=== PATIENT | female | born 1985 | race Caucasian/White ===

== ENCOUNTER 2021-12-09 08:45 | Inpatient (IN) | payer OTHER, SELFPAY ==
[2021-12-09] VITALS (34 sets, daily range): BP systolic 99–129; BP diastolic 46–87; PULSE 80–102; RESP 13–29; TEMP 36.1–37.2; O2SAT 97–100; BMI 33.5
--- NOTE | ~2021-12-09 | US_ITS ---
US abdomen complete EXAMINATION: US Abdomen Complete INDICATION: Right upper quadrant pain. PROCEDURE: Realtime High Resolution abdomen ultrasound. COMPARISON: No prior studies for comparison FINDINGS: There are gallstones with contracted gallbladder. There is gallbladder wall thickening. Co mmon bile duct measures 3 mm. Liver echotexture is increased near the falciform ligament, consistent with focal fatty infiltration. No hepatic masses are seen.. Pancreas within normal limits. Pancreatic tail is obscured by bowel g as. Spleen is unremarkeable. Renal echotexture is within normal limits bilaterally without hydroneph rosis, contour deforming mass or renal stone. Right kidney measures 1.3 cm. Left kidney measures 1.2 cm. Visualized aspects of the aorta and IVC are within normal limits. Portal vein is patent. Positive son ographic Rendon's sign indicated by the technologist. IMPRESSION: 1: Cholelithiasis with mild gallbladder wall thickening and positive sonographic Rendon's sign. This constellation of findings is suspicious for cholecystitis. Reviewed, dictated and finalized at location B. IMPRESSION: 1: Cholelithiasis with mild gallbladder wall thickening and positive sonographi c Rendon's sign. This constellation of findings is suspicious for cholecystitis .
--- NOTE | ~2021-12-09 | XR_ITS ---
EXAMINATION: [id number] DATE: 12/11/2021 08:55 INDICATION: Right rib pain TECHNIQUE: A frontal inspiratory view of the chest and 3 views of the right ribs were obtained. COMPARISON: Chest radiograph dated 12/02/2017 FINDINGS: No rib fractures identified. Mild elevation the right hemidiaphragm. No focal airspace opacities, pul monary edema, pleural effusion or pneumothorax. Cardiomediastinal silhouette is normal. Slight S-shap ed curvature of the thoracolumbar spine. IMPRESSION: 1. No rib fracture or acute cardiopulmonary disease. Reviewed, dictated and finalized at location A.
--- NOTE | ~2021-12-09 | US_ITS ---
EXAMINATION: US pelvic complete DATE: 12/10/2021 16:43 INDICATION: Pelvic pain. TECHNIQUE: Multiple transabdominal sonographic images of the pelvis were obtained. COMPARISON: CT abdomen and pelvis 12/09/2021 FINDINGS: The uterus measures 9.8 x 4.8 x 5.8 cm. There is physiologic free fluid in the pelvis. The endometria l complex measures 3 mm in thickness. The right ovary measures 3.2 x 2.0 x 2.6 cm. The left ovary dre sures 2.7 x 1.5 x 1.9 cm. There is normal vascular flow in the ovaries. IMPRESSION: 1. Normal pelvis. Reviewed, dictated and finalized at location A. IMPRESSION: 1. Normal pelvis.
--- NOTE | ~2021-12-09 | CT_ITS ---
EXAMINATION: CT abdomen pelvis w con DATE: 12/09/2021 10:41 INDICATION: Right-sided abdominal pain TECHNIQUE: Computed tomography (CT) of the abdomen and pelvis was performed with 100 mL Omnipaque-350 intravenous contrast. Automated exposure control and iterative reconstruction technique were employe d. The dose-length product was 1130.66 mGy-cm. COMPARISON: None FINDINGS: Mild dependent atelectasis in the bilateral lower lobes. Heart size is normal. No pericardial or pleu ral effusion. Focal hepatic steatosis at the ligamentum teres. Gallbladder, spleen, pancreas, bilater al adrenal glands and kidneys are normal. There is some inflammatory stranding in the right lower xu drant which appears centered more within the small bowel mesentery band along the retrocecal appendix which measures up to 9 mm in diameter with a couple tiny foci of intraluminal gas and which extends more cephalad from the region of stranding. There is mild wall thickening involving a couple segments of distal ileum in the right lower quadrant consistent with an enteritis/ileitis which could be eith er primary or secondary reactive change. Colon is unremarkable. There appears to be thickening and in creased enhancement of the broad ligament and hyperemia associated collateral vessels on both the lef t and right which also raises the possibility of pelvic inflammatory disease. Small amount of nonlocu lated free fluid in the cul-de-sac as well as anteriorly between the fundus of the anteverted uterus and the more caudal partially decompressed bladder. No abscess or free intraperitoneal gas. No patho logically enlarged abdominal or pelvic lymphadenopathy. Mild lower lumbar levocurvature. IMPRESSION: 1. Inflammatory fat stranding in the right lower quadrant with differential in the subjective descend ing order of likelihood would include pelvic inflammatory disease, terminal ileitis and acute appendi citis. Reviewed, dictated and finalized at location A. IMPRESSION: 1. Inflammatory fat stranding in the right lower quadrant with differential in the subjective descending order of likelihood would include pelvic inflammatory disease, terminal ileitis and acute appendicitis.
--- NOTE | 2021-12-09 09:11 | ED.ABDPAIN ---
HPI - Abdominal Pain General Chief Complaint: Abdominal Pain Stated Complaint: Abd pain R side Time Seen by Provider: 12/09/21 09:10 Source: patient Mode of arrival: ambulatory Limitations: no limitations History of Present Illness HPI narrative: Right upper quadrant pain started 6 months ago, intermittent, steady over the last 4 days. She did the biopsy. She denies any fever, chills, vomiting radiation of pain. History of small bowel obstruction when she was a child, ADHD, PTSD, patient smokes, drinks and uses marijuana daily. Pain worse with movement, no relieving factors. Related Data Allergies Allergy/AdvReac Type Severity Reaction Status Date / Time No Known Allergies Allergy Unknown Verified 12/02/17 08:58 Review of Systems Review of Systems: All systems reviewed & are unremarkable except as noted in HPI and below Exam Narrative: General appearance: Well-developed, well-nourished Skin: Normal color Head: Normocephalic, nontraumatic Eyes: Clear conjunctiva ENT: Oropharynx normal, ears normal, nose normal Neck: Supple, nontender Chest and respiratory: Airway patent, no respiratory distress, no accessory muscle use Heart: Regular rate/rhythm Abdomen: Soft, diffuse generalized tenderness, no organomegaly, quiet bowel sounds Vascular: Normal peripheral pulses, normal capillary refill. Musculoskeletal: Normal range of motion, nontender back Neurologic: Alert and oriented ?3, RN INTERVENTIONAL is normal as tested, no gross motor deficit Course Consultations Consultation #1: DR GAMBOA Date: 12/09/21 Time: 14:30 Consultation #2: DR KELLOGG Date: 12/09/21 Time: 14:30 Vital Signs Vital signs: Vital Signs Temperature 36.4 C 12/09/21 08:50 Pulse Rate 102 H 12/09/21 08:50 Respiratory Rate 20 12/09/21 08:50 Blood Pressure 129/73 12/09/21 08:50 Pulse Oximetry 99 12/09/21 08:50 Oxygen Delivery Room Air 12/09/21 08:50 Temperature 37.2 C 12/09/21 09:13 Pulse Rate 81 12/09/21 13:45 Respiratory Rate 21 H 12/09/21 13:45 Blood Pressure 107/58 L 12/09/21 13:45 Pulse Oximetry 98 12/09/21 13:45 Oxygen Delivery Room Air 12/09/21 09:13 MDM - Abdominal Pain Differential Diagnosis Differential diagnosis: Likely abdominal pain, acute appendicitis, calculus of kidney, constipation, diverticulitis, pancreatitis and small bowel obstruction Lab Data Result diagrams: 12/09/21 09:27 12/09/21 09:27 Labs: Lab Results 12/09/21 12/09/21 12/09/21 Range/Units 09:27 09:27 09:43 WBC 13.1 H (4.5-10.0) K/mm3 RBC 4.76 (4.2-5.4) M/mm3 Hgb 12.7 (12.0-15.0) g/dL Hct 40.1 (37.0-47.0) % MCV 84.2 (80-100) fl MCH 26.7 (26-34) pg MCHC 31.7 L (32-36) g/dl RDW 13.7 (11.5-14.5) % Plt Count 302 (150-375) k/mm3 MPV 10.5 H (7.4-10.4) fl Immature Gran % (Auto) 0.4 (0-0.5) % Neut % (Auto) 79.3 H (45.5-73.1) % Lymph % (Auto) 8.0 L (18.3-44.2) % [place] % (Auto) 10.5 H (2.6-8.5) % Eos % (Auto) 1.5 (0-4.4) % Baso % (Auto) 0.3 (0.2-1.2) % Lymph # (Auto) 1.05 (0.9-3.2) K/mm3 [place] # (Auto) 1.4 H (0.1-0.6) K/mm3 Eos # (Auto) 0.2 (0-0.3) K/mm3 Baso # (Auto) 0.0 (0.0-0.1) K/mm3 Abs Immat Gran (auto) 0.05 H (0.00-0.031) K/mm3 Absolute Neuts (auto) 10.4 H (1.3-6.7) K/mm3 Absolute Nucleated RBC 0.0 (0.0-0.012) K/mm3 Nucleated RBC % 0.0 (0.0-0.2) % Sodium 138 (137-145) mmol/L Potassium 4.2 (3.4-5.0) mmol/L Chloride 98 (98-107) mmol/L Carbon Dioxide 27 (22-30) mmol/L Anion Gap 13 (8-16) mmol/L BUN 8 (7-17) mg/dL Creatinine 0.80 (0.7-1.0) mg/dL Estim Creat Clear Calc 99
[2021-12-09 09:35] LABS: Basophils Percent Auto 0.3 % (0.2-1.2); Eosinophils Absolute Auto 0.2 K/mm3 (0-0.3); Eosinophils Percent Auto 1.5 % (0-4.4); Hematocrit 40.1 % (37.0-47.0); Hemoglobin 12.7 g/dL (12.0-15.0); Immature Granulocyte Absolute 0.05 K/mm3 (0.00-0.031); Immature Granulocyte Percent A 0.4 % (0-0.5); Lymphocytes Absolute Auto 1.05 K/mm3 (0.9-3.2); Mean Corpuscular HGB Conc 31.7 g/dl (32-36); Mean Corpuscular Hemoglobin 26.7 pg (26-34); Mean Corpuscular Volume 84.2 fl (80-100); Mean Platelet Volume 10.5 fl (7.4-10.4); Monocytes Absolute Auto 1.4 K/mm3 (0.1-0.6); Monocytes Percent Auto 10.5 % (2.6-8.5); Neutrophils Absolute Auto 10.4 K/mm3 (1.3-6.7); Neutrophils Percent Auto 79.3 % (45.5-73.1); Platelet Count Result 302 k/mm3 (150-375); Red Blood Count 4.76 M/mm3 (4.2-5.4); Red Cell Distribution Width 13.7 % (11.5-14.5); White Blood Count 13.1 K/mm3 (4.5-10.0)
[2021-12-09 09:46] LABS: Alanine Aminotransferase 48 U/L (6-35); Alkaline Phosphatase 80 U/L (38-126); Anion Gap 13 mmol/L (8-16); Aspartate Amino Transferase 46 U/L (14-36); Bilirubin,Total 0.9 mg/dL (0.2-1.3); Blood Urea Nitrogen 8 mg/dL (7-17); Calcium 8.5 mg/dL (8.4-10.2); Carbon Dioxide 27 mmol/L (22-30); Chloride 98 mmol/L (98-107); Estimated CRCL calculation 99 ml/min; Estimated Glomerular Filt Rate > 60; Glucose 117 mg/dL (65-110); Lipase 20 U/L (23-300); Potassium 4.2 mmol/L (3.4-5.0); Sodium 138 mmol/L (137-145)
[2021-12-09] MEDS: ONDANSETRON INJ 4 MG/2 ML VIAL IV PUSH (09:52)
[2021-12-09] MEDS: SODIUM CHLORIDE 0.9% IV 1,000 ML 999 ML IV CONT (09:52)
[2021-12-09] MEDS: HYDROmorphone HCL INJ (*CRX) 1 MG/ML SYR 0.5 MG IV PUSH ×2 (09:52→18:18)
[2021-12-09 10:06] LABS: Pregnancy On Board Control Positive; Urine Pregnancy Test Negative
[2021-12-09 10:08] LABS: Add Urine Microscopic? YES; Appearance Urine Cloudy (Clear); Bilirubin Urine Negative (Negative); Blood Urine 1+ (Negative); Color Urine Amber (Yellow); Glucose Urine UA Negative (Negative); Ketones Urine Trace mg/dL (Negative); Leukocyte Esterase Ur 1+ LEU/UL (Negative); Mucus Urine Moderate /lpf; Nitrate Urine Negative (Negative); Protein Urine Negative (Negative); Specific Grav Ur 1.028 (1.001-1.035); Squamous Epithelial Cell Urine Moderate /hpf (Few); WBC Urine 16-20 /hpf
--- NOTE | 2021-12-09 13:42 | PM.CNGS ---
Assessment and Plan Assessment and plan (1) Right-sided abdominal pain of unknown cause: Code(s): R10.9 - Unspecified abdominal pain Status: Acute Assessment and Plan: the history, exam findings, in CT scan would be a very unusual presentation for acute appendicitis. I doubt that this represents appendicitis. With the patient's history of this recurring off and on for 6 months, it seems that inflammatory bowel disease such as Crohn's ileitis or possibly PID would be more likely. No plans for surgery at the present. I discussed my findings with the emergency room physician. I will follow along with you. I would treat the patient with Zosyn IV for now. I have no plans for surgery, she is quite hungry and is fine with me for her to go ahead in eat. 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 Repeat labs and exam again tomorrow. History of Present Illness Consult details Consult date: 12/09/21 Reason for consult: abdominal pain Requesting physician: Lesia Mendoza MD Narrative: Patient is a 35-year-old woman who reports she has had abdominal pain off and on for about 6 months. The pain moves around in her abdomen. Often it will start in the lower abdomen particularly the right lower quadrant to then move across to the left side. From here we will move up to the right upper quadrant. She refers to a triangle between the right upper quadrant the left lower quadrant and the right lower quadrant or the pain typically occurs. In general when she gets this pain, it will just go away and is not particularly severe. About 5 days ago, she again developed this pain but it has been more severe and has not resolved. She continues to have pain and it is very uncomfortable. She finished her last menstrual period about 2 or 3 days before the onset of the pain. This was a normal menses. She has not felt feverish or taken her temperature. She has not had any nausea or vomiting. She denies any history of previous pelvic infections. She was noted to have tenderness in the right upper quadrant, right lower quadrant and in general fairly diffuse tenderness to a lesser degree throughout the abdomen. Her white blood cell count was 00005. Urinalysis showed 16-20 white cells but did have a moderate amount of squamous cells as well. She had a CT scan of the abdomen and pelvis. This showed an inflamed area of the distal ileum. The appendix was seen and was retrocecal and had 2 small areas of air within the appendix. It was not enlarged at only 9 mm. There was also some evidence of inflammation in the pelvis particularly the broad ligament. Radiology per the CT scan felt this was most likely pelvic inflammatory disease or ileitis and still possibly appendicitis. Patient is seen in consultation regarding her abdominal pain. Review of Systems Review of Systems: All systems reviewed & are unremarkable except as noted in HPI and below ( HPI and those items noted below) Constitutional: Constitutional: Denies chills and Denies fever(s) Cardiovascular: Cardiovascular: Denies chest pain, Denies diaphoresis, Denies dyspnea and Denies paroxysmal nocturnal dyspnea Respiratory: Respiratory: Denies chest congestion, Denies cough and Denies dyspnea Gastrointestinal: Gastrointestinal: Reports as per HPI, Reports abdominal pain, Denies constipation, Denies dyspepsia, Denies nausea and Denies vomiting Genitourinary: Genitourinary: Reports as per HPI Integumentary/Breasts: Skin/Breast: Denies lesions and Denies rash Meds Home Medications and Allergies Allergies Allergy/AdvReac Type Severity Reaction Status Date / Time No Known Allergies Allergy Unknown Verified 12/02/17 08:58 Vital Signs Vital Signs - 24 hr 12/09/21 08:50 12/09/21 09:13 12/09/21 09:16 Temperature 36.4 C 37.2 C Pulse Rate 102 H 96 94 Respiratory Rate 20 15 15 Blood Pressure 129/73 117/81 121/82 Pulse Oximetry 99 100 100 Oxygen Delivery Room Air Room Air
[2021-12-09] MEDS: LORazepam INJ (*CRX) 2 MG/ML VIAL 1 MG IV PUSH (14:54)
--- NOTE | 2021-12-09 15:35 | PM.IMHP ---
H&P: HPI History of Present Illness Date/Time: 12/09/21 15:35 Chief Complaint: Abdominal pain. Narrative: This is a 35-year-old female with history of anxiety and PTSD who presented to the emergency department from home for evaluation of abdominal pain. She has had intermittent right upper quadrant abdominal pain for the past 6 months which she describes as sharp and shooting in nature. It does not radiate and she has not noticed any significant alleviating or aggravating factors. She has not noticed that is related to food either. Over the last 4 days her symptoms have been much worse and the pain is nearly constant. On exam today she reports that the pain is worse when lying supine and she also states that is worse when up walking. She has also had chills and sweats but no fever. Her appetite has not been terrible and she denies nausea, vomiting, and diarrhea. A CT of the abdomen and pelvis was ordered due to concerns for possible cholecystitis however imaging showed inflammatory fat stranding in the right lower quadrant with a differential diagnosis to include pelvic inflammatory disease, terminal ileitis, and acute appendicitis. She was seen by Dr. Alexandre in the ED who does not feel that her history and physical findings are suggestive of acute appendicitis. With further questioning the patient has noticed an increase in vaginal discharge for the past 4 days though she has not noticed any change in color or smell of the discharge. She has no known history of sexually transmitted infections however she lost a daughter at the age of 4 weeks to HSV infection and despite multiple workups she never tested positive for such. Review of Systems Review of Systems: Twelve systems were reviewed. No fever. No recent cold or flu symptoms. Weight has remained stable despite her trying to lose weight. She has noticed that her hair is thinning and not growing well and that she has developed increasing hair on her face. She is concerned that she may have some sort of hormonal imbalance. Her periods were heavy earlier this year but have since normalized. She believes that she has a history of fibroids but cannot say for certain. Except as documented, all other systems were reviewed and are negative. [facility] Past Medical History Medical History (Updated 12/09/21 @ 20:34 by Adele Mccoy PA-C) Anxiety Post traumatic stress disorder Surgical History Surgical History (Updated 12/09/21 @ 20:31 by Adele Mccoy PA-C) History of dilation and curettage Social History Social History (Updated 12/09/21 @ 20:32 by Adele Mccoy PA-C) Social History: Surrogate medical decision maker: Pippa Rachel, mother. Code status: Full code. 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 Spiritual care concerns: No Has the Lack of Transportation Kept You From Medical Appointments or From Getting Medications?: No Within the Past 12 Months, Were You Worried Whether Your Food Would Run Out Before You Got Money to Buy More?: Never True What is Your Housing Situation Today?: I Have Housing Are You Worried That in the Next 2 Months, You May Not Have Your Own Housing to Live In?: No Do You Have Trouble Paying Your Heating Or Electricity Bill?: No Do You Have Trouble Paying For Medicines?: No Are You Currently Unemployed and Looking for Work?: No Highest Level of Education Completed: High School Diploma/GED Do You Have Trouble With Childcare or the Care of a Family Member?: No Meds Home Medications and Allergies Home Medications Medication Instructions Recorded Confirmed Type alprazolam 0.5 mg tablet 0.5 mg PO PRN PRN Anxiety 12/09/21 12/09/21 History bupropion HCl 200 mg tablet,12 hr 200 mg PO CHINO
--- NOTE | 2021-12-09 17:57 | PC.NURSE ---
Pt is a vegetarian
--- NOTE | 2021-12-09 17:57 | PC.NURSE ---
Pt explained during the admission process that she has a history of severely painful menstruation including but not limited to the last 6 months which also includes passing of large clots the size of baseballs. What pt described sounds like uterine fibroids along with the accompanying pain associated with them.
[2021-12-09] MEDS: SODIUM CHLORIDE 0.9% IV 1,000 ML 150 ML IV CONT (18:13)
[2021-12-09] MEDS: ACETAMINOPHEN 325 MG TABLET 650 MG PO (18:18)
[2021-12-09] MEDS: DOXYCYCLINE HYCLATE 100 MG TABLET PO (18:18)
[2021-12-09] MEDS: metroNIDAZOLE 250 MG TABLET 500 MG PO (18:19)
[2021-12-10] VITALS (7 sets, daily range): BP systolic 108–128; BP diastolic 70–83; PULSE 80–93; RESP 16–24; TEMP 35.9–36.8; O2SAT 95–99
[2021-12-10] MEDS: DOXYCYCLINE HYCLATE 100 MG TABLET PO ×2 (05:33→17:31)
--- NOTE | 2021-12-10 06:49 | WPDGICN ---
Assessment and Plan Assessment and plan (1) Abdominal pain: Code(s): R10.9 - Unspecified abdominal pain Status: Acute Assessment and Plan: given the fact she is tender in 3 quadrants confuses the picture. She has insists that the most pain is in the upper abdomen. Because of her history of ulcer, will schedule her for EGD to be done today. (2) Abnormal CT scan, gastrointestinal tract: Code(s): R93.3 - Abnormal findings on diagnostic imaging of other parts of digestive tract Status: Acute Assessment and Plan: The findings are nonspecific, but suggest possible ileitis. This however would not explain other pain on the left lower quadrant right upper quadrant or right lower thorax. I will order serology for inflammatory bowel disease and fecal calprotectin. Elevated white blood count also suggests possible inflammatory or infectious process (3) Chest wall tenderness: Code(s): R07.89 - Other chest pain Status: Acute Assessment and Plan: Not sure why she would be tender in the lower ribs. She denies any recent trauma or injury. (4) Nausea: Code(s): R11.0 - Nausea Status: Acute Assessment and Plan: very nauseated with certain foods. Also history of ulcer with bleeding. I will schedule her for EGD to be done today (5) Post traumatic stress disorder: Code(s): F43.10 - Post-traumatic stress disorder, unspecified Status: Acute Assessment and Plan: considering this, and her history of anxiety, some pain may be due to visceral hypersensitivity, particularly given the fact that she is tender in all but the left upper quadrant even there I did release that a wince with palpation. GI Consult Note Consult date/time: 12/10/21 06:49 HPI: Sherie Rachel is a 35 year old female who was admitted over the weekend with abdominal pain. She states that although this has been present on and off for 6 months, it has been virtually continuous and severe for the past fiber 6 days. Moving around seems to intensify her pain. She has pain in the right upper quadrant and right lower chest which is very tender to touch, also pain in the right lower quadrant and at times in the left lower quadrant. She has not had a fever. She has had no vomiting. She does get frequently nauseated because she has many food sensitivities. She does not tolerate meat, spicy food, or red sauces which make her nauseated. despite that, she has not lost weight. Her weight has remained stable throughout the past few years. She does not use marijuana daily but use it periodically when she is nauseated and finds it helps. Does not take NSAIDs except occasionally for cramping. She states that she had a bleeding ulcer when she was a teenager but was not diagnosed endoscopically. It Was based on upper abdominal pain and the fact that she vomited some blood. She has not had any significant change in bowel habits. She believes her last bowel movement was yesterday but she did not get a look at it. She was seen by surgery because a CT scan showed some fat stranding in the right lower quadrant of a nonspecific nature. It was felt that she does not have a surgical abdomen or pants itis. Gynecology consult is pending. She apparently has had some vaginal discharge. Review of Systems Review of Systems: All systems reviewed & are unremarkable except as noted in HPI and below PMFSH Past Medical History Medical History Anxiety Post traumatic stress disorder Surgical History Surgical History History of dilation and curettage Social History Social History Social History: Surrogate medical decision maker: Pippa Rachel, mother. Code status: Full code. Years smoked: 10 Smoking status: Current every day smoker Tobacco t
[2021-12-10] MEDS: HYDROmorphone HCL INJ (*CRX) 1 MG/ML SYR 0.5 MG IV PUSH ×2 (08:52→19:29)
[2021-12-10] MEDS: ACETAMINOPHEN 325 MG TABLET 650 MG PO ×2 (08:53→19:29)
[2021-12-10] MEDS: PARoxetine 10 MG TABLET PO (08:53)
[2021-12-10] MEDS: metroNIDAZOLE 250 MG TABLET 500 MG PO ×2 (08:54→17:30)
[2021-12-10] MEDS: buPROPion HCL SR (12HR) 100 MG TABCR 200 MG PO (08:54)
[2021-12-10] MEDS: ALPRAZolam (*CRX) 0.5 MG TABLET PO ×2 (08:54→19:29)
[2021-12-10 09:31] LABS: Basophils Percent Auto 0.4 % (0.2-1.2); Eosinophils Absolute Auto 0.3 K/mm3 (0-0.3); Eosinophils Percent Auto 2.7 % (0-4.4); Hematocrit 36.1 % (37.0-47.0); Hemoglobin 11.5 g/dL (12.0-15.0); Immature Granulocyte Absolute 0.05 K/mm3 (0.00-0.031); Immature Granulocyte Percent A 0.5 % (0-0.5); Lymphocytes Absolute Auto 0.91 K/mm3 (0.9-3.2); Lymphocytes Percent Auto 9.4 % (18.3-44.2); Mean Corpuscular HGB Conc 31.9 g/dl (32-36); Mean Corpuscular Hemoglobin 27.1 pg (26-34); Mean Corpuscular Volume 84.9 fl (80-100); Mean Platelet Volume 10.4 fl (7.4-10.4); Monocytes Absolute Auto 0.8 K/mm3 (0.1-0.6); Monocytes Percent Auto 8.2 % (2.6-8.5); Neutrophils Absolute Auto 7.6 K/mm3 (1.3-6.7); Neutrophils Percent Auto 78.8 % (45.5-73.1); Platelet Count Result 291 k/mm3 (150-375); Red Blood Count 4.25 M/mm3 (4.2-5.4); Red Cell Distribution Width 13.9 % (11.5-14.5); White Blood Count 9.7 K/mm3 (4.5-10.0)
--- NOTE | 2021-12-10 09:40 | PHAR ---
HOME MED: VYVANSE 70 MG CAPSULE; TAKE 1 CAPSULE BY MOUTH EVERY MORNING. VERIFIED BY PHARMACY.
[2021-12-10 09:41] LABS: Alanine Aminotransferase 54 U/L (6-35); Albumin Level 3.6 g/dL (3.5-5.1); Alkaline Phosphatase 102 U/L (38-126); Anion Gap 8 mmol/L (8-16); Aspartate Amino Transferase 34 U/L (14-36); Bilirubin,Total 0.3 mg/dL (0.2-1.3); Blood Urea Nitrogen 6 mg/dL (7-17); Calcium 8.1 mg/dL (8.4-10.2); Carbon Dioxide 29 mmol/L (22-30); Chloride 103 mmol/L (98-107); Estimated CRCL calculation 117 ml/min; Estimated Glomerular Filt Rate > 60; Glucose 108 mg/dL (65-110); Potassium 4.1 mmol/L (3.4-5.0); Sodium 140 mmol/L (137-145)
[2021-12-10 10:04] LABS: CRP 16.3 mg/dL (<1.0)
--- NOTE | 2021-12-10 10:14 | PM.PNGS ---
Progress Note: A&P Assessment and Plan (1) Right-sided abdominal pain of unknown cause: Code(s): R10.9 - Unspecified abdominal pain Status: Acute Assessment and Plan: Still requiring Dilaudid for her abdominal pain today. WBC down to 9.7. Continue IV antibiotics. Her presentation does not correlate with acute appendicitis, and we feel this is not likely. GI recommendations noted, planned for EGD today. Agree with Gynecology consultation. No plans for surgery at this time. Continue to monitor. Plan I have discussed the patient's case and plan of care with Dr. Alexandre. Subjective Subjective Date/Time Seen: 12/10/21 10:14 Patient reports: still having pain, flatus and afebrile Interval history: Patient seen and examined. Chart reviewed. She feels about the same as yesterday. No nausea or vomiting. She is currently on clear liquids for breakfast and scheduled for the EGD this afternoon. She is still having the same abdominal pain and requiring IV Dilaudid. No acute changes overnight. Review of Systems Review of Systems: All systems reviewed & are unremarkable except as noted in HPI and below Constitutional: Constitutional: Denies fever(s) Exam Const: General: comfortable, no acute distress and alert Orientation/consciousness: patient oriented x3 GI: Inspection: non-distended and no visible herniation GI Palp: Yes Soft to palpation, Yes Tenderness to palpation present (GI) (diffusely tender, worst in RLQ/LLQ, also tender over R lateral lower ribs), No Guarding due to palpation present (GI) and No Rebound tenderness present Auscultation: normal bowel sounds Objective Data Vital Signs Vital Signs: Vital Signs - 24 hr 12/09/21 10:15 12/09/21 10:40 12/09/21 10:48 Temperature Pulse Rate 92 88 Respiratory Rate 14 27 H Blood Pressure Pulse Oximetry 97 100 97 Oxygen Delivery 12/09/21 11:01 12/09/21 11:15 12/09/21 11:33 Temperature Pulse Rate 86 89 87 Respiratory Rate 13 19 17 Blood Pressure Pulse Oximetry 99 100 100 Oxygen Delivery 12/09/21 11:45 12/09/21 12:00 12/09/21 12:26 Temperature Pulse Rate 89 85 86 Respiratory Rate 16 22 H 22 H Blood Pressure 122/80 Pulse Oximetry 100 99 99 Oxygen Delivery 12/09/21 12:30 12/09/21 12:45 12/09/21 13:00 Temperature Pulse Rate 83 81 87 Respiratory Rate 25 H 24 H 23 H Blood Pressure 122/87 121/82 122/77 Pulse Oximetry 98 99 98 Oxygen Delivery 12/09/21 13:15 12/09/21 13:30 12/09/21 13:45 Temperature Pulse Rate 85 90 81 Respiratory Rate 19 15 21 H Blood Pressure 119/84 99/46 L 107/58 L Pulse Oximetry 98 98 98 Oxygen Delivery 12/09/21 12:46 12/09/21 13:01 12/09/21 13:16 Temperature Pulse Rate 82 87 87 Respiratory Rate 24 H 26 H 18 Blood Pressure 121/82 122/77 119/84 Pulse Oximetry 99 99 100 Oxygen Delivery 12/09/21 13:31 12/09/21 14:31 12/09/21 15:16 Temperature Pulse Rate 86 85 80 Respiratory Rate 27 H 25 H 22 H Blood Pressure 99/46 L 129/82 123/66 Pulse Oximetry 100 99 99 Oxygen Delivery 12/09/21 15:31 12/09/21 15:46 12/09/21 16:01 Temperature Pulse Rate 83 99 88 Respiratory Rate 25 H 17 29 H Blood Pressure 117/61 110/81 123/72 Pulse Oximetry 98 99 98 Oxygen Delivery 12/09/21 16:36 12/09/21 16:50 12/09/21 17:30 Temperature 97.0 F L Pulse Rate 85 86 Respiratory Rate 22 H 20 Blood Pressure 111/70 Pulse Oximetry 98 97 Oxygen Delivery Room Air 12/09/21 21:48 12/09/21 20:00 12/10/21 05:39 Temperature 97.5 F L 97.9 F Pulse Rate 86 82 Respiratory Rate 20 20 Blood Pressure 110/68 108/73 Pulse Oximetry 99 95 Oxygen Delivery Room Air Intake/Output Intake/Output: Intake & Output 12/07/21 12/08/21 12/09/21 12/10/21 23:59 23:59 23:59 23:59 Intake Total 1200 50 Output Total 0 Balance 1200 50 Meds/Results Medications: Active Medications Generic Name Dose Route Start Last Admin Trade Name Freq PRN Reas
--- NOTE | 2021-12-10 10:16 | WPDCN ---
Assessment and Plan Assessment and plan (1) Acute pelvic inflammatory disease (PID): Code(s): N73.0 - Acute parametritis and pelvic cellulitis Status: Acute (2) Abdominal pain: Code(s): R10.9 - Unspecified abdominal pain Status: Acute Assessment and Plan: patient has a nonspecific right lower quadrant pain. She is not thought by surgery to have An appendicitis. GI has been consulted. There was the consideration of ileitis. She also has some right upper quadrant pain. They are planning some endoscopy today. There is a possibility of pelvic inflammatory disease. She has been getting appropriate antibiotics. Continue observation antibiotic treatment. To obtain pelvic ultrasound. [facility] Data of Consult Date/Time: 12/10/21 10:16 Requesting Physician: Yomi Loredo MD Primary Care Provider: MEDICAL BILLING CLERK PHYSICIAN Consult Narrative Narrative: Sherie Rachel is a 35 year old female She presented to the ER abdominal pain. It is right lower quadrant pain that was worse with movement. It was sharp . Was intermittent. Rated in 8/10. Patient denies any foul-smelling vaginal discharge. She does report heavy menses. She is not bleeding at this time. She denies any nausea, vomiting, fever chills. She does feel very hot and sweaty. She denies any chest pain or shortness of breath. Review of Systems Review of Systems: All systems reviewed & are unremarkable except as noted in HPI and below Constitutional: Constitutional: Denies chills, Denies fatigue, Denies fever(s) and Denies weakness Eyes: Eyes: Denies blurry vision, Denies change in vision, Denies loss of peripheral vision, Denies loss of vision, Denies other visual disturbances and Denies eye pain ENT: Denies vertigo, Denies dizziness, Denies hearing loss, Denies mouth pain, Denies nasal obstruction, Denies neck mass and Denies neck pain Cardiovascular: Cardiovascular: Denies chest pain, Denies diaphoresis, Denies syncope, Denies leg edema and Denies dyspnea Respiratory: Respiratory: Denies chest congestion, Denies cough, Denies hemoptysis, Denies dyspnea and Denies wheezing Gastrointestinal: Gastrointestinal: Denies abdominal pain, Denies constipation, Denies diarrhea, Denies nausea and Denies vomiting Genitourinary: Genitourinary: Denies hematuria, Denies change in libido, Denies nocturia, Denies genital lesions, Denies flank pain and Denies urinary urgency Musculoskeletal: Musculoskeletal: Denies abnormal gait, Denies back pain, Denies myalgias, Denies arthralgias, Denies joint swelling, Denies muscle weakness and Denies neck pain Integumentary/Breasts: Skin/Breast: Denies swelling, Denies breast pain, Denies breast mass, Denies dry skin, Denies nipple discharge, Denies unusual bruising and Denies jaundice Neurologic: Denies Neuro-related abnormal movements, Denies Abnormal speech present, Denies abnormal gait, Denies behavioral changes, Denies confusion, Denies vertigo, Denies dizziness, Denies syncope, Denies loss of vision, Denies memory loss, Denies convulsions and Denies weakness Psychiatric: Psychiatric: Denies abnormal sleep pattern, Denies behavioral changes, Denies change in libido, Denies confusion, Denies depression, Denies anhedonia and Denies memory loss Endocrine: Endocrine: Reports no additional endocrine complaints, Denies change in libido and Denies fatigue Hematologic/Lymphatic: Hematologic/Lymphatic: Reports no additional hematologic/lymphatic complaints Allergic/Immunologic: Allergic/Immunologic: Reports no additional allergic/immunologic complaints and Denies wheezing PMFSH Past Medical History Medical History Anxiety Post traumatic stress disorder Surgical History Surgical History History of dilation and curettage Social History Social History Socia
[2021-12-10 10:31] LABS: Hepatitis B Surface Antigen Negative (Negative)
[2021-12-10 10:37] LABS: HAV RESULT Negative (Negative); Hepatitis B Core IgM Result Negative (Negative)
[2021-12-10 10:49] LABS: Hepatitis C Virus Antibody Negative (Negative)
--- NOTE | 2021-12-10 11:46 | PM.IMPN ---
Progress Note: A&P Assessment and Plan (1) Right-sided abdominal pain of unknown cause: Code(s): R10.9 - Unspecified abdominal pain Status: Acute Assessment and Plan: reviewed CT scan. (2) Acute pelvic inflammatory disease (PID): Code(s): N73.0 - Acute parametritis and pelvic cellulitis Status: Acute Assessment and Plan: Reviewed CT scan. Continue antibiotics pain control. Surgery to also evaluate the patient (3) Elevated LFTs: Code(s): R79.89 - Other specified abnormal findings of blood chemistry Status: Acute Assessment and Plan: mild elevation of ALT. (4) Post traumatic stress disorder: Code(s): F43.10 - Post-traumatic stress disorder, unspecified Status: Acute Assessment and Plan: Monitor (5) Anxiety: Code(s): F41.9 - Anxiety disorder, unspecified Status: Acute Assessment and Plan: monitor Subjective Date/time seen: 12/10/21 11:46 No new complaints Exam Narrative: General: Well-developed, nontoxic-appearing female sitting up in bed eating lunch in no distress. Weight: 97 kilograms. BMI: 33.5. HEENT: PERRL, EOMI. Sclera anicteric. Oral mucosa moist. Neck: Supple. Respiratory: Lungs are clear to auscultation bilaterally. Cardiovascular: Regular rate and rhythm with S1-S2. Gastrointestinal: Abdomen is soft And nondistended with positive bowel sounds. She is tender to palpation more so in the right upper quadrant. Demonstrates voluntary guarding but no rebound tenderness. Genitourinary: Exam is deferred. See ED physician note. Skin: Warm and dry. No rash or lesions on limited exam. Extremities: No cyanosis, clubbing, or edema. Radial and pedal pulses intact. Neurological: Alert. Cranial nerves 2-12 are grossly intact. No gross focal deficits to casual conversation. Psychiatric: Appropriate mood and affect. Objective Data Vital Signs Vital Signs: Vital Signs - 24 hr 12/09/21 12:00 12/09/21 12:26 12/09/21 12:30 Temperature Pulse Rate 85 86 83 Respiratory Rate 22 H 22 H 25 H Blood Pressure 122/80 122/87 Pulse Oximetry 99 99 98 Oxygen Delivery 12/09/21 12:45 12/09/21 13:00 12/09/21 13:15 Temperature Pulse Rate 81 87 85 Respiratory Rate 24 H 23 H 19 Blood Pressure 121/82 122/77 119/84 Pulse Oximetry 99 98 98 Oxygen Delivery 12/09/21 13:30 12/09/21 13:45 12/09/21 12:46 Temperature Pulse Rate 90 81 82 Respiratory Rate 15 21 H 24 H Blood Pressure 99/46 L 107/58 L 121/82 Pulse Oximetry 98 98 99 Oxygen Delivery 12/09/21 13:01 12/09/21 13:16 12/09/21 13:31 Temperature Pulse Rate 87 87 86 Respiratory Rate 26 H 18 27 H Blood Pressure 122/77 119/84 99/46 L Pulse Oximetry 99 100 100 Oxygen Delivery 12/09/21 14:31 12/09/21 15:16 12/09/21 15:31 Temperature Pulse Rate 85 80 83 Respiratory Rate 25 H 22 H 25 H Blood Pressure 129/82 123/66 117/61 Pulse Oximetry 99 99 98 Oxygen Delivery 12/09/21 15:46 12/09/21 16:01 12/09/21 16:36 Temperature Pulse Rate 99 88 85 Respiratory Rate 17 29 H 22 H Blood Pressure 110/81 123/72 Pulse Oximetry 99 98 98 Oxygen Delivery 12/09/21 16:50 12/09/21 17:30 12/09/21 21:48 Temperature 97.0 F L 97.5 F L Pulse Rate 86 86 Respiratory Rate 20 20 Blood Pressure 111/70 110/68 Pulse Oximetry 97 99 Oxygen Delivery Room Air 12/09/21 20:00 12/10/21 05:39 12/10/21 08:00 Temperature 97.9 F Pulse Rate 82 Respiratory Rate 20 Blood Pressure 108/73 Pulse Oximetry 95 Oxygen Delivery Room Air Room Air Intake/Output Intake/Output: Intake & Output 12/07/21 12/08/21 12/09/21 12/10/21 23:59 23:59 23:59 23:59 Intake Total 1200 200 Output Total 0 Balance 1200 200 Meds/Results Medications: Active Medications Generic Name Dose Route Start Last Admin Trade Name Freq PRN Reason Stop Dose Admin Acetaminophen 650 mg 12/09/21 15:23 12/10/21 08:53 Acet
[2021-12-10] MEDS: LACTATED RINGERS 1,000 ML 150 ML IV CONT (13:26)
--- NOTE | 2021-12-10 13:52 | WPDANESEPPF ---
Anes - Initial Pre Proc Eval Procedure: Operation Date: 12/10/21 14:30 Proposed Procedures p Esophagogastroduodenoscopy EGD - Kamaljit Ray MD Date/Time: 12/10/21 13:52 Surgeon: Yomi Loredo MD Pre Op Diagnosis: ABDOMINAL PAIN,PID-SUSPECTED,APPENDICITIS-SUSPECTE Patient Data Age: 35 Gender: F Height: 1.7 m Weight: 99.3 kg Last Vital Signs Temp 97.0 F L 12/10/21 13:23 Pulse 93 12/10/21 13:23 Resp 20 12/10/21 13:23 BP 116/77 12/10/21 13:23 Pulse Ox 97 12/10/21 13:23 O2 Del Method Room Air 12/10/21 13:23 Allergies Allergy/AdvReac Type Severity Reaction Status Date / Time No Known Allergies Allergy Unknown Verified 12/10/21 13:21 Home Medications Medication Instructions Recorded Confirmed Type alprazolam 0.5 mg tablet 0.5 mg PO PRN PRN Anxiety 12/09/21 12/10/21 History bupropion HCl 200 mg tablet,12 hr 200 mg PO DAILY 12/09/21 12/10/21 History sustained-release lisdexamfetamine 70 mg capsule 70 mg PO DAILY 12/09/21 12/10/21 History (Vyvanse) paroxetine HCl 10 mg tablet 10 mg PO DAILY 12/09/21 12/10/21 History Laboratory Tests 12/09/21 12/09/21 12/10/21 14:41 14:41 09:18 WBC 9.7 K/mm3 K/mm3 (4.5-10.0) RBC 4.25 M/mm3 M/mm3 (4.2-5.4) Hgb 11.5 g/dL L g/dL (12.0-15.0) Hct 36.1 % L % (37.0-47.0) MCV 84.9 fl fl (80-100) MCH 27.1 pg pg (26-34) MCHC 31.9 g/dl L g/dl (32-36) RDW 13.9 % % (11.5-14.5) Plt Count 291 k/mm3 k/mm3 (150-375) MPV 10.4 fl fl (7.4-10.4) Immature Gran % (Auto) 0.5 % % (0-0.5) Neut % (Auto) 78.8 % H % (45.5-73.1) Lymph % (Auto) 9.4 % L % (18.3-44.2) Chase % (Auto) 8.2 % % (2.6-8.5) Eos % (Auto) 2.7 % % (0-4.4) Baso % (Auto) 0.4 % % (0.2-1.2) Lymph # (Auto) 0.91 K/mm3 K/mm3 (0.9-3.2) Chase # (Auto) 0.8 K/mm3 H K/mm3 (0.1-0.6) Eos # (Auto) 0.3 K/mm3 K/mm3 (0-0.3) Baso # (Auto) 0.0 K/mm3 K/mm3 (0.0-0.1) Abs Immat Gran (auto) 0.05 K/mm3 H K/mm3 (0.00-0.031) Absolute Neuts (auto) 7.6 K/mm3 H K/mm3 (1.3-6.7) Absolute Nucleated RBC 0.0 K/mm3 K/mm3 (0.0-0.012) Nucleated RBC % 0.0 % % (0.0-0.2) Sodium Potassium Chloride Carbon Dioxide Anion Gap BUN Creatinine Estim Creat Clear Calc Estimated GFR Glucose Calcium Magnesium Total Bilirubin AST ALT Alkaline Phosphatase C-Reactive Protein Total Protein Albumin TSH (Reflex) ANCA Screen Proteinase 3 (PR3) Ab Myeloperoxidase Ab C.trachomatis RNA (TMA) Pending Hepatitis A IgM Ab Hep Bs Antigen Hep B Core IgM Ab Hepatitis C Ab Screen N.gonorrhoeae RNA (TMA) Pending S.cerevisiae IgG Ab S.cerevisiae IgA Ab Trichomonas Direct ID Negative (Negative) 12/10/21 12/10/21 12/10/21 09:18 09:18 09:18 WBC RBC Hgb Hct MCV MCH MCHC RDW Plt Count MPV Immature Gran % (Auto) Neut % (Auto) Lymph % (Auto) Chase % (Auto) Eos % (Auto) Baso % (Auto) Lymph # (Auto) Chase # (Auto) Eos # (Auto) Baso # (Auto) Abs Immat Gran (auto) Absolute Neuts (auto) Absolute Nucleated RBC Nucleated RBC % Sodium 140 mmol/L mmol/L (137-145) Potassium 4.1 mmol/L mmol/L
[2021-12-10] MEDS: NICOTINE (*PBKC) 14 MG PATCH 1 PATCH TRANSDERM (22:20)
[2021-12-11] VITALS (16 sets, daily range): BP systolic 106–135; BP diastolic 68–94; PULSE 71–98; RESP 12–18; TEMP 35.9–36.6; O2SAT 95–100
[2021-12-11] MEDS: DOXYCYCLINE HYCLATE 100 MG TABLET PO ×2 (05:27→21:00)
--- NOTE | 2021-12-11 06:18 | PC.NURSE ---
@1945 on 12/10/21 Pt family in room during shift change. Received report from day shift nurse. During change of shift pt called front nurse desk complaining of abdominal pain, crying, and grabbing right side of abdomen and posterior back. Upon receiving report of pt current status. Meds were administered and pt comfortable and relaxed. Pt reassessed in 30 minutes; pt states she feels a lot better. No pain meds were requested for the rest of the night.
--- NOTE | 2021-12-11 07:08 | WPDGIPROGNO ---
Progress Note: A&P Assessment and Plan (1) Abdominal pain: Code(s): R10.9 - Unspecified abdominal pain Status: Acute Assessment and Plan: given the fact she is tender in 3 quadrants confuses the picture. She has insists that the most pain is in the upper abdomen. Because of her history of ulcer, will schedule her for EGD to be done today. 12/11/2021 EKG was rather unremarkable. H pylori was negative. her pain is primarily in the area the right thorax and costal margin. I will schedule her for ultrasound of the right upper quadrant. (2) Abnormal CT scan, gastrointestinal tract: Code(s): R93.3 - Abnormal findings on diagnostic imaging of other parts of digestive tract Status: Acute Assessment and Plan: The findings are nonspecific, but suggest possible ileitis. This however would not explain other pain on the left lower quadrant right upper quadrant or right lower thorax. I will order serology for inflammatory bowel disease and fecal calprotectin. Elevated white blood count also suggests possible inflammatory or infectious process 12/11/2021 C reactive protein is elevated at 16.3, but today the white blood count is down to normal. I told her that we are doing serology to rule out inflammatory bowel disease but at this point I do not think it is a high probability. Other than the fact that she had some changes on CT scan, she has no clinical symptoms that would suggest inflammatory bowel disease. I told her that some point we may need to consider colonoscopy but that could be done as an outpatient (3) Chest wall tenderness: Code(s): R07.89 - Other chest pain Status: Acute Assessment and Plan: Not sure why she would be tender in the lower ribs. She denies any recent trauma or injury. 12/11/2021 I will order chest x-ray and rib x-rays. (4) Nausea: Code(s): R11.0 - Nausea Status: Acute Assessment and Plan: very nauseated with certain foods. Also history of ulcer with bleeding. I will schedule her for EGD to be done today 12/11/2021 not nauseated. She has ordered breakfast and she did eat a salad last night without difficulty. (5) Post traumatic stress disorder: Code(s): F43.10 - Post-traumatic stress disorder, unspecified Status: Acute Assessment and Plan: considering this, and her history of anxiety, some pain may be due to visceral hypersensitivity, particularly given the fact that she is tender in all but the left upper quadrant even there I did release that a wince with palpation. Subjective Date/time seen: 12/11/21 07:08 she slept well last night. There is no change in her pain which is still primarily in the right lower thorax. She states that it is always worse if she lies on that side. Thinking back it has been present for at least 6 months. No nausea or vomiting during the night. She has not had a bowel movement. Exam Const: General: alert and average body habitus; No ill appearing Nutritional Appearance: average body habitus Orientation/consciousness: patient oriented x3 Chest: Chest palpation & inspection: tenderness ( Tender palpation even lightly over right lower ribcage) Resp: Auscultation: clear to auscultation bilaterally Cardio: Rhythm: regular rhythm Neuro: General: patient oriented x3 Objective Data Vital Signs Vital Signs: Vital Signs - 24 hr 12/10/21 08:00 12/10/21 13:23 12/10/21 14:31 Temperature 36.1 C L Pulse Rate 93 80 Respiratory Rate 20 19 Blood Pressure 116/77 112/70 Pulse Oximetry 97 99 Oxygen Delivery Room Air Room Air Room Air 12/10/21 14:41 12/10/21 14:51 12/10/21 20:00 Temperature 36.8 C Pulse Rate 82 81 81 Respiratory Rate 21 H 24 H 16 Blood Pressure 116/73 114/79 126/83 Pulse Oximetry 97 97 95 Oxygen Delivery Room Air Room Air 12/10/21 20:00 12/11/21 06:00 Temperature 36.1 C L Pulse Rate 71 Respiratory Rate 14 Blood Pressure 126/69
--- NOTE | 2021-12-11 07:57 | PM.GYNPNOP ---
[employer] - A/P Assessment and plan (1) Acute pelvic inflammatory disease (PID): Code(s): N73.0 - Acute parametritis and pelvic cellulitis Status: Acute (2) Right-sided abdominal pain of unknown cause: Code(s): R10.9 - Unspecified abdominal pain Status: Acute Plan Pain is uncertain etiology, possible PID, recommend continuing antibiotics for PID after discharge, to arrange follow-up with engraver copperplate, reports menorrhagia, Needs menorrhagia treatment, pain resolving Postoperative Procedures: Procedures Operation Date: 12/10/21 14:30 Actual Procedure Side Surgeon p Esophagogastroduodenoscopy EGD WITH GASTRIC BIOPSIES (COLD FORCEPS) FOR HELICOBACTER PYLORI, DUODENAL BIOPSIES (COLD FORCEPS) RULE OUT CELIAC Kamaljit Ray MD Time Spent With Patient Time: Total time spent is greater than 50% in coordination of care (as documented) at patient's floor/unit and/or counseling patient: Time with patient: less than 15 minutes [employer]- PN:Subj Post-Op Subjective Date/time seen: 12/11/21 07:57 Reports improved pain, no nausea, vomiting, fever, chills. Exam Const: General: cooperative, healthy appearing, comfortable and no acute distress; No confusion Orientation/consciousness: oriented to person, oriented to place, oriented to time and No confusion HENMT: Head: normal to inspection Ears: external ears normal Face/Nose/Sinus: Normal external nose present and normal facial exam Face and sinus: normal facial exam Eyes: General: appearance normal, both eyes and all related structures Neck: Neck: normal visual inspection, trachea midline and supple Resp: Auscultation: clear to auscultation bilaterally, no crackles, no rales, no rhonchi and no wheezes Cardio: Rate: regular rate Rhythm: regular rhythm Heart sounds: no click, no murmurs and no rubs GI: GI Palp: No abdominal tenderness, No Soft to palpation, No Tenderness to palpation present (GI) and No Palpable mass present Auscultation: normal bowel sounds Skin: General skin exam: normal color and no rashes or lesions noted Neuro: General: oriented to person, oriented to place, oriented to time and No confusion Speech: No Abnormal speech present Extrem: General: normal to inspection, no joint enlargement, no clubbing, cyanosis or edema, no pedal edema and no calf tenderness Psych: Appearance: grossly normal Mental Status: mental status grossly normal Speech and movement: Normal speech and movement present [employer] - PN: Obj Data Vital Signs Vital Signs: Vital Signs - 24 hr 12/10/21 08:00 12/10/21 13:23 12/10/21 14:31 Temperature 97.0 F L Pulse Rate 93 80 Respiratory Rate 20 19 Blood Pressure 116/77 112/70 Pulse Oximetry 97 99 Oxygen Delivery Room Air Room Air Room Air 12/10/21 14:41 12/10/21 14:51 12/10/21 20:00 Temperature 98.3 F Pulse Rate 82 81 81 Respiratory Rate 21 H 24 H 16 Blood Pressure 116/73 114/79 126/83 Pulse Oximetry 97 97 95 Oxygen Delivery Room Air Room Air 12/10/21 20:00 12/11/21 06:00 Temperature 97.0 F L Pulse Rate 71 Respiratory Rate 14 Blood Pressure 126/69 Pulse Oximetry 99 Oxygen Delivery Room Air Intake/Output Intake/Output: Intake & Output 12/08/21 12/09/21 12/10/21 12/11/21 23:59 23:59 23:59 23:59 Intake Total 1200 590 240 Output Total 1500 600 Balance 1200 910 -360 Meds/Results Medications: Active Medications Generic Name Dose Route Start Last Admin Trade Name Freq PRN Reason Stop Dose Admin Acetaminophen 650 mg 12/09/21 15:23 12/10/21 19:29 Acetaminophen 325 Mg Tablet PO 650 mg Q4H PRN Administration Mild Pain (1-3) or Fever Alprazolam 0.5 mg 12/09/21 20:36 12/10/21 19:29 Alprazolam (*Crx) 0.5 Mg Tablet PO 0.5 mg DAILY PRN Administration Anxiety Bupropion HCl 200 mg 12/10/21 09:00 12/10/21 08:54 Bupropion Hcl Sr (12hr) 100 Mg Tabcr PO 200 mg DAILY TOM Administration Doxycycline Hyclate 100 mg 12/09/21 18:00 12/11/21
[2021-12-11 08:10] LABS: Basophils Percent Auto 0.2 % (0.2-1.2); Eosinophils Percent Auto 0.2 % (0-4.4); Hematocrit 37.9 % (37.0-47.0); Immature Granulocyte Absolute 0.06 K/mm3 (0.00-0.031); Immature Granulocyte Percent A 0.5 % (0-0.5); Lymphocytes Absolute Auto 0.93 K/mm3 (0.9-3.2); Lymphocytes Percent Auto 7.3 % (18.3-44.2); Mean Corpuscular HGB Conc 31.7 g/dl (32-36); Mean Corpuscular Hemoglobin 26.8 pg (26-34); Mean Corpuscular Volume 84.8 fl (80-100); Mean Platelet Volume 10.2 fl (7.4-10.4); Monocytes Absolute Auto 0.7 K/mm3 (0.1-0.6); Monocytes Percent Auto 5.2 % (2.6-8.5); Neutrophils Absolute Auto 11.1 K/mm3 (1.3-6.7); Neutrophils Percent Auto 86.6 % (45.5-73.1); Platelet Count Result 336 k/mm3 (150-375); Red Blood Count 4.47 M/mm3 (4.2-5.4); Red Cell Distribution Width 13.5 % (11.5-14.5); White Blood Count 12.8 K/mm3 (4.5-10.0)
[2021-12-11] MEDS: HYDROmorphone HCL INJ (*CRX) 1 MG/ML SYR 0.5 MG IV PUSH ×2 (08:53→13:10)
[2021-12-11] MEDS: buPROPion HCL SR (12HR) 100 MG TABCR 200 MG PO (08:53)
[2021-12-11] MEDS: PARoxetine 10 MG TABLET PO (08:53)
[2021-12-11] MEDS: metroNIDAZOLE 250 MG TABLET 500 MG PO ×2 (08:53→21:00)
[2021-12-11] MEDS: NICOTINE (*PBKC) 14 MG PATCH 1 PATCH TRANSDERM (08:53)
[2021-12-11] MEDS: ONDANSETRON INJ 4 MG/2 ML VIAL IV PUSH ×3 (09:02→21:03)
--- NOTE | 2021-12-11 11:10 | PM.DS ---
DS: Admitting Diagnosis Discharge Date December 11, 2021 Admitting Diagnosis abdominal pain DS: Discharge Diagnosis Discharge Diagnosis (1) Right-sided abdominal pain of unknown cause: Code(s): R10.9 - Unspecified abdominal pain Status: Acute Assessment and Plan: reviewed CT scan. (2) Acute pelvic inflammatory disease (PID): Code(s): N73.0 - Acute parametritis and pelvic cellulitis Status: Acute Assessment and Plan: Reviewed CT scan. Continue antibiotics pain control. Surgery to also evaluate the patient (3) Elevated LFTs: Code(s): R79.89 - Other specified abnormal findings of blood chemistry Status: Acute Assessment and Plan: mild elevation of ALT. (4) Post traumatic stress disorder: Code(s): F43.10 - Post-traumatic stress disorder, unspecified Status: Acute Assessment and Plan: Monitor (5) Anxiety: Code(s): F41.9 - Anxiety disorder, unspecified Status: Acute Assessment and Plan: monitor DS: Summary Hospital Course Hospital Course: patient is a 35-year-old female came in with right upper quadrant pain and right lower quadrant pain and left upper quadrant pain. She had imaging studies which showed possible pelvic inflammatory disease. Gynecology was consulted recommending continuing antibiotics on discharge. GI was also consulted and patient had a upper endoscopy which was unrevealing For any acute bleeding which did have some gastritis. Patient will be discharged on PPI and antibiotics. Needs to follow up with GI and also Gynecology. To note surgery was consulted did not feel like there was anything surgical. Time Spent with Patient Time attestation: Total time spent providing and/or coordinating discharge services: Exam Narrative: General: Well-developed, nontoxic-appearing female sitting up in bed eating lunch in no distress. Weight: 97 kilograms. BMI: 33.5. HEENT: PERRL, EOMI. Sclera anicteric. Oral mucosa moist. Neck: Supple. Respiratory: Lungs are clear to auscultation bilaterally. Cardiovascular: Regular rate and rhythm with S1-S2. Gastrointestinal: Abdomen is soft And nondistended with positive bowel sounds. She is tender to palpation more so in the right upper quadrant. Demonstrates voluntary guarding but no rebound tenderness. Genitourinary: Exam is deferred. See ED physician note. Skin: Warm and dry. No rash or lesions on limited exam. Extremities: No cyanosis, clubbing, or edema. Radial and pedal pulses intact. Neurological: Alert. Cranial nerves 2-12 are grossly intact. No gross focal deficits to casual conversation. Psychiatric: Appropriate mood and affect. DS: Data Data Completed and Pending Pending studies at discharge: Pending at discharge 12/10/21 14:33 Surgical [PTH] Routine Labs on day of discharge: Labs from last 24 hours 12/11/21 08:04 WBC 12.8 H RBC 4.47 Hgb 12.0 Hct 37.9 MCV 84.8 MCH 26.8 MCHC 31.7 L RDW 13.5 Plt Count 336 MPV 10.2 Immature Gran % (Auto) 0.5 Neut % (Auto) 86.6 H Lymph % (Auto) 7.3 L [place] % (Auto) 5.2 Eos % (Auto) 0.2 Baso % (Auto) 0.2 Lymph # (Auto) 0.93 [place] # (Auto) 0.7 H Eos # (Auto) 0.0 Baso # (Auto) 0.0 Abs Immat Gran (auto) 0.06 H Absolute Neuts (auto) 11.1 H Absolute Nucleated RBC 0.0 Nucleated RBC % 0.0 Discharge Plan Discharge Attending physician on discharge: Israel Ray Consulting providers: Jona Schulz ; Karla Ortiz ; Zeeshan Alexandre ; Kamaljit Ray Discharging Clinician: Israel Ray Patient Disposition: Home, Self-Care Activity: no preference Diet: as tolerated Patient Instructions: Antibiotic Form, Pelvic Inflammatory Disease (DC), How to Stop Smoking (DC), Acute Abdominal Pain (DC) Stand Alone Forms: General Discharge Information Follow-up/Referrals: Kamaljit Ray MD [Physician] - PHYSICIAN,MANAGER REVIEW [Primary Care
--- NOTE | 2021-12-11 11:18 | PM.PNGS ---
Progress Note: A&P Assessment and Plan (1) Acute calculous cholecystitis: Code(s): K80.00 - Calculus of gallbladder with acute cholecystitis without obstruction Status: Acute Assessment and Plan: RUQ US today suggests cholecystitis with cholelithiasis. She is still having RUQ abdominal pain with tenderness in the RUQ. WBC up again slightly to 12,000. Discussed with Dr. Alexandre and we would recommend proceeding with a laparoscopic cholecystectomy. Description of the procedure, risks, benefits, alternatives, and expected recovery were discussed with the patient in detail. All questions were answered. She agrees to proceed. Will keep her NPO and plan to take to the OR today for a cholecystectomy. (2) Right-sided abdominal pain of unknown cause: Code(s): R10.9 - Unspecified abdominal pain Status: Acute Assessment and Plan: Appears her gallbladder is contributing to her abdominal pain and her RUQ pain persists. See plan above. Plan I have discussed the patient's case and plan of care with Dr. Alexandre. Subjective Subjective Date/Time Seen: 12/11/21 11:19 Patient reports: still having pain and afebrile Interval history: Patient still having abdominal pain that she feels is more localized to the RUQ and right subcostal area. This pain radiates to her RLQ and suprapubic area at times, which she feels is mostly only with certain movements. She feels her pain has improved some but thinks it is related to the pain medication. She still required IV Dilaudid this morning for her abdominal pain. She denies nausea or vomiting. No other complaints at this time. Review of Systems Review of Systems: All systems reviewed & are unremarkable except as noted in HPI and below Exam Const: General: comfortable, no acute distress and alert Orientation/consciousness: patient oriented x3 GI: Inspection: non-distended GI Palp: Yes Soft to palpation, Yes Tenderness to palpation present (GI) (worst in RUQ, but still diffusely tender across the lower abdomen as well), No Guarding due to palpation present (GI) and No Rebound tenderness present Auscultation: normal bowel sounds Extrem: General: no calf tenderness and no edema Psych: Insight: Good insight present (Psych) Judgement: Good judgement present (Psych) Objective Data Vital Signs Vital Signs: Vital Signs - 24 hr 12/10/21 13:23 12/10/21 14:31 12/10/21 14:41 Temperature 97.0 F L Pulse Rate 93 80 82 Respiratory Rate 20 19 21 H Blood Pressure 116/77 112/70 116/73 Pulse Oximetry 97 99 97 Oxygen Delivery Room Air Room Air Room Air 12/10/21 14:51 12/10/21 20:00 12/10/21 20:00 Temperature 98.3 F Pulse Rate 81 81 Respiratory Rate 24 H 16 Blood Pressure 114/79 126/83 Pulse Oximetry 97 95 Oxygen Delivery Room Air Room Air 12/11/21 06:00 12/11/21 09:00 Temperature 97.0 F L Pulse Rate 71 Respiratory Rate 14 Blood Pressure 126/69 Pulse Oximetry 99 Oxygen Delivery Room Air Intake/Output Intake/Output: Intake & Output 12/08/21 12/09/21 12/10/21 12/11/21 23:59 23:59 23:59 23:59 Intake Total 1200 590 240 Output Total 1500 600 Balance 1200 -910 -360 Meds/Results Medications: Active Medications Generic Name Dose Route Start Last Admin Trade Name Jayroq PRN Reason Stop Dose Admin Acetaminophen 650 mg 12/09/21 15:23 12/10/21 19:29 Acetaminophen 325 Mg Tablet PO 650 mg Q4H PRN Administration Mild Pain (1-3) or Fever Alprazolam 0.5 mg 12/09/21 20:36 12/10/21 19:29 Alprazolam (*Crx) 0.5 Mg Tablet PO 0.5 mg DAILY PRN Administration Anxiety Bupropion HCl 200 mg 12/10/21 09:00 12/11/21 08:53 Bupropion Hcl Sr (12hr) 100 Mg Tabcr PO 200 mg DAILY TOM Administration Doxycycline Hyclate 100 mg 12/09/21 18:00 12/11/21 05:27 Doxycycline Hyclate 100 Mg Tablet PO 100 mg Q12H TOM Administration Home Med 1 each 12/10/21 10:00 12/11/21 08:54 Lisdexamfetamine [Vyvanse] 70
--- NOTE | 2021-12-11 11:24 | PM.IMPN ---
Progress Note: A&P Assessment and Plan (1) Right-sided abdominal pain of unknown cause: Code(s): R10.9 - Unspecified abdominal pain Status: Acute Assessment and Plan: reviewed CT scan. Abdominal ultrasound did come back after I saw the patient she does have some cholecystitis. Surgery planning to do cholecystectomy. (2) Acute pelvic inflammatory disease (PID): Code(s): N73.0 - Acute parametritis and pelvic cellulitis Status: Acute Assessment and Plan: Reviewed CT scan. Continue antibiotics And pain control. Surgery to also evaluate the patient per Gynecology, recommended treating PID with antibiotics. (3) Elevated LFTs: Code(s): R79.89 - Other specified abnormal findings of blood chemistry Status: Acute Assessment and Plan: mild elevation of ALT. Abdominal ultrasound noted plan for cholecystectomy per surgery. (4) Post traumatic stress disorder: Code(s): F43.10 - Post-traumatic stress disorder, unspecified Status: Acute Assessment and Plan: Monitor (5) Anxiety: Code(s): F41.9 - Anxiety disorder, unspecified Status: Acute Assessment and Plan: monitor Subjective Date/time seen: 12/11/21 11:24 plan for discharge has been held up as abdominal ultrasound did come back after I saw the patient and she does have some cholecystitis. Exam Narrative: General: Well-developed, nontoxic-appearing female sitting up in bed eating lunch in no distress. Weight: 97 kilograms. BMI: 33.5. HEENT: PERRL, EOMI. Sclera anicteric. Oral mucosa moist. Neck: Supple. Respiratory: Lungs are clear to auscultation bilaterally. Cardiovascular: Regular rate and rhythm with S1-S2. Gastrointestinal: Abdomen is soft And nondistended with positive bowel sounds. She is tender to palpation more so in the right upper quadrant. Demonstrates voluntary guarding but no rebound tenderness. Genitourinary: Exam is deferred. See ED physician note. Skin: Warm and dry. No rash or lesions on limited exam. Extremities: No cyanosis, clubbing, or edema. Radial and pedal pulses intact. Neurological: Alert. Cranial nerves 2-12 are grossly intact. No gross focal deficits to casual conversation. Psychiatric: Appropriate mood and affect. Objective Data Vital Signs Vital Signs: Vital Signs - 24 hr 12/10/21 13:23 12/10/21 14:31 12/10/21 14:41 Temperature 97.0 F L Pulse Rate 93 80 82 Respiratory Rate 20 19 21 H Blood Pressure 116/77 112/70 116/73 Pulse Oximetry 97 99 97 Oxygen Delivery Room Air Room Air Room Air 12/10/21 14:51 12/10/21 20:00 12/10/21 20:00 Temperature 98.3 F Pulse Rate 81 81 Respiratory Rate 24 H 16 Blood Pressure 114/79 126/83 Pulse Oximetry 97 95 Oxygen Delivery Room Air Room Air 12/11/21 06:00 12/11/21 09:00 Temperature 97.0 F L Pulse Rate 71 Respiratory Rate 14 Blood Pressure 126/69 Pulse Oximetry 99 Oxygen Delivery Room Air Intake/Output Intake/Output: Intake & Output 12/08/21 12/09/21 12/10/21 12/11/21 23:59 23:59 23:59 23:59 Intake Total 1200 590 240 Output Total 1500 600 Balance 1200 910 360 Meds/Results Medications: Active Medications Generic Name Dose Route Start Last Admin Trade Name Jayroq PRN Reason Stop Dose Admin Acetaminophen 650 mg 12/09/21 15:23 12/10/21 19:29 Acetaminophen 325 Mg Tablet PO 650 mg Q4H PRN Administration Mild Pain (1-3) or Fever Alprazolam 0.5 mg 12/09/21 20:36 12/10/21 19:29 Alprazolam (*Crx) 0.5 Mg Tablet PO 0.5 mg DAILY PRN Administration Anxiety Bupropion HCl 200 mg 12/10/21 09:00 12/11/21 08:53 Bupropion Hcl Sr (12hr) 100 Mg Tabcr PO 200 mg DAILY TOM Administration Doxycycline Hyclate 100 mg 12/09/21 18:00 12/11/21 05:27 Doxycycline Hyclate 100 Mg Tablet PO 100 mg Q12H TOM Administration Home Med 1 each 12/10/21 10:00 12/11/21 08:54 Lisdexamfetamine [Vyvanse] 70 Mg
[2021-12-11] MEDS: ALPRAZolam (*CRX) 0.5 MG TABLET PO ×2 (13:23→20:44)
--- NOTE | 2021-12-11 14:14 | WPDANESEPPF ---
Anes - Initial Pre Proc Eval Procedure: Operation Date: 12/10/21 14:30 Proposed Procedures p Esophagogastroduodenoscopy EGD - Kamaljit Ray MD Operation Date: 12/11/21 16:00 Proposed Procedures p Laparoscopic Cholecystectomy - Zeeshan Alexandre MD Date/Time: 12/11/21 14:14 Surgeon: Yomi Loredo MD Pre Op Diagnosis: ABDOMINAL PAIN,PID-SUSPECTED,APPENDICITIS-SUSPECTE Patient Data Age: 35 Gender: F Height: 1.7 m Weight: 100.2 kg Last Vital Signs Temp 36.4 C L 12/11/21 13:26 Pulse 98 12/11/21 13:26 Resp 15 12/11/21 13:26 BP 135/94 H 12/11/21 13:26 Pulse Ox 100 12/11/21 13:26 O2 Del Method Room Air 12/11/21 11:52 Allergies Allergy/AdvReac Type Severity Reaction Status Date / Time No Known Allergies Allergy Unknown Verified 12/10/21 13:21 Home Medications Medication Instructions Recorded Confirmed Type alprazolam 0.5 mg tablet 0.5 mg PO PRN PRN Anxiety 12/09/21 12/10/21 History bupropion HCl 200 mg tablet,12 hr 200 mg PO DAILY 12/09/21 12/10/21 History sustained-release lisdexamfetamine 70 mg capsule 70 mg PO DAILY 12/09/21 12/10/21 History (Vyvanse) paroxetine HCl 10 mg tablet 10 mg PO DAILY 12/09/21 12/10/21 History Laboratory Tests 12/11/21 12/11/21 08:04 11:11 WBC 12.8 K/mm3 H K/mm3 (4.5-10.0) RBC 4.47 M/mm3 M/mm3 (4.2-5.4) Hgb 12.0 g/dL g/dL (12.0-15.0) Hct 37.9 % % (37.0-47.0) MCV 84.8 fl fl (80-100) MCH 26.8 pg pg (26-34) MCHC 31.7 g/dl L g/dl (32-36) RDW 13.5 % % (11.5-14.5) Plt Count 336 k/mm3 k/mm3 (150-375) MPV 10.2 fl fl (7.4-10.4) Immature Gran % (Auto) 0.5 % % (0-0.5) Neut % (Auto) 86.6 % H % (45.5-73.1) Lymph % (Auto) 7.3 % L % (18.3-44.2) [place] % (Auto) 5.2 % % (2.6-8.5) Eos % (Auto) 0.2 % % (0-4.4) Baso % (Auto) 0.2 % % (0.2-1.2) Lymph # (Auto) 0.93 K/mm3 K/mm3 (0.9-3.2) [place] # (Auto) 0.7 K/mm3 H K/mm3 (0.1-0.6) Eos # (Auto) 0.0 K/mm3 K/mm3 (0-0.3) Baso # (Auto) 0.0 K/mm3 K/mm3 (0.0-0.1) Abs Immat Gran (auto) 0.06 K/mm3 H K/mm3 (0.00-0.031) Absolute Neuts (auto) 11.1 K/mm3 H K/mm3 (1.3-6.7) Absolute Nucleated RBC 0.0 K/mm3 K/mm3 (0.0-0.012) Nucleated RBC % 0.0 % % (0.0-0.2) Blood Type O Positive Antibody Screen Negative Patient hx anesthesia problems: none Family hx anesthesia problems: none Results Review: All pre-operative results and documents have been reviewed as part of the pre-operative evaluation. [facility] Past Medical History Medical History ADHD Anxiety Depression Obesity Post traumatic stress disorder Smoker Surgical History Surgical History History of dilation and curettage Social History Social History Social History: Surrogate medical decision maker: Pippa Rachel, mother. Code status: Full code. 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 Spiritual care concerns: No Has the Lack of Transportation Kept You From Medical Appointments or From Getting Medications?: No Within the Past 12 Months, Were You Worried Whether Your Food Would Run Out Before You Got Money to Buy More?: Never True What is Your Housing Situation Today?: I Have Housing Are You Worried That in the Next 2 Months, You May Not Have Your Own Housing to Live In?: No Do You Have Trouble Paying Your Heating Or Electricity Bill?: No Do You Have Trouble Paying For Medicines?: No Are You Currently Unemployed and Looking for Work?: No Highest Level of Education Compl
[2021-12-11] MEDS: LACTATED RINGERS 1,000 ML 30 ML IV CONT ×2 (14:30→18:30)
--- NOTE | 2021-12-11 14:50 | PC.NURSE ---
pt being taken down for surgery at this time.
[2021-12-11] MEDS: BUPIVACAINE/EPINEPHRINE 0.25% 50 ML VIAL 30 ML INFILTRATE (17:29)
--- NOTE | 2021-12-11 18:40 | WPDHPUPDATE1 ---
History and Physical Update Update Date/Time: 12/11/21 18:40 History and Physical has been reviewed, including an updated exam of the patient. There are NO changes in the patient's condition. Risks, benefits, and alternatives have been discussed and questions answered. Patient agrees to proceed with procedure.
--- NOTE | 2021-12-11 18:41 | W.PM.PROC2 ---
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 Her pain seemed to be in the lower abdomen but also had pain in a triangular area including the upper abdomen and bilateral lower quadrants. CT scan was positive for inflammation in the right lower quadrant but a normal appearing appendix. Concern for PID and ileitis was noted on the CT. Appendicitis was also a question. Patient had an ultrasound today which showed gallstones and a positive sonographic Rendon sign. She is actually feeling better but having tenderness still in the lower quadrants and in the right upper quadrant. She is taken to surgery now for laparoscopic cholecystectomy. At the patient's request I also plan to laparoscopic we review the appendix and pelvic organs at the same procedure. Findings There were small but purulent filled collections between the ovary and tube on both sides. Both of these were drained and suctioned. There were widely opened. Photographs of both the right and left side were taken and placed in the chart. The appendix was reviewed in appeared normal. The gallbladder had a number of adhesions as well as some mild chronic inflammation. There were no liver abnormalities and no biliary ductal dilatation. Description of Procedure Patient was taken to surgery and induced into general anesthesia. The abdomen was prepped and draped. Trocars were placed in the usual fashion using applied Medical optical trocars and local anesthetic. Once the trocars were placed, we placed the patient in reverse Trendelenburg and reviewed the appendix. The appendix was found and it appeared normal I then looked at both the right and left ovaries and tubes. Both contained purulent fluid in pockets between the tubes and ovaries. I drained 1st the left sided abscess. Photographs were taken. There was quite a bit of purulent fluid. I then drained the right-sided abscess and took photographs of this as well. When both were drained and widely opened, we stop the laparoscopy of the pelvis and returned to her normal visualization of the right upper quadrant. The gallbladder was decompressed with a laparoscopic aspirator. I closed the cholecystotomy with a Vicryl endoloop. The gallbladder was then freed from omental adhesions and retracted anterosuperiorly. The gallbladder did have evidence of inflammation and was quite hypervascular. I dissected the cystic duct and cystic artery out clearly. I dissected the gallbladder off the liver at its lower 3rd. Critical view was achieved. I then securely clipped and divided the cystic duct and cystic artery. The gallbladder was then further dissected free of its remaining attachments to the liver. Cautery was used for hemostasis. Once the gallbladder was freed, it was placed in Endo-Catch bag retrieved through the 10 11 epigastric trocar site. We replaced the epigastric trocar and then reviewed the right upper quadrant. The area was irrigated and suctioned repeatedly. Any clotted blood or other debris were removed. All looked quite good with no evidence of bleeding or bile leakage. We then evacuated CO2 and removed the trocar sleeves. Skin wounds were closed with subcuticular 4-0 Monocryl skin suture. Wounds were dressed with Exofin surgical adhesive. The patient was awakened and taken to recovery in good condition. Sponge and needle counts were correct x2. Estimated Blood Loss -20 Urine Output 400 Drains No Packing No Pathology Yes (
[2021-12-11] MEDS: fentaNYL CITRATE INJ (*CRX) 100 MCG/2 ML VIAL 25 MCG IV PUSH ×4 (18:49→19:17)
--- NOTE | 2021-12-11 19:07 | SUR.PHASEI ---
1906: Simple mask removed.
[2021-12-11] MEDS: HYDROcodone/acetaminophen (*CRX) 10-325 MG TABLET 1 TAB PO (20:44)
[2021-12-11] MEDS: HYDROmorphone HCL INJ (*CRX) 1 MG/ML SYR IV PUSH (20:46)
[2021-12-11] MEDS: LACTATED RINGERS 1,000 ML 100 ML IV CONT (21:02)
[2021-12-12] MEDS: HYDROcodone/acetaminophen (*CRX) 10-325 MG TABLET 1 TAB PO ×3 (03:08→23:49)
[2021-12-12 03:19] VITALS: BP 118/80; PULSE 71; RESP 18; TEMP 36.2; O2SAT 94
[2021-12-12] MEDS: DOXYCYCLINE HYCLATE 100 MG TABLET PO ×2 (05:15→17:38)
[2021-12-12] MEDS: HYDROmorphone HCL INJ (*CRX) 1 MG/ML SYR IV PUSH (05:20)
[2021-12-12] MEDS: ONDANSETRON INJ 4 MG/2 ML VIAL IV PUSH ×2 (05:26→14:18)
[2021-12-12 07:01] LABS: Hematocrit 33.6 % (37.0-47.0); Hemoglobin 10.4 g/dL (12.0-15.0); Mean Platelet Volume 10.5 fl (7.4-10.4); Platelet Count Result 357 k/mm3 (150-375); Red Cell Distribution Width 13.8 % (11.5-14.5); White Blood Count 15.4 K/mm3 (4.5-10.0)
[2021-12-12 07:16] LABS: Anion Gap 13 mmol/L (8-16); Blood Urea Nitrogen 7 mg/dL (7-17); Calcium 8.2 mg/dL (8.4-10.2); Carbon Dioxide 28 mmol/L (22-30); Chloride 99 mmol/L (98-107); Estimated CRCL calculation 118 ml/min; Estimated Glomerular Filt Rate > 60; Glucose 122 mg/dL (65-110); Potassium 4.4 mmol/L (3.4-5.0); Sodium 140 mmol/L (137-145)
--- NOTE | 2021-12-12 07:50 | WPDANESPN ---
Anes - Prog Note Post-Op Date/Time: 12/12/21 07:50 Vital Signs: Last Vital Signs Temp 36.2 C L 12/12/21 03:19 Pulse 71 12/12/21 03:19 Resp 18 12/12/21 03:19 BP 118/80 12/12/21 03:19 Pulse Ox 94 12/12/21 03:19 O2 Del Method Room Air 12/11/21 20:40 O2 Flow Rate 6 12/11/21 19:00 Pain Score (VAS): 0 I/O: Intake & Output 12/11/21 12/11/21 12/12/21 15:59 23:59 07:59 Intake Total 550 600 Output Total 400 400 Balance -400 150 600 Laboratory Tests 12/12/21 06:38 12/12/21 06:38 12/09/21 12/11/21 12/11/21 14:41 08:04 11:11 WBC 12.8 H RBC 4.47 Hgb 12.0 Hct 37.9 MCV 84.8 MCH 26.8 MCHC 31.7 L RDW 13.5 Plt Count 336 MPV 10.2 Immature Gran % (Auto) 0.5 Neut % (Auto) 86.6 H Lymph % (Auto) 7.3 L [place] % (Auto) 5.2 Eos % (Auto) 0.2 Baso % (Auto) 0.2 Lymph # (Auto) 0.93 [place] # (Auto) 0.7 H Eos # (Auto) 0.0 Baso # (Auto) 0.0 Abs Immat Gran (auto) 0.06 H Absolute Neuts (auto) 11.1 H Absolute Nucleated RBC 0.0 Nucleated RBC % 0.0 Sodium Potassium Chloride Carbon Dioxide Anion Gap BUN Creatinine Estim Creat Clear Calc Estimated GFR Glucose Calcium C.trachomatis RNA (TMA) Detected A N.gonorrhoeae RNA (TMA) Not detected Blood Type O Positive Antibody Screen Negative 12/12/21 12/12/21 06:38 06:38 WBC 15.4 H RBC 4.00 L Hgb 10.4 L Hct 33.6 L MCV 84.0 MCH 26.0 MCHC 31.0 L RDW 13.8 Plt Count 357 MPV 10.5 H Immature Gran % (Auto) Neut % (Auto) Lymph % (Auto) [place] % (Auto) Eos % (Auto) Baso % (Auto) Lymph # (Auto) [place] # (Auto) Eos # (Auto) Baso # (Auto) Abs Immat Gran (auto) Absolute Neuts (auto) Absolute Nucleated RBC Nucleated RBC % Sodium 140 Potassium 4.4 Chloride 99 Carbon Dioxide 28 Anion Gap 13 BUN 7 Creatinine 0.70 Estim Creat Clear Calc 118 Estimated GFR > 60 Glucose 122 H Calcium 8.2 L C.trachomatis RNA (TMA) N.gonorrhoeae RNA (TMA) Blood Type Antibody Screen Patient Feedback: Patient satisfied with anesthetic care.
[2021-12-12] MEDS: NICOTINE (*PBKC) 14 MG PATCH 1 PATCH TRANSDERM (08:33)
[2021-12-12] MEDS: ENOXAPARIN 40 MG/0.4 ML SYRINGE SUB-Q (08:34)
[2021-12-12] MEDS: PARoxetine 10 MG TABLET PO (08:34)
[2021-12-12] MEDS: metroNIDAZOLE 250 MG TABLET 500 MG PO ×2 (08:34→17:38)
[2021-12-12] MEDS: buPROPion HCL SR (12HR) 100 MG TABCR 200 MG PO (08:34)
[2021-12-12 09:00] VITALS: BP 132/95; PULSE 55; RESP 16; TEMP 36.7; O2SAT 99
--- NOTE | 2021-12-12 12:27 | PM.IMPN ---
Progress Note: A&P Assessment and Plan (1) Tubo-ovarian abscess: Code(s): N70.93 - Salpingitis and oophoritis, unspecified Status: Acute Assessment and Plan: Patient was taken to the OR on 12/11/2021 for laparoscopic cholecystectomy. No evidence of appendicitis the patient did have bilateral purulent fluid pockets between the fallopian tube and ovaries. These were drained. Cultures were not sent. These findings were not seen on the pelvic ultrasound from the day before. UCx negative. Gential Cx pending. Serologies showing C. Trach positve and Gonorrhea negative. Direct ID Trich was negative. UPT was negative. Continue abx (2) Acute calculous cholecystitis: Code(s): K80.00 - Calculus of gallbladder with acute cholecystitis without obstruction Status: Acute Assessment and Plan: Cholelithiasis with mild GB wall thickening and +Rendon's sign. She is now s/p laproscopic cholecystectomy. Continue routine post-op care. Increase activity. (3) Acute pelvic inflammatory disease (PID): Code(s): N73.0 - Acute parametritis and pelvic cellulitis Status: Acute Assessment and Plan: CT Abd scan showing inflammatory fat standing in the RLL. Probably related to tubo-ovarian abscess. Her LFTs elevated felt related to the acute cholecystitis but could be from [id number]. Plan for 2 weeks of treatment starting on 12/11 with Doxycycline and Flagyl. (4) Elevated LFTs: Code(s): R79.89 - Other specified abnormal findings of blood chemistry Status: Acute Assessment and Plan: Related to above. (5) Post traumatic stress disorder: Code(s): F43.10 - Post-traumatic stress disorder, unspecified Status: Acute Assessment and Plan: Mood stable. Continue to monitor. (6) Anxiety: Code(s): F41.9 - Anxiety disorder, unspecified Status: Acute Assessment and Plan: Stable Subjective Date/time seen: 12/12/21 12:27 Interval history: 35yo female with PTSD here for abdominal pain. Assuming care. Chart reviewed. She feels better today. Abd pain is improved. No chest pain or shortness of breath. No flatus or bowel movements. She did sleep poorly last night. Asking about discharge. Exam Narrative: AF 98.0 132/95 55 16 99% ra Gen - NARD Chest - CTA bilaterally, nml RR CV - RRR S1/S2 Abd - Soft, ND, +BS, incisions are clean, dry and intact. Pain mostly in the RUQ Ext - No pedal edema Psych - Nml mood and affect Skin - Warm and dry Objective Data Vital Signs Vital Signs: Vital Signs - 24 hr 12/11/21 13:26 12/11/21 14:30 12/11/21 18:30 Temperature 97.5 F L 97.1 F L 97.0 F L Pulse Rate 98 83 73 Respiratory Rate 15 14 16 Blood Pressure 135/94 H 127/81 114/74 Pulse Oximetry 100 98 100 Oxygen Delivery Room Air Simple Face Mask Oxygen Flow Rate 6 12/11/21 18:45 12/11/21 19:00 12/11/21 19:15 Temperature Pulse Rate 71 88 76 Respiratory Rate 15 13 12 Blood Pressure 123/76 123/83 114/74 Pulse Oximetry 100 100 96 Oxygen Delivery Simple Face Mask Simple Face Mask Room Air Oxygen Flow Rate 6 6 12/11/21 19:30 12/11/21 19:45 12/11/21 19:58 Temperature Pulse Rate 77 84 74 Respiratory Rate 12 16 17 Blood Pressure 109/86 106/76 116/76 Pulse Oximetry 98 98 98 Oxygen Delivery Room Air Room Air Room Air Oxygen Flow Rate 12/11/21 20:02 12/11/21 20:17 12/11/21 20:46 Temperature 97.6 F 97.9 F 96.6 F L Pulse Rate 87 79 79 Respiratory Rate 18 18 18 Blood Pressure 131/79 115/87 129/88 Pulse Oximetry 95 97 95 Oxygen Delivery Oxygen Flow Rate 12/11/21 21:38 12/11/21 22:50 12/11/21 20:40 Temperature 97.6 F 97.8 F Pulse Rate 77 74 Respiratory Rate 18 16 Blood Pressure 114/68 114/72 Pulse Oximetry 98 95 Oxygen Delivery Room Air Oxygen Flow Rate 12/12/21 03:19 12/12/21 09:00 12/12/21 08:00 Temperature 97.2 F L 98.0 F Pulse Rate 71 55 L Respiratory Rate 18 1
--- NOTE | 2021-12-12 13:36 | PM.PNGS ---
Progress Note: A&P Assessment and Plan (1) Chronic calculous cholecystitis: Code(s): K80.10 - Calculus of gallbladder with chronic cholecystitis without obstruction Status: Acute Assessment and Plan: S/p laparoscopic cholecystectomy on 12/11/21 with findings of chronic cholecystitis and bilateral tubo-ovarian abscesses. She is tolerating a low fat diet. Will try transitioning to oral pain medication today. Okay from a surgical standpoint to discharge the patient on a low fat diet when okay with all other services. Follow-up with Dr. Alexandre in 2 weeks. (2) Tubo-ovarian abscess: Code(s): N70.93 - Salpingitis and oophoritis, unspecified Status: Acute Assessment and Plan: S/p laparoscopic drainage of bilateral tubo-ovarian abscesses yesterday. Continue antibiotics and further management per Gynecology. (3) Acute pelvic inflammatory disease (PID): Code(s): N73.0 - Acute parametritis and pelvic cellulitis Status: Acute Assessment and Plan: CT suggested inflammation in the right lower quadrant. She was then found to have bilateral tubo-ovarian abscesses during surgery yesterday. Trichomonas direct negative. C trachomatis detected. Genital cx pending. Further management per Gynecology. (4) Smoker: Code(s): F17.200 - Nicotine dependence, unspecified, uncomplicated Status: Acute Assessment and Plan: Encouraged cessation. Plan I have discussed the patient's case and plan of care with Dr. Alexandre. Subjective Subjective Date/Time Seen: 12/12/21 10:36 Post Op day: 1 (Diagnostic laparoscopy, drainage bilateral tubo-ovarian abscesses, laparoscopic cholecystectomy) Patient reports: no new complaints, feels better, pain is less, voiding w/o difficulty, no flatus, no bowel movement and afebrile Interval history: Patient seen and examined. She reports having soreness and pain at the incisions, but otherwise feels her abdominal pain is better today. She still has some RUQ abdominal pain near the incisions, but her lower abdominal pain has nearly resolved. She denies any nausea or vomiting overnight. She is feeling tired and did not sleep last night because she felt she had staff in her room almost hourly through the night. No other complaints at this time. Review of Systems Review of Systems: All systems reviewed & are unremarkable except as noted in HPI and below Exam Const: General: comfortable, no acute distress and awake Orientation/consciousness: patient oriented x3 GI: Inspection: non-distended and incision (Abdominal incisions dry and glue intact) GI Palp: Yes Soft to palpation, Yes Tenderness to palpation present (GI) (incisional, no lower abdominal TTP today) and No Guarding due to palpation present (GI) Auscultation: normal bowel sounds Neuro: General: moves all extremities and no focal motor deficits Extrem: General: no calf tenderness and no edema Psych: Mental Status: mental status grossly normal Insight: Good insight present (Psych) Judgement: Good judgement present (Psych) Objective Data Vital Signs Vital Signs: Vital Signs - 24 hr 12/11/21 14:30 12/11/21 18:30 12/11/21 18:45 Temperature 97.1 F L 97.0 F L Pulse Rate 83 73 71 Respiratory Rate 14 16 15 Blood Pressure 127/81 114/74 123/76 Pulse Oximetry 98 100 100 Oxygen Delivery Room Air Simple Face Mask Simple Face Mask Oxygen Flow Rate 6 6 12/11/21 19:00 12/11/21 19:15 12/11/21 19:30 Temperature Pulse Rate 88 76 77 Respiratory Rate 13 12 12 Blood Pressure 123/83 114/74 109/86 Pulse Oximetry 100 96 98 Oxygen Delivery Simple Face Mask Room Air Room Air Oxygen Flow Rate 6 12/11/21 19:45 12/11/21 19:58 12/11/21 20:02 Temperature 97.6 F Pulse Rate 84 74 87 Respiratory Rate 16 17 18 Blood Pressure 106/76 116/76 131/79 Pulse Oximetry 98 98 95 Oxygen Delivery Room Air Room Air Oxygen Flow Rate 12/11/21 20:17 12/11/21 20:46 12/11/21 21:38 Temperature 97.9 F
[2021-12-12 14:10] VITALS: BP 113/75; PULSE 72; RESP 16; TEMP 36.5; O2SAT 96
[2021-12-12] MEDS: IBUPROFEN IV 800 MG/200 ML 800 MG/200 ML BAG 400 MG IVPB (14:17)
--- NOTE | 2021-12-12 19:05 | PM.GYNPNOP ---
BLOOD BANK TECHNOLOGIST - A/P Assessment and plan (1) Acute pelvic inflammatory disease (PID): Code(s): N73.0 - Acute parametritis and pelvic cellulitis Status: Acute (2) Tubo-ovarian abscess: Code(s): N70.93 - Salpingitis and oophoritis, unspecified Status: Acute Assessment and Plan: This patient is a 35-year-old female who is on hospital day 3. she presented the ER with pelvic pain. She also later reports some epigastric pain. She was taken the operating room and her gallbladder was removed today. Also was noted some bilateral tubo-ovarian abscesses. There were drained and irrigated. Patient notices much improved pain today. She is tolerating p.o. this evening. She looks comfortable. She is reporting improvement. Postoperative Procedures: Procedures Operation Date: 12/10/21 14:30 Actual Procedure Side Surgeon p Esophagogastroduodenoscopy EGD WITH GASTRIC BIOPSIES (COLD FORCEPS) FOR HELICOBACTER PYLORI, DUODENAL BIOPSIES (COLD FORCEPS) RULE OUT CELIAC Kamaljit Ray MD Operation Date: 12/11/21 16:00 Actual Procedure Side Surgeon p Laparoscopic Cholecystectomy, Drainage of Tubal Ovarian Abscess Zeeshan Alexandre MD Time Spent With Patient Time: Total time spent is greater than 50% in coordination of care (as documented) at patient's floor/unit and/or counseling patient: Time with patient: less than 15 minutes BLOOD BANK TECHNOLOGIST- PN:Subj Post-Op Subjective Date/time seen: 12/12/21 19:05 patient reports improved pelvic pain. She denies any nausea, vomiting, fever, chills. She is tolerating p.o.. She is passing flatus. Interval history: 35yo female with PTSD here for abdominal pain. Assuming care. Chart reviewed. She feels better today. Abd pain is improved. No chest pain or shortness of breath. No flatus or bowel movements. She did sleep poorly last night. Asking about discharge. Review of Systems Review of Systems: All systems reviewed & are unremarkable except as noted in HPI and below Constitutional: Constitutional: Denies chills, Denies fatigue, Denies fever(s) and Denies weakness Eyes: Eyes: Denies blurry vision, Denies change in vision, Denies loss of peripheral vision, Denies loss of vision, Denies other visual disturbances and Denies eye pain ENT: Denies vertigo, Denies dizziness, Denies hearing loss, Denies mouth pain, Denies nasal obstruction, Denies neck mass and Denies neck pain Cardiovascular: Cardiovascular: Denies chest pain, Denies diaphoresis, Denies syncope, Denies leg edema and Denies dyspnea Respiratory: Respiratory: Denies chest congestion, Denies cough, Denies hemoptysis, Denies dyspnea and Denies wheezing Gastrointestinal: Gastrointestinal: Denies abdominal pain, Denies constipation, Denies diarrhea, Denies nausea and Denies vomiting Genitourinary: Genitourinary: Denies hematuria, Denies change in libido, Denies nocturia, Denies genital lesions, Denies flank pain and Denies urinary urgency Musculoskeletal: Musculoskeletal: Denies abnormal gait, Denies back pain, Denies myalgias, Denies arthralgias, Denies joint swelling, Denies muscle weakness and Denies neck pain Integumentary/Breasts: Skin/Breast: Denies swelling, Denies breast pain, Denies breast mass, Denies dry skin, Denies nipple discharge, Denies unusual bruising and Denies jaundice Neurologic: Denies Neuro-related abnormal movements, Denies Abnormal speech present, Denies abnormal gait, Denies behavioral changes, Denies confusion, Denies vertigo, Denies dizziness, Denies syncope, Denies loss of vision, Denies memory loss, Denies convulsions and Denies weakness Psychiatric: Psychiatric: Denies abnormal sleep pattern, Denies behavioral changes, Denies change in libido, Denies confusion, Denies depression, Denies anhedonia and Denies memory loss Endocrine: Endocrine: Reports no additional endocrine complaints, Denies change in libido and Denies fatigue Hematologic/Lymphatic: Hematologic/Lymphatic: Reports no additional hemat
[2021-12-12 19:47] VITALS: BP 114/63; PULSE 75; RESP 16; TEMP 36.5; O2SAT 97
[2021-12-12 23:46] VITALS: BP 115/89; PULSE 78; RESP 20; TEMP 36.7; O2SAT 100
[2021-12-13 05:00] VITALS: BP 125/78; PULSE 76; RESP 20; TEMP 36.4; O2SAT 95
[2021-12-13] MEDS: DOXYCYCLINE HYCLATE 100 MG TABLET PO (05:29)
[2021-12-13] MEDS: HYDROcodone/acetaminophen (*CRX) 5-325 MG TABLET 1 TAB PO (05:29)
[2021-12-13] MEDS: ONDANSETRON INJ 4 MG/2 ML VIAL IV PUSH (05:33)
[2021-12-13 06:36] LABS: Basophils Percent Auto 0.2 % (0.2-1.2); Eosinophils Absolute Auto 0.1 K/mm3 (0-0.3); Eosinophils Percent Auto 1.3 % (0-4.4); Hematocrit 34.5 % (37.0-47.0); Hemoglobin 10.7 g/dL (12.0-15.0); Immature Granulocyte Absolute 0.08 K/mm3 (0.00-0.031); Immature Granulocyte Percent A 0.9 % (0-0.5); Lymphocytes Absolute Auto 1.71 K/mm3 (0.9-3.2); Lymphocytes Percent Auto 18.8 % (18.3-44.2); Mean Corpuscular Hemoglobin 26.8 pg (26-34); Mean Corpuscular Volume 86.5 fl (80-100); Mean Platelet Volume 10.7 fl (7.4-10.4); Monocytes Absolute Auto 0.8 K/mm3 (0.1-0.6); Monocytes Percent Auto 8.8 % (2.6-8.5); Neutrophils Absolute Auto 6.4 K/mm3 (1.3-6.7); Platelet Count Result 337 k/mm3 (150-375); Red Blood Count 3.99 M/mm3 (4.2-5.4); Red Cell Distribution Width 13.9 % (11.5-14.5); White Blood Count 9.1 K/mm3 (4.5-10.0)
[2021-12-13 06:48] LABS: Alanine Aminotransferase 50 U/L (6-35); Albumin Level 3.2 g/dL (3.5-5.1); Alkaline Phosphatase 73 U/L (38-126); Anion Gap 11 mmol/L (8-16); Aspartate Amino Transferase 34 U/L (14-36); Bilirubin,Total < 0.1 mg/dL (0.2-1.3); Blood Urea Nitrogen 11 mg/dL (7-17); Carbon Dioxide 29 mmol/L (22-30); Chloride 99 mmol/L (98-107); Estimated CRCL calculation 104 ml/min; Estimated Glomerular Filt Rate > 60; Glucose 100 mg/dL (65-110); Potassium 3.8 mmol/L (3.4-5.0); Sodium 139 mmol/L (137-145)
--- NOTE | 2021-12-13 08:02 | PM.GYNPNOP ---
DIRECTOR OF TAX SERVICES - A/P Assessment and plan (1) Acute pelvic inflammatory disease (PID): Code(s): N73.0 - Acute parametritis and pelvic cellulitis Status: Acute Plan Improved pain, afebrile, likely to be discharged today on PID antibiotics/Oral Postoperative Procedures: Procedures Operation Date: 12/10/21 14:30 Actual Procedure Side Surgeon p Esophagogastroduodenoscopy EGD WITH GASTRIC BIOPSIES (COLD FORCEPS) FOR HELICOBACTER PYLORI, DUODENAL BIOPSIES (COLD FORCEPS) RULE OUT CELIAC Kamaljit Ray MD Operation Date: 12/11/21 16:00 Actual Procedure Side Surgeon p Laparoscopic Cholecystectomy, Drainage of Tubal Ovarian Abscess Zeeshan Alexandre MD Time Spent With Patient Time: Total time spent is greater than 50% in coordination of care (as documented) at patient's floor/unit and/or counseling patient: Time with patient: less than 15 minutes DIRECTOR OF TAX SERVICES- PN:Subj Post-Op Subjective Date/time seen: 12/13/21 08:02 Improved pain, no nausea, vomiting, fever, chills. Interval history: 35yo female with PTSD here for abdominal pain. Assuming care. Chart reviewed. She feels better today. Abd pain is improved. No chest pain or shortness of breath. No flatus or bowel movements. She did sleep poorly last night. Asking about discharge. Exam Const: General: cooperative, healthy appearing, comfortable and no acute distress; No confusion Orientation/consciousness: oriented to person, oriented to place, oriented to time and No confusion HENMT: Head: normal to inspection Ears: external ears normal Face/Nose/Sinus: Normal external nose present and normal facial exam Face and sinus: normal facial exam Eyes: General: appearance normal, both eyes and all related structures Neck: Neck: normal visual inspection, trachea midline and supple Resp: Auscultation: clear to auscultation bilaterally, no crackles, no rales, no rhonchi and no wheezes Cardio: Rate: regular rate Rhythm: regular rhythm Heart sounds: no click, no murmurs and no rubs GI: GI Palp: No abdominal tenderness, No Soft to palpation, No Tenderness to palpation present (GI) and No Palpable mass present Auscultation: normal bowel sounds Skin: General skin exam: normal color and no rashes or lesions noted Neuro: General: oriented to person, oriented to place, oriented to time and No confusion Speech: No Abnormal speech present Extrem: General: normal to inspection, no joint enlargement, no clubbing, cyanosis or edema, no pedal edema and no calf tenderness Psych: Appearance: grossly normal Mental Status: mental status grossly normal Speech and movement: Normal speech and movement present DIRECTOR OF TAX SERVICES - PN: Obj Data Vital Signs Vital Signs: Vital Signs - 24 hr 12/12/21 09:00 12/12/21 14:10 12/12/21 19:47 Temperature 98.0 F 97.7 F 97.7 F Pulse Rate 55 L 72 75 Respiratory Rate 16 16 16 Blood Pressure 132/95 H 113/75 114/63 Pulse Oximetry 99 96 97 12/12/21 23:46 12/13/21 05:00 Temperature 98.0 F 97.5 F L Pulse Rate 78 76 Respiratory Rate 20 20 Blood Pressure 115/89 125/78 Pulse Oximetry 100 95 Intake/Output Intake/Output: Intake & Output 12/10/21 12/11/21 12/12/21 12/13/21 23:59 23:59 23:59 23:59 Intake Total 680 283 2668 50 Output Total 1500 1400 800 0 Balance -910 -610 760 50 Meds/Results Medications: Active Medications Generic Name Dose Route Start Last Admin Trade Name Freq PRN Reason Stop Dose Admin Acetaminophen 500 mg 12/11/21 20:02 Acetaminophen 500 Mg Tablet PO Q6H PRN Mild Pain (1-3) or Fever Hydrocodone Bitart/Acetaminophen 1 tab 12/11/21 20:02 12/13/21 05:29 Hydrocodone/Acetaminophen (*Crx) 5-325 Mg Tablet PO 1 tab Q4H PRN Administration Pain Rated 4-6 Hydrocodone Bitart/Acetaminophen 1 tab 12/11/21 20:02 12/12/21 23:49 Hydrocodone/Acetaminophen (*Crx) 10-325 Mg Tablet PO 1 tab Q6H PRN Administration Pain Rated 7-10 Alprazolam 0.5 mg 12/09/21 20:36 12/11/21 20:44 A
[2021-12-13] MEDS: ALPRAZolam (*CRX) 0.5 MG TABLET PO (08:32)
[2021-12-13] MEDS: buPROPion HCL SR (12HR) 100 MG TABCR 200 MG PO (08:32)
[2021-12-13] MEDS: ENOXAPARIN 40 MG/0.4 ML SYRINGE SUB-Q (08:32)
[2021-12-13] MEDS: NICOTINE (*PBKC) 14 MG PATCH 1 PATCH TRANSDERM (08:33)
[2021-12-13] MEDS: metroNIDAZOLE 250 MG TABLET 500 MG PO (08:33)
[2021-12-13] MEDS: PARoxetine 10 MG TABLET PO (08:34)
--- NOTE | 2021-12-13 08:51 | PM.PNGS ---
Progress Note: A&P Assessment and Plan (1) Chronic calculous cholecystitis: Code(s): K80.10 - Calculus of gallbladder with chronic cholecystitis without obstruction Status: Acute Assessment and Plan: Doing well. Okay to discharge from my perspective. Discharge instructions and diet recommendations were given. Discharge prescriptions have been entered for pain medication and Zofran. I will see her again in 2 weeks. (2) Tubo-ovarian abscess: Code(s): N70.93 - Salpingitis and oophoritis, unspecified Status: Acute Assessment and Plan: Dr. Borjas is managing. Home on doxycycline. (3) Smoker: Code(s): F17.200 - Nicotine dependence, unspecified, uncomplicated Status: Chronic Assessment and Plan: advised to quit Subjective Subjective Date/Time Seen: 12/13/21 08:51 Post Op day: 2 Patient reports: feels better, pain is less, tolerating a regular diet and afebrile Exam Const: General: comfortable, no acute distress, alert and awake Nutritional Appearance: overweight Orientation/consciousness: patient oriented x3 GI: Inspection: incision (Tender but dry and healing well) GI Palp: Yes Soft to palpation, Yes Tenderness to palpation present (GI), No Hernia present and No Palpable mass present Auscultation: normal bowel sounds Objective Data Vital Signs Vital Signs: Vital Signs - 24 hr 12/12/21 09:00 12/12/21 14:10 12/12/21 19:47 Temperature 36.7 C 36.5 C 36.5 C Pulse Rate 55 L 72 75 Respiratory Rate 16 16 16 Blood Pressure 132/95 H 113/75 114/63 Pulse Oximetry 99 96 97 12/12/21 23:46 12/13/21 05:00 Temperature 36.7 C 36.4 C L Pulse Rate 78 76 Respiratory Rate 20 20 Blood Pressure 115/89 125/78 Pulse Oximetry 100 95 Intake/Output Intake/Output: Intake & Output 12/10/21 12/11/21 12/12/21 12/13/21 23:59 23:59 23:59 23:59 Intake Total 842 116 5123 100 Output Total 1500 1400 800 0 Balance -910 -610 760 100 Meds/Results Medications: Active Medications Generic Name Dose Route Start Last Admin Trade Name Freq PRN Reason Stop Dose Admin Acetaminophen 500 mg 12/11/21 20:02 Acetaminophen 500 Mg Tablet PO Q6H PRN Mild Pain (1-3) or Fever Hydrocodone Bitart/Acetaminophen 1 tab 12/11/21 20:02 12/13/21 05:29 Hydrocodone/Acetaminophen (*Crx) 5-325 Mg Tablet PO 1 tab Q4H PRN Administration Pain Rated 4-6 Hydrocodone Bitart/Acetaminophen 1 tab 12/11/21 20:02 12/12/21 23:49 Hydrocodone/Acetaminophen (*Crx) 10-325 Mg Tablet PO 1 tab Q6H PRN Administration Pain Rated 7-10 Alprazolam 0.5 mg 12/09/21 20:36 12/13/21 08:32 Alprazolam (*Crx) 0.5 Mg Tablet PO 0.5 mg DAILY PRN Administration Anxiety Bupropion HCl 200 mg 12/10/21 09:00 12/13/21 08:32 Bupropion Hcl Sr (12hr) 100 Mg Tabcr PO 200 mg DAILY TOM Administration Doxycycline Hyclate 100 mg 12/09/21 18:00 12/13/21 05:29 Doxycycline Hyclate 100 Mg Tablet PO 100 mg Q12H TOM Administration Enoxaparin Sodium 40 mg 12/12/21 09:00 12/13/21 08:32 Enoxaparin 40 Mg/0.4 Ml Syringe SUB-Q 40 mg DAILY TOM Administration Home Med 1 each 12/10/21 10:00 12/12/21 16:49 Lisdexamfetamine [Vyvanse] 70 Mg Capsule PO 01/09/22 09:59 Not Given DAILY TOM Hydromorphone HCl 0.5 mg 12/11/21 20:02 Hydromorphone Hcl Inj (*Crx) 1 Mg/Ml Syr IV PUSH Q2H PRN Pain Rated 4-6 Hydromorphone HCl 1 mg 12/11/21 20:02 12/12/21 05:20 Hydromorphone Hcl Inj (*Crx) 1 Mg/Ml Syr IV PUSH 1 mg Q2H PRN Administration Pain Rated 7-10 Ceftriaxone Sodium/Dextrose 1 gm in 50 mls @ 100 mls/hr 12/09/21 17:00 12/13/21 08:23 Rocephin 1 Gm/D5w 50 Ml IVPB Infused Q24H TOM Infusion Ibuprofen 800 mg in 200 mls @ 400 mls/hr 12/11/21 20:02 12/12/21 14:47 Caldolor 800 Mg/200 Ml IVPB Infused Q6H PRN Infusion Pain Rated 1-3 Metronidazole 500 mg 12/09/21 17:00 12/13/21 08:33 Metronidazole 250
[2021-12-13 14:00] VITALS: BP 117/78; PULSE 76; RESP 20; TEMP 35.8; O2SAT 96
--- NOTE | 2021-12-13 14:52 | PM.DS ---
DS: Admitting Diagnosis Discharge Date 12/13/21 Admitting Diagnosis Abdominal pain DS: Discharge Diagnosis Discharge Diagnosis (1) Tubo-ovarian abscess: Code(s): N70.93 - Salpingitis and oophoritis, unspecified Status: Acute (2) Chronic calculous cholecystitis: Code(s): K80.10 - Calculus of gallbladder with chronic cholecystitis without obstruction Status: Acute (3) Acute pelvic inflammatory disease (PID): Code(s): N73.0 - Acute parametritis and pelvic cellulitis Status: Acute (4) Elevated LFTs: Code(s): R79.89 - Other specified abnormal findings of blood chemistry Status: Acute (5) Post traumatic stress disorder: Code(s): F43.10 - Post-traumatic stress disorder, unspecified Status: Acute (6) Anxiety: Code(s): F41.9 - Anxiety disorder, unspecified Status: Acute (7) Smoker: Code(s): F17.200 - Nicotine dependence, unspecified, uncomplicated Status: Chronic DS: Summary Hospital Course Reason for hospitalization: 35yo female with PTSD here for abdominal pain. Please see H&P for details Hospital Course: CT Abd scan showing inflammatory fat standing in the RLL.Her LFTs elevated felt related to the cholecystitis but could be from [id number]. Patient was taken to the OR on 12/11/2021 for laparoscopic cholecystectomy.? No evidence of appendicitis. The patient did have bilateral purulent fluid pockets between the fallopian tube and ovaries.? These were drained.? Cultures were not sent.? These findings were not seen on the pelvic ultrasound from the day before. UCx negative. Genital Cx negative. Serologies showing C. Trach positive and Gonorrhea negative. Direct ID Trich was negative. UPT was negative. Plan for 2 weeks of treatment starting on 12/11 with Doxycycline and Flagyl. Will need repeat testing in 3 months. She was advised to quit smoking. WBC normalized. LFTs improved. She overall did well and was able to be discharged 12/13. Status at Discharge Cognitive/behavioral status at discharge: Stable Time Spent with Patient Time attestation: Total time spent providing and/or coordinating discharge services: 35 minutes Time spent: Greater than 30 minutes Exam Narrative: AF 96.5 117/78 76 20 96% ra Gen - NARD Chest - CTA bilaterally, nml RR CV - RRR S1/S2 Abd - Soft, ND, +BS, incisions are clean, dry and intact. Minimal pain Ext - No pedal edema Psych - Nml mood and affect Skin - Warm and dry DS: Data Data Completed and Pending Completed studies during hospitalization: Pending at discharge 12/10/21 14:33 Surgical [PTH] Routine Pending studies at discharge: Pending at discharge 12/11/21 18:11 Surgical [PTH] Routine Labs on day of discharge: Labs from last 24 hours 12/13/21 12/13/21 05:54 05:54 WBC 9.1 RBC 3.99 L Hgb 10.7 L Hct 34.5 L MCV 86.5 MCH 26.8 MCHC 31.0 L RDW 13.9 Plt Count 337 MPV 10.7 H Immature Gran % (Auto) 0.9 H Neut % (Auto) 70.0 Lymph % (Auto) 18.8 Grady % (Auto) 8.8 H Eos % (Auto) 1.3 Baso % (Auto) 0.2 Lymph # (Auto) 1.71 Grady # (Auto) 0.8 H Eos # (Auto) 0.1 Baso # (Auto) 0.0 Abs Immat Gran (auto) 0.08 H Absolute Neuts (auto) 6.4 Absolute Nucleated RBC 0.0 Nucleated RBC % 0.0 Sodium 139 Potassium 3.8 Chloride 99 Carbon Dioxide 29 Anion Gap 11 BUN 11 Creatinine 0.80 Estim Creat Clear Calc 104 Estimated GFR > 60 Glucose 100 Calcium 8.0 L Total Bilirubin < 0.1 L AST 34 ALT 50 H Alkaline Phosphatase 73 Total Protein 6.0 L Albumin 3.2 L Discharge Plan Discharge Attending physician on discharge: Anthony Medellin Consulting providers: Karla Ortiz ; Zeeshan Alexandre ; Kamaljit Ray Discharging Clinician: Anthony Medellin Anticipated Discharge Date/Time: 12/13/21 14:59 Patient Disposition: Home, Self-Care Activity: may shower, no stra
[2021-12-17 21:46] LABS: ANCA Screen Negative (Negative); Myeloperoxidase Ab <1.0 AI (<1.0); Proteinase-3 Ab <1.0 AI (<1.0); S cerevisiae Ab (IgA) 54.6 U (<=20.0); S cerevisiae Ab (IgG) 18.7 U (<=20.0)
--- NOTE | 2021-12-19 09:45 | PC.NURSE ---
[facility] path- Cholelithiasis and mild chronic cholecystitis. Dr. Lacie hanna.
== END 2021-12-13 16:50 | disposition home or self-care (01) | DRG 513 ==
LOC: ANHED 12:42 → ANH3MEDSUR 16:10
PROVIDERS: Chiropractor; Internal Medicine Gastroenterology; Physician Assistant; Surgery; Admitting Provider Internal Medicine; Emergency Provider Emergency Medicine; Visit Provider Internal Medicine
PROC: 0DJ08ZZ Inspection of Upper Intestinal Tract, Via Natural or Artificial Opening Endoscopic (ICD-10-PCS; CPT 43235; principal; 2021-12-10 14:30)
PROC: 0FT44ZZ Resection of Gallbladder, Percutaneous Endoscopic Approach (ICD-10-PCS; CPT 47562; principal; 2021-12-11 16:00)
DX: N73.0 Acute parametritis and pelvic cellulitis (principal); K80.10 Calculus of gallbladder with chronic cholecystitis without obstruction; K29.70 Gastritis, unspecified, without bleeding; F43.10 Post-traumatic stress disorder, unspecified; F17.210 Nicotine dependence, cigarettes, uncomplicated; F41.9 Anxiety disorder, unspecified; F90.9 Attention-deficit hyperactivity disorder, unspecified type; E66.9 Obesity, unspecified; Z68.34 Body mass index [BMI] 34.0-34.9, adult
CPT/HCPCS: 36415; 71101; 74177; 76700; 76856; 80048; 80053; 80074; 81001; 81025; 83690; 83735; 84443; 85025; 85027; 86036; 86140; 86671; 86850; 86900; 86901; 87070; 87081; 87086; 87088; 87491; 87591; 87808; 88304; 88305; 96361; 96365; 96366; 96375; 96376; 99285; A9270; C1713; G0378; G0379; J0330; J0696; J1100; J1170; J1650; J1741; J2060; J2250; J2270; J2405; J2543; J2704; J3010; J7030; J7120; Q9967

== ENCOUNTER → 2022-01-17 14:14 | Outpatient (CLI) | payer OTHER, SELFPAY ==
--- NOTE | ~2022-01-17 | US_ITS ---
US soft tissue head and neck 01/17/2022 15:35 Indication: Swelling of the neck. Palpable lump. Procedure: High-resolution ultrasound of the neck Comparison: No prior studies for comparison. Findings: There are normal-appearing bilateral cervical lymph nodes all of which retain their normal fatty hilum, largest on the right measuring 9 mm and on the left measuring 8 mm. Impression: 1: Normal appearing bilateral cervical lymph nodes, likely reactive. Reviewed, dictated and finalized at location A. NG MACHINE OPERATOR Impression: 1: Normal appearing bilateral cervical lymph nodes, likely reactive.
== END ==
PROVIDERS: PCP Physician Assistant; Visit Provider Physician Assistant
DX: R22.1 Localized swelling, mass and lump, neck (principal)
CPT/HCPCS: 76536

== ENCOUNTER 2022-03-08 08:51 | Outpatient (CLI) | payer OTHER, SELFPAY ==
--- NOTE | ~2022-03-08 | XR_ITS ---
EXAMINATION: XR barium swallow DATE: 03/08/2022 09:32 INDICATION: Neck swelling and dysphagia TECHNIQUE: The patient drank thick barium, gas-producing crystals, and thin barium. Fluoroscopy of th e hypopharynx and esophagus was performed. Fluoroscopy exposure time was 1.3 minutes. The DAP for thi s procedure was 9.234 Gycm2. COMPARISON: None. FINDINGS: There is no mass or stricture of the esophagus. Esophageal motility is normal. There is no hiatal hernia. There was no gastroesophageal reflux with provocative maneuvers. IMPRESSION: 1. Unremarkable esophagram. Reviewed, dictated and finalized at location A. TER HAND IMPRESSION: 1. Unremarkable esophagram.
== END 2022-03-08 08:52 | disposition home or self-care (01) ==
PROVIDERS: PCP Physician Assistant; Visit Provider Physician Assistant
DX: R22.1 Localized swelling, mass and lump, neck (principal)
CPT/HCPCS: 74220

== ENCOUNTER 2022-05-03 13:12 | Outpatient (CLI) | payer OTHER, SELFPAY ==
--- NOTE | ~2022-05-03 | CT_ITS ---
CT of the Abdomen and Pelvis: Indication: Abdominal pain Technique: 2.5 mm axial scans were obtained through the abdomen and pelvis following intravenous adm inistration of 100 cc of Omnipaque 350. Dose reduction technique was used on this scan by utilizing a utomated exposure control and iterative reconstruction technique. The dose-length product (DLP) was 1 139.94 mGy-cm. COMPARISON: 12/09/2021 Findings: Scans through the lung bases are unremarkable. The liver, spleen, pancreas, adrenals and kidneys are within normal limits. Cholecystectomy clips are present. No evidence of aortic aneurysm. No lymphadenopathy. No bowel obstruction or bowel wall thickening. There is no evidence to suggest acute appendicitis. Images through the pelvis were performed. Urinary bladder unremarkable. No adnexal mass evident. No a scites. Impression: No significant abnormalities seen. Reviewed, dictated and finalized at [facility]. Impression: No significant abnormalities seen.
--- NOTE | ~2022-05-03 | CT_ITS ---
EXAMINATION: CT sinus wo con DATE: 05/03/2022 13:49 INDICATION: Chronic sinusitis TECHNIQUE: Computed tomography (CT) of the paranasal sinuses was performed without intravenous contra st. The dose-length product was 325.47 mGy-cm. Automated exposure control and iterative reconstructio n technique were employed. COMPARISON: CT dated 12/02/2017 FINDINGS: Minimal mucosal thickening of the left maxillary sinus. No air-fluid levels. No mucoperiost eal reaction. Mastoids are pneumatized. Mild hypertrophy of the left inferior turbinate. There are bi lateral nain bullosa. Ostiomeatal units are patent. IMPRESSION: 1. No significant sinus disease. Reviewed, dictated and finalized at location A.
== END 2022-05-03 13:13 | disposition home or self-care (01) ==
LOC: ANHIMG 13:18
PROVIDERS: PCP Physician Assistant; Visit Provider Obstetrics & Gynecology
DX: R10.9 Unspecified abdominal pain (principal); J32.9 Chronic sinusitis, unspecified
CPT/HCPCS: 70486; 74177; Q9967

== ENCOUNTER 2023-04-29 13:03 | Outpatient (CLI) | payer OTHER, SELFPAY ==
--- NOTE | ~2023-04-29 | US_ITS ---
EXAMINATION: US soft tissue abdomen DATE: 04/29/2023 14:06 INDICATION: Right flank mass. TECHNIQUE: Multiple grayscale and Doppler ultrasound images of the abdomen were obtained. COMPARISON: CT abdomen and pelvis 05/03/2022 FINDINGS: In the patient's area of concern in right flank, there is a 7.0 x 1.9 x 4.9 cm subcutaneous mass with echogenicity and echotexture similar to normal subcutaneous fat, consistent with a lipoma. IMPRESSION: 1. 7.0 cm subcutaneous lipoma in right flank. Reviewed, dictated and finalized at location A.
== END 2023-04-29 13:04 | disposition home or self-care (01) ==
LOC: ANHIMG 13:05
PROVIDERS: PCP Physician Assistant; Visit Provider Physician Assistant
DX: R10.9 Unspecified abdominal pain (principal)
CPT/HCPCS: 76705

== ENCOUNTER 2023-06-06 16:13 | Outpatient (CLI) | payer OTHER, SELFPAY ==
--- NOTE | ~2023-06-06 | XR_ITS ---
EXAMINATION: XR chest 2V 06/06/2023 16:41 INDICATION: Muscle strain PROCEDURE: 2 view chest COMPARISON: 12/02/2017 FINDINGS: The lungs are clear. The cardiomediastinal silhouette is within normal limits. There are no pleural effusions. There is no pneumothorax suspected. IMPRESSION: 1: NO ACUTE CARDIOPULMONARY DISEASE. Reviewed, dictated and finalized at location B.
--- NOTE | ~2023-06-06 | US_ITS ---
EXAMINATION: US soft tissue abdomen DATE: 06/06/2023 17:32 INDICATION: Right flank pain. TECHNIQUE: Multiple grayscale and Doppler ultrasound images of the abdomen were obtained. COMPARISON: CT abdomen and pelvis 12/09/2021 FINDINGS: There is no abnormal mass in the patient's area of concern in right flank. IMPRESSION: 1. No abnormal mass in the patient's area of concern in the right flank. Reviewed, dictated and finalized at location E.
== END 2023-06-06 16:14 | disposition home or self-care (01) ==
LOC: ANHIMG 16:13
PROVIDERS: PCP Physician Assistant; Visit Provider Physician Assistant
DX: R10.9 Unspecified abdominal pain (principal); S29.011A Strain of muscle and tendon of front wall of thorax, initial encounter; X58.XXXA Exposure to other specified factors, initial encounter; Z02.1 Encounter for pre-employment examination
CPT/HCPCS: 71046; 76705

== ENCOUNTER 2023-10-07 15:56 | Emergency (ER) | payer OTHER, SELFPAY ==
--- NOTE | 2023-10-07 16:01 | ED.GENADULT ---
HPI - General Adult General Chief complaint: Skin/Abscess/Foreign Body Stated complaint: rash on neck, left eye irritation Time Seen by Provider: 10/07/23 16:08 Source: patient, RN notes reviewed and old records reviewed Mode of arrival: ambulatory Limitations: no limitations History of Present Illness HPI narrative: 37-year-old female presents to the [facility] with complaints of a rash to her lower anterior neck and left upper eye lid redness and swelling. The eye lid swelling started 3 days ago, has been applying hydrocortisone cream. Patient states that the rash to the chest/neck area started just prior to arrival. No treatment prior to arrival Related Data Home Medications Medication Instructions Recorded Confirmed alprazolam 0.5 mg tablet 0.5 mg PO PRN PRN Anxiety 12/09/21 10/07/23 bupropion HCl 200 mg tablet,12 hr 200 mg PO DAILY 12/09/21 10/07/23 sustained-release lisdexamfetamine 70 mg capsule 70 mg PO DAILY 12/09/21 10/07/23 (Vyvanse) paroxetine HCl 10 mg tablet 10 mg PO DAILY 12/09/21 10/07/23 omeprazole 40 mg capsule,delayed 40 mg PO DAILY 10/07/23 10/07/23 release tretinoin 0.025 % topical cream 1 applic topical HS 10/07/23 10/07/23 Allergies Allergy/AdvReac Type Severity Reaction Status Date / Time No Known Allergies Allergy Unknown Verified 10/07/23 15:58 Review of Systems Review of Systems: All systems reviewed & are unremarkable except as noted in HPI and below Constitutional: Constitutional: Reports no additional constitutional complaints Eyes: Eyes: Reports no additional eye complaints ENT: Reports system reviewed and no additional complaints, except as documented Cardiovascular: Cardiovascular: Reports no additional cardiovascular complaints, Denies chest pain and Denies dyspnea Respiratory: Respiratory: Reports no additional respiratory complaints, Denies chest congestion, Denies cough and Denies dyspnea Gastrointestinal: Gastrointestinal: Reports no additional gastrointestinal complaints, Denies abdominal pain, Denies nausea and Denies vomiting Musculoskeletal: Musculoskeletal: Reports no additional musculoskeletal complaints Integumentary/Breasts: Skin/Breast: Reports system reviewed and no additional complaints, except as docu Neurologic: Reports system reviewed and no additional complaints, except as documented Psychiatric: Psychiatric: Reports no additional psychiatric complaints Allergic/Immunologic: Allergic/Immunologic: Reports no additional allergic/immunologic complaints PMFSH Past Medical History Medical History ADHD Anxiety Depression Obesity Post traumatic stress disorder Smoker Surgical History Surgical History History of dilation and curettage Hx laparoscopic cholecystectomy 12/11/21 Social History Social History Social History: Surrogate medical decision maker: Pippa Rachel, mother. Code status: Full code. 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 Spiritual care concerns: No Comments At the time of my signature, I reviewed and agree with the nursing past medical, surgical, social, and family history. There is no relevant family history pertinent to the patient complaint. Exam Const: General: cooperative, healthy appearing, comfortable, no acute distress, well developed, alert and
[2023-10-07 16:04] VITALS: BP 141/94; PULSE 85; RESP 16; TEMP 36.7; O2SAT 100
== END 2023-10-07 16:29 | disposition home or self-care (01) ==
PROVIDERS: Emergency Provider Nurse Practitioner; PCP Physician Assistant
DX: H00.034 Abscess of left upper eyelid (principal); L25.9 Unspecified contact dermatitis, unspecified cause; F17.210 Nicotine dependence, cigarettes, uncomplicated; F90.9 Attention-deficit hyperactivity disorder, unspecified type; F41.9 Anxiety disorder, unspecified; F32.A Depression, unspecified; E66.9 Obesity, unspecified; Z68.31 Body mass index [BMI] 31.0-31.9, adult
CPT/HCPCS: 99213; G0463

== ENCOUNTER 2024-01-05 10:18 | Emergency (ER) | payer OTHER, SELFPAY ==
[2024-01-05 10:23] VITALS: BP 147/96; PULSE 90; RESP 24; TEMP 36.9; O2SAT 100
--- NOTE | 2024-01-05 10:23 | ED.SKABFB ---
HPI - Skin/Abscess/Foreign Bdy General Chief complaint: Unspecified Stated complaint: Rash Time Seen by Provider: 01/05/24 10:36 Source: patient, RN notes reviewed and old records reviewed Mode of arrival: ambulatory Limitations: no limitations History of Present Illness HPI narrative: 38-year-old female presents to the [facility] with a family member with concerns of foreign bodies coming out of her skin specifically scalp, chest and right palm. Patient has what appears to be a kincaid hair in a Tupperware container that she said she pulled out of her scalp and believes it is a piece of plastic. Patient reports symptoms have been going on for a long time. Reports that she did see her primary a couple of weeks ago was referred to Dermatology, states that she has yet to get the referral. Patient appears to be anxious, tearful. Patient also reports that foreign bodies are coming out of the right palm, no foreign bodies noted, no scarring noted, no wounds noted. Has mild discoloration to the palm, bruise vs blood vessels. Onset (ago): month(s) Related Data Home Medications Medication Instructions Recorded Confirmed alprazolam 0.5 mg tablet 0.5 mg PO PRN PRN Anxiety 12/09/21 10/07/23 bupropion HCl 200 mg tablet,12 hr 200 mg PO DAILY 12/09/21 10/07/23 sustained-release lisdexamfetamine 70 mg capsule 70 mg PO DAILY 12/09/21 10/07/23 (Vyvanse) paroxetine HCl 10 mg tablet 10 mg PO DAILY 12/09/21 10/07/23 omeprazole 40 mg capsule,delayed 40 mg PO DAILY 10/07/23 10/07/23 release tretinoin 0.025 % topical cream 1 applic topical HS 10/07/23 10/07/23 Allergies Allergy/AdvReac Type Severity Reaction Status Date / Time No Known Allergies Allergy Unknown Verified 10/07/23 15:58 Review of Systems Review of Systems: All systems reviewed & are unremarkable except as noted in HPI and below Constitutional: Constitutional: Reports no additional constitutional complaints ENT: Reports system reviewed and no additional complaints, except as documented Cardiovascular: Cardiovascular: Reports no additional cardiovascular complaints, Denies chest pain and Denies dyspnea Respiratory: Respiratory: Reports no additional respiratory complaints, Denies chest congestion, Denies cough and Denies dyspnea Gastrointestinal: Gastrointestinal: Reports no additional gastrointestinal complaints, Denies abdominal pain, Denies nausea and Denies vomiting Musculoskeletal: Musculoskeletal: Reports no additional musculoskeletal complaints Integumentary/Breasts: Skin/Breast: Reports as per [facility] Past Medical History Medical History ADHD Anxiety Depression Obesity Post traumatic stress disorder Smoker Surgical History Surgical History History of dilation and curettage Hx laparoscopic cholecystectomy 12/11/21 Social History Social History Social History: Surrogate medical decision maker: Pippa Rachel, mother. Code status: Full code. 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 Spiritual care concerns: No Comments At the time of my signature, I reviewed and agree with the nursing past medical, surgical, social, and family history. There is no relevant family history pertinent to the patient complaint. Exam Const: General: cooperative, well developed, alert, anxious, uncomfortable, well nourished and overweight Nutritional Appearance: well nourished Orientation/consciousness: patient oriented x3 Limitations: no limitations HENMT: Head: normal to inspection Ears: hearing grossly normal bilaterally and external ears normal Face/Nose/Sinus: Normal external nose present, normal facial exam and face symmetric Face and sinus: normal facial exam and face symmetric Eyes: General: appearance normal, both eyes and all related structures Alignment and Position: alignment normal Periorbital: periorbital findings normal Neck: Neck: normal visual inspection and full ROM Chest: Chest palpation & inspection: normal inspection of the chest Resp: Effort & Inspection: normal respiratory effort and able to speak in complete sentences Cardio: Rate: regular rate Skin: General skin exam: normal color Lesions: no lesions Wounds: no wounds Neuro: General: patient oriented x3, gait normal, tone normal, moves all extremities and no meningeal signs Cognition (Neuro): normal cognition Speech: normal speech Gait exam (Neuro): Normal gait present Extrem: General: normal to inspection, full ROM and normal gait Psych: Appearance: grossly normal and well kempt Speech and movement: Normal speech and movement present and Clear speech present Affect: Anxious affect present Thought process: Racing thoughts present Thought content: Yes other Insight: Limited insight present (Psych) Judgement: Limited judgement present (Psych) Other: Concern the patient might have visual hallucinations. Concern for health anxiety. No foreign bodies noted to the skin of the palm. Course Course Level of Care: Express Care Visit Vital Signs Vital signs: Vital Signs Temperature 98.4 F 01/05/24 10:23 Pulse Rate 90 01/05/24 10:23 Respiratory Rate 24 H 01/05/24 10:23 Blood Pressure 147/96 H 01/05/24 10:23 Pulse Oximetry 100 01/05/24 10:23 Oxygen Delivery Room Air 01/05/24 10:23 Temperature 98.4 F 01/05/24 10:23 Pulse Rate 90 01/05/24 10:23 Respiratory Rate 24 H 01/05/24 10:23 Blood Pressure 147/96 H 01/05/24 10:23 Pulse Oximetry 100 01/05/24 10:23 Oxygen Delivery Room Air 01/05/24 10:23 Reviewed MDM - Skin/Abscess/Foreign Bdy MDM Narrative Medical decision making narrative: Patient is in exam room. Has a family member with her. Patient presents with several month history of having foreign bodies, out of her skin. Patient is wanting to be tested for worms. No foreign bodies noted to the palm of her hand. Patient presents with a Tupperware container that has what appears to be a possible kincaid hair that the patient describes as being plastic that she pulled out of her scalp. Patient is requesting that we contact her primary care provider and make sure that she sends in labs to be tested for were arms. Patient states that she lives with her parents and does not want to give them any type of disease. Patient is extremely anxious. Discussed with patient possible anxiety related to health. Discussed limitations of with this clinic can and cannot offer. Discussed with patient possible transfer to the emergency room. Patient became upset and unable to complete full physical assessment and due to her walking out of clinic. Some parts of this dictation were generated by voice recognition software and may contain typographical and/or grammatical inaccuracies. Differential Diagnosis Differential diagnosis: Likely contact dermatitis and other (Hallucinations, anxiety) Critical Care Time Critical Care Time Critical Care Time: No Discharge Plan Discharge Clinical Impression: Anxiety about health Patient Disposition: Elopement After Seen by Prov Condition: Stable Prescriptions: No Action tretinoin 0.025 % cream 1 applic TOPICAL HS omeprazole 40 mg capsule,delayed release(DR/EC) 40 mg PO DAILY sulfamethoxazole-trimethoprim [Bactrim DS] 800-160 mg tablet 1 tablet PO Q12H Qty: 20 0RF triamcinolone acetonide 0.1 % cream 1 applic topical BID Qty: 15 0RF paroxetine HCl 10 mg tablet 10 mg PO DAILY alprazolam 0.5 mg tablet 0.5 mg PO PRN PRN (Reason: Anxiety) bupropion HCl 200 mg tablet sustained-release 12 hr 200 mg PO DAILY lisdexamfetamine [Vyvanse] 70 mg capsule 70 mg PO DAILY ibuprofen 600 mg tablet 600 mg PO Q6H PRN (Reason: pain) Qty: 14 0RF ondansetron 4 mg tablet,disintegrating 4 mg PO Q6H PRN (Reason: nausea and vomiting) Qty: 14 0RF Follow-up/Referrals: Lisa,CHICO Jacob [Primary Care Provider] -
== END 2024-01-05 10:52 | disposition left against medical advice (07) ==
PROVIDERS: Emergency Provider Nurse Practitioner; PCP Physician Assistant
DX: F41.9 Anxiety disorder, unspecified (principal); F17.210 Nicotine dependence, cigarettes, uncomplicated; F90.9 Attention-deficit hyperactivity disorder, unspecified type; F32.A Depression, unspecified; E66.9 Obesity, unspecified; Z68.33 Body mass index [BMI] 33.0-33.9, adult; F43.10 Post-traumatic stress disorder, unspecified
CPT/HCPCS: 99211; G0463

== ENCOUNTER 2024-07-06 14:48 | Outpatient (CLI) | payer OTHER, SELFPAY ==
--- OUTSIDE RECORDS SUMMARY | 2024-07-06 14:53 | XMS_ITS ---
Author Organization [facility] Address [address] [place] [address] Care Team Providers Care Home Economics Extension Worker Name Role Phone Lionel Butt Primary Care Provider [phone] [place], [facility] Unavailable U navailable REASON FOR VISIT missed last appt-last seen 11/26/23 Social History Sex Assigned At : Social History Observation Description Sex Assigned At Female Encounters Encounter Location Date Provider Diagnosis [address] [place] [address] 04/29/2024 Lionel Butt Plan Of Treatment No Information Progress Notes * Sherie RIGGSDOB:1985 (38 yo F)Acc No.[id number]:04/29/2024 UNLOCKED PROGRESS NOTE Patient: Sherie SHAH Provider: Fredis Butt DNP, PMHNP-BC :1985 A ge:38 Y S ex:Female Date:04/29/2024 Address:[address] [facility] Subjective: * Chief Complaints: * 1 . Missed last appt-last seen 11/26/23. * Medical History: Objective: * Vitals: Assessment: Plan: * Treatment: * * Electronic signature of Ian Butt APRN, [id number] on 07/06/2024 at 02:53 PM CDT Sign off status: Pending * Provider: Fredis Butt DNP, PMHNP-BC Date: 0 04/29/2024 Generated for Docras franco/Robert/Olivia on: 0 07/06/2024 02:53 PM CDT
--- OUTSIDE RECORDS SUMMARY | 2024-07-06 14:54 | XMS_ITS | Encounter Summary ---
Author Organization [facility] Healthcare Address [address] [place] [address] Care Team Providers Care Quiller Tender Name Role Phone Michele Mckenna MD Primary Care Provider [phone] Reason for Visit * Reason Comments Vaginal Bleeding - Encounter Details Date Type Department Care Team (Latest Contact Info) Description 07/05/2024 12:29 PM CDT - 07/05/2024 3:58 PM CDT Hospital Encounter [address] [address] Tommy Dunn MD [address] [facility] [id number] [place] [address] Discharge Disposition: Discharge to home or self care Social History Tobacco Use Types Packs/Day Years [...] making you feel afraid or unsafe? Denies 07/05/2024 Comments Yes Sex and Gender Information Value Date Recorded Sex Assigned at Not on file Legal Sex Female 11:53 AM SILK EXAMINER Gender Identity Female 11/30/2020 2:26 PM CDT Sexual Orientation Straight 11/30/2020 2: 26 PM CDT documented as of this encounter Last Filed Vital Signs Vital Sign Reading Time Taken Comments Blood Pressure 132/98 07/05/2024 12:35 PM CDT Pulse 108 07/05/2024 12:35 PM CDT Temperature 36.7 C (98.1 F) 07/05/2024 12:35 PM CDT Respiratory Rate 16 07/05/2024 12:35 PM CDT Oxygen Saturation 99% 07/05/2024 12:35 PM CDT Inhaled Oxygen Concentration - - Weight 107.3 kg (236 lb 8 oz) 07/05/2024 12:35 P M CDT Height 170.2 cm (5' 7 ) 07/05/2024 12:35 PM CDT Body Mass Index 37.04 07/05/2024 12:35 PM CDT documented in this encounter Discharge Instructions * Discharge Instructions* Kinga Coleman MD - 07/05/2024 3:50 PM CDT A of Unknown Location (PUL) is when a woman has a positive test, but the ultrasound does not show a . This could mean an embryo in the uterus is not visible, the is ectopic(outside the uterus), or a miscarriage. An ectopic can put your life at risk, so if you have a PUL, it is very important to keep track of your hormone levels as instructed until it is determined which is the case. If you have severe abdominal pain, nausea, vomiting or heavy vaginal bleeding, go to the nearest emergency room, or dial 911. For concerns or questions, please call: - Friday - Friday, 8:30 am - 4:00 pm: [phone] - After Hours/Weekends: [phone] Lab Locations and Hours: [facility] [address] [place] [address], [address], [place] [address] Friday - Friday, 8:30a.m.-4:30 p.m. [facility] - Outpatient Lab [address] [facility], [place] [address] (Main Floor, by Admitting) Friday - Friday, 6:00 a.m. - 2:00 p.m. [facility] - Outpatient Lab [address] [facility], 3rd Floor, [place] [address] Friday - Friday, 6:30a.m.-6:00p.m. Friday, 8:30 a.m. - 12:00 p.m. documented in this encounter Medications at Time of Discharge ALPRAZolam (XANAX) 0.5 mg tablet Take 1 tablet (0.5 mg total) by mouth as needed for anxiety 07/21/2023 cetirizine (ZyrTEC) 10 mg tablet Take 1 tablet (10 mg total) by mouth as needed for allergies cholecalciferol 25 mcg (1,000 unit) tablet Take 1 tablet (1,000 Units total) by mouth daily 90 tablet 1 06/07/2024 fluticasone propionate (FLONASE) 50 mcg/actuation nasal spray SHAKE LIQUID AND INSTILL 2 SPRAYS INTO EACH NOSTRIL ONCE DAILY 48 mL 1 04/26/2024 ivermectin (STROMECTOL) 3,000 mcg tablet Take 1 tablet (3,000 mcg total) by mouth lisdexamfetamine (Vyvanse) 70 mg capsule Take 1 capsule (70 mg total) 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 [id number] Pelvic bed Yes CC: + UPT and vaginal bleeding. HPI: 38 y.o. pre-menopausal presents with + UPT and vaginal bleeding. +UPT. Unknown LMP. Unplanned, but desired. Has been following quants with OSH OBGYN: 07/01 517 > 07/03 876. Had single episode of vaginal bleeding, saturating 25-50% of pad with blood clot. Presented to [facility] after VB due to concern for possible miscarriage. Past Medical History: Diagnosis Date ADHD (attention deficit hyperactivity disorder) Allergic rhinitis Anxiety Dental disease 2013 Depression GERD (gastroesophageal reflux disease) Headache PTSD (post-traumatic stress disorder) Sinusitis TMJ dysfunction Type 2 diabetes mellitus (HCC) pre-diabetic- diet controlled Past Surgical History: Procedure Laterality Date CHOLECYSTECTOMY DENTAL SURGERY patient states she has 12 implants in her mouth DILATION AND CURETTAGE OF UTERUS 2012 OB History 4 Para 2 Term 1 1 AB 1 Living SAB 1 IAB Ectopic Multiple Live Births ASSET SPECIALIST History: No LMP recorded. Patient is . Menses: regular, monthly HOME MEDICATIONS : ALPRAZolam (XANAX) 0.5 mg tablet cetirizine (ZyrTEC) 10 mg tablet cholecalciferol 25 mcg (1,000 unit) tablet doxycycline 100 mg tablet fluticasone propionate (FLONASE) 50 mcg/actuation nasal spray ivermectin (STROMECTOL) 3,000 mcg tablet lisdexamfetamine (Vyvanse) 70 mg capsule loratadine (CLARITIN) 10 mg tablet omeprazole (PriLOSEC) 40 mg capsule PARoxetine (PAXIL) 10 mg tablet Allergies as of 07/05/2024 - Reviewed 07/05/2024 Allergen Reaction Noted Quetiapine Muscle pain 12/02/2023 Social History Tobacco Use Smoking status: Every Day Current packs/day: 0.15 Average packs/day: 0.2 packs/day for 15.0 years (2.3 ttl pk-yrs) Types: Cigarettes Smokeless tobacco: Never Substance and Sexual Activity Drug use: Yes Types: Medical marijuana Comment: rarely Sexual activity: Yes Partners: Male control/protection: Condom Male Alcohol Use: Not At Risk (06/04/2024) AUDIT-C Frequency of Alcohol Consumption: Monthly or less Average Number of Drinks: 1 or 2 Frequency of Binge Drinking: Never Safe at home Yes Physical Exam: Temp: [36.7 ??C (98.1 ??F)] 36.7 ??C (98.1 ??F) Pulse: [108] 108 Resp: [16] 16 BP: (132)/(98) 132/98 General: NAD, mood appropriate Pulmonary: non-labored Cardiovascular: Regular rate and rhythm Abdomen: soft, non-tender, non-distended, without rebound or guarding Extremities: Warm and well perfused GENITAL EXAM: External:normal appearing and no lesions Vagina: scant dark brown blood and no lesions Cervix: no lesions, closed no active bleeding from cervical os Uterus: not enlarged, non-tender, moblie, and exam limited due to body habitus Adnexa: non-tender and no palpable masses Recent Labs Lab Units 07/05/24 1401 WBC K/cumm 11.47* HEMOGLOBIN g/dL 13.6 HEMATOCRIT % 41.5 PLATELETS K/cumm 266 No results found for: ABORH Laboratory review: Lab results in the last 24 hours: Recent Results (from the past 24 hours) POCT hCG, urine Collection Time: 07/05/24 1:15 PM Result Value Ref Range HCG, ur, POC Positive (A) Negative Lot Number [id number] QC Backgroud Clear Acceptable QC Control Line Acceptable hCG, blood, quantitative Collection Time: 07/05/24 2:01 PM Result Value Ref Range hCG, quant 1,580.0 (H) 0.0 - 5.0 IUnits/L Comprehensive metabolic panel Collection Time: 07/05/24 2:01 PM Result Value Ref Range Sodium 141 135 - 145 mmol/L Potassium, pl 4.7 3.3 - 4.9 mmol/L Chloride 106 97 - 110 mmol/L CO2 27 22 - 32 mmol/L Anion gap 8 2 - 15 mmol/L BUN 10 6 - 25 mg/dL Creatinine 0.72 0.60 - 1.10 mg/dL Glucose 104 70 - 199 mg/dL Calcium 9.7 8.5 - 10.3 mg/dL Bilirubin, total 0.3 0.1 - 1.2 mg/dL Protein, pl 7.1 6.5 - 8.5 g/dL Albumin 4.0 3.5 - 5.0 g/dL Alk phos 91 40 - 130 Units/L ALT 34 7 - 45 Units/L AST 19 10 - 45 Units/L CBC without differential Collection Time: 07/05/24 2:01 PM Result Value Ref Range WBC 11.47 (H) 3.80 - 9.90 K/cumm Hgb 13.6 11.9 - 15.5 g/dL Hct 41.5 35.6 - 45.5 % Plt 266 150 - 400 K/cumm MPV 11.0 9.1 - 12.3 fL RBC 5.02 3.90 - 5.20 M/cumm MCV 82.7 81.3 - 96.4 fL MCH 27.1 27.1 - 33.3 pg MCHC 32.8 32.3 - 35.7 g/dL RDW CV 14.6 11.1 - 14.9 % RDW SD 43.1 35.7 - 48.1 fL NRBC abs 0.00 0.00 - 0.01 K/cumm eGFR Collection Time: 07/05/24 2:01 PM Result Value Ref Range eGFR >90 >=60 mL/min/1.73 m2 Imaging: BSUS: UT: 8cm x 4.3cm x 5cm. Intrauterine gestational sac seen: no, thickened EMS 1.4cm Left adnexa: Ovary not visualized. no masses seen Right adnexa: Ovary not visualized. no masses seen Fluid in Cul-de-sac: minimal PLAN: # PUL: - HD stable. - Quant 1580, below the discriminatory zone. -- Quant trend: 07/01 517 > 07/03 876 > 07/05 1580, 80% rise - No evidence of ectopic in adnexa and no focal tenderness. - Suspect early vs early miscarriage. - We reviewed importance of close followup and the risk of ectopic - if undetected, couldexperience rupture, bleeding, even . -Discussed findings with the patient and the plan for a repeat quant in 48hrs. -We reviewed importance of close followup and having labs drawn in same lab. -We also reviewed appropriate bleeding and pain precautions (including, but not limited to, callingor being seen if soaking 2 larges pads per hour for 2 hours or more or 1 pad per hour for 3 hours or more). -Patient placed in ASSET SPECIALIST beta book for follow up. -Please start vitamin #Rh: positive, no indication for rhogam Kinga Coleman MD Cosigned by Blair Easton MD at 07/05/2024 9:23 PM CDT Associated attestation - Blair Easton MD - 07/05/2024 9:23 PM CDT Kinga Coleman MD (PGY-4) saw and examined the patient, we discussed their findings, and I am inagreement with the plan based on the discussion with the resident physician. I did not personally examine the patient. 38 y.o. female with of unknown location. Afebrile and hemodynamically stable. Hgb13.6, O+/-, beta hCG 1580. I have reviewed the ultrasound performed by the resident physician and agree with the documented interpretation. Plan for repeat beta hCG in 48 hours with likely TVUS to assess for location. Return precautions provided. Patient added to Beta Book for follow up. documented in this encounter Nursing Notes * Chaya Cui RN - 07/05/2024 3:58 PM CDT Patient discharged to home with [facility] precautions and follow up instructions. documented in this encounter Plan of Treatment Not on file documented as of this encounter Procedures Procedure Name Priority Date/Time Associated Diagnosis Comments B CHECK SAMPLE STAT 07/05/2024 3:39 PM CDT EGFR STAT 07/05/2024 2:01 PM CDT CBC WITHOUT DIFFERENTIAL STAT 07/05/2024 2:01 PM CDT TYPE AND SCREEN STAT 07/05/2024 2:01 PM CDT HCG, BLOOD, QUANTITATIVE Routine 07/05/2024 2:01 PM CDT COMPREHENSIVE METABOLIC PANEL STAT 07/05/2024 2:01 PM CDT POCT HCG, URINE Routine 07/05/2024 1:15 PM CDT documented in this encounter Results * Check Sample (07/05/2024 3:39 PM CDT) ABO Rh O Positive [facility] HCLL OTHER 07/05/2024 3:39 PM CDT 07/05/2024 3:52 PM CDT us Tommy Dunn MD LAB BLOOD ORDERABLES Final Result ANGELA [facility] [address] [facility] [place] [address] [facility] * eGFR (07/05/2024 2:01 PM CDT) eGFR >90 >=60 mL/min/1. 73 m2 Comment: [...] interpretive data was last reviewed 2020. Blood 07/05/2024 2:01 PM CDT 07/05/2024 2:18 PM CDT us Alana Cazares EMERGENCY SPILL RESPONSE TECHNICIAN LAB BLOOD ORDERABLES Fin al Result Performing Organization Address [facility] Co de Phone Number [facility] [place] [address] * (ABNORMAL) CBC without differential (07/05/2024 2:01 PM CDT) [facility] WBC 11.47(H) 3.80 - 9.90 K/cumm Hgb 13.6 11.9 - 15.5 g/dL [facility] Hct 41.5 35.6 - 45.5 % [facility] Plt 266 150 - 400 K/cumm [facility] MPV 11.0 9.1 - 12.3 fL [facility] RBC 5.02 3.90 - 5.20 M/cumm [facility] MCV 82.7 81.3 - 96.4 fL [facility] MCH 27.1 27.1 - 33.3 pg [facility] MCHC 32.8 32.3 - 35.7 g/dL [facility] RDW CV 14.6 11.1 - 14.9 % [facility] RDW SD 43.1 35.7 - 48.1 fL [facility] NRBC abs 0.00 0.00 - 0.01 K/cumm [facility] Blood 07/05/2024 2:01 PM CDT 07/05/2024 2:23 PM CDT Alana Cazares EMERGENCY SPILL RESPONSE TECHNICIAN LAB BLOOD ORDERABLES Fin al Result Performing Organization Address [facility] Co de Phone Number [facility] Department [place] [address] * Comprehensive metabolic panel (07/05/2024 2:01 PM CDT) [facility] Sodium 141 135 - 145 mmol/L Potassium, pl 4.7 3.3 - 4.9 mmol/L [facility] Chloride 106 97 - 110 mmol/L [facility] CO2 27 22 - 32 mmol/L [facility] Anion gap 8 2 - 15 mmol/L [facility] BUN 10 6 - 25 mg/dL [facility] Creatinine 0.72 0.60 - 1.10 mg/dL [facility] Glucose 104 70 - 199 mg/dL [facility] Comment: Interpretive Data Fasting glucose >/= 126 [...] classification and Diagnosis of Diabetes Diabetes Care 2021; 46: S19-S40. Current interpretive data was last revised 2022. Calcium 9.7 8.5 - 10.3 mg/dL [facility] Bilirubin, total 0.3 0.1 - 1.2 mg/dL [facility] Protein, pl 7.1 6.5 - 8.5 g/dL [facility] Albumin 4.0 3.5 - 5.0 g/dL [facility] Alk phos 91 40 - 130 Units/L [facility] ALT 34 7 - 45 Units/L [facility] AST 19 10 - 45 Units/L [facility] Blood 07/05/2024 2:01 PM CDT 07/05/2024 2:18 PM CDT Alana Cazares NP LAB BLOOD ORDERABLES [facility] al Result Performing Organization Address City/State/[facility] Co de Phone Number [facility] [address] [facility] Department [place] [address] * Type and screen (07/05/2024 2:01 PM CDT) Leydi, indirect Negative ABO Rh O Positive [facility] Blood 07/05/2024 2:01 PM CDT 07/05/2024 2:58 PM CDT Narrative [facility] - 07/05/2024 4:30 PM CDT Has the patient had Daratumumab or Isatuximab in the past 6 months?->Unknown Alana Cazares NP LAB BLOOD BANK TEST ORDE MELLISSA Final Result Performing Organization Address [facility] Co de Phone Number ANGEL[facility] [place] [address] * (ABNORMAL) hCG, blood, quantitative (07/05/2024 2:01 PM CDT) hCG, quant 1,580.0(H ) 0.0 - 5.0 IUnits/L Comment: Interpretive Data Male: < 5 IU/L Non- premenopausal Female: <5 IU/L The [employer] hCG Beta Quant assay procedure was used. Results from different manufacturers or methods may not be comparable. Serial testing should be performed using the same method. Interpretive Data was last revised on 2023 Blood 07/05/2024 2:01 PM CDT 07/05/2024 2:18 PM CDT Alana Cazares NP LAB BLOOD ORDERABLES Fin al Result Performing Organization Address [facility] Co de Phone Number [facility] [place] [address] * (ABNORMAL) POCT hCG, urine (07/05/2024 1:15 PM CDT) [facility] HCG, ur, POC Positive(A) Negative Lot Number [id number] QC Backgroud Clear Acceptable QC Control Line Acceptable Urine 07/05/2024 1:15 PM CDT Alana Cazares NP POINT OF CARE TEST ORDER MINESH Final Result documented in this encounter Visit Diagnoses Diagnosis of unknown anatomic location documented in this encounter Discontinued Medications Medication Sig Discontinue Reason Start Date End Da te doxycycline 100 mg tablet Take 1 tablet/capsule (100 mg total) by mouth 2 (two) times a day Stop Taking at Discharge 04/06/2024 07/05/2024 documented as of this encounter Orders Discharge Count Last Ordered Date First Orde red Date DISCHARGE PATIENT 1 07/05/2024 documented in this encounter Care Teams Quiller Tender Relationship Specialty Start Date End Date Michele Mckenna MD PCP - General Internal Medicine 09/01/20 documented as of this encounter
--- OUTSIDE RECORDS SUMMARY | 2024-07-06 14:54 | XMS_ITS | Encounter Summary ---
Author Organization [facility] Health Address [address] [place] [address] Care Team Providers Care Electroencephalographic Technician Name Role Phone Michele Mckenna MD Primary Care Provider [phone] Reason for Visit * Reason Comments Refill Request Encounter Details Date Type Department Care Team (Late st Contact Info) Description 07/04/2024 Refill [facility] - Dermatology [address] [facility], [facility] [place] [phone] Jamari Callejas MD [address] [facility] [place] [phone] Refill Request Social History Tobacco Use Types Packs/Day [...] encounter Miscellaneous Notes * Telephone Encounter - Nicole Villaseñor LPN - 07/05/2024 11:32 AM CDT Requested Prescriptions Pending Prescriptions Disp Refills doxycycline hyclate 100 MG tablet [Pharmacy Med Name: DOXYCYCLINE HYCLATE 100 MG TAB] 60 tablet 3 Sig: TAKE 1 TABLET BY MOUTH TWICE A DAY FOR COMMON ACNE Last Visit: 06/23/2024 Next Visit: 10/20/2024 Return to clinic: Advised to follow up in 6 months from last visit Nicole Villaseñor LPN documented in this encounter Plan of Treatment Upcoming Encounters Date Type Department Care Team (Late st Contact Info) Description 08/18/2024 1:00 PM CDT Office Visit [facility] - GI [address] [facility], [facility] [place] [phone] Samm Dunn MD [address] [facility] [address] [place] [phone] 10/20/2024 1:20 PM CDT Office Visit [facility] - General Dermatology [address], [address] [place] [phone] Fareed Mir MD [address] [facility] 3L [place] [address] documented as of this encounter Goals Goal Patient Goal Type Associated Problems Recent Progress Patient-Stated? Author Medication Management General No Rozina Joseph RN documented as of this encounter Visit Diagnoses Diagnosis Ocular rosacea Rosacea documented in this encounter Care Teams Electroencephalographic Technician Relationship Specialty Start Date End Date Michele Mckenna MD [address], [address] [place] [address] PCP - General Internal Medicine 03/22/24 documented as of this encounter
--- OUTSIDE RECORDS SUMMARY | 2024-07-06 14:54 | XMS_ITS | Clinical Summary ---
Author Organization [facility] Virtual Care Address [address] [place] [phone] Phone Care Team Providers Care Apron Man Name Role Phone Michele Mckenna MD Primary Care Provider [phone] Allergies Active Allergy Reactions Criticality Noted Date Comments Quetiapine Muscle pain Medium 12/02/2023 Brain Fog Medications lisdexamfetamin e (Vyvanse) 70 mg capsule Take 1 capsule (70 mg total) by mouth mosaic tile maker before breakfast 9 Active ALPRAZolam (XANAX) 0.5 [...] ONCE DAILY 48 mL 1 5 Active ivermectin (STROMECTOL) 3,000 mcg tablet [...] mouth daily 90 tablet 1 5 Active doxycycline 100 mg tablet Take 1 tablet/capsul e (100 mg total) by mouth 2 (two) times a day 5 07/06/19 25 Discontinu ed(Stop Taking at Discharge) Active Problems Problem Noted Date Diagnosed Date Supervision of high risk in first [facility] best 07/05/2024 Overview (07/05/2024): [] OB consult only, [] Co-management vs. [] Full MFM Care; [] Red Team [] Blue Team Referring Provider: Self Referral [] or Medicare Insurance [] Dating Criteria: LMP:05/19/24 (PT unsure) YOGI:02/23/25 (PER WHEEL) [] Labs: Rh [], Ab [], Rubella [], HIV [], HepBSAg [], HepBSAb [], HepBCAb [], RPR [], Hep C [], Varicella [], GC/CT [] [] Aneuploidy Screening: [] Carrier Screening: [] Hgb electrophoresis: [] CBC/Hgb: [] Early 1hr GTT (if indicated): [] UCx: [] Pap: [] LD ASA (if indicated): [] EPDS [ ]; PNBHS referral (if indicated): 2nd Trimester [] Anatomy ultrasound: [] CBC/1hr gtt at 24-28wks: [] Rhogam at 28 wks (if Rh neg): 3rd Trimester [] CBC/HIV/RPR/T&S: [] GBS: [] GC/CT (if indicated): [] testing: Counseling [] MOD: [] Place of delivery: [] Epidural: [] Accepts Blood Products: [] Stop ASA: [] MOC: [] Method of feeding: [] Trace Evidence Technician (specifically which provider): [] PP Depression Discussed: [] PP visits scheduled: Vaccines [] Flu Shot (Oct-Jan): [] COVID vaccine: [] Tdap (27-36wks): [] RSV vaccine (32-36wks): [] PP HPV vaccine counseling (<=26 yo): Multigravida of advanced maternal age in first t rimester 07/05/2024 History of stillbirth 07/05/2024 History of PROM (premature r upture of membranes), currently 07/05/2024 History of miscarriage, currently 07/05 HSV (herpes simplex virus) infection 07/05/2024 History of D&C 07/05/2024 of unknown anatomic location Overview (07/06/2024): Telephone Number Relationship Voicemail Billy [phone] (home) Home Yes [] PUL Card Given Working Diagnosis: PUL Date presented: 07/05/24 Brief HPI: 38 y.o. at unknown gestational age presents with vaginal bleeding, +UPT Ultrasound: -Thickened endometrial stripe, no free fluid, no adenxal masses Rh Status: O Positive [] Rhogam Given Beta Trend: OSH 517 07/01/2024 876 07/03/2024 Lab Results Component Value Date HCG 1,580.0 (H) 07/05/2024 PLAN Next beta due: 07/07 Contraception: NA [] Signed out with attending and billy to remove from beta book. Attending Name: Abdominal wall mass of right flank 05/27/2024 Assessment & Plan (06/04/2024 7:48 AM CDT): Ultrasound at [facility] demonstrates a 7cm lipoma, she feels it [...] 11/30/2020 Assessment & Plan (03/20/2024 7:47 PM SKIP LOAD DRIVER): Patient should reduce sugar and carbs, increase [...] 10/30/2020 Assessment & Plan (03/20/2024 7:47 PM SKIP LOAD DRIVER): Nicotine replacement therapy and smoking cessation counseling [...] follow-up with her psychiatrist as they direct ADHD 11/29/2015 Assessment & Plan (11/30/2020 5:10 PM [...] they direct. PTSD (post-traumatic stress disorder) 11/29/2015 Comments Yes Resolved Problems Problem Noted Date Diagnosed Date Resolved Date Laryngopharyngeal reflux (LPR) 12/18/2020 12/03/2023 Assessment & Plan (12/18/2020 9:48 AM CDT): Pepcid 40 mg at bedtime Anxiety 11/29/2015 10/30/2020 Encounters Date Type Department Care Team Description 07/06/2024 Orders Only [address] [phone] Priyanka Loera MD of unknown anatomic location (Primary Dx) 07/05/2024 12:29 PM CDT - 07/05/2024 3:58 PM CDT Hospital Encounter [address] [phone] Tomym Dunn MD Discharge Disposition: Discharge to home or self care 07/05/2024 Telephone [facility] M[facility]- Medicine [address] [place] [address] Outpatient Health 7th Floor [address] [place] [address] Linette Arboleda 07/05/[address] [phone] Elisabet Cartagena RN Incoming Call 07/01/2024 Telephone [facility]- [facility] [address] [place] [address] Outpatient Health 7th Floor [address] [place] [phone] Jocelyn Mir, RISK CONTROL MANAGER M Self-Referral 06/24/2024 1:00 PM CDT - 06/24/2024 11:59 PM CDT Hospital Encounter [facility] Neurology Testing [address] [place] [address] Paresthesia of hand Discharge Disposition: Discharge to home or self care 06/08/2024 Results Follow-Up [facility] [address] [place] [address] [address] [place] [address] Raymon Woodard MD Surgical pathology 06/04/2024 10:35 AM CDT - 06/04/2024 11:35 AM CDT Surgery [facility] Operating Room [address] [place] [address] Raymon Woodard MD EXCISION SOFT TISSUE LIPOMA OF RIGHT FLANK 06/04/2024 9:38 AM CDT Anesthesia Event [facility] Operating Room [address] [place] [address] Juan Jose Anguiano MD Alexander Clifton DO [place] 06/04/2024 8:47 AM CDT - 06/04/2024 11:37 AM CDT Hospital Encounter [facility] Operating Room [address] [place] [address] Raymon Woodard MD Abdominal wall mass of right flank Discharge Disposition: Discharge to home or self care 06/02/2024 Results Follow-Up [facility] Medical Group Primary Care at [facility] [address] [facility] [address] [address] Michele Mckenna MD US Soft Tissue Lower Back 05/31/2024 2:04 PM CDT - 05/31/2024 11:59 PM CDT Hospital Encounter [facility] Diagnostic Imaging [address] [place] [address] Acute pain of right shoulder Discharge Disposition: Discharge to home or self care 05/31/2024 2:04 PM CDT - 05/31/2024 11:59 PM CDT Hospital Encounter [facility] Diagnostic Imaging [address] [place] [address] Acute pain of right shoulder Discharge Disposition: Discharge to home or self care 05/31/2024 1:00 PM CDT - 05/31/2024 11:59 PM CDT Hospital Encounter [facility] ` [address] [place] [address] Skin mass Discharge Disposition: Discharge to home or self care 05/31/[address] [facility] Medical Group Convenient Care at [address] [place] [phone] Marily Storey NP 05/31/2024 Results Follow-Up [facility] Medical Group Convenient Care at [address] [phone] Marily Storey NP XR Shoulder Right 2 or More Views 05/31/2024 Results Follow-Up [facility] Medical [facility] Convenient Care at [address] [place] [phone] Marily Storey NP XR Spine Cervical 2 or 3 Views 05/27/2024 1:45 PM CDT Office Visit [address] [place] [phone] Brisa Aguayo NP Abdominal wall mass of right flank (Primary Dx); Skin mass 05/24/2024 3:15 PM CDT Office Visit [facility] Primary Care at [address] [place] [phone] Michele Mckenna MD IFG (impaired fasting glucose) (Primary Dx); Vitamin D deficiency; Gastritis without bleeding, unspecified chronicity, unspecified gastritis type; Paresthesia of hand; Skin mass; Healthcare maintenance 05/06/2024 6:30 PM CDT Office Visit [facility] Convenient Care at [address] [place] [phone] Katarzyna Hayes NP Acute pain of right shoulder (Primary Dx) 05/06/2024 Nurse Triage [facility] Primary Care at [address] [phone] Michele Mckenna MD 05/05/2024 Patient Self-Triage [facility] Health[facility] [address] [place] [address] Mychart, Generic Provider 05/02/2024 4:45 PM CDT Office Visit [facility] Medical [facility] Convenient Care at [address] [phone] Radha Ferguson NP Acute pain of right shoulder (Primary Dx); Elevated blood pressure reading in office without diagnosis of hypertension; Cold sore 04/15/2024 Results Follow-Up [facility] Primary Care at [facility] [address] [facility] [address] [place] [phone] Michele Mckenna MD CBC with auto differential, Comprehensive metabolic panel, Lipid panel, Additional followed-up results: 7 04/13/2024 3:47 PM SKIP LOAD DRIVER - 04/13/2024 11:59 PM SKIP LOAD DRIVER Hospital Encounter [facility] [address] [place] [address] Healthcare maintenance; Polyarthralgia Discharge Disposition: Discharge to home or self care 04/13/2024 3:45 PM SKIP LOAD DRIVER Lab [facility] Medical Group Outpatient Lab at [address] [phone] CHIKA positive (Primary Dx) from Last 3 Months Immunizations [...] on file Legal Sex Female 11:53 AM SKIP LOAD DRIVER Gender Identity Female 11/30/2020 2:26 PM CDT Sexual Orientation Straight 11/30/2020 2: 26 PM CDT Obstetrics History Para Term AB IAB SAB Ectopic Multiple Livin g Live Births 4 2 1 1 1 1 Date Outcome GA Total Labor Labor/2nd/3rd Weight Sex Type Anes PTL Marga A1 A5 Name Clin SAB D&C 02/22 M Vaginal Demise 05/18 Term F Vaginal Demise Current Summary Episode Dates Number of Fetuses Estimated Date of Delivery 07/05/2024 - Present (07/06/2024) Unknown Dating Summary Based On YOGI GA Diff Last Menstrual Period on 04/27/2024 Vitals Pregravid Weight Height TWG (As of 07/06/2024) Pregrav id BMI 170.2 cm (5' 7 ) Date GA Fund Present FHR Mvmt BP Weight Edema Alb Glu Ket Dil/ Eff/Sta 07/05/2024 Inpatient data n ot displayed here. See encounter summary. Notes Progress Notes - Abstract - 07/05/2024 - GA: 07/05/2024 - Amadeo Boggs RMA She have not had her labs drawn yet I will up date her problem list once they collected I also will get in contact with medical records at [facility] for her past delivery notes and upload them in her chart. Last Filed Vital Signs Vital Sign Reading [...] Mass Index 37.04 07/05/2024 12:35 PM CDT Plan of Treatment Health Maintenance [...] WITHOUT DIFFERENTIAL STAT 07/05/2024 2:01 PM CDT COMPREHENSIVE METABOLIC PANEL STAT 07/05/2024 2:01 PM CDT TYPE AND SCREEN STAT 07/05/2024 2:01 PM CDT HCG, BLOOD, QUANTITATIVE Routine 07/05/2024 2:01 PM CDT POCT HCG, URINE Routine 07/05/2024 1:15 PM CDT EMG/NCV Routine 06/24/2024 1:33 PM CDT Paresthesia of hand SURGICAL PATHOLOGY Routine 06/04/2024 11 :15 AM CDT Abdominal wall mass of right flank WI AN ELECTIVE SUPRAGLOTTIC AIRWAY Routine 06/04/2024 9:50 [...] right shoulder EGFR Routine 04/13/2024 3:47 PM SKIP LOAD DRIVER Healthcare maintenance DIFFERENTIAL AUTO Routine 04/13/2024 3:4 7 PM SKIP LOAD DRIVER Healthcare maintenance CHIKA QUALITATIVE WITH REFLEX TO CHIKA QUANTITATIVE Routine 04/13/2024 3:47 PM SKIP LOAD DRIVER Polyarthralgia HEMOGLOBIN A1C Routine 04/13/2024 3:47 PM SKIP LOAD DRIVER Healthcare maintenance VITAMIN D 25 HYDROXY Routine 04/13/2024 3:47 PM SKIP LOAD DRIVER Healthcare maintenance THYROID FUNCTION CASCADE Routine 04/13/2024 3:47 PM SKIP LOAD DRIVER Healthcare maintenance LIPID PANEL Routine 04/13/2024 3:47 PM SKIP LOAD DRIVER Healthcare maintenance COMPREHENSIVE METABOLIC PANEL Routine 04/13/2024 3:47 PM SKIP LOAD DRIVER Healthcare maintenance CBC WITH AUTO DIFFERENTIAL Routine 04/13/2024 3:47 PM SKIP LOAD DRIVER Healthcare maintenance HEPATITIS C ANTIBODY Routine 04/13/2024 3:47 PM SKIP LOAD DRIVER Healthcare maintenance from Last 3 Months Results * Check Sample (07/05/2024 3:39 PM CDT) ABO Rh O Positive [facility] HCLL OTHER 07/05/2024 3:39 PM CDT 07/05/2024 3:52 PM CDT Tommy Dunn MD LAB BLOOD ORDERABLES Final Result ANGELA [facility] [address] [facility] Department [place] [address] [facility] * eGFR (07/05/2024 2:01 PM CDT) eGFR [...] CDT 07/05/2024 2:18 PM CDT Alana Cazares ASSISTANT STORE DIRECTOR LAB BLOOD ORDERABLES Fin al Result [facility] [address] [facility] Department [place] [address] * (ABNORMAL) CBC without differential (07/05/2024 2:01 PM CDT) WBC 11.47(H) 3.80 - 9.90 K/cumm Hgb 13.6 11.9 - 15.5 g/dL [facility] Hct 41.5 35.6 - 45.5 % [facility] Plt 266 150 - 400 K/cumm [facility] MPV 11.0 9.1 - 12.3 fL [facility] RBC 5.02 3.90 - 5.20 M/cumm [facility] MCV 82.7 81.3 - 96.4 fL [facility] MCH 27.1 27.1 - 33.3 pg [facility] MCHC 32.8 32.3 - 35.7 g/dL [facility] RDW CV 14.6 11.1 - 14.9 % [facility] RDW SD 43.1 35.7 - 48.1 fL [facility] NRBC abs 0.00 0.00 - 0.01 K/cumm [facility] Blood 07/05/2024 2:01 PM CDT 07/05/2024 2:23 PM CDT Alana Cazares NP LAB BLOOD ORDERABLES Fin al Result Performing Organization Address [facility] Co de Phone Number [facility] Department [place] [address] * Type and screen (07/05/2024 2:01 PM CDT) Leydi, indirect Negative ABO Rh O Positive [facility] Blood 07/05/2024 2:01 PM CDT 07/05/2024 2:58 PM CDT Narrative [facility] - 07/05/2024 4:30 PM CDT Has the patient had Daratumumab or Isatuximab in the past 6 months?->Unknown Alana Cazares NP LAB BLOOD BANK TEST ORDE RABLES Final Result Performing Organization Address [facility] de Phone Number [facility] Department [place] [address] * (ABNORMAL) hCG, blood, quantitative (07/05/2024 2:01 PM CDT) Pathologist [facility] hCG, quant 1,580.0(H ) 0.0 - 5.0 [...] ORDERABLES Fin al Result Performing Organization Address [facility] Co de Phone Number [facility] [place] [address] * Comprehensive metabolic panel (07/05/2024 2:01 PM CDT) Sodium 141 135 - 145 mmol/L Potassium, pl 4.7 3.3 - 4.9 mmol/L [facility] Chloride 106 97 - 110 mmol/L [facility] CO2 27 22 - 32 mmol/L [facility] Anion gap 8 2 - 15 mmol/L [facility] BUN 10 6 - 25 mg/dL [facility] Creatinine 0.72 0.60 - 1.10 mg/dL [facility] Glucose 104 70 - 199 mg/dL [facility] Comment: Interpretive Data Fasting glucose >/= 126 [...] 2022. Calcium 9.7 8.5 - 10.3 mg/dL [facility] Bilirubin, total 0.3 0.1 - 1.2 mg/dL [facility] Protein, pl 7.1 6.5 - 8.5 g/dL [facility] Albumin 4.0 3.5 - 5.0 g/dL [facility] Alk phos 91 40 - 130 Units/L [facility] ALT 34 7 - 45 Units/L [facility] AST 19 10 - 45 Units/L [facility] Blood 07/05/2024 2:01 PM CDT 07/05/2024 2:18 PM CDT us Alana Cazares NP LAB BLOOD ORDERABLES Fin al Result [facility] [address] [facility] Department [place] [address] * (ABNORMAL) POCT hCG, urine (07/05/2024 1:15 PM CDT) HCG, ur, POC Positive(A) Negative Lot Number [id number] QC Backgroud Clear Acceptable QC Control Line Acceptable Urine 07/05/2024 1:15 PM CDT Alana Cazares NP POINT OF CARE TEST ORDER MINESH Final Result * EMG/NCV - (06/24/2024 1:33 PM CDT) [...] for cervical radiculopathy. Clinical correlation is recommended. Michele Mckenna MD NEUROLOGY ORDERABLES Final R esult * Surgical pathology (06/04/2024 11:15 AM CDT) Tissue (Mass/Tumor/Lesio n) 06/04/2024 10:09 AM CDT Narrative PATHOLOGY [facility] ([place]) - 06/07/2024 3:37 PM CDT EPIC results best viewed via link to PDF [facility] Department of Pathology [address] [place] [id number] Note to Patients: This report may contain [...] Final Report Patient Name: DUDLEY RACHEL Address: [address] [place] [address] Gender: F : 1985 (Age: 38) Service: Surgery Location: [facility] Hospital #: [id number] Patient Type: [facility] Taken: 06/04/2024 Received: 06/04/2024 Accessioned: 06/04/2024 Reported: [...] labeled with DUDLEY RACHEL and right flank lipoma . It is a 6 x 5 x [...] determined by the Surgical Pathology Department at [facility] as part of an ongoing lead quality technician program and in compliance with federally mandated [...] characteristics determined by the Surgical Pathology Department [facility]. It has not been cleared or approved by the U. S. Food and Drug Administration. Note for decalcified specimens: This assay has not been validated on decalcified tissues. Results should be interpreted with caution given the possibility of false negativity on decalcified specimens Raymon Woodard MD LAB PATHOLOGY ORDER MINESH Final Result Performing Organization Address City/State/[facility] Co de Phone Number PATHOLOGY [facility] ([place] [phone] * WI AN ELECTIVE SUPRAGLOTTIC AIRWAY (06/04/2024 9:50 AM CDT) Narrative Reyes Lakhani CRNA - 06/04/2024 9:50 AM CDT Reyes Lakhani CRNA 06/04/2024 9:51 AM Airway Patient location: OR Urgency: elective Indications for airway management: anesthesia Difficult airway: no Staff: Placed by: EMERGENCY MEDICAL DISPATCHER: Reyes Lakhani CRNA Emergent airway documentation: Risks [...] above. Electronically signed by: Kristy Leyva M.D. Michele Mckenna MD IMG US PROCEDURES Final [...] by: Makayla Dias M.D. us Katarzyna Hayes ASSISTANT STORE DIRECTOR IMG XR PROCEDURES Final Result * CHIKA ab ql w/rflx to CHIKA qn (04/13/2024 3:47 PM SKIP LOAD DRIVER) CHIKA Negative Comment: Interpretive Data Normal range [...] last revised on 2019. Testing performed by: [facility], [address] [place]., [address] Blood 04/13/2024 3:47 PM SKIP LOAD DRIVER 04/14/2024 9:57 AM SKIP LOAD DRIVER us Michele Mckenna MD LAB BLOOD ORDERABLES Final R esult [facility] [address] Department [place] [address] * eGFR (04/13/2024 3:47 PM SKIP LOAD DRIVER) eGFR >90 >=60 mL/min/1. 73 m2 Comment: [...] last reviewed 2020. Blood 04/13/2024 3:47 PM SKIP LOAD DRIVER 04/13/2024 7:37 PM SKIP LOAD DRIVER us Michele Mckenna MD LAB BLOOD ORDERABLES Final R esult ANGELA [address] Department [place] [address] * Differential, auto (04/13/2024 3:47 PM SKIP LOAD DRIVER) Neutrophil abs 5.2 1.5 - 6.5 K/cumm Imm gran abs 0.0 0.0 - 0.1 K/cumm [facility] Lymphocyte abs 1.9 0.8 - 3.3 K/cumm [facility] Monocyte abs 0.7 0.2 - 0.8 K/cumm [facility] Eosinophil abs 0.3 0.0 - 0.5 K/cumm [facility] Basophil abs 0.1 0.0 - 0.1 K/cumm [facility] Neutrophil pct 63.7 % [facility] Comment: Interpretive Data Percent cell count reference ranges are not reported, since discordance with absolute values may lead to misinterpretation of CBC data. Current Interpretive Data was last revised on 2017. Imm gran pct 0.4 % ANGELA Comment: Interpretive Data Percent cell count reference ranges are not reported, since discordance with absolute values may lead to misinterpretation of CBC data. Current Interpretive Data was last revised on 2017. Lymphocyte pct 22.9 % ANGELA Comment: Interpretive Data Percent cell count reference ranges are not reported, since discordance with absolute values may lead to misinterpretation of CBC data. Current Interpretive Data was last revised on 2017. Monocyte pct 8.5 % [facility] Comment: Interpretive Data Percent cell count reference [...] revised on 2017. Blood 04/13/2024 3:47 PM SKIP LOAD DRIVER 04/13/2024 7:27 PM SKIP LOAD DRIVER Michele Mckenna MD LAB BLOOD ORDERABLES Final R esult Performing Organization Address [facility] Co de Phone Number ANGELA [address] [place], [place] [phone] * Thyroid Function [place] (04/13/2024 3:47 PM SKIP LOAD DRIVER) Pathologist [facility] TSH 2.25 0.30 - 4.20 mcIUnit/mL Blood 04/13/2024 3:47 PM SKIP LOAD DRIVER 04/13/2024 7:27 PM SKIP LOAD DRIVER Michele Mckenna MD LAB BLOOD ORDERABLES Final R esult Performing Organization Address [facility] Co de Phone Number ANGELA [address] [address] Department [employer] [place], [place] [phone] * (ABNORMAL) CBC with auto differential (04/13/2024 3:47 PM SKIP LOAD DRIVER) WBC 8.2 3.8 - 9.9 K/cumm Hgb 14.2 11.9 - 15.5 g/dL [facility] Hct 46.3(H) 35.6 - 45.5 % [facility] Plt 301 150 - 400 K/cumm [facility] MPV 11.8 9.1 - 12.3 fL [facility] RBC 5.37(H) 3.90 - 5.20 M/cumm [facility] MCV 86.2 81.3 - 96.4 fL [facility] MCH 26.4(L) 27.1 - 33.3 pg [facility] MCHC 30.7(L) 32.3 - 35.7 g/dL [facility] RDW CV 13.6 11.1 - 14.9 % [facility] RDW SD 42.5 35.7 - 48.1 fL [facility] NRBC abs 0.00 0.00 - 0.01 K/cumm [facility] Blood 04/13/2024 3:47 PM SKIP LOAD DRIVER 04/13/2024 7:27 PM SKIP LOAD DRIVER Michele Mckenna MD LAB BLOOD ORDERABLES Final R esult Performing Organization Address [facility] Co de Phone Number ANGELA [address] [place] [address] * Hepatitis C antibody Blood (04/13/2024 3:47 PM SKIP LOAD DRIVER) Hep C Ab Nonreactive Nonreactive Comment: Interpretive [...] revised on 2019. Blood 04/13/2024 3:47 PM SKIP LOAD DRIVER 04/13/2024 7:27 PM SKIP LOAD DRIVER us Michele Mckenna MD LAB MICROBIOLOGY - GENERAL O RDERABLES Final Result Performing Organization Address City/[facility]/ZIP Co de Phone Number ANGELA [address] [place] [address] * (ABNORMAL) Vitamin D 25 hydroxy (04/13/2024 3:47 PM SKIP LOAD DRIVER) Vitamin D 25-OH 10(L) 30 - 80 ng/mL Blood 04/13/2024 3:47 PM SKIP LOAD DRIVER 04/13/2024 7:27 PM SKIP LOAD DRIVER Michele Mckenna MD LAB BLOOD ORDERABLES Final R esult Performing Organization Address [facility] de Phone Number ANGELA [address] [address] Department [place] [address] * (ABNORMAL) Hemoglobin A1c (04/13/2024 3:47 PM SKIP LOAD DRIVER) Pathologist [facility] Hgb A1C 6.0(H) 4.0 - 5.6 % Estimated Average Glucose 126 mg/dL ANGELA KIM Comment: The ADA recommends reporting an estimated Average Glucose (eAG) with all Hemoglobin A1c results using the equation derived from a study of 507 normal and diabetic adults. Minority populations were underrepresented and children were not included. (Diabetes Care 31:9080-6991, 2008). The eAG is not equivalent to a fasting glucose. Blood 04/13/2024 3:47 PM SKIP LOAD DRIVER 04/13/2024 7:27 PM SKIP LOAD DRIVER Michele Mckenna MD LAB BLOOD ORDERABLES Final R esult Performing Organization Address [facility] de Phone Number ANGELA KIM [address] [place] [address] * Lipid panel (04/13/2024 3:47 PM SKIP LOAD DRIVER) Cholesterol 155 30 - 199 mg/dL Comment: [...] on 2017. Triglycerides 148 <=149 mg/dL ANGELA Comment: Interpretive Data Ages < [...] on 2017. HDL 48 >=40 mg/dL ANGELA Comment: Interpretive Data Ages < [...] 2017. LDL, calculated 81 <=129 mg/dL ANGELA Comment: Interpretive Data Ages < [...] revised on 2023. Non-HDL Cholesterol 107 mg/dL C[facility] Comment: Interpretive Data Ages < or = [...] 3 [facility] CH Blood 04/13/2024 3:47 PM SKIP LOAD DRIVER 04/13/2024 7:27 PM SKIP LOAD DRIVER [facility]arrative [facility] 04/13/2024 8:40 PM SKIP LOAD DRIVER Has the patient been fasting for 8 hours or more?->Yes us Michele Mckenna MD LAB BLOOD ORDERABLES Final R esult [facility] [id number] Department [place] [address] * Comprehensive metabolic panel (04/13/2024 3:47 PM SKIP LOAD DRIVER) Sodium 141 135 - 145 mmol/L Potassium, pl 4.8 3.3 - 4.9 mmol/L [facility] Chloride 105 97 - 110 mmol/L [facility] CO2 25 22 - 32 mmol/L [facility] Anion gap 11 2 - 15 mmol/L [facility] BUN 6 6 - 25 mg/dL [facility] Creatinine 0.77 0.60 - 1.10 mg/dL [facility] Glucose 92 70 - 199 mg/dL [facility] Comment: Interpretive Data Fasting glucose >/= 126 [...] Units/L [facility] CH Blood 04/13/2024 3:47 PM SKIP LOAD DRIVER 04/13/2024 7:27 PM SKIP LOAD DRIVER Narrative [facility] - 04/13/2024 8:39 PM SKIP LOAD DRIVER Has the patient fasted?->Yes us Michele Mckenna MD LAB BLOOD ORDERABLES Final R esult [facility] [id number] Department [place] [address] from Last 3 Months Insurance [facility] Care Teams Apron Man Relationship Specialty Start Date End Date Michele Mckenna MD PCP - General Internal Medicine 09/01/20
--- OUTSIDE RECORDS SUMMARY | 2024-07-06 14:54 | XMS_ITS | Data Portability ---
Author Organization [facility] Address [address] [place] [address] Care Team Providers Care Casing Trimmer Name Role Phone NIDIA PIPER Primary Care Provider Assessment Encounter Date Assessment Date Assessment LastModified by Organization Details LastModified Time 04/10/2023 04/10/2023 Sections of the HPI, exam and assessment completed by Heaven Billings, [employer] student and have been reviewed by me. I agree with the exam findings, assessment and plan except where specifically documented or amended. -Nidia Piper, [facility], PAOsmar [email or web address] Not available 04/15/2023 01:04:08 Plan of Treatment Reminders Order Date Submit Date Provider Last Modified By Organization Details Last Modified Time Details Appointments None recorded. Lab lipid panel, serum 2023 024 [facility], [address], [address], [place], [address], 4 19:10:04 vitamin B12 + folate, serum or blood 2023 024 [facility], [address], [address], [place], [address], 4 11:15:19 vitamin D, 25-hydroxy, total, serum 2023 024 [facility], [address], [address], [place], [address], 4 11:15:21 CBC w/ auto diff 2023 024 NICO[facility], [address], [address], [place], [address], 4 19:10:06 CMP, serum or plasma 2023 024 [facility], [address], [address], [place], [address], 4 19:10:05 TSH + free T4, serum 2023 024 [facility], [address], [address], [place], [address], 4 11:15:19 HbA1c (hemoglobin A1c), blood 2023 024 [facility], [address], [address], [place], [address], 4 11:15:20 Referral gastroenter ologist referral 2023 024 [email or web address] Staci Lipscomb MD, [address], [address], [place], [address], 4 08:09:[address] referral 2023 024 shine Mir MD ([facility], Dermatology), [address] [place], [address], 4 14:17:37 gastroenter ologist referral 2023 024 [email or web address] [facility] Gastroenterol [facility]gy, [address] [facility], [place], [address], 4 07:55:[address] referral 2023 024 [email or web address] [facility] Dermatology, [address] [facility], [address], [place], [address], 4 07:55:21 general surgeon referral 2023 024 [email or web address] Ricardo Enrique MD, [address] [facility], [address], [address], 4 08:04:54 otolaryngol ogist referral 2023 024 [facility], [address], [place], [address], 4 10:24:16 Procedures None recorded. Surgeries None recorded. Imaging US, chest wall - RIGHT PEC [address] [facility] Radiology, [address] [facility] [address] [facility], [place], [address], 4 11:09:32 US, abdominal wall - FOCUS ON RIGHT FLANK AREA 2023 024 [facility] (Imaging), [address] [facility] [address] [place] [address], [address], 4 11:24:57 Medication Orders tretinoin 0.025 % topical cream 2023 024 [id number], [address], [place], [place], [id number], 4 14:21:04 loratadine 10 mg tablet 2023 024 [id number], [address], [place], [place], [id number], 4 14:51:29 ibuprofen 600 mg tablet 2023 024 [id number], [address], [place], [place], [id number], 4 14:20:23 Patient TargetsNo targets recorded. Patient Instructions Encounter Date Encounter Id Patient Instructions Last Modified By Organization Details Last Modified Time 04/10/2023 [id number] A healthy lifestyle: care instructions [email or web address] Not available 04/10/2023 10:46:19 Reason for Referral Parachute Supervisor Referral fo r Dysphagia Referring Physician: Nidia Piper [facility], Encounter Date: 05/07/2023 General Surgeon Referral for Lipoma of abdominal wall Referring Physician: Family [facility], Encounter Date: 06/20/2023 Licensed Certified Orthotist Referral for Chronic abdominal pain Referring Physician: Nidia Piper [facility], Encounter Date: 09/25/2023 Hand Sizer Referral for C hange in skin lesion Referring Physician: Nidia Piper [facility], Encounter Date: 09/25/2023 Hand Sizer Referral for C hange in skin lesion Referring Physician: Nidia Piper [facility], Encounter Date: 12/30/2023 Licensed Certified Orthotist Referral for Chronic abdominal pain Referring Physician: Nidia Piper [facility], Encounter Date: 12/30/2023 Results Created Date Observation Date Name Description Value Unit Range Abnormal Flag Note LastModifiedBy Organization Detail LastModifiedTime 04/10/1904/10/2023 LIPID PANEL WITH LDL/H DL RATIO cholesterol, total 156 mg/dL 100-19 9 Not Available [facility] Department [address] [place], [address], 04/10/2023 19:10:04 04/10/19 24 04/10/2023 LIPID PANEL WITH LDL/H DL RATIO triglyceride s 190 mg/dL 0-149 above high normal Not Available [facility] Department [address] [place], [address], 04/10/2023 19:10:04 04/10/19 24 04/10/2023 LIPID PANEL WITH LDL/H DL RATIO HDL cholesterol 55 mg/dL 40-999 Not Available [facility] Department [address] [place], [address], 04/10/2023 19:10:04 04/10/19 24 04/10/2023 LIPID PANEL WITH LDL/H DL RATIO VLDL cholesterol louis 38 mg/dL 5-40 Not Available [facility] Department [address] [place], [address], 04/10/2023 19:10:04 04/10/19 24 04/10/2023 LIPID PANEL WITH LDL/H DL RATIO LDL chol calc ([facility]) 93 mg/dL 0-[address] [facility] Department [address] [place], [address], 04/10/2023 19:10:04 04/10/19 24 04/10/2023 LIPID PANEL WITH LDL/H DL RATIO LDL/HDL ratio 1.7 0-3.2 Not Available [facility] Department [address] [place] [address], [address], 04/10/2023 19:10:04 04/10/19 24 04/10/2023 COMP. METAB OLIC PANEL (14) glucose 102 mg/dL 70-99 above high normal Not Available [facility] Department [address] [place], [address], 04/10/2023 19:10:05 04/10/19 24 04/10/2023 COMP. METAB OLIC PANEL (14) BUN 13 mg/dL 6-20 Not Available [facility] Department [address] [place], [address], 04/10/2023 19:10:05 04/10/19 24 04/10/2023 COMP. METAB OLIC PANEL (14) creatinine 0.82 mg/dL 0.76-1 .27 Not Available [facility] Department [address] [place], [address], 04/10/2023 19:10:05 04/10/19 24 04/10/2023 COMP. METAB OLIC PANEL (14) eGFR 94 >=60 Units for eGFR value s are mL/mi n/1.7 3 The eGFR Calcu latio n has not been valid ated for patie nts under the age of 18. If test resul ts are displ ayed for a patie nt under the age of 18, disre nathaniel that value . Not Available [facility] Department [address] [place], [address], 04/10/2023 19:10:05 04/10/19 24 04/10/2023 COMP. METAB OLIC PANEL (14) BUN/creatini ne ratio 16 9-23 Not Available [facility] Department [address] [place], [address], 04/10/2023 19:10:05 04/10/19 24 04/10/2023 COMP. METAB OLIC PANEL (14) sodium 142 mmol/ L 134-14 4 Not Available [facility] Department [address] [place] [address], [address], 04/10/2023 19:10:05 04/10/19 24 04/10/2023 COMP. METAB OLIC PANEL (14) potassium 4.5 mmol/ L 3.5-5. 2 Not Available [facility] Department [address] [place], [address], 04/10/2023 19:10:05 04/10/19 24 04/10/2023 COMP. METAB OLIC PANEL (14) chloride 104 mmol/ L 96-106 Not Available [facility] Department [address] [place], [address], 04/10/2023 19:10:05 04/10/19 24 04/10/2023 COMP. METAB OLIC PANEL (14) carbon dioxide, total 26 mmol/ L 20-29 Not Available [facility] Department [address] [place], [address], 04/10/2023 19:10:05 04/10/19 24 04/10/2023 COMP. METAB OLIC PANEL (14) calcium 10.0 mg/dL 8.7-10 .2 Not Available [facility] Department [address] [place], [address], 04/10/2023 19:10:05 04/10/19 24 04/10/2023 COMP. METAB OLIC PANEL (14) protein, total 7.7 g/dL 6.0-8. 5 Not Available [facility] Department [address] [place], [address], 04/10/2023 19:10:05 04/10/19 24 04/10/2023 COMP. METAB OLIC PANEL (14) albumin 4.6 g/dL 3.9-4. 9 Not Available [facility] Department [address] [place], [address], 04/10/2023 19:10:05 04/10/19 24 04/10/2023 COMP. METAB OLIC PANEL (14) globulin, total 3.1 g/dL 1.5-4. 5 Not Available [facility] Department [address] [place], [address], 04/10/2023 19:10:05 04/10/19 24 04/10/2023 COMP. METAB OLIC PANEL (14) A/G ratio 1.5 1.2-2. 2 Not Available [facility] Department [address] [place], [address], 04/10/2023 19:10:05 04/10/19 24 04/10/2023 COMP. METAB OLIC PANEL (14) bilirubin, total 0.3 mg/dL 0.0-1. 2 Not Available [facility] Department [address] [place], [address], 04/10/2023 19:10:05 04/10/19 24 04/10/2023 COMP. METAB OLIC PANEL (14) alkaline phosphatase 102 IU/L 44-121 Not Available [facility] Department [address] [place], [address], 04/10/2023 19:10:05 04/10/19 24 04/10/2023 COMP. METAB OLIC PANEL (14) AST (SGOT) 16 IU/L 0-40 Not Available [facility] Department [address] [place], [address], 04/10/2023 19:10:05 04/10/19 24 04/10/2023 COMP. METAB OLIC PANEL (14) ALT (SGPT) 15 IU/L 0-32 Not Available [facility] Department [address] [place], [address], 04/10/2023 19:10:05 04/10/19 24 04/10/2023 CBC WITH DIFFE RENTI AL/PL ATELE T WBC 8.3 x10e3 /uL 3.4-10 .8 Not Available [facility] Department [address] [place], [address], 04/10/2023 19:10:06 04/10/19 24 04/10/2023 CBC WITH DIFFE RENTI AL/PL ATELE T RBC 5.41 x10e6 /uL 3.77-5 .28 above high normal Not Available [facility] Department [address] [place], [address], 04/10/2023 19:10:06 04/10/19 24 04/10/2023 CBC WITH DIFFE RENTI AL/PL ATELE T hemoglobin 14.4 g/dL 11.1-1 5.9 Not Available [facility] Department [address] [place], [address], 04/10/2023 19:10:06 04/10/19 24 04/10/2023 CBC WITH DIFFE RENTI AL/PL ATELE T hematocrit 46.1 % 34.0-4 6.6 Not Available [facility] Department [address] [place], [address], 04/10/2023 19:10:06 04/10/19 24 04/10/2023 CBC WITH DIFFE RENTI AL/PL ATELE T MCV 85 fL 79-97 Not Available [facility] Department [address] [place], [address], 04/10/2023 19:10:06 04/10/19 24 04/10/2023 CBC WITH DIFFE RENTI AL/PL ATELE T MCH 26.6 pg 26.6-3 3.0 Not Available [facility] Department [address] [place], [address], 04/10/2023 19:10:06 04/10/19 24 04/10/2023 CBC WITH DIFFE RENTI AL/PL ATELE T MCHC 31.2 g/dL 31.5-3 5.7 below low normal Not Available [facility] Department [address] [place], [address], 04/10/2023 19:10:06 04/10/19 24 04/10/2023 CBC WITH DIFFE RENTI AL/PL ATELE T RDW 13.2 % 11.5-1 4.5 Not Available [facility] Department [address] [place], [address], 04/10/2023 19:10:06 04/10/19 24 04/10/2023 CBC WITH DIFFE RENTI AL/PL ATELE T platelets 308 x10e3 /uL 150-45 0 Not Available [facility] Department [address] [place], [address], 04/10/2023 19:10:06 04/10/19 24 04/10/2023 CBC WITH DIFFE RENTI AL/PL ATELE T neutrophils 70 % notest b. Not Available [facility] Department [address] [place], [address], 04/10/2023 19:10:06 04/10/19 24 04/10/2023 CBC WITH DIFFE RENTI AL/PL ATELE T lymphs 20 % notest b. Not Available [facility] Department [address] [place], [address], 04/10/2023 19:10:06 04/10/19 24 04/10/2023 CBC WITH DIFFE RENTI AL/PL ATELE T monocytes 7 % notest b. Not Available [facility] Department [address] [place], [address], 04/10/2023 19:10:06 04/10/19 24 04/10/2023 CBC WITH DIFFE RENTI AL/PL ATELE T eos 2 % notest b. Not Available [facility] Department [address] [place], [address], 04/10/2023 19:10:06 04/10/19 24 04/10/2023 CBC WITH DIFFE RENTI AL/PL ATELE T basos 1 % notest b. Not Available [facility] Department [address] [place], [address], 04/10/2023 19:10:06 04/10/19 24 04/10/2023 CBC WITH DIFFE RENTI AL/PL ATELE T neutrophils (absolute) 5.8 x10e3 /uL 1.4-7. 0 Not Available [facility] Department [address] [place], [address], 04/10/2023 19:10:06 04/10/19 24 04/10/2023 CBC WITH DIFFE RENTI AL/PL ATELE T lymphs (absolute) 1.7 x10e3 /uL 0.7-3. 1 Not Available [facility] Department [address] [place], [address], 04/10/2023 19:10:06 04/10/19 24 04/10/2023 CBC WITH DIFFE RENTI AL/PL ATELE T monocytes(ab solute) 0.6 x10e3 /uL 0.1-0. 9 Not Available [facility] Department [address] [place], [address], 04/10/2023 19:10:06 04/10/19 24 04/10/2023 CBC WITH DIFFE RENTI AL/PL ATELE T eos (absolute) 0.2 x10e3 /uL 0.0-0. 4 Not Available [facility] Department [address] [place], [address], 04/10/2023 19:10:06 04/10/19 24 04/10/2023 CBC WITH DIFFE RENTI AL/PL ATELE T baso (absolute) 0.0 x10e3 /uL 0.0-0. 2 Not Available [facility] Department [address] [place], [address], 04/10/2023 19:10:06 04/10/19 24 04/10/2023 CBC WITH DIFFE RENTI AL/PL ATELE T immature granulocytes 0.2 % notest b. Not Available [facility] Department [address] [place], [address], 04/10/2023 19:10:06 04/10/19 24 04/10/2023 CBC WITH DIFFE RENTI AL/PL ATELE T immature grans (abs) 0.0 x10e3 /uL 0.0-0. 1 Not Available [facility] Department [address] [place], [address], 04/10/2023 19:10:06 04/10/19 24 04/10/2023 CBC WITH DIFFE RENTI AL/PL ATELE T NRBC 0 % 0-0 Not Available [facility] Department [address] [place], [address], 04/10/2023 19:10:06 04/10/19 24 04/11/2023 TSH+F REE T4 TSH 3.480 uIU/m L 0.450- 4.500 Not Available [facility] ([facility]) [address] [facility], [place], [address], 04/11/2023 11:15:18 04/10/19 24 04/11/2023 TSH+F REE T4 T4,free(dire ct) 1.34 NG/dL 0.82-1 .77 Not Available [facility] ([facility]) [address] [place], [address], 04/11/2023 11:15:18 04/10/19 24 04/11/2023 VITAM IN B12 AND FOLAT E vitamin B12 428 pg/mL 232-12 45 Not Available [facility] ([facility]) [address] [facility], [place], [address], 04/11/2023 11:15:19 04/10/19 24 04/11/2023 VITAM IN B12 AND FOLAT E folate (folic acid), serum 6.3 NG/mL >3.0 A serum folat e arnoldo ntrat ion of less than 3.1 ng/mL is consi dered to repre sent clini louis defic iency . Not Available [facility] ([facility]) [address] [facility], [place], [address], 04/11/2023 11:15:19 04/10/19 24 04/11/2023 HEMOG LOBIN A1C hemoglobin A1C 5.8 % 4.8-5. 6 above high normal Predi abete s: 5.7 - 6.4 Diabe pete: >6.4 Glyce catalina contr ol for adult s with diabe pete: <7.0 Not Available [facility] ([facility]) [address] [place], [address], 04/11/2023 11:15:20 04/10/19 24 04/11/2023 VITAM IN [...] um and D. Antoine bermeo [place]: [facility] . 2. Temitope k MF, Binkl ey [place], Bisch off-F errar i [place], et al. Evalu ation , treat ment, and preve ntion of vitam in D defic iency : an Endoc rine Socie ty clini louis pract ice guide line. JCEM. 2010; 96(7) :1911 -30. Not Available [facility] ([facility]) [address] [facility], [place], [address], 04/11/2023 11:15:21 05/01/19 24 04/29/2023 US, abdom inal wall No observ ation record ed. [address], [address], 05/07/2023 09:10:04 05/01/19 24 04/29/2023 US, abdom inal wall No observ ation record ed. [address], [place], [address], 05/07/2023 09:10:04 06/05/19 24 04/29/2023 US, abdom inal wall No observ ation record ed. [address], [place], [address], 06/05/2023 14:16:11 06/08/19 24 06/06/2023 XR, chest , 2 view No observ ation record ed. [address], [address], 06/12/2023 15:43:50 06/08/19 24 06/06/2023 US, abdom inal wall No observ ation record ed. [address], [address], 06/12/2023 15:43:50 Result Notes None recorded. Problems Name Problem SNOMED Code Status Onset Date Resolution Date Notes Provider Name and Address Organization Details Recorded Time Smoker 09236190 Active 2021 CHICO LEÓN Attn: Accountin g,[address] [facility], [place], [address], [place] [facility] 2 16:17:34 Prediabetes 775703118 Active 2021 CHICO LÓEN Attn: Accountin g,[address] [facility], [place], [address], [place] [facility] 2 16:17:24 Serum creatinine above reference range 635868060 Active 2021 CHICO LEÓN Attn: Accountin g,[address] [facility], [place], [address], [place] [facility] 2 16:17:27 Neck swelling 420970719 Active 2021 CHICO LEÓN Attn: Accountin g,[address] [facility], [place], [address], [place] [facility] 2 16:43:27 Depression screening Active 2021 CHICO LEÓN Attn: Accountin g,[address] [facility], [place], [address], [place] [facility] 2 16:43:38 Vitamin D deficiency 97612258 Active 2021 CHICO LEÓN Attn: Accountin g,[address] [facility], [place], [address], [place] [facility] 2 12:59:01 Mixed anxiety and depressive disorder 505323483 Active 2023 CHICO LEÓN Attn: Accountin g,[address] [facility], [place], [address], [place] [facility] 4 14:53:54 Generalized anxiety disorder 87874654 [place] Ter[place]ropeza[place] [facility] 7 10:45:31 Attention deficit hyperactivi ty disorder, predominant ly inattentive type 09489948 Active Ter[place] [facility] 7 10:45:31 Anxiety 41288879 Active SINCE REGLA Jordan [place] [facility] 6 10:24:48 Posttraumat ic stress disorder 26870091 Active SINCE REGLA [place] [facility] 6 10:24:48 Recurrent miscarriage 398044808 Active Ter[place] [facility] [place] 10:45:31 Recurrent miscarriage 376187978 Completed [place] [facility] [place] 10:45:31 Chronic post-trauma tic stress disorder 079896957 Active [place] [facility] [place] 10:45:31 Chronic post-trauma tic stress disorder 617467808 Completed Ter[place] [facility] [place] 10:45:31 Generalized anxiety disorder 42523753 Completed Teri [place] [facility] [place] 10:45:31 Attention deficit hyperactivi ty disorder, predominant ly inattentive type 21695029 Completed Ter[place] [facility] [place] 10:45:31 Bacterial vaginosis 924142854 Active Ter[place] [facility] [place] 10:45:31 Bacterial vaginosis 107092450 Completed Teri [place] [facility] [...] cholecystectomy completed CHICO LEÓN Attn: Accounting,[address] [place], [address], [place] [facility] 01/07/2022 09:19:12 016 Date of Last Pap Smear completed Rut Jordan MA [facility] 11/28/2015 16:06:55 012 Dilation and Curettage completed Mi Frank MD Attn: Accounting,[address] [facility], [place], [address], [place] [facility] 11/28/2015 16:37:34 Imaging Results Imaging Date Name Status LastModified by Organiz ation Details LastModified Time 04/29/2023 US, abdominal wall completed [address], [address], 05/07/2023 09:10:04 04/29/2023 US, abdominal wall completed [address], [address], 05/07/2023 09:10:04 04/29/2023 US, abdominal wall completed [address], [address], 06/05/2023 14:16:11 06/06/2023 XR, chest, 2 view completed [address], [address], 06/12/2023 15:43:50 06/06/2023 US, abdominal wall completed [address], [address], 06/12/2023 15:43:50 Procedure Notes None recorded. Medical [...] Updated DateTime 4 170.18 cm 32.6 kg/m2 66370.2 1 g 96 % 96 % 102 /min 18 /min 137 mm[Hg] 91 mm[Hg] Julisa Sloan MA [facility] 4 10:08:55 Date Recorded Systolic blood pressure Diastolic blood pressure Provider Name and Address Organization Details Last Updated DateTime 04/10/2023 123 mm[Hg] 85 mm[Hg] CHICO LEÓN Attn: Accounting,[address] [place], [address], [facility] 04/10/2023 10:47:47 Date Recorded Body height Body mass index (BMI) Body weight Oxygen saturation Oxygen saturation in Arterial blood by Pulse oximetry Heart rate Respiratory rate Systolic blood pressure Diastolic blood pressure Provider Name and Address Organization Details Last Updated DateTime 4 170.18 cm 33.5 kg/m2 86509.7 7 g 98 % 98 % 84 /min 16 /min 137 mm[Hg] 82 mm[Hg] Julisa Sloan MA [facility] 4 08:38:02 Date Recorded Body height Body mass index (BMI) Body weight Oxygen saturation Oxygen saturation in Arterial blood by Pulse oximetry Heart rate Systolic blood pressure Diastolic blood pressure Provider Name and Address Organization Details Last Updated DateTime 4 170.18 cm 33.8 kg/m2 34253.9 5 g 97 % 97 % 107 /min 144 mm[Hg] 85 mm[Hg] Karen Gasapr MA [facility] 4 14:04:33 Date Recorded Respiratory rate Heart rate Systolic blood pressure Diastolic blood pressure Provider Name and Address Organization Details Last Updated DateTime 06/20/2023 18 /min 90 /min 130 mm[Hg] 80 mm[Hg] CHICO LEÓN Attn: Accounting ,[address] [place], [address] , [facility] 06/20/2023 14:27:34 Date Recorded Body height Body mass index (BMI) Body weight Oxygen saturation Oxygen saturation in Arterial blood by Pulse oximetry Heart rate Systolic blood pressure Diastolic blood pressure Provider Name and Address Organization Details Last Updated DateTime 4 170.18 cm 33.7 kg/m2 24489.3 6 g 98 % 98 % 103 /min 138 mm[Hg] 96 mm[Hg] Julisa Sloan MA DE - COUNT INCLUDES THE [facility] 4 14:05:45 Date Recorded Heart rate Respiratory rate Systolic blood pressure Diastolic blood pressure Provider Name and Address Organization Details Last Updated DateTime 09/25/2023 92 /min 18 /min 136 mm[Hg] 86 mm[Hg] CHICO LEÓN Attn: Accounting ,[address] [place], [address] , [facility] 09/25/2023 14:26:26 Date Recorded Body height Body mass index (BMI) Body weight Oxygen saturation Oxygen saturation in Arterial blood by Pulse oximetry Heart rate Respiratory rate Systolic blood pressure Diastolic blood pressure Provider Name and Address Organization Details Last Updated DateTime 4 170.18 cm 35.6 kg/m2 603076. 47 g 99 % 99 % 82 [...] Date Was Tobacco Cessation Counseling Provided? 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 [email or web address] Information not available 02/14/2022 What is [...] History Condition Response Coronary Artery Disease N Kidney Cyst N Blood Diseases N Hyperthyroidism N Blood Transfusion N MRSA N Blood disorders N Emphysema N Blood Clots N COPD N Depression Y Pneumonia N Premature N Peripheral Arterial Disease N Edema N TIA N Headaches/Migraines N [...] Hospitalizations N Brain Tumors N Acne N Skin Problems N Eating Disorder N Meningitis N Constipation N Tuberculosis N Cerebral Palsy N Myocardial Infarction N Asthma N Substance Abuse N Peripheral Vascular Disease N Vertigo N Sleep Disorder N Cirrhosis N Pulmonary Embolism N Chicken Pox N Hematologic Disease N Flomax Use Past or Present N Anxiety/Depression Y Thyroid Disease N Colon Cancer N Lung Disease N Glaucoma N Developmental or Behavioral Disorders N Bipolar N Pacemaker N Diverticulitis/Diverticulosis N Orthopedic Problems N Anesthesia Complications N Orthotics N Head Injury/Concussion N Congenital Anomalies N Arenas Bite N Chronic Kidney Disease N Endometriosis N Liver Disease N Schizophrenia N Dialysis N Speech Delay N Chronic Obstructive Pulmonary Disease N Parkinson's Disease N Thyroid Problems N GI Problems N Developmental Delay N Anemia N Multiple Sclerosis N Immune System Disorder N Colon Polyps N Heart Attack ([place]) N Diabetes N Cardiomyopathy N Blood Transfusions N Heart Problems/Murmur N Eye Trauma N Congestive Heart Failure (CHF) N Valvular Heart Disease N Hyperlipidemia N Double Vision N Abuse/Domestic Violence N Hepatitis B N Lupus N Epilepsy/Seizures N Reflux/GERD N Aneurysm N Heart Disease N Bronchitis N Pre-Eclampsia N Hypertension N Heart Failure N Other N Gout [...] N Kidney Failure N Ocular trauma N Diverticulitis N Dementia N Sleep Apnea N Mental Problems N [...] SNOMED-CT Code Diagnosis ICD10 Code Diagnosis Note [id number] MD Israel Saucedo ([employer]) [address] [place] [address] 11/28/2015 15:12:39 11/29/2015 10:20:40 High risk 67122514 O09.91 Recurrent miscarriage 10 2960914 N96 [id number] Mi Frank MD [facility] ([employer]) [address] [place] [address] 11/29/2015 10:02:15 11/30/2015 10:51:47 High risk 31714804 O09.91 Transfer care to [facility] for severe psychiatri c issues All labs ordered yesterday Chronic post-traumatic stress disorder 298984535 F43.12 Generalize d anxiety disorder 56068962 F41.1 Attention deficit hyperactivity disorder, predominantly inattentive type 31648103 F90.0 Recurrent miscarriage 10 8832118 N96 all other labs ordered yesterday [id number] David lynn MD [facility] [address] [place] [address] 01/04/2022 10:32:44 01/07/2022 11:13:42 Smoker 39632870 F17.200 2 pk/week Neck swelling 485331202 R22.1 x3 yrsrecurre nt strep throat and was multiple rounds of antibiotic s w/o reliefDeni es cough at night, sore throat, odynophagi a, or dysphagiac onstantly spitting things up, describes a specks of black/red/ pink mixed in with her sputum and provided picturesPE x- nlUS head and neckfuture referral to ENT Adult [facility] th examination [id number] Z00.00 routine labs Depression screening 171 104571 Z13.31 PHQ 8on xanax, wellbutrin , and vyvansefol lows with psychPEx- anxious, talkative, pressured speech, tangential Obesity 134325402 E66.9 BMI 33.2discus sed increasing exercise and healthier food options, high protein, low fat diet History of cholecystectomy 055573950 Z90.49 removed at [facility] 2 wks agounknown surgeon's name and has not followed upstates that [employer] was involved due to fluid in her pelvisPEx- well healing surgical scars, superior to umbilicus 2 inch horizontal incision, RUQ 1 inch horizontal incision, non-TTPreq uested records [id number] David lynn MD [facility] [address] [place] [address] 02/06/2022 14:15:39 02/07/2022 14:20:29 Neck swelling 767886646 R22.1 02/06/22:U S neck and tissue- normal appearing cervical LADpt still c/o coughing up tissue and hairfeels like something is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
--- OUTSIDE RECORDS SUMMARY | 2024-07-06 14:54 | XMS_ITS | Clinical Summary ---
Author Organization [facility] Address [address] [place] [address] Care Team Providers Care Editor & Co Founder Name Role Phone Michele Mckenna MD Primary Care Provider [phone] Source Comments [facility],non-owned Affiliates and Associated Physician Practices is amultiple site organization consisting of ambulatory clinics and hospital sitesin [place], [place], [place] and [place]. This disclosure is being madepursuant to the Care Everywhere program and may not contain all information available regarding this patient. Last updated 17.[facility] Allergies No known active allergies Medications * [...] sensations. 120 tablet 3 03/22/19 25 Active mupirocin (Bactroban) 2 % ointmentIndica tions:Rash and [...] daily 30 tablet 11 06/24/19 25 Active doxycycline hyclate 100 MG tabletIndicati ons:Ocular rosacea TAKE 1 TABLET BY MOUTH TWICE A DAY FOR COMMON ACNE 60 tablet 3 07/06/19 25 Active ivermectin (Stromectol) 3 MG tabletIndicati ons:Rash and other nonspecific skin eruption Take 8 (eight) tablets by mouth every 7 days 32 tablet 3 03/22/19 25 2024 Discontinued(R eorder) doxycycline hyclate 100 MG tabletIndicati ons:Acne Vulgaris Take 1 (one) tablet by mouth 2 times daily Reasons: Common Acne 60 tablet 2 04/06/19 25 2024 Discontinued omeprazole (PriLOSEC) 40 MG capsuleIndicat ions:Epigastri c [...] Encounters Date Type Department Care Team Description 07/04/2024 Refill [facility] - Dermatology [address] [place] [phone] Jamari Callejas MD Refill Request 07/01/[address] [facility] - General Dermatology [facility] [place] [address] [place] [phone] Fareed Mir MD 06/23/2024 1:10 PM CDT Office Visit [facility] - General Dermatology [facility] [place] [facility] [place] [place] [phone] Fareed Mir MD Rash and other nonspecific skin eruption (Primary Dx); History of herpes simplex infection; Herpesviral vesicular dermatitis 06/23/2024 Travel 06/14/2024 Refill [facility] - GI [address] [place] [phone] Samm Dunn MD Med Change Request 05/24/2024 8:00 AM CDT Office Visit [facility] - Ophthalmology [address] [place] [phone] Eye irritation (Primary Dx) 05/24/2024 Travel 05/20/[address] [facility] - Ophthalmology [address] [place] [phone] Froilan White MD Eye Problem 05/17/2024 10:53 AM CDT Anesthesia Event [facility] [address] [place] [address] Francisco J Rice MD 05/17/2024 9:55 AM CDT - 05/17/2024 10:45 AM CDT Surgery [facility] [place] [address] Samm Dunn MD EGD w/ gustavo 05/17/2024 9:48 AM CDT - 05/17/2024 11:59 AM CDT Hospital Encounter [facility] [address] [place] [address] Samm Dunn MD Surgery General Discharge Disposition: Home or Self Care 05/17/2024 Travel 05/13/[address] [facility] [address] [place] [address] Jeana Richardson RN 05/12/2024 1:00 PM CDT Office Visit [facility] - GI [address] [place] [phone] Samm Dunn MD Epigastric pain (Primary Dx); Dysphagia, unspecified type; RUQ pain; Esophageal thickening 05/12/2024 Travel 05/11/2024 Telephone [facility] - Ophthalmology [address] [place] [phone] Froilan White MD Eye Problem 05/07/2024 Orders Only [facility] - Dermatology [address] [place] [phone] Jamari Callejas MD Rash and other nonspecific skin eruption 05/05/2024 Telephone [facility] - General Dermatology [address], [address] [place] [phone] Fareed Mir MD Allergic reaction; Med Question 04/21/2024 Travel 04/16/2024 Refill [facility] - Dermatology [address] [place] [phone] Fareed Mir MD MEDICATION REFILL 04/09/2024 Telephone [facility] - Dermatology [address] [place] [phone] Fareed Mir MD Refill Request from Last 3 Months Immunizations Immunization Administration [...] 10:23 AM CDT Height 170.2 cm (5' 7 ) 05/17/2024 10:2 3 AM CDT Body Mass Index 37.34 05/17/2024 10:23 AM CDT Plan of Treatment Upcoming Encounters Date Type Department Care Team (Late st Contact Info) Description 08/18/2024 1:00 PM CDT Office Visit [facility] - [address] [place] [phone] Samm Dunn MD [address] [facility] [address] [place] [address] 10/20/2024 1:20 PM CDT Office Visit [facility] - General Dermatology [address], [address] [place] [address] Fareed Mir MD [facility] 3L [place] [address] Health Maintenance Due Date Last Done Comments [...] pain EGD Routine 05/17/2024 10:48 AM CDT [place] ED EGD FLEX TRANSORAL DX 05/17/2024 10:48 [...] P24 AG PANEL Routine 03/27/2016 3:29 PM PATENT EXAMINER Supervision of high-risk of young primigravida from Last 3 Months or Most Recently Relevant to Health Maintenance Results * PATHOLOGY TISSUE (05/17/2024 11:02 AM CDT) Case Report Surgical Pathology Report Case: [id number] Authorizing Provider: Samm Dunn, Collected: 05/17/2024 11:02 AM Ordering Location: [facility] Received: 05/17/2024 12:58 PM Pathologist: Jessica Real MD Specimen: Gastric Biopsy, gastric bx - gastritis, r/o h. pylori 05/18/2024 3:02 PM CDT [facility] Final Diagnosis Stomach, biopsy (A): - Erosive gastropathy - Negative for H. pylori 05/18/2024 3:02 PM CDT [facility] at 1502 CDT Microscopic Description and Comment The gastric biopsy has several fragments of mucosa with varying degrees of reactive changes, and one fragment with superficial erosion and fibrin deposition. There is no background of chronic active gastritis and no H. pylori organisms, including by H. pylori immunostain (block A1, with appropriately staining controls). 05/18/2024 3:02 PM CDT [facility] Clinical History The patient is a 38-year-old woman with epigastric abdominal pain and dysphagia. Operative procedure/findings: EGD - gastritis, biopsied to rule out H. pylori 05/18/2024 3:02 PM CDT [facility] Gross Description The requisition and specimen(s) are identified with the patient's name Dudley Riggs . Received in formalin, specimen A , consists of multiple guidry-white tissue fragments, 0.1-0.4 cm, 1.0 x 0.5 x 0.2 cm in aggregate, submitted in toto in cassette A1. LT 05/18/2024 3:02 PM CDT [facility] Pathologist Location at [facility] 05/18/2024 3:02 PM CDT [facility] Disclaimer The performance characteristics of all immunohistochemical and indirect immunofluorescence stains (if any) cited in this report were determined by the Histopathology Laboratory of [facility]. Some of these tests were [...] attending (teaching) pathologist. 05/18/2024 3:02 PM CDT [facility] Embedded Images 05/18/2024 3:02 PM CDT [facility] Biopsy, NOS GASTRIC BIOPSY SPECIMEN / Unknown 05/17/2024 11:02 AM CDT 05/17/2024 12:58 PM CDT Comment:Pre-op diagnosis: Epigastric pain [R10.13] Samm Dunn MD LAB - PATHOLOGY/CYTOLO GY ORDERABLES Final Result Performing Organization Address City/State/[facility] Co de Phone Number [facility] [address] [phone] * EGD (05/17/2024 10:48 AM CDT) Report Endoscopy POC Endoscopy Department Report _ Patient Name: Dudley Riggs Procedure Date: 05/17/2024 10:48 AM Date of [...] entire procedure. Procedure Code(s): --- Professional --- 27784, Esophagogastroduo denoscopy, flexible, transoral; with biopsy, single or multiple Diagnosis Code(s): --- Professional --- K44.9, Diaphragmatic hernia without obstruction or gangrene K29.70, Gastritis, unspecified, without bleeding R10.13, Epigastric pain R13.10, Dysphagia, unspecified CPT copyright 2021 [employer]. All rights reserved. The codes documented in this report are preliminary and upon federal agent review may be revised to meet current compliance requirements. Samm Dunn, 05/17/2024 11:15:26 AM Note Initiated On: 05/17/2024 10:48 AM Number of Addenda: [address] [address] [facility] 05/17/2024 10:4 8 AM CDT Samm Dunn MD GI PROCEDURE ORDERABLE S Edited Result - Final Performing Organization Address City/[facility]/ZIP Co de Phone Number [facility] * HCG URINE QUALITATIVE - POCT (IP) INTERFACED (05/17/2024 10:09 AM CDT) HCG Qual Urine Negative Negative 05/17/2024 10:16 AM CDT [facility] Urine URINE / Unknown 05/17/2024 1 0:09 AM CDT 05/17/2024 10:16 AM CDT Samm Dunn MD LAB - POINT OF CARE OR DERABLES Final Result Performing Organization Address [facility] Co de Phone Number [address] [address], [place] [phone] * HCG URINE QUAL POCT NOTIFICATION (05/17/2024 10:03 AM CDT) Comment Notification Label Only - See Separate Report 05/17/2024 11:31 AM CDT [facility] Urine URINE / Unknown 05/17/2024 1 0:03 AM CDT 05/17/2024 10:03 AM CDT us Samm Dunn MD LAB - URINALYSIS ORDER MINESH Final Result Performing Organization Address [facility]/ZIP Co de Phone Number [address] [address], [place] [phone] * HIV-1 HIV-2 ANTIBODY + HIV P24 AG PANEL (03/27/2016 3:29 PM PATENT EXAMINER) HIV1/2 Ab + P24 Ag Non Reactive Non Reactive 03/27/2016 7:13 PM PATENT EXAMINER [facility] Blood BLOOD SPECIMEN / Unknown Venipuncture / Unknown 03/27/2016 3:29 PM PATENT EXAMINER 03/27/2016 4:08 PM PATENT EXAMINER Narrative [facility] - 03/27/2016 7:13 PM PATENT EXAMINER No Laboratory evidence of HIV infection. us Aubrie Strong MD LAB - CHEMISTRY ORDERABLES Fi nal Result [facility] [address] [phone] from Last 3 Months or Most Recently Relevant to Health Maintenance Insurance Advance Directives * Full Code (Latest Code Status on File) Date Activated Date Inactivated Comments 05/18/2016 8:25 AM 05/20/2016 4:51 PM * Full Code Date Activated Date Inactivated Comments 05/13/2016 6:15 PM 05/13/2016 9:30 PM * Full Code Date Activated Date Inactivated Comments 02/22/2016 9:17 PM 02/22/2016 11:37 PM Care Teams Editor & Co Founder Relationship Specialty Start Date End Date Michele Mckenna MD [address], [address] [place] [address] PCP - General Internal Medicine 03/22/24
--- OUTSIDE RECORDS SUMMARY | 2024-07-06 14:54 | XMS_ITS | Encounter Summary ---
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 She seen spotting when wiping. She believes sheis 5 weeks . Her blood type is O+. She will keep an eye on it and if it increases and soaksa pad or if she develops pain she will be come in for evaluation. documented in this encounter Plan of Treatment Not on file documented as of this encounter Visit Diagnoses Not on filedocumented in this encounter Care Teams Wood Pole Treater Relationship Specialty Start Date End Date Michele Mckenna MD PCP - General Internal Medicine 09/01/20 documented as of this encounter
--- OUTSIDE RECORDS SUMMARY | 2024-07-06 14:54 | XMS_ITS | Encounter Summary ---
Author Organization [facility] Address [address] [place] [address] Phone Care Team Providers Care Cnc Maintenance Mechanic Name Role Phone Michele Mckenna MD Primary Care Provider [phone] Encounter Details Date Type Department Care Team (Late st Contact Info) Description 07/05/[address] 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 The bleeding has stopped but she would like to be seen. Advised her she can come to [facility] and provided her directions. documented in this encounter Plan of Treatment Not on file documented as of this encounter Visit Diagnoses Not on filedocumented in this encounter Care Teams Cnc Maintenance Mechanic Relationship Specialty Start Date End Date Michele Mckenna MD PCP - General Internal Medicine 09/01/20 documented as of this encounter
--- OUTSIDE RECORDS SUMMARY | 2024-07-06 14:54 | XMS_ITS | Encounter Summary ---
Author Organization [facility] Healthcare Address [address] [place] [address] Care Team Providers Care Mechanical Planner Name Role Phone Michele Mckenna MD Primary Care Provider [phone] Encounter Details Date Type Department Care Team (Late st Contact Info) Description 06/02/2024 Results Follow-Up [facility] Primary Care at [facility] [address] 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 1 or 2 06/04/2024 8:51 AM CDT Sarah Matthews R N Q3: How often do you have six or more drinks on one occasion? Never 06/04/2024 8:51 AM LINKT Sarah Matthews R N documented as of this encounter Plan of Treatment Not on file documented as of this encounter Visit Diagnoses Not on filedocumented in this encounter Care Teams Mechanical Planner Relationship Specialty Start Date End Date Michele Mckenna MD PCP - General Internal Medicine 09/01/20 documented as of this encounter
--- OUTSIDE RECORDS SUMMARY | 2024-07-06 14:54 | XMS_ITS | Encounter Summary ---
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 Gender Identity Female 11/30/2020 2:26 PM CDT Sexual Orientation Straight 11/30/2020 2: 26 PM CDT documented as of this encounter Plan of Treatment Scheduled Orders Name Type Priority Associated Diagnoses Orde r Schedule hCG, blood, quantitative Lab Routine of unknown anatomic location 5 Occurrences starting 07/06/2024 until 07/06/2025 documented as of this encounter Visit Diagnoses Diagnosis of unknown anatomic location- Primary documented in this encounter Care Teams Shipmaster Relationship Specialty Start Date End Date Michele Mckenna MD PCP - General Internal Medicine 09/01/20 documented as of this encounter
--- OUTSIDE RECORDS SUMMARY | 2024-07-06 14:54 | XMS_ITS | Encounter Summary ---
Author Organization [facility] Health Address [address] [facility] [place] [address] Care Team Providers Care Parent Coach Name Role Phone Michele Mckenna MD Primary Care Provider [phone] Encounter Details Date Type Department Care Team (Late st Contact Info) Description 03/24/2024 Telephone [facility] - General Dermatology [address], [address] [place] [address] Fareed Mir MD [address] [facility] 3 [place] [address] Social History Tobacco Use Types [...] - 03/24/2024 3:33 PM CST [facility] for ivermectin (Stromectol) 3 MG tablet. 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 documented in this encounter Plan of Treatment Upcoming Encounters Date Type Department Care Team (Late st Contact Info) Description 08/18/2024 1:00 PM CDT Office Visit [facility] - GI [address] [facility], [place] [phone] Samm Dunn MD [address] [facility] 2 [place] [address] 10/20/2024 1:20 PM CDT Office Visit [facility] - General Dermatology [address], [facility] [address] [place] [address] Fareed Mir MD [address] [place] [address] [address] [place] [address] documented as of this encounter Visit Diagnoses Not on filedocumented in this encounter Care Teams Parent Coach Relationship Specialty Start Date End Date Michele Mckenna MD [address], [address] [place] [address] PCP - General Internal Medicine 03/22/24 documented as of this encounter
--- OUTSIDE RECORDS SUMMARY | 2024-07-06 14:54 | XMS_ITS | CONTINUITY OF CARE DOCUMENT ---
Author Name jigna benito Address Unknown Organization [facility] Address [address] [place] [address] [address] [place] [address] Phone [phone] Care Team Providers Care Vocational Services Specialist Name Role Phone Faraz AVILA, Topher Unavailable MELISSA BERNSTEIN MD Unavailable INSURANCE PROVIDERS Payer name Policy type / Coverage type Rebecca red green party ID [place] (2) Medicaid [id number]
--- OUTSIDE RECORDS SUMMARY | 2024-07-06 14:54 | XMS_ITS | Patient Health Record ---
Author Organization [facility] Address [address] [place] [address] Care Team Providers Care It Service Manager Name Role Phone Lionel Butt Primary Care Provider [phone] [facility] Unavailable U jelaniSydnee Velazco Unavailable [phone] Allergies Allergen (clinical drug ingredient) Drug/Non Drug [...] for 30 days Client would like to pick up attendant today. 05/20/2024 Active PARoxetine HCl 20 MG 1 tablet in the morning Orally Once a day for 30 days Client would like to pick up attendant today. 06/11/2023 Active Vyvanse 70 MG 1 capsule in the morning Orally Once a day. Please fill on or after June 16, 2024. for 30 days 05/30/2024 Active Spironolactone 100 MG 1 tablet Orally Once a day Active Vyvanse 70 MG 1 capsule in the morning Orally Once a day. for 30 days Client would like to pick up attendant today. 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 confirmed Problem 02910553 Other chronic pain (G89.29) Active confirmed Problem 33518258 Tobacco dependency (F17.200) Active confirmed Problem 35420241 PTSD (post-traumatic stress disorder) (F43.10) Active confirmed Problem Vitamin D deficiency (21474932) Vitamin D deficiency (E55.9) Active confirmed Problem Generalized anxiety disorder (60788989) DAKOTAH (generalized anxiety disorder) (F41.1) Active confirmed Problem 024578152 Pulmonary nodule (R91.1) Active confirmed Problem Mild recurrent major depression (02900274) MDD (major depressive disorder), recurrent episode, mild (F33.0) Active confirmed Problem 189699956 Panic disorder [episodic paroxysmal anxiety] (F41.0) Active confirmed Vital Signs Height 67 in 05/20/2024 Encounters Encounter Location Date Provider Diagnosis [address] [address] 09/16/2023 Lionel Butt Attention-deficit hyperactivity disorder, predominantly inattentive type F90.0 ; DAKOTAH (generalized anxiety disorder) F41.1 ; Panic disorder [episodic paroxysmal anxiety] F41.0 and PTSD (post-traumatic stress disorder) F43.[address] [address] 11/26/2023 Lionel Butt Attention-deficit hyperactivity disorder, predominantly inattentive type F90.0 ; Panic disorder [episodic paroxysmal anxiety] F41.0 ; PTSD (post-traumatic stress disorder) F43.10 ; DAKOTAH (generalized anxiety disorder) F41.1 and MDD (major depressive disorder), recurrent episode, mild F33.[address] [address] 05/20/2024 Lionel Butt Attention-deficit hyperactivity disorder, predominantly inattentive type F90.0 ; Medication monitoring encounter Z51.81 ; Panic disorder [episodic paroxysmal anxiety] F41.0 and PTSD (post-traumatic stress disorder) F43.[address] [address] 07/21/2023 Lionel Butt Attention-deficit hyperactivity disorder, predominantly inattentive type F90.[address] [address] 08/25/2023 Lionel Butt [address] [address] 09/01/2023 Lionel Butt Attention-deficit hyperactivity disorder, predominantly inattentive type F90.0 ; Panic disorder [episodic paroxysmal anxiety] F41.0 ; MDD (major depressive disorder), recurrent episode, mild F33.0 and DAKOTAH (generalized anxiety disorder) F41.[address] [address] 11/21/2023 Sydnee Beth DAKOTAH (generalized anxiety disorder) F41.1 ; Attention-deficit hyperactivity disorder, predominantly inattentive type F90.0 and Panic disorder [episodic paroxysmal anxiety] F41.0 [place] [address] [place] [address] 12/30/2023 Lionel Butt [address] [address] 02/26/2024 Lionel Butt Attention-deficit hyperactivity disorder, predominantly inattentive type F90.0 ; Panic disorder [episodic paroxysmal anxiety] F41.0 and DAKOTAH (generalized anxiety disorder) F41.[address] [place] [address] 04/12/2024 Lionel Butt Attention-deficit hyperactivity disorder, predominantly inattentive type F90.0 ; Panic disorder [episodic paroxysmal anxiety] F41.0 and DAKOTAH (generalized anxiety disorder) F41.[address] [place] [address] 01/28/2024 Lionel Butt [address] [address] 03/18/2024 Lionel Butt Assessments Encounter Date Diagnosis [...] number to the 24-hour crisis line at [facility]. Questions addressed. Client verbalized understanding of all [...] number to the 24-hour crisis line at [facility]. Questions addressed. Client verbalized understanding of all [...] number to the 24-hour crisis line at [facility]. Questions addressed. Client verbalized understanding of all information and is agreeable to treatment plan. Plan Of Treatment No Information Insurance Providers Payer Name Payer Address Payer Phone Subscriber Number Group Number Insured Name Patient Relationship to Insured Coverage Start Date Coverage End Date [facility] Claims Department [address] [place] [address] [phone] [id number] Sherie Rachel Self - patient is the insured 1 [facility] Claims Department [address] [place] [address] [phone] [id number] Sherie Rachel Self - patient is the insured 7 1 [facility] Claims Department [address] [place] [address] [phone] [id number] Sherie Rachel Self - patient is the insured 1 Medical (General) History Medical History History ICD Code history of fracture of the right scapula PTSD panic disorder ADHD obesity pulmonary nodules smoker Surgical History Surgery Date(Month/Year) D&C 2010 cholecystectomy 11/2021 Hospitalization History Reason Date(Month/Year) CRU in past for extreme anxiety several years ago
--- OUTSIDE RECORDS SUMMARY | 2024-07-06 14:54 | XMS_ITS | Referral Summary ---
Author Organization [facility] Virtual Care Address [address] [place] [address] Phone Care Team Providers Care Glue Line Operator Name Role Phone Michele Mckenna MD Primary Care Provider [phone] Encounters Date Type Department Care Team Description 07/06/2024 Orders Only [address] [address] Priyanka Loera MD of unknown anatomic location (Primary Dx) 07/05/2024 12:29 PM CDT - 07/05/2024 3:58 PM CDT Hospital Encounter [address] [phone] Tommy Dunn MD Discharge Disposition: Discharge to home or self care 07/05/2024 Telephone [facility] Maternal- Medicine [address] [place] [address] Outpatient Health 7th Floor [address] [place] [phone] Linette Arboleda 07/05/[address] [phone] Elisabet Cartagena RN Incoming Call 07/01/2024 Telephone [facility] Maternal- Medicine [address] [place] [address] Outpatient Health 7th Floor [address] [place] [phone] Jocelyn Mir, CHANEL MFM Self-Referral 06/24/2024 1:00 PM CDT - 06/24/2024 11:59 PM CDT Hospital Encounter [facility] Neurology Testing [address] [place] [address] Paresthesia of hand Discharge Disposition: Discharge to home or self care 06/08/2024 Results Follow-Up [facility] [address] [facility] [address] [place] [address] Raymon Woodard MD Surgical pathology 06/04/2024 10:35 AM CDT - 06/04/2024 11:35 AM CDT Surgery [facility] Operating Room [address] [place] [address] Raymon Woodard MD EXCISION SOFT TISSUE LIPOMA OF RIGHT FLANK 06/04/2024 9:38 AM CDT Anesthesia Event [facility] Operating Room 1 [place] [address] Juan Jose Anguiano MD Alexander, Jeffrey Michael, DO 06/04/2024 8:47 AM CDT - 06/04/2024 11:37 AM CDT Hospital Encounter [facility] Operating Room 1 [place] [address] Raymon Woodard MD Abdominal wall mass of right flank Discharge Disposition: Discharge to home or self care 06/02/2024 Results Follow-Up [facility] Primary Care at [facility] [address] [facility] [address] [place] [phone] Michele Mckenna MD Soft Tissue Lower Back 05/31/2024 Telephone [facility] Convenient Care at [address] [place] [phone] Marily Storey NP 05/31/2024 Results Follow-Up [facility] Con[facility]ient [facility] at [address] [place] [phone] Marily Storey NP XR Shoulder Right 2 or More Views 05/31/2024 Results Follow-Up [facility] Convenient Care at [address] [place] [phone] Marily Storey NP XR Spine Cervical 2 or 3 Views 05/31/2024 2:04 PM CDT - 05/31/2024 11:59 PM CDT Hospital Encounter [facility] Diagnostic Imaging [address] [place] [address] Acute pain of right shoulder Discharge Disposition: Discharge to home or self care 05/31/2024 2:04 PM CDT - 05/31/2024 11:59 PM CDT Hospital Encounter [facility] Diagnostic Imaging [address] [place] [address] Acute pain of right shoulder Discharge Disposition: Discharge to home or self care 05/31/2024 1:00 PM CDT - 05/31/2024 11:59 PM CDT Hospital Encounter [facility] ` [address] [place] [address] Skin mass Discharge Disposition: Discharge to home or self care 05/27/2024 1:45 PM CDT Office Visit [address] [place] [address] EyeBrisa otero NP Abdominal wall mass of right flank (Primary Dx); Skin mass 05/24/2024 3:15 PM CDT Office Visit [facility] Primary Care at [address] [place] [phone] Michele Mckenna MD IFG (impaired fasting glucose) (Primary Dx); Vitamin D deficiency; Gastritis without bleeding, unspecified chronicity, unspecified gastritis type; Paresthesia of hand; Skin mass; Healthcare maintenance 05/06/2024 6:30 PM CDT Office Visit [facility] Care at [place] [address] [place] [address] [address], [place] [address] Katarzyna Hayes NP Acute pain of right shoulder (Primary Dx) 05/06/2024 Nurse Triage [facility] Primary Care at [address], [place] [phone] Michele Mckenna MD 05/05/2024 Patient Self-Triage [facility] Health[facility]/ Physicians [address] [place] [address] Mychart, Generic Provider 05/02/2024 4:45 PM CDT Office Visit [facility] Convenient Care at [address] [phone] Radha Ferguson NP Acute pain of right shoulder (Primary Dx); Elevated blood pressure reading in office without diagnosis of hypertension; Cold sore 04/15/2024 Results Follow-Up [facility] Primary Care at [facility] [address] [facility] [address], [place] [address] Michele Mckenna MD CBC with auto differential, Comprehensive metabolic panel, Lipid panel, Additional followed-up results: 7 04/13/2024 3:47 PM [employer] - 04/13/2024 11:59 PM [employer] Hospital Encounter [address] [address] Healthcare maintenance; Polyarthralgia Discharge Disposition: Discharge to home or self care 04/13/2024 3:45 PM [employer]GL[employer] TE[employer]ER Lab [facility] Outpatient Lab at [address] [phone] CHIKA positive (Primary Dx) from Last 3 Months Allergies Active Allergy Reactions Criticality Noted Date Comments Quetiapine Muscle pain Medium 12/02/2023 Brain Fog Medications lisdexamfetamin e (Vyvanse) 70 mg capsule Take 1 capsule (70 mg total) by mouth manager e commerce before breakfast 9 Active ALPRAZolam (XANAX) 0.5 [...] 2 (two) times a day 5 07/06/19 Discontinu ed(Stop Taking at Discharge) Active Problems Problem Noted Date Diagnosed Date Supervision of high risk in [facility] 07/05/2024 Overview (07/05/2024): [] OB consult only, [] Co-management vs. [] Full M Care; [] Red Team [] Blue Team [...] [] MOC: [] Method of feeding: [] Manager Pricing (specifically which provider): [] PP Depression Discussed: [...] Overview (07/06/2024): Telephone Number Relationship Voicemail Billy [phone] (home) Home Yes [] PUL Card Given [...] Plan (06/04/2024 7:48 AM CDT): Ultrasound at [place] demonstrates a 7cm lipoma, she feels it [...] 11/30/2020 Assessment & Plan (03/20/2024 7:47 PM [employer] ENGLISH TEACHER): Patient should reduce sugar and carbs, increase [...] 10/30/2020 Assessment & Plan (03/20/2024 7:47 PM [employer] ENGLISH TEACHER): Nicotine replacement therapy and smoking cessation counseling [...] on file Legal Sex Female 11:53 AM [employer] TE[employer] Gender Identity Female 11/30/2020 2:26 PM CDT [...] 07/05/2024 12:35 PM CDT Plan of Treatment Not on file [...] CDT Abdominal wall mass of right flank NE AN ELECTIVE SUPRAGLOTTIC AIRWAY Routine 06/04/2024 9:50 [...] right shoulder EGFR Routine 04/13/2024 3:47 PM [employer]ER Healthcare maintenance DIFFERENTIAL AUTO Routine 04/13/2024 3:4 7 PM [employer]ER Healthcare maintenance CHIKA QUALITATIVE WITH REFLEX TO CHIKA QUANTITATIVE Routine 04/13/2024 3:47 PM [employer] EN[employer] TE[employer]ER Polyarthralgia HEMOGLOBIN A1C Routine 04/13/2024 3:47 PM [employer] TE[employer]ER Healthcare maintenance VITAMIN D 25 HYDROXY Routine 04/13/2024 3:47 PM [employer] TE[employer]ER Healthcare maintenance THYROID FUNCTION CASCADE Routine 04/13/2024 3:47 PM [employer] TE[employer]ER Healthcare maintenance LIPID PANEL Routine 04/13/2024 3:47 PM [employer]ER Healthcare maintenance COMPREHENSIVE METABOLIC PANEL Routine 04/13/2024 3:47 PM [employer] TE[employer]ER Healthcare maintenance CBC WITH AUTO DIFFERENTIAL Routine 04/13/2024 3:47 PM [employer]ER Healthcare maintenance HEPATITIS C ANTIBODY Routine 04/13/2024 3:47 PM [employer]ER Healthcare maintenance from Last 3 Months Results * Check Sample (07/05/2024 3:39 PM CDT) ABO Rh O Positive [facility] HCLL OTHER 07/05/2024 3:39 PM CDT 07/05/2024 3:52 PM CDT us Tommy Dunn MD LAB BLOOD ORDERABLES Final Result Performing Organization Address City/[facility]/ZIP Co de Phone Number [facility] [place] [address] [facility] * eGFR (07/05/2024 2:01 PM CDT) eGFR [...] NP LAB BLOOD ORDERABLES Fin al Result [facility] Department [place] [address] * (ABNORMAL) CBC without differential (07/05/2024 2:01 PM CDT) Pathologist [facility] WBC 11.47(H) 3.80 - 9.90 K/cumm Hgb 13.6 11.9 - 15.5 g/dL [facility] Hct 41.5 35.6 - 45.5 % [facility] Plt 266 150 - 400 K/cumm [facility] MPV 11.0 9.1 - 12.3 fL [facility] RBC 5.02 3.90 - 5.20 M/cumm [facility] MCV 82.7 81.3 - 96.4 fL [facility] MCH 27.1 27.1 - 33.3 pg [facility] MCHC 32.8 32.3 - 35.7 g/dL [facility] RDW CV 14.6 11.1 - 14.9 % [facility] RDW SD 43.1 35.7 - 48.1 fL [facility] NRBC abs 0.00 0.00 - 0.01 K/cumm [facility] Blood 07/05/2024 2:01 PM CDT 07/05/2024 2:23 PM CDT Alana Cazares NP LAB BLOOD ORDERABLES Fin al Result [facility] [place] [address] * Type and screen (07/05/2024 2:01 PM CDT) Pathologist [facility] Leydi, indirect Negative ABO Rh O Positive [facility] Blood 07/05/2024 2:01 PM CDT 07/05/2024 2:58 PM CDT Narrative [facility] - 07/05/2024 4:30 PM CDT Has the patient had Daratumumab or Isatuximab in the past 6 months?->Unknown Alana Cazares NP LAB BLOOD BANK TEST ORDE RABLES Final Result Performing Organization Address [facility] de Phone Number [facility] [place] [address] * (ABNORMAL) hCG, blood, quantitative (07/05/2024 2:01 PM CDT) Pathologist [facility] hCG, quant 1,580.0(H ) 0.0 - 5.0 [...] CDT 07/05/2024 2:18 PM CDT Alana Cazares TELECOMMUNICATION SYSTEMS DESIGNER LAB BLOOD ORDERABLES Fin al Result Performing Organization Address [facility] Co de Phone Number [facility] Department [place] [address] * Comprehensive metabolic panel (07/05/2024 2:01 PM CDT) [facility] Sodium 141 135 - 145 mmol/L Potassium, pl 4.7 3.3 - 4.9 mmol/L [facility] Chloride 106 97 - 110 mmol/L [facility] CO2 27 22 - 32 mmol/L [facility] Anion gap 8 2 - 15 mmol/L [facility] BUN 10 6 - 25 mg/dL [facility] Creatinine 0.72 0.60 - 1.10 mg/dL [facility] Glucose 104 70 - 199 mg/dL [facility] Comment: Interpretive Data Fasting glucose >/= 126 [...] 2022. Calcium 9.7 8.5 - 10.3 mg/dL [facility] Bilirubin, total 0.3 0.1 - 1.2 mg/dL [facility] Protein, pl 7.1 6.5 - 8.5 g/dL [facility] Albumin 4.0 3.5 - 5.0 g/dL [facility] Alk phos 91 40 - 130 Units/L [facility] ALT 34 7 - 45 Units/L [facility] AST 19 10 - 45 Units/L [facility] Blood 07/05/2024 2:01 PM CDT 07/05/2024 2:18 PM CDT Alana Cazares NP LAB BLOOD ORDERABLES Fin al Result [facility] Department [place] [address] * (ABNORMAL) POCT hCG, urine (07/05/2024 1:15 [...] n) 06/04/2024 10:09 AM CDT Narrative PATHOLOGY [facility] - 06/07/2024 3:37 PM CDT EPIC results best viewed via link to PDF [facility] Department of Pathology [address] [place] [address] Note to Patients: This report may contain [...] Final Report Patient Name: DUDLEY RACHEL Address: [address] [place] [address] Gender: F : 1985 (Age: 38) Service: Surgery Location: [facility] Hospital #: [id number] Patient Type: [facility] Taken: 06/04/2024 Received: 06/04/2024 Accessioned: 06/04/2024 Reported: [...] determined by the Surgical Pathology Department at [facility] as part of an ongoing quality reviewer program and in compliance with federally mandated [...] characteristics determined by the Surgical Pathology Department [facility]. It has not been cleared or approved by the U. S. Food and Drug Administration. Note for decalcified specimens: This assay has not been validated on decalcified tissues. Results should be interpreted with caution given the possibility of false negativity on decalcified specimens Raymon Woodard MD LAB PATHOLOGY ORDER MINESH Final Result PATHOLOGY [facility] [address] [place] [address] * NE AN ELECTIVE SUPRAGLOTTIC AIRWAY (06/04/2024 9:50 AM CDT) Narrative Reyes Lakhani CRNA - 06/04/2024 9:50 AM CDT Reyes Lakhani CRNA 06/04/2024 9:51 AM Airway Patient location: OR Urgency: elective Indications for airway management: anesthesia Difficult airway: no Staff: Placed by: DRIVE MAN: Reyes Lakhani CRNA Emergent airway documentation: Risks and benefits discussed: yes Consent obtained: yes Consent given by: patient Airway prep: Preoxygenated: yes Patient position: sniffing MILS maintained throughout: yes Mask difficulty assessment: 0 - not attempted Sedation level during airway: GA Final airway details: Final airway type: supraglottic airway Final supraglottic airway: unique SGA size: 4 Number of attempts: 1 us Reyes Lakhani CRNA ANESTHESIA ORDERABLES Final Re [...] by: Makayla Dias M.D. Katarzyna Hayes NP [facility] XR PROCEDURES Final Result * XR Shoulder [...] by: Makayla Dias M.D. Katarzyna Hayes NP [facility] XR PROCEDURES Final Result * CHIKA ab ql w/rflx to CHIKA qn (04/13/2024 3:47 PM [employer] ENGLISH TEACHER) CHIKA Negative Comment: Interpretive Data Normal range [...] last revised on 2019. Testing performed by: [facility], [address] [facility], [place]., [address] Blood 04/13/2024 3:47 PM [employer] EN[employer]ISH TEACHER 04/14/2024 9:57 AM [employer]GL[employer] TEACHER us Michele Mckenna MD LAB BLOOD ORDERABLES Final R esult Performing Organization Address City/[facility]/ZIP Co de Phone Number ANGELA [address] [place] [address] * eGFR (04/13/2024 3:47 PM [employer] ENGLISH TEACHER) eGFR >90 >=60 mL/min/1. 73 m2 Comment: [...] last reviewed 2020. Blood 04/13/2024 3:47 PM [employer] ENGLISH TEACHER 04/13/2024 7:37 PM [employer] ENGLISH TEACHER us Michele Mckenna MD LAB BLOOD ORDERABLES Final R esult Performing Organization Address City/[facility]/[place] [address] [address] Department [place] [place] [address] * Differential, auto (04/13/2024 3:47 PM [employer] ENGLISH TEACHER) Neutrophil abs 5.2 1.5 - 6.5 K/cumm Imm gran abs 0.0 0.0 - 0.1 K/cumm [facility] Lymphocyte abs 1.9 0.8 - 3.3 K/cumm [facility] Monocyte abs 0.7 0.2 - 0.8 K/cumm [facility] Eosinophil abs 0.3 0.0 - 0.5 K/cumm [facility] Basophil abs 0.1 0.0 - 0.1 K/cumm [facility] Neutrophil pct 63.7 % [facility] Comment: Interpretive Data Percent cell count reference ranges are not reported, since discordance with absolute values may lead to misinterpretation of CBC data. Current Interpretive Data was last revised on 2017. Imm gran pct 0.4 % [facility] Comment: Interpretive Data Percent cell count reference ranges are not reported, since discordance with absolute values may lead to misinterpretation of CBC data. Current Interpretive Data was last revised on 2017. Lymphocyte pct 22.9 % [facility] Comment: Interpretive Data Percent cell count reference ranges are not reported, since discordance with absolute values may lead to misinterpretation of CBC data. Current Interpretive Data was last revised on 2017. Monocyte pct 8.5 % [facility] Comment: Interpretive Data Percent cell count reference ranges are not reported, since discordance with absolute values may lead to misinterpretation of CBC data. Current Interpretive Data was last revised on 2017. Eosinophil pct 3.8 % [facility] Comment: Interpretive Data Percent cell count reference ranges are not reported, since discordance with absolute values may lead to misinterpretation of CBC data. Current Interpretive Data was last revised on 2017. Basophil pct 0.7 % [facility] Comment: Interpretive Data Percent cell count reference ranges are not reported, since discordance with absolute values may lead to misinterpretation of CBC data. Current Interpretive Data was last revised on 2017. Blood 04/13/2024 3:47 PM [employer] ENGLISH TEACHER 04/13/2024 7:27 PM [employer] ENGLISH TEACHER us Michele Mckenna MD LAB BLOOD ORDERABLES Final R esult Performing Organization Address [facility] Co de Phone Number ANGELA [address] [address] [facility] [place] [address] * Thyroid Function [place] (04/13/2024 3:47 PM [employer] ENGLISH TEACHER) TSH 2.25 0.30 - 4.20 mcIUnit/mL Blood 04/13/2024 3:47 PM [employer] ENGLISH TEACHER 04/13/2024 7:27 PM [employer] ENGLISH TEACHER Michele Mckenna MD LAB BLOOD ORDERABLES Final R esult Performing Organization Address [facility] de Phone Number ANGELA [address] [address] [facility] [place], [place] [id number] * (ABNORMAL) CBC with auto differential (04/13/2024 3:47 PM MIDD[employer] S[employer] ENGLISH TEACHER) Pathologist [facility] WBC 8.2 3.8 - 9.9 K/cumm Hgb 14.2 11.9 - 15.5 g/dL [facility] Hct 46.3(H) 35.6 - 45.5 % [facility] Plt 301 150 - 400 K/cumm [facility] MPV 11.8 9.1 - 12.3 fL [facility] RBC 5.37(H) 3.90 - 5.20 M/cumm [facility] MCV 86.2 81.3 - 96.4 fL [facility] MCH 26.4(L) 27.1 - 33.3 pg [facility] MCHC 30.7(L) 32.3 - 35.7 g/dL [facility] RDW CV 13.6 11.1 - 14.9 % [facility] RDW SD 42.5 35.7 - 48.1 fL [facility] NRBC abs 0.00 0.00 - 0.01 K/cumm [facility] Blood 04/13/2024 3:47 PM [employer] ENGLISH TEACHER 04/13/2024 7:27 PM [employer] ENGLISH TEACHER Michele Mckenna MD LAB BLOOD ORDERABLES Final R esult Performing Organization Address City/[facility]/ZIP Co de Phone Number ANGELA [address] [address] [address] [email or web address] [address] * Hepatitis C antibody Blood (04/13/2024 3:47 PM MIDD[employer] ENGLISH TEACHER) [facility] Hep C Ab Nonreactive Nonreactive Comment: [...] revised on 2019. Blood 04/13/2024 3:47 PM [employer] ENGLISH TEACHER 04/13/2024 7:27 PM [employer] ENGLISH TEACHER Michele Mckenna MD LAB MICROBIOLOGY - GENERAL O RDERABLES Final Result Performing Organization Address [facility] de Phone Number [facility] [address] [place] [address] * (ABNORMAL) Vitamin D 25 hydroxy (04/13/2024 3:47 PM MIDD[employer] ENGLISH TEACHER) [facility] Vitamin D 25-OH 10(L) 30 - 80 ng/mL Blood 04/13/2024 3:47 PM [employer] ENGLISH TEACHER 04/13/2024 7:27 PM [employer] ENGLISH TEACHER Michele Mckenna MD LAB BLOOD ORDERABLES Final R esult Performing Organization Address [facility] de Phone Number [facility] [address] [place] [address] * (ABNORMAL) Hemoglobin A1c (04/13/2024 3:47 PM MIDD[employer] ENGLISH TEACHER) [facility] Hgb A1C 6.0(H) 4.0 - 5.6 % Estimated Average Glucose 126 mg/dL ANGELA Comment: The ADA recommends reporting an estimated Average Glucose (eAG) with all Hemoglobin A1c results using the equation derived from a study of 507 normal and diabetic adults. Minority populations were underrepresented and children were not included. (Diabetes Care 31:1556-6348, 2008). The eAG is not equivalent to a fasting glucose. Blood 04/13/2024 3:47 PM [employer] ENGLISH TEACHER 04/13/2024 7:27 PM [employer] ENGLISH TEACHER us Michele Mckenna MD LAB BLOOD ORDERABLES Final R esult ANGELA [address] [address] [address] Department [place] [address] * Lipid panel (04/13/2024 3:47 PM MIDD[employer] ENGLISH TEACHER) Cholesterol 155 30 - 199 mg/dL Comment: [...] 3. Vinh Monroe et al. EVER Cardiol. 2019June 17;5(5):540-548. doi: 10.1001/jamacardio.2020.0013 [...] ratio 3 ANGELA Blood 04/13/2024 3:47 PM [employer] ENGLISH TEACHER 04/13/2024 7:27 PM [employer] ENGLISH TEACHER Narrative [facility] - 04/13/2024 8:40 PM [employer] ENGLISH TEACHER Has the patient been fasting for 8 hours or more?->Yes us Michele Mckenna MD LAB BLOOD ORDERABLES Final R esult ANGELA [address] [address] Department [place] [address] * Comprehensive metabolic panel (04/13/2024 3:47 PM MIDD[employer] S[employer] ENGLISH TEACHER) Pathologist [facility] Sodium 141 135 - 145 mmol/L Potassium, [...] Units/L [facility] Blood 04/13/2024 3:47 PM MIDD[employer] ENGLISH TEACHER 04/13/2024 7:27 PM [employer] ENGLISH TEACHER Narrative [facility] - 04/13/2024 8:39 PM MIDD[employer] S[employer]OL ENGLISH TEACHER Has the patient fasted?->Yes us Michele Mckenna MD LAB BLOOD [place] [address] [address] Department [place] [address] from Last 3 Months Insurance Care Teams Glue Line Operator Relationship Specialty Start Date End Date Michele Mckenna MD PCP - General Internal Medicine 09/01/20
--- OUTSIDE RECORDS SUMMARY | 2024-07-06 14:55 | XMS_ITS ---
Author Organization [facility] Address [address] [place] [address] Care Team Providers Care Agricultural Systems Specialist Name Role Phone Lionel Butt Primary [facility] [place] Unavailable U navailable REASON FOR VISIT f/u Social History Sex Assigned At : Social History Observation Description Sex Assigned At Female Encounters Encounter Location Date Provider Diagnosis [address] [place] [address] 03/18/2024 Lionel Butt Plan Of Treatment No Information Progress Notes * Sherie RIGGSDOB:1985 (38 yo F)Acc No.[id number]:03/18/2024 UNLOCKED PROGRESS NOTE Patient: Sherie SHAH Provider: Fredis Butt DNP, PMDUSTINP-BC :1985 A ge:38 Y S ex:Female Date:03/18/2024 Address:[address] [facility] Subjective: * Chief Complaints: * 1 . F/u. * Medical History: Objective: * Vitals: Assessment: Plan: * Treatment: * * Electronic signature of Ian Butt APRN, [id number] on 07/06/2024 at 02:54 PM CDT Sign off status: Pending * Provider: Fredis Butt DNP, PMHNP-BC Date: 0 03/18/2024 Generated for Bandari ng/Falesag/eTransmitting on: 0 07/06/2024 02:54 PM CDT
--- OUTSIDE RECORDS SUMMARY | 2024-07-06 14:55 | XMS_ITS | Encounter Summary ---
Author Organization [facility] Health Address [address] [facility] [place] [address] Care Team Providers Care Metal Melter Name Role Phone Michele Mckenna MD Primary Care Provider [phone] Encounter Details Date Type Department Care Team (Late st Contact Info) Description 07/01/2024 Telephone [facility] - General Dermatology [address], [address] [place] [address] Fareed Gonzalez MD [address] [facility] 3 [place] [address] Social History Tobacco Use Types [...] encounter Miscellaneous Notes * Telephone Encounter - Fareed Gonzalez MD - 07/01/2024 4:42 PM CDT Sent MC message--not enough data to say that oral ivermectin can be used in * Telephone Encounter - Fran Murillo - [...] Description 08/18/2024 1:00 PM CDT Office Visit [facility] - [address] [facility], [place] [address] Samm Dunn MD [facility] [address] 10/20/2024 1:20 PM CDT Office Visit [facility] - General Dermatology [address], [address] [place] [address] Fareed Gonzalez MD [address] [facility] [address]L [place] [address] documented as of this encounter Goals Goal Patient Goal Type Associated Problems Recent Progress Patient-Stated? Author Medication Management General No Rozina Joseph RN documented as of this encounter Visit Diagnoses Not on filedocumented in this encounter Care Teams Metal Melter Relationship Specialty Start Date End Date Michele Mckenna MD [address], [facility] [address] [place] [address] PCP - General Internal Medicine 03/22/24 documented as of this encounter
== END 2024-07-06 14:49 | disposition home or self-care (01) ==
LOC: ANHLAB 14:50
PROVIDERS: PCP Internal Medicine; Visit Provider Obstetrics & Gynecology
DX: O20.0 Threatened abortion (principal); Z3A.00 Weeks of gestation of pregnancy not specified
CPT/HCPCS: 36415; 84702

== ENCOUNTER 2024-07-08 17:30 | Outpatient (RCR) | payer OTHER, SELFPAY ==
--- OUTSIDE RECORDS SUMMARY | 2024-07-01 13:41 | XMS_ITS | Clinical Summary ---
Author Organization 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 9 Active ALPRAZolam (XANAX) 0.5 mg tablet Take 1 tablet (0.5 mg total) by mouth as needed for anxiety 4 Active loratadine (CLARITIN) 10 mg tablet Take 1 tablet (10 mg total) by mouth as needed for allergies 4 Active PARoxetine (PAXIL) 10 mg tablet Take 1 tablet (10 mg total) by mouth every morning Active fluticasone propionate (FLONASE) 50 mcg/actuation nasal spray SHAKE LIQUID AND INSTILL 2 SPRAYS INTO EACH NOSTRIL ONCE DAILY 48 mL 1 5 Active doxycycline 100 mg tablet Take 1 tablet/capsul e (100 mg total) by mouth 2 (two) times a day 5 Active ivermectin (STROMECTOL) 3,000 mcg tablet Take 1 tablet (3,000 mcg total) by mouth Active cetirizine (ZyrTEC) 10 mg tablet Take 1 tablet (10 mg total) by mouth as needed for allergies Active omeprazole (PriLOSEC) 40 mg capsule Take 1 capsule (40 mg total) by mouth 2 (two) times a day Active cholecalciferol 25 mcg (1,000 unit) tablet Take 1 tablet (1,000 Units total) by mouth daily 90 tablet 1 5 Active cholecalciferol 25 mcg (1,000 unit) tablet Take 1 tablet (1,000 Units total) by mouth daily 06/06/19 25 Discontinu ed(Reorder ) Active Problems Problem Noted Date Diagnosed Date Abdominal wall mass of right flank 05/27/2024 Assessment & Plan (06/04/2024 7:48 AM CDT): Ultrasound at [place] demonstrates a 7cm lipoma, she feels it is growing over the years and it is more painful with movements and certain positions. Discussed excision as well as risks, benefits, and possible seroma formation. Gastritis 05/24/2024 Paresthesia of hand 05/24/2024 CHIKA positive 03/16/2024 Overview (05/24/2024): CHIKA neg 03/[address] scan, esophagus 03/16/2024 Non-seasonal allergic rhinitis due to pollen 02/2020 Assessment & Plan (12/18/2020 9:48 AM CDT): Blood allergy testing - call with results Dental caries 12/18/2020 Assessment & Plan (12/18/2020 12:57 PM CDT): Augmentin refilled, take with a meal Suspect dental contribution to intermittent lymphadenopathy Dry mouth 11/30/2020 Assessment & Plan (11/30/2020 5:12 PM CDT): SSA and SSB antibodies ordered. Rheumatological referral if needed. Vitamin D deficiency 11/30/2020 Assessment & Plan (11/30/2020 5:12 PM CDT): Start 2000 units daily and check level in 1 year. IFG (impaired fasting glucose) 11/30/2020 Assessment & Plan (03/20/2024 7:47 PM CALL CENTER AGENT): Patient should reduce sugar and carbs, increase exercise, maintain proper body weight, and will check an A1c once or twice yearly. Assessment & Plan (11/30/2020 5:12 PM CDT): Patient should reduce sugar and carbs, increase exercise, maintain proper body weight, and will check an A1c once or twice yearly. Cervical lymphadenopathy 11/10/2020 Assessment & Plan (12/18/2020 9:48 AM CDT): Monitor for improvement in lymphadenopathy with dental extractions Pepcid 40 mg at bedtime Peridex 10-15 mL mouth rinse, gargle and spits after meals and before bedtime Blood allergy testing - call with results Augmentin refilled, take with a meal Assessment & Plan (11/30/2020 5:11 PM CDT): CT without concerning findings. LDH very mildly elevated. CBC normal ENT follow- up recommended. Enlarged lymph nodes likely due to her multiple dental issues. Assessment & Plan (11/10/2020 8:21 AM CDT): Check CBC with differential, LDH and CT soft tissues of the neck. May be reactive in nature due to her oral issues but concern present over underlying abscess with her multiple caries and quick recurrence of symptoms when off antibiotics. Also concerned about possible lymphoma.. ENT referral. Extend course of her Augmentin. Healthcare maintenance 11/10/2020 Assessment & Plan (11/10/2020 8:14 AM CDT): Flu shot each November. Tetanus booster every 10 years. COVID vaccine strongly encouraged. Will check fasting labs to see her back in 1 month for repeat evaluation sooner if needed. Recurrent infections 11/10/2020 Assessment & Plan (11/30/2020 5:11 PM CDT): Immunoglobulin levels normal. Assessment & Plan (11/10/2020 8:19 AM CDT): Will check immunoglobulin levels and HIV antibody before next visit. May be from her dental caries and hopefully will improve once multiple extractions completed. Check CHIKA panel, consider checking anti SS-A, SS-B for possible Sjogren syndrome. Tobacco use 10/30/2020 Assessment & Plan (03/20/2024 7:47 PM CALL CENTER AGENT): Nicotine replacement therapy and smoking cessation counseling discussed at length. The long-term risks posed to his health with continued usage were discussed at length. Assessment & Plan (11/10/2020 8:12 AM CDT): Nicotine replacement therapy and smoking cessation counseling discussed at length. The long-term risks posed to his health with continued usage were discussed at length. Recurrent major depressive disorder 06/12/2018 Assessment & Plan (11/30/2020 5:11 PM CDT): Stable on bupropion and should follow-up with her psychiatrist as they direct Attention deficit hyperactiv ity disorder (ADHD), predominantly inattentive type 11/29/2015 Assessment & Plan (11/30/2020 5:10 PM CDT): Continue Vyvanse and follow-up with her psychiatrist as they direct. Assessment & Plan (11/10/2020 8:12 AM CDT): Continue her Vyvanse and follow-up with her psychiatrist as they direct. DAKOTAH (generalized anxiety disorder) 11/29/2015 Assessment & Plan (11/10/2020 8:12 AM CDT): Continue her fluoxetine and follow-up with her psychiatrist as they direct. PTSD (post-traumatic stress disorder) 11/29/2015 Resolved Problems Problem Noted Date Diagnosed Date Resolved Date Laryngopharyngeal reflux (LPR) 12/18/2020 12/03/2023 Assessment & Plan (12/18/2020 9:48 AM CDT): Pepcid 40 mg at bedtime Anxiety 11/29/2015 10/30/2020 Encounters Date Type Department Care Team Description 06/24/2024 1:00 PM CDT - 06/24/2024 11:59 PM CDT Hospital Encounter [facility] Neurology Testing [address] [place] [address] Paresthesia of hand Discharge Disposition: Discharge to home or self care 06/08/2024 Results Follow-Up [facility] [address] [facility] [address] [place] [address] Raymon Woodard MD 06/04/2024 10:35 AM CDT - 06/04/2024 11:35 AM CDT Surgery [facility] Operating Room [address] [place] [address] Raymon Woodard MD EXCISION SOFT TISSUE LIPOMA OF RIGHT FLANK 06/04/2024 9:38 AM CDT Anesthesia Event [facility] Operating Room [address] [place] [address] Juan Jose Anguiano MD Alexander, Jeffrey Michael, DO 06/04/2024 8:47 AM CDT - 06/04/2024 11:37 AM CDT Hospital Encounter [facility] Operating Room [address] [place] [address] Raymon Woodard MD Abdominal wall mass of right flank Discharge Disposition: Discharge to home or self care 06/02/2024 Results Follow-Up [facility] Medical [facility] Primary Care at [facility] [address] [facility] [address] [phone] Michele Mckenna MD 05/31/2024 2:04 PM CDT - 05/31/2024 11:59 PM CDT Hospital Encounter [facility] Diagnostic Imaging [address] [place] [id number] Acute pain of right shoulder Discharge Disposition: Discharge to home or self care 05/31/2024 2:04 PM CDT - 05/31/2024 11:59 PM CDT Hospital Encounter [facility] Diagnostic Imaging [id number] [place] [address] Acute pain of right shoulder Discharge Disposition: Discharge to home or self care 05/31/2024 1:00 PM CDT - 05/31/2024 11:59 PM CDT Hospital Encounter [facility] ` [id number] [place] [address] Skin mass Discharge Disposition: Discharge to home or self care 05/31/[address] [facility] at [address] [place] [phone] Marily Storey, REINALDO 05/31/2024 Results Follow-Up [facility] Care at [address] [phone] Marily Storey, SENIOR [employer]OS[employer] NET DEVELOPER 05/31/2024 Results Follow-Up [facility] at [address] [phone] Marily Storey, SENIOR [employer]CROS[employer] NET DEVELOPER 05/27/2024 1:45 PM CDT Office Visit [address] [place] [address] Brisa Aguayo NP Abdominal wall mass of right flank (Primary Dx); Skin mass 05/24/2024 3:15 PM CDT Office Visit [facility] Primary Care at [address] [phone] Michele Mckenna MD IFG (impaired fasting glucose) (Primary Dx); Vitamin D deficiency; Gastritis without bleeding, unspecified chronicity, unspecified gastritis type; Paresthesia of hand; Skin mass; Healthcare maintenance 05/06/2024 6:30 PM CDT Office Visit [facility] Care at [address] [phone] Katarzyna [place] NP Acute pain of right shoulder (Primary Dx) 05/06/2024 Nurse Triage [facility] Primary Care at [address] [phone] Michele Mckenna MD 05/05/2024 Patient Self-Triage [facility] Health[facility]/ Physicians [address] [place] [address] Mychart, Generic Provider 05/02/2024 4:45 PM CDT Office Visit [facility] Care at [address] [phone] Radha Ferguson NP Acute pain of right shoulder (Primary Dx); Elevated blood pressure reading in office without diagnosis of hypertension; Cold sore 04/15/2024 Results Follow-Up [facility] Primary Care at [address] [place] [phone] Michele Mckenna MD 04/13/2024 3:47 PM CALL CENTER AGENT - 04/13/2024 11:59 PM CALL CENTER AGENT Hospital Encounter [address] [address] Healthcare maintenance; Polyarthralgia Discharge Disposition: Discharge to home or self care 04/13/2024 3:45 PM CALL CENTER AGENT Lab [facility] Lab at [address] [phone] CHIKA positive (Primary Dx) 04/05/2024 Orders Only [facility] Primary Care at [address] [place] [phone] Michele Mceknna MD Personal history of unspecified infectious and parasitic disease (Primary Dx) from Last 3 Months Immunizations Immunization Administration Dates Next Due Hep A, Adult 12/26/2008,06/25/2008 Influenza, Unspecified 03/16/2024(Deferr ed: Patient Refused),11/17/2022(Deferred: Patient Refused),11/30/2020(Deferred: Patient Refused),10/30/2020(Deferred: Patient Refused),11/18/2019(Deferred: Patient Refused),11/18/2019(Deferred: Patient Refused),06/16/2018 Tdap 05/01/2016 Surgical History Surgery Date Site/Laterality Comments DILATION AND CURETTAGE OF UTERUS 02/18/2012 - 02/16/2013 CHOLECYSTECTOMY DENTAL SURGERY patient states she has 12 implants in her mouth Medical History Medical History Date Comments Anxiety Depression Allergic rhinitis Sinusitis Dental disease 2013 GERD (gastroesophageal reflux disease) Headache TMJ dysfunction Type 2 diabetes mellitus (HCC) p re-diabetic- diet controlled ADHD (attention deficit hyperactivity disorder) PTSD (post-traumatic stress disorder) Family History Medical History Relation Name Comments Other Daughter HSV induced sei zures and intracranial hemorrhages Hypertension Father Dad Snoring Father Dad Cancer Maternal Grandfather Grandpa Arthritis Maternal Grandmother Grandma Asthma Maternal Grandmother Grandma Clotting disorder Maternal Grandmother Grandma Depression Maternal Grandmother Grandma Diabetes Maternal Grandmother Grandma Snoring Maternal Grandmother Grandma Allergies Mother Mom Allergy (severe) Mother Mom Arthritis Mother Mom Depression Mother Mom Diabetes Mother Mom Memory loss Mother Mom Obesity Mother Mom Rashes / Skin problems Mother Mom Seizures Mother Mom Stroke Mother Mom Diabetes Mother's Brother Quincy Relation Name Status Comments Daughter Father Dad Maternal Grandfather Grandpa Maternal Grandmother Grandma Mother Mom Mother's Brother Quincy Social History Tobacco Use Types Packs/Day Years Used Date Smoking Tobacco: Every Day Cigarettes 0.2 15 Smokeless Tobacco: Never Tobacco Cessation:Ready to Q uit: Not Asked; Counseling Given: Not Answered AUDIT-C Answer Date Recorded Q1: How often do you have a drink containing alc ohol? Monthly or less 06/04/2024 Q2: How many drinks containi ng alcohol do you have on a typical day when you are drinking? 1 or 2 06/04/2024 Q3: How often do you have si x or more drinks on one occasion? Never 06/04/2024 PHQ-2 Answer Date Recorded PHQ-2 Total Score (If total score is 3 or more points, staff should administer the PHQ-9) 0 03/16/2024 Personal Safety Answer Date Recorded Have you ever been in or are you currently in a harmful physical or emotional relationship or is someone making you feel afraid or unsafe? Denies 06/04/2024 Comments No Sex and Gender Information Value Date Recorded Sex Assigned at Not on file Legal Sex Female 11:53 AM CALL CENTER AGENT Gender Identity Female 11/30/2020 2:26 PM CDT Sexual Orientation Straight 11/30/2020 2: 26 PM CDT Obstetrics History Last Filed Vital Signs Vital Sign Reading Time Taken Comments Blood Pressure 137/88 06/04/2024 11:17 AM CDT Pulse 90 06/04/2024 11:17 AM CDT Temperature 35.9 C (96.7 F) 06/04/2024 11:17 AM CDT Respiratory Rate 16 06/04/2024 11:1 7 AM CDT Oxygen Saturation 100% 06/04/2024 11: 17 AM CDT Inhaled Oxygen Concentration - - Weight 106.3 kg (234 lb 5.6 oz) 06/04/2024 9:07 AM CDT Height 170.2 cm (5' 7) 06/04/2024 9:07 AM CDT Body Mass Index 36.7 06/04/2024 9:07 AM CDT Plan of Treatment Health Maintenance Due Date Last Done Comments Cervical Cancer Screening 1985 Varicella Vaccines (1 of 2 - 13+ 2-dose series) 1998 Hepatitis B Screening 12/29/2003 Pneumococcal vaccine <65 (1 of 2 - PCV) 2004 Influenza Vaccine (Season Ended) 2024 06/16/2018 Depression Screening 03/16/2025 03/16/2024, 11/30/2020, 10/30/2020 Regular Well Visit/Exam 18-64 03/16/2025, 10/30/2020 DTaP/Tdap/Td Vaccine (2 - Td or Tdap) 05/01/2026 05/01/2016 Hepatitis C Screening Completed 04/13/2024 HPV Vaccines Aged Out No longer eligi ble based on patient's age to complete this topic Procedures Procedure Name Priority Date/Time Associated Diagnosis Comments EMG/NCV Routine 06/24/2024 1:33 PM CDT Paresthesia of hand SURGICAL PATHOLOGY Routine 06/04/2024 11 :15 AM CDT Abdominal wall mass of right flank CO AN ELECTIVE SUPRAGLOTTIC AIRWAY Routine 06/04/2024 9:50 AM CDT EXCISION SOFT TISSUE MASS 06/04/2024 9:22 AM CDT Abdominal wall mass of right flank POCT HCG, URINE Routine 06/04/2024 9:05 AM CDT US SOFT TISSUE LOWER BACK Schedule Routine, Read Routine (OP Routine) 05/31/2024 4:22 PM CDT Skin mass XR SPINE CERVICAL 2 OR 3 VIEWS Schedule JAMIL, Read JAMIL (Appt Today, Awaiting Results) 05/31/2024 2:26 PM CDT Acute pain of right shoulder XR SHOULDER RIGHT 2 OR MORE VIEWS Schedule JAMIL, Read JAMIL (Appt Today, Awaiting Results) 05/31/2024 2:25 PM CDT Acute pain of right shoulder EGFR Routine 04/13/2024 3:47 PM CALL CENTER AGENT Healthcare maintenance DIFFERENTIAL AUTO Routine 04/13/2024 3:4 7 PM CALL CENTER AGENT Healthcare maintenance CHIKA QUALITATIVE WITH REFLEX TO CHIKA QUANTITATIVE Routine 04/13/2024 3:47 PM CALL CENTER AGENT Polyarthralgia HEMOGLOBIN A1C Routine 04/13/2024 3:47 PM CALL CENTER AGENT Healthcare maintenance VITAMIN D 25 HYDROXY Routine 04/13/2024 3:47 PM CALL CENTER AGENT Healthcare maintenance THYROID FUNCTION CASCADE Routine 04/13/2024 3:47 PM CALL CENTER AGENT Healthcare maintenance LIPID PANEL Routine 04/13/2024 3:47 PM CALL CENTER AGENT Healthcare maintenance COMPREHENSIVE METABOLIC PANEL Routine 04/13/2024 3:47 PM CALL CENTER AGENT Healthcare maintenance CBC WITH AUTO DIFFERENTIAL Routine 04/13/2024 3:47 PM CALL CENTER AGENT Healthcare maintenance HEPATITIS C ANTIBODY Routine 04/13/2024 3:47 PM CALL CENTER AGENT Healthcare maintenance from Last 3 Months Results * EMG/NCV - (06/24/2024 1:33 PM CDT) Anatomical Region Laterality Modality EMG Narrative 06/24/2024 1:40 PM CDT This EMG nerve conduction velocity was performed for evaluation of pain numbness and tingling of the right upper extremity. A nerve conduction study of the right upper extremity was performed. In this extremity the right median and ulnar motor and sensory nerves and radial sensory nerves were examined. This was followed by EMG examination of the right upper extremity using a concentric needle the following muscles were sampled right 1st dorsal interosseous abductor pollicis brevis pronator teres biceps triceps deltoid supraspinatus middle lower cervical paraspinal muscles. The only abnormality on nerve conduction velocity testing was the presence of a slight delay in the right median snap latency at 2.7 milliseconds. EMG examination was normal showing no evidence of any active or chronic denervation. 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 No evidence for cervical radiculopathy. Clinical correlation is recommended. us Michele Mckenna MD NEUROLOGY ORDERABLES Final R esult * Surgical pathology (06/04/2024 11:15 AM CDT) Tissue (Mass/Tumor/Lesio n) 06/04/2024 10:09 AM CDT Narrative PATHOLOGY REPLACED BY [facility] ([facility] - 06/07/2024 3:37 PM CDT EPIC results best viewed via link to PDF [facility] Department of Pathology [address] [place] [address] Note to Patients: This report may contain a detailed description of human tissue sent by a health care provider to the laboratory for pathologic evaluation. The content of this report is essential for diagnosis and may provide important critical findings. This information may be unfamiliar to patients to review without a medical professional present. It is advised that the patient review this report in the presence of a health care provider who can answer questions and explain the details. Final Report Patient Name: DUDLEY RIGGS Address: [address] [place] [address] Gender: F : 1985 (Age: 38) Service: Surgery Location: [facility] Hospital #: [id number] Patient Type: [facility] Taken: 06/04/2024 Received: 06/04/2024 Accessioned: 06/04/2024 Reported: 06/07/2024 Physician(s):Raymon Woodard M.D. Diagnosis: Soft tissue, right flank, excision: - Lipoma, compatible with. Michael Pryor MD Report Electronically Reviewed and Signed Out By Michael Pryor MD 06/07/2024 15:37:05 Specimen(s) Received: A: Right flank lipoma Microscopic Description: Microscopic examination shows lobules of mature adipose tissue. No significant cytologic atypia or increased mitotic activity are identified. The histologic findings are compatible with the clinical impression of a lipoma. Clinical History: Abdominal wall mass of right flank. Excision soft tissue mass of right flank. Gross Description: Received in a single formalin filled container labeled with DUDLEY RIGGS and right flank lipoma. It is a 6 x 5 x 3 cm encapsulated mass of homogeneous fat. Its external and cut surfaces are devoid of hemorrhage, necrosis or other atypical gross features. The specimen is sectioned and represented in 3 cassettes. Marcie Dickson R.N., P.A./Israel Jacobo M.D. REPORT IMAGES AND SCANNED DOCUMENTS, IF INCLUDED, ONLY VIEWABLE IN PDF VERSION OF REPORT The performance characteristics of some immunohistochemical stains, fluorescence in-situ hybridization tests and immunophenotyping by flow cytometry cited in this report (if any) were determined by the Surgical Pathology Department at [facility] as part of an ongoing quality improvement coordinator program and in compliance with federally mandated regulations drawn from the Clinical Laboratory Improvement Act of 1988 (CLIA '88). Some of these tests rely on the use of analyte specific reagents and are subject to specific labeling requirements by the US Food and Drug Administration. Such diagnostic tests may only be performed in a facility that is certified by the Department of Health and Human Services as a high complexity laboratory under CLIA '88. The FDA has determined that such clearance or approval is not necessary. This test is used for clinical purposes. It should not be regarded as investigational or for research. Nevertheless, federal rules concerning the medical use of analyte specific reagents require that the following disclaimer be attached to the report: This test was developed and its performance characteristics determined by the Surgical Pathology Department [facility]. It has not been cleared or approved by the U. S. Food and Drug Administration. Note for decalcified specimens: This assay has not been validated on decalcified tissues. Results should be interpreted with caution given the possibility of false negativity on decalcified specimens Raymon Woodard MD LAB PATHOLOGY ORDER [place] Final Result PATHOLOGY [facility] ([facility]) [address] [place] [address] * CO AN ELECTIVE SUPRAGLOTTIC AIRWAY (06/04/2024 9:50 AM CDT) Narrative Reyes Lakhani CRNA - 06/04/2024 9:50 AM CDT Reyes Lakhani CRNA 06/04/2024 9:51 AM Airway Patient location: OR Urgency: elective Indications for airway management: anesthesia Difficult airway: no Staff: Placed by: SCREW SUPERVISOR: Reyes Lakhani CRNA Emergent airway documentation: Risks and benefits discussed: yes Consent obtained: yes Consent given by: patient Airway prep: Preoxygenated: yes Patient position: sniffing MILS maintained throughout: yes Mask difficulty assessment: 0 - not attempted Sedation level during airway: GA Final airway details: Final airway type: supraglottic airway Final supraglottic airway: unique SGA size: 4 Number of attempts: 1 Reyes Lakhani CRNA ANESTHESIA ORDERABLES Final Re sult * POCT hCG, urine (06/04/2024 9:05 AM CDT) HCG, ur, POC Negative Negative Lot Number [id number] QC Backgroud Clear Acceptable QC Control Line Acceptable Urine 06/04/2024 9:05 AM CDT Juan Jose Anguiano MD POINT OF CARE TEST ORDER [facility] Final Result * US Soft Tissue Lower Back (05/31/2024 4:22 PM CDT) Anatomical Region Laterality Modality Abdomen N/A Ultrasound 06/02/2024 8:31 AM CDT Impressions 06/02/2024 8:31 AM CDT Unremarkable exam as above. Electronically signed by: Kristy Leyva M.D. Narrative 06/02/2024 8:31 AM CDT EXAMINATION: US SOFT TISSUE LOWER BACK HISTORY: skin mass right flank area. ORDER DATE: 05/31/2024 1:00 PM COMPARISON: None. FINDINGS: Targeted grayscale and color Doppler ultrasound evaluation of the region of concern in the right flank was obtained. There is no discrete mass or fluid collection identified. Procedure Note Kristy Leyva MD - 06/02/2024 EXAMINATION: US SOFT TISSUE LOWER BACK HISTORY: skin mass right flank area. ORDER DATE: 05/31/2024 1:00 PM COMPARISON: None. FINDINGS: Targeted grayscale and color Doppler ultrasound evaluation of the region of concern in the right flank was obtained. There is no discrete mass or fluid collection identified. IMPRESSION: Unremarkable exam as above. Electronically signed by: Kristy Leyva M.D. us Michele Mckenna MD IMG US PROCEDURES Final Resu lt * XR Spine Cervical 2 or 3 Views (05/31/2024 2:26 PM CDT) Anatomical Region Laterality Modality Spine N/A Computed Radiogr aphy 05/31/2024 2:31 PM CDT Impressions 05/31/2024 2:31 PM CDT No significant abnormality. Electronically signed by: Makayla Dias M.D. Narrative 05/31/2024 2:31 PM CDT EXAMINATION: XR SPINE CERVICAL 2 OR 3 VIEWS HISTORY: The patient is a 38-year-old female who presents with right shoulder pain and neck pain. TECHNIQUE: 3 views. FINDINGS: There is straightening out of normal cervical lordosis, likely as a result of muscle spasm. No fracture or dislocation seen. Small degenerative osteophytes are seen radiating anteriorly off the bodies of C4-C6. The disc spaces, facet joints and neurocentral joints are normal. No prevertebral soft tissue swelling. Procedure Note Makayla Dias MD - 05/31/2024 EXAMINATION: XR SPINE CERVICAL 2 OR 3 VIEWS HISTORY: The patient is a 38-year-old female who presents with right shoulder pain and neck pain. TECHNIQUE: 3 views. FINDINGS: There is straightening out of normal cervical lordosis, likely as a result of muscle spasm. No fracture or dislocation seen. Small degenerative osteophytes are seen radiating anteriorly off the bodies of C4-C6. The disc spaces, facet joints and neurocentral joints are normal. No prevertebral soft tissue swelling. IMPRESSION: No significant abnormality. Electronically signed by: Makayla Dias M.D. Katarzyna Hayes NP [facility] XR PROCEDURES Final Result * XR Shoulder Right 2 or More Views (05/31/2024 2:25 PM CDT) Anatomical Region Laterality Modality Upper Extremities, Shoulder Right Comp uted Radiography 05/31/2024 2:30 PM CDT Impressions 05/31/2024 2:30 PM CDT No bony abnormality seen. Electronically signed by: Makayla Dias M.D. Narrative 05/31/2024 2:30 PM CDT EXAMINATION: XR SHOULDER RIGHT 2 OR MORE VIEWS HISTORY: The patient is a 38-year-old female who presents a right shoulder pain. TECHNIQUE: 4 views. FINDINGS: No fracture or dislocation is seen. The glenohumeral and the acromioclavicular joints are normal. Procedure Note Makayla Dias MD - 05/31/2024 EXAMINATION: XR SHOULDER RIGHT 2 OR MORE VIEWS HISTORY: The patient is a 38-year-old female who presents a right shoulder pain. TECHNIQUE: 4 views. FINDINGS: No fracture or dislocation is seen. The glenohumeral and the acromioclavicular joints are normal. IMPRESSION: No bony abnormality seen. Electronically signed by: Makayla Dias M.D. Katarzyna Hayes NP [facility] XR PROCEDURES Final Result * CHIKA ab ql w/rflx to CHIKA qn (04/13/2024 3:47 PM CALL CENTER AGENT) CHIKA Negative Comment: Interpretive Data Normal range for CHIKA Qualitative Antibody = Negative. 1. CHIKA is performed using indirect immunofluorescence against HEp-2 cells 2. CHIKA titers are performed on all positive qualitative results. 3. A significantly positive CHIKA result is defined as a positive nuclear fluorescence at a titer of 1:80 or greater. 4. 15% of normal people above age 65 have significantly positive CHIKA results. 5% or less of normal people age 65 or under have significantly positive CHIKA results. Current interpretive data was last revised on 2019. Testing performed by: [facility], [address] [place]., [address] Blood 04/13/2024 3:47 PM CALL CENTER AGENT 04/14/2024 9:57 AM CALL CENTER AGENT Michele Mckenna MD LAB BLOOD ORDERABLES Final R esult Performing Organization Address City/[facility]/ZIP Co de Phone Number ANGELA KIM [address] [place] [address] * eGFR (04/13/2024 3:47 PM CALL CENTER AGENT) Pathologist [facility] eGFR >90 >=60 mL/min/1. 73 m2 Comment: Interpretive Data Reference Interval Normal >/= 90 mL/min/1.73m2 Mildly decreased* 60 - 89 mL/min/1.73m2 Mildly to moderately decreased 45 - 59 mL/min/1.73m2 Moderately to severely decreased 30 - 44 mL/min/1.73m2 Severely decreased 15 - 29 mL/min/1.73m2 Kidney Failure < 15 mL/min/1.73m2 *Relative to young adult level Estimated glomerular filtration rate is determined by the 2020 CKD-EPI equation recommended by the National Kidney Foundation (A Unifying Approach to GFR Estimation: Recommendations of the NKF-ASK Task Force on Reassessing the Inclusion of Race in Diagnosing Kidney Disease, JASN 202). The CKD-EPI equation should not be used for patients with unstable renal function and has not been validated in children and those over 70. Current interpretive data was last reviewed 2020. Blood 04/13/2024 3:47 PM CALL CENTER AGENT 04/13/2024 7:37 PM CALL CENTER AGENT us Michele Mckenna MD LAB BLOOD ORDERABLES Final R esult Performing Organization Address City/[facility]/[place] [address] [address] [place] [address] * Differential, auto (04/13/2024 3:47 PM CALL CENTER AGENT) Neutrophil abs 5.2 1.5 - 6.5 K/cumm Imm gran abs 0.0 0.0 - 0.1 K/cumm [facility] Lymphocyte abs 1.9 0.8 - 3.3 K/cumm [facility] Monocyte abs 0.7 0.2 - 0.8 K/cumm [facility] Eosinophil abs 0.3 0.0 - 0.5 [facility] Basophil abs 0.1 0.0 - 0.1 K/cumm [facility] Neutrophil pct 63.7 % [facility] Comment: Interpretive Data Percent cell count reference ranges are not reported, since discordance with absolute values may lead to misinterpretation of CBC data. Current Interpretive Data was last revised on 2017. Imm gran pct 0.4 % [facility] Comment: Interpretive Data Percent cell count reference ranges are not reported, since discordance with absolute values may lead to misinterpretation of CBC data. Current Interpretive Data was last revised on 2017. Lymphocyte pct 22.9 % [facility] Comment: Interpretive Data Percent cell count reference ranges are not reported, since discordance with absolute values may lead to misinterpretation of CBC data. Current Interpretive Data was last revised on 2017. Monocyte pct 8.5 % [facility] Comment: Interpretive Data Percent cell count reference ranges are not reported, since discordance with absolute values may lead to misinterpretation of CBC data. Current Interpretive Data was last revised on 2017. Eosinophil pct 3.8 % [facility] Comment: Interpretive Data Percent cell count reference ranges are not reported, since discordance with absolute values may lead to misinterpretation of CBC data. Current Interpretive Data was last revised on 2017. Basophil pct 0.7 % [facility] Comment: Interpretive Data Percent cell count reference ranges are not reported, since discordance with absolute values may lead to misinterpretation of CBC data. Current Interpretive Data was last revised on 2017. Blood 04/13/2024 3:47 PM CALL CENTER AGENT 04/13/2024 7:27 PM CALL CENTER AGENT us Michele Mckenna MD LAB BLOOD ORDERABLES Final R esult Performing Organization Address City/State/[facility] Co de Phone Number ANGELA KIM [address] [address] [facility] [employer] [place] [address] * Thyroid Function [place] (04/13/2024 3:47 PM CALL CENTER AGENT) Pathologist [facility] TSH 2.25 0.30 - 4.20 mcIUnit/mL Blood 04/13/2024 3:47 PM CALL CENTER AGENT 04/13/2024 7:27 PM CALL CENTER AGENT Michele Mckenna MD LAB BLOOD ORDERABLES Final R esult Performing Organization Address [facility] de Phone Number ANGELA KIM [address] [address] [facility] [employer] [place] [address] * (ABNORMAL) CBC with auto differential (04/13/2024 3:47 PM CALL CENTER AGENT) [facility] WBC 8.2 3.8 - 9.9 K/cumm Hgb 14.2 11.9 - 15.5 g/dL [facility] Hct 46.3(H) 35.6 - 45.5 % [facility] CH Plt 301 150 - 400 K/cumm [facility] CH MPV 11.8 9.1 - 12.3 fL [facility] RBC 5.37(H) 3.90 - 5.20 M/cumm [facility] CH MCV 86.2 81.3 - 96.4 fL [facility] MCH 26.4(L) 27.1 - 33.3 pg [facility] MCHC 30.7(L) 32.3 - 35.7 g/dL [facility] CH RDW CV 13.6 11.1 - 14.9 % [facility] CH RDW SD 42.5 35.7 - 48.1 fL [facility] CH NRBC abs 0.00 0.00 - 0.01 K/cumm [facility] CH Blood 04/13/2024 3:47 PM CALL CENTER AGENT 04/13/2024 7:27 PM CALL CENTER AGENT Michele Mckenna MD LAB BLOOD ORDERABLES Final R karlault Performing Organization Address [facility] Co de Phone Number ANGELA KIM [address] [address] [facility] [employer] [place] [address] * Hepatitis C antibody Blood (04/13/2024 3:47 PM CALL CENTER AGENT) [facility] Hep C Ab Nonreactive Nonreactive Comment: Interpretive Data Nonreactive: Antibodies to HCV not detected. Does NOT exclude the possibility of recent exposure to HCV. Equivocal: Equivocal for HCV antibodies. Supplemental molecular testing will be automatically performed to determine infection status in accordance with current CDC screening recommendations. Reactive: Positive for HCV antibodies. This may represent current or past HCV infection. Supplemental molecular testing will be automatically performed to determine current infection status in accordance with current CDC screening recommendations. Interpretive data was last revised on 2019. Blood 04/13/2024 3:47 PM CALL CENTER AGENT 04/13/2024 7:27 PM CALL CENTER AGENT us Michele Mckenna MD LAB MICROBIOLOGY - GENERAL O RDERABLES Final Result Performing Organization Address [facility]/ZIP Co de Phone Number ANGELA KIM [address] [place] [address] * (ABNORMAL) Vitamin D 25 hydroxy (04/13/2024 3:47 PM CALL CENTER AGENT) [facility] Vitamin D 25-OH 10(L) 30 - 80 ng/mL Blood 04/13/2024 3:47 PM CALL CENTER AGENT 04/13/2024 7:27 PM CALL CENTER AGENT us Michele Mckenna MD LAB BLOOD ORDERABLES Final R esult Performing Organization Address City/[facility]/ZIP Co de Phone Number ANGELA [address] [address] [facility] [employer] [place] [address] * (ABNORMAL) Hemoglobin A1c (04/13/2024 3:47 PM CALL CENTER AGENT) [facility] Hgb A1C 6.0(H) 4.0 - 5.6 % Estimated Average Glucose 126 mg/dL ANGELA KIM Comment: The ADA recommends reporting an estimated Average Glucose (eAG) with all Hemoglobin A1c results using the equation derived from a study of 507 normal and diabetic adults. Minority populations were underrepresented and children were not included. (Diabetes Care 31:6476-8776, 2008). The eAG is not equivalent to a fasting glucose. Blood 04/13/2024 3:47 PM CALL CENTER AGENT 04/13/2024 7:27 PM CALL CENTER AGENT us Michele Mckenna MD LAB BLOOD ORDERABLES Final R esult ANGELA KIM [address] [address] Department [place] [address] * Lipid panel (04/13/2024 3:47 PM CALL CENTER AGENT) Cholesterol 155 30 - 199 mg/dL Comment: Interpretive Data Ages < or = 19 years Acceptable: <170 mg/dL Borderline high: 170-199 mg/dL High: >or= 200 mg/dL Ages > or = 20 years Desirable: <200 mg/dL Borderline high: 200-239 mg/dL High: >or= 240 mg/dL Literature References: 1. Expert Panel on Integrated Guidelines for Cardiovascular Health and Risk Reduction in Children and Adolescents. Pediatrics 2011;128:S213 2. NCEP Expert Panel. Circulation 2004;110:227 Current Interpretive Data was last revised on 2017. Triglycerides 148 <=149 mg/dL ANGELA KIM Comment: Interpretive Data Ages < or = 9 years Acceptable: <75 mg/dL Borderline high: 75-99 mg/dL High: >or= 100 mg/dL Ages 10 to 20 years Acceptable: <90 mg/dL Borderline high: 90-129 mg/dL High: >or= 130 mg/dL Ages > or = 20 years Desirable: <150 mg/dL Borderline high: 150-199 mg/dL High: 200-499 mg/dL Very high: >or= 499 mg/dL Literature References: 1. Expert Panel on Integrated Guidelines for Cardiovascular Health and Risk Reduction in Children and Adolescents. Pediatrics 2011;128:S213 2. NCEP Expert Panel. Circulation 2004;110:227 Current Interpretive Data was last revised on 2017. HDL 48 >=40 mg/dL ANGELA KIM Comment: Interpretive Data Ages < or = 19 years Acceptable: >45 mg/dL Borderline low: 40-45 mg/dL Low: <40 mg/dL Ages > or = 20 years Desirable: >or= 60 mg/dL Low: <40 mg/dL Literature References: 1. Expert Panel on Integrated Guidelines for Cardiovascular Health and Risk Reduction in Children and Adolescents. Pediatrics 2011;128:S213 2. NCEP Expert Panel. Circulation 2004;110:227 Current Interpretive Data was last revised on 2017. LDL, calculated 81 <=129 mg/dL ANGELA KIM Comment: Interpretive Data Ages < or = 19 years Acceptable: <110 mg/dL Borderline high: 110-129 mg/dL High: >or= 130 mg/dL Ages > or = 20 years Optimal: <100 mg/dL Near optimal: 100-129 mg/dL Borderline high: 130-159 mg/dL High: >160 mg/dL Calculated using the Vinh LDL-C estimating equation. This equation was implemented on 2023. Prior to this date LDL-C was estimated using the Friedewald equation. Literature References: 1. Expert Panel on Integrated Guidelines for Cardiovascular Health and Risk Reduction in Children and Adolescents. Pediatrics 2011;128:S213 2. NCEP Expert Panel. Circulation 2004;110:227 3. Vinh Monroe et al. EVER Cardiol. 2020 June 17;5(5):540-548. doi: 10.1001/[email or web address].2020.0013 Current Interpretive Data was last revised on 2023. Non-HDL Cholesterol 107 mg/dL ANGELA Comment: Interpretive Data Ages < or = 19 years Acceptable: <120 mg/dL Borderline high: 120-144 mg/dL High: >145 mg/dL Ages > or = 20 years When triglycerides are >200 mg/dL, Non-HDL cholesterol is a secondary target of therapy with treatment goals that are 30 mg/dL greater than the LDL cholesterol target. Literature References: 1. Expert Panel on Integrated Guidelines for Cardiovascular Health and Risk Reduction in Children and Adolescents. Pediatrics 2011;128:S213 2. NCEP Expert Panel. Circulation 2004;110:227 Current Interpretive Data was last revised on 2017. Chol/HDL ratio 3 ANGELA Blood 04/13/2024 3:47 PM CALL CENTER AGENT 04/13/2024 7:27 PM CALL CENTER AGENT Narrative ANGELA CH - 04/13/2024 8:40 PM CALL CENTER AGENT Has the patient been fasting for 8 hours or more?->Yes us Michele Mckenna MD LAB BLOOD ORDERABLES Final R esult [facility] [address] [address] Department [place] [address] * Comprehensive metabolic panel (04/13/2024 3:47 PM CALL CENTER AGENT) Sodium 141 135 - 145 mmol/L Potassium, pl 4.8 3.3 - 4.9 mmol/L [facility] CH Chloride 105 97 - 110 mmol/L [facility] CH CO2 25 22 - 32 mmol/L [facility] CH Anion gap 11 2 - 15 mmol/L [facility] CH BUN 6 6 - 25 mg/dL [facility] CH Creatinine 0.77 0.60 - 1.10 mg/dL [facility] CH Glucose 92 70 - 199 mg/dL [facility] CH Comment: Interpretive Data Fasting glucose >/= 126 mg/dl is diagnostic for diabetes. Fasting is defined as no caloric intake for at least 8 hours. Fasting glucose between 100 mg/dl to 125 mg/dl is diagnostic of prediabetes. In a patient with classic symptoms of hyperglycemia or hyperglycemic crisis, a random glucose >/= 200 mg/dl is diagnostic for diabetes. In the absence of unequivocal hyperglycemia, results should be confirmed by repeat testing. The classification and Diagnosis of Diabetes Diabetes Care 202; 46: S19-S40. Current interpretive data was last revised 2022. Calcium 9.1 8.5 - 10.3 mg/dL [facility] CH Bilirubin, total 0.4 0.1 - 1.2 mg/dL [facility] CH Protein, pl 6.8 6.5 - 8.5 g/dL [facility] CH Albumin 4.0 3.5 - 5.0 g/dL [facility] CH Alk phos 95 40 - 130 Units/L [facility] CH ALT 19 7 - 45 Units/L [facility] CH AST 18 10 - 45 Units/L [facility] CH Blood 04/13/2024 3:47 PM CALL CENTER AGENT 04/13/2024 7:27 PM CALL CENTER AGENT Narrative [facility] CH - 04/13/2024 8:39 PM CALL CENTER AGENT Has the patient fasted?->Yes us Michele Mckenna MD LAB BLOOD ORDERABLES [place] [id number] [facility] Department [place] [address] from Last 3 Months Insurance Care Teams Rock [employer] Relationship Specialty Start Date End Date Michele Mckenna MD PCP - General Internal Medicine 09/01/20
--- OUTSIDE RECORDS SUMMARY | 2024-07-01 13:41 | XMS_ITS | Data Portability ---
Author Organization [facility] [place] [facility] Address [address] [place] [address] Care Team Providers Care Welt Treater Name Role Phone NIDIA PIPER Primary Care Provider [phone] Assessment Encounter Date Assessment Date Assessment LastModified by Organization Details LastModified Time 04/10/2023 04/10/2023 Sections of the HPI, exam and assessment completed by Heaven Billings, [employer] student and have been reviewed by me. I agree with the exam findings, assessment and plan except where specifically documented or amended. -Nidia Piper, [facility], PAOsmar [email or web address] Not available 04/15/2023 01:04:08 Plan of Treatment Reminders Order Date Submit Date Provider Last Modified By Organization Details Last Modified Time Details Appointments None recorded. Lab lipid panel, serum 2023 024 ABERDEEN [facility], [address], [address], [place], [address], 4 19:10:04 vitamin B12 + folate, serum or blood 2023 024 [facility], [address], [address], [place], [address], 4 11:15:19 vitamin D, 25-hydroxy, total, serum 2023 024 [facility], [address], [address], [place], [address], 4 11:15:21 CBC w/ auto diff 2023 024 NICOLE [facility], [address], [address], [place], [address], 4 19:10:06 CMP, serum or plasma 2023 024 [facility], [address], [address], [place], [address], 4 19:10:05 TSH + free T4, serum 2023 024 [facility], [address], [address], [place], [address], 4 11:15:19 HbA1c (hemoglobin A1c), blood 2023 024 [facility], [address], [address], [place], [address], 4 11:15:20 Referral gastroenter ologist referral 2023 024 Staci Lipscomb MD, [address], [address], [place], [address], 4 08:09:[address] referral 2023 024 shine Mir MD ([facility], Dermatology), [address] [place], [address], 4 14:17:37 gastroenter ologist referral 2023 024 [email or web address] [facility], [address] [facility], [place], [address], 4 07:55:[address] referral [email or web address] [facility], [address] [facility], [address], [place], [address], 4 07:55:21 general surgeon referral 2023 024 Ricardo Enrique MD, [address] [facility], [address], [address], 4 08:04:54 otolaryngol ogist referral 2023 024 [facility], [address], [place], [address], 4 10:24:16 Procedures None recorded. Surgeries None recorded. Imaging US, chest wall - RIGHT PEC 2023 024 [facility], [address] [facility] [address] [facility], [place], [address], 4 11:09:32 US, abdominal wall - FOCUS ON RIGHT FLANK AREA 2023 024 [facility] (Imaging), [address] [facility] [address] [place] [address], [address], 4 11:24:57 Medication Orders tretinoin 0.025 % topical cream 2023 024 [id number], [address], [place], [place], [id number], 4 14:21:04 loratadine 10 mg tablet 2023 024 [facility] #[id number], [address], [place], [place], [id number], 4 14:51:29 ibuprofen 600 mg tablet 2023 024 [facility] #[id number], [address], [place], [place], [id number], 4 14:20:23 Patient TargetsNo targets recorded. Patient Instructions Encounter Date Encounter Id Patient Instructions Last Modified By Organization Details Last Modified Time 04/10/2023 [id number] A healthy lifestyle: care instructions [email or web address] Not available 04/10/2023 10:46:19 Reason for Referral Hose Mender Referral fo r Dysphagia Referring Physician: Nidia Piper [facility], Encounter Date: 05/07/2023 General Surgeon Referral for Lipoma of abdominal wall Referring Physician: [facility], Encounter Date: 06/20/2023 Medical Secretary Receptionist Referral for Chronic abdominal pain Referring Physician: Nidia Piper [facility], Encounter Date: 09/25/2023 Dough Mixer Referral for C hange in skin lesion Referring Physician: Nidia Piper [facility], Encounter Date: 09/25/2023 Dough Mixer Referral for C hange in skin lesion Referring Physician: Nidia Piper [facility], Encounter Date: 12/30/2023 Medical Secretary Receptionist Referral for Chronic abdominal pain Referring Physician: Nidia Piper [facility], Encounter Date: 12/30/2023 Results Created Date Observation Date Name Description Value Unit Range Abnormal Flag Note LastModifiedBy Organization Detail LastModifiedTime 04/10/1904/10/2023 LIPID PANEL WITH LDL/H DL RATIO cholesterol, total 156 mg/dL 100-19 9 Not Available [facility] Department [address] [place], [address], 04/10/2023 19:10:04 04/10/19 24 04/10/2023 LIPID PANEL WITH LDL/H DL RATIO triglyceride s 190 mg/dL 0-149 above high normal Not Available [facility] Department [address] [place], [address], 04/10/2023 19:10:04 04/10/19 24 04/10/2023 LIPID PANEL WITH LDL/H DL RATIO HDL cholesterol 55 mg/dL 40-999 Not Available [facility] Department [address] [place], [address], 04/10/2023 19:10:04 04/10/19 24 04/10/2023 LIPID PANEL WITH LDL/H DL RATIO VLDL cholesterol louis 38 mg/dL 5-40 Not Available [facility] Department [address] [place], [address], 04/10/2023 19:10:04 04/10/19 24 04/10/2023 LIPID PANEL WITH LDL/H DL RATIO LDL chol calc ([facility]) 93 mg/dL 0-99 Not Available [facility] Department [address] [place], [address], 04/10/2023 19:10:04 04/10/19 24 04/10/2023 LIPID PANEL WITH LDL/H DL RATIO LDL/HDL ratio 1.7 0-3.2 Not Available [facility] Department [address] [place] [address], [address], 04/10/2023 19:10:04 04/10/19 24 04/10/2023 COMP. METAB OLIC PANEL (14) glucose 102 mg/dL 70-99 above high normal Not Available [facility] Department [address] [place], [address], 04/10/2023 19:10:05 04/10/19 24 04/10/2023 COMP. METAB OLIC PANEL (14) BUN 13 mg/dL 6-20 Not Available [facility] Department [address] [place], [address], 04/10/2023 19:10:05 04/10/19 24 04/10/2023 COMP. METAB OLIC PANEL (14) creatinine 0.82 mg/dL 0.76-1 .27 Not Available [facility] Department [address] [place], [address], 04/10/2023 19:10:05 04/10/19 24 04/10/2023 COMP. METAB OLIC PANEL (14) eGFR 94 >=60 Units for eGFR value s are mL/mi n/1.7 3 The eGFR Calcu latio n has not been valid ated for patie nts under the age of 18. If test resul ts are displ ayed for a patie nt under the age of 18, disre nathaniel that value . Not Available [facility] Department [address] [place], [address], 04/10/2023 19:10:05 04/10/19 24 04/10/2023 COMP. METAB OLIC PANEL (14) BUN/creatini ne ratio 16 9-23 Not Available [facility] Department [address] [place], [address], 04/10/2023 19:10:05 04/10/19 24 04/10/2023 COMP. METAB OLIC PANEL (14) sodium 142 mmol/ L 134-14 4 Not Available [facility] Department [address] [place] [address], [address], 04/10/2023 19:10:05 04/10/19 24 04/10/2023 COMP. METAB OLIC PANEL (14) potassium 4.5 mmol/ L 3.5-5. 2 Not Available [facility] Department [address] [place], [address], 04/10/2023 19:10:05 04/10/19 24 04/10/2023 COMP. METAB OLIC PANEL (14) chloride 104 mmol/ L 96-106 Not Available [facility] Department [address] [place], [address], 04/10/2023 19:10:05 04/10/19 24 04/10/2023 COMP. METAB OLIC PANEL (14) carbon dioxide, total 26 mmol/ L 20-29 Not Available [facility] Department [address] [place], [address], 04/10/2023 19:10:05 04/10/19 24 04/10/2023 COMP. METAB OLIC PANEL (14) calcium 10.0 mg/dL 8.7-10 .2 Not Available [facility] Department [address] [place], [address], 04/10/2023 19:10:05 04/10/19 24 04/10/2023 COMP. METAB OLIC PANEL (14) protein, total 7.7 g/dL 6.0-8. 5 Not Available [facility] Department [address] [place], [address], 04/10/2023 19:10:05 04/10/19 24 04/10/2023 COMP. METAB OLIC PANEL (14) albumin 4.6 g/dL 3.9-4. 9 Not Available [facility] Department [address] [place], [address], 04/10/2023 19:10:05 04/10/19 24 04/10/2023 COMP. METAB OLIC PANEL (14) globulin, total 3.1 g/dL 1.5-4. 5 Not Available [facility] Department [address] [place], [address], 04/10/2023 19:10:05 04/10/19 24 04/10/2023 COMP. METAB OLIC PANEL (14) A/G ratio 1.5 1.2-2. 2 Not Available [facility] Department [address] [place], [address], 04/10/2023 19:10:05 04/10/19 24 04/10/2023 COMP. METAB OLIC PANEL (14) bilirubin, total 0.3 mg/dL 0.0-1. 2 Not Available [facility] Department [address] [place], [address], 04/10/2023 19:10:05 04/10/19 24 04/10/2023 COMP. METAB OLIC PANEL (14) alkaline phosphatase 102 IU/L 44-121 Not Available [facility] Department [address] [place], [address], 04/10/2023 19:10:05 04/10/19 24 04/10/2023 COMP. METAB OLIC PANEL (14) AST (SGOT) 16 IU/L 0-40 Not Available [facility] Department [address] [place], [address], 04/10/2023 19:10:05 04/10/19 24 04/10/2023 COMP. METAB OLIC PANEL (14) ALT (SGPT) 15 IU/L 0-32 Not Available [facility] Department [address] [place], [address], 04/10/2023 19:10:05 04/10/19 24 04/10/2023 CBC WITH DIFFE RENTI AL/PL ATELE T WBC 8.3 x10e3 /uL 3.4-10 .8 Not Available [facility] Department [address] [place], [address], 04/10/2023 19:10:06 04/10/19 24 04/10/2023 CBC WITH DIFFE RENTI AL/PL ATELE T RBC 5.41 x10e6 /uL 3.77-5 .28 above high normal Not Available [facility] [address] [place], [address], 04/10/2023 19:10:06 04/10/19 24 04/10/2023 CBC WITH DIFFE RENTI AL/PL ATELE T hemoglobin 14.4 g/dL 11.1-1 5.9 Not Available [facility] [address] [place], [address], 04/10/2023 19:10:06 04/10/19 24 04/10/2023 CBC WITH DIFFE RENTI AL/PL ATELE T hematocrit 46.1 % 34.0-4 6.6 Not Available [facility] [address] [place], [address], 04/10/2023 19:10:06 04/10/19 24 04/10/2023 CBC WITH DIFFE RENTI AL/PL ATELE T MCV 85 fL 79-97 Not Available [facility] [address] [place], [address], 04/10/2023 19:10:06 04/10/19 24 04/10/2023 CBC WITH DIFFE RENTI AL/PL ATELE T MCH 26.6 pg 26.6-3 3.0 Not Available [facility] [address] [place], [address], 04/10/2023 19:10:06 04/10/19 24 04/10/2023 CBC WITH DIFFE RENTI AL/PL ATELE T MCHC 31.2 g/dL 31.5-3 5.7 below low normal Not Available [facility] [address] [place], [address], 04/10/2023 19:10:06 04/10/19 24 04/10/2023 CBC WITH DIFFE RENTI AL/PL ATELE T RDW 13.2 % 11.5-1 4.5 Not Available [facility] [address] [place], [address], 04/10/2023 19:10:06 04/10/19 24 04/10/2023 CBC WITH DIFFE RENTI AL/PL ATELE T platelets 308 x10e3 /uL 150-45 0 Not Available [facility] [address] [place], [address], 04/10/2023 19:10:06 04/10/19 24 04/10/2023 CBC WITH DIFFE RENTI AL/PL ATELE T neutrophils 70 % notest b. Not Available [facility] [address] [place], [address], 04/10/2023 19:10:06 04/10/19 24 04/10/2023 CBC WITH DIFFE RENTI AL/PL ATELE T lymphs 20 % notest b. Not Available [facility] [address] [place], [address], 04/10/2023 19:10:06 04/10/19 24 04/10/2023 CBC WITH DIFFE RENTI AL/PL ATELE T monocytes 7 % notest b. Not Available [facility] [address] [place], [address], 04/10/2023 19:10:06 04/10/19 24 04/10/2023 CBC WITH DIFFE RENTI AL/PL ATELE T eos 2 % notest b. Not Available [facility] [address] [place], [address], 04/10/2023 19:10:06 04/10/19 24 04/10/2023 CBC WITH DIFFE RENTI AL/PL ATELE T basos 1 % notest b. Not Available [facility] [address] [place], [address], 04/10/2023 19:10:06 04/10/19 24 04/10/2023 CBC WITH DIFFE RENTI AL/PL ATELE T neutrophils (absolute) 5.8 x10e3 /uL 1.4-7. 0 Not Available [facility] [address] [place], [address], 04/10/2023 19:10:06 04/10/19 24 04/10/2023 CBC WITH DIFFE RENTI AL/PL ATELE T lymphs (absolute) 1.7 x10e3 /uL 0.7-3. 1 Not Available [facility] [address] [place], [address], 04/10/2023 19:10:06 04/10/19 24 04/10/2023 CBC WITH DIFFE RENTI AL/PL ATELE T monocytes(ab solute) 0.6 x10e3 /uL 0.1-0. 9 Not Available [facility] [address] [place], [address], 04/10/2023 19:10:06 04/10/19 24 04/10/2023 CBC WITH DIFFE RENTI AL/PL ATELE T eos (absolute) 0.2 x10e3 /uL 0.0-0. 4 Not Available [facility] [address] [place], [address], 04/10/2023 19:10:06 04/10/19 24 04/10/2023 CBC WITH DIFFE RENTI AL/PL ATELE T baso (absolute) 0.0 x10e3 /uL 0.0-0. 2 Not Available [facility] [address] [place], [address], 04/10/2023 19:10:06 04/10/19 24 04/10/2023 CBC WITH DIFFE RENTI AL/PL ATELE T immature granulocytes 0.2 % notest b. Not Available [facility] [address] [place], [address], 04/10/2023 19:10:06 04/10/19 24 04/10/2023 CBC WITH DIFFE RENTI AL/PL ATELE T immature grans (abs) 0.0 x10e3 /uL 0.0-0. 1 Not Available [facility] [address] [place], [address], 04/10/2023 19:10:06 04/10/19 24 04/10/2023 CBC WITH DIFFE RENTI AL/PL ATELE T NRBC 0 % 0-0 Not Available [facility] [address] [place], [address], 04/10/2023 19:10:06 04/10/19 24 04/11/2023 TSH+F REE T4 TSH 3.480 uIU/m L 0.450- 4.500 Not Available [facility] ([facility]) [address] [facility], [place], [address], 04/11/2023 11:15:18 04/10/19 24 04/11/2023 TSH+F REE T4 T4,free(dire ct) 1.34 NG/dL 0.82-1 .77 Not Available [facility] ([facility]) [address] [place], [address], 04/11/2023 11:15:18 04/10/19 24 04/11/2023 VITAM IN B12 AND FOLAT E vitamin B12 428 pg/mL 232-12 45 Not Available [facility] ([facility]) [address] [facility], [place], [address], 04/11/2023 11:15:19 04/10/19 24 04/11/2023 VITAM IN B12 AND FOLAT E folate (folic acid), serum 6.3 NG/mL >3.0 A serum folat e arnoldo ntrat ion of less than 3.1 ng/mL is consi dered to repre sent clini louis defic iency . Not Available [facility] ([facility]) [address] [facility], [place], [address], 04/11/2023 11:15:19 04/10/19 24 04/11/2023 HEMOG LOBIN A1C hemoglobin A1C 5.8 % 4.8-5. 6 above high normal Predi abete s: 5.7 - 6.4 Diabe pete: >6.4 Glyce catalina contr ol for adult s with diabe pete: <7.0 Not Available [facility] ([facility]) [address] [place], [address], 04/11/2023 11:15:20 04/10/19 24 04/11/2023 VITAM IN D, 25-HY DROXY vitamin D, 25-hydroxy 13.6 NG/mL 30.0-1 00.0 below low normal Vitam in D defic iency has been defin ed by the Insti tute of Medic ine and an Endoc rine Socie ty pract ice guide line as a level of serum 25-OH vitam in D less than 20 ng/mL (1,2) . The Endoc rine Socie ty went on to furth er defin e vitam in D insuf ficie ncy as a level betwe en 21 and 29 ng/mL (2). 1. IOM (Inst itute of Medic ine). 2010. Dieta ry refer ence greyson es for calci um and D. Antoine bermeo [place]: The [facility] . 2. Temitope k [place], Binkl ey [place], Bisch off-F errar i [place], et al. Evalu ation , treat ment, and preve ntion of vitam in D defic iency : an Endoc rine Socie ty clini louis pract ice guide line. JCEM. 2010; 96(7) :1911 -30. Not Available [facility] ([facility]) [address] [facility], [place], [address], 04/11/2023 11:15:21 05/01/19 24 04/29/2023 US, abdom inal wall No observ ation record ed. [address], [address], 05/07/2023 09:10:04 05/01/19 24 04/29/2023 US, abdom inal wall No observ ation record ed. [address], [place], [address], 05/07/2023 09:10:04 06/05/19 24 04/29/2023 US, abdom inal wall No observ ation record ed. [address], [place], [address], 06/05/2023 14:16:11 06/08/19 24 06/06/2023 XR, chest , 2 view No observ ation record ed. [address], [address], 06/12/2023 15:43:50 06/08/19 24 06/06/2023 US, abdom inal wall No observ ation record ed. [address], [address], 06/12/2023 15:43:50 Result Notes None recorded. Problems Name Problem SNOMED Code Status Onset Date Resolution Date Notes Provider Name and Address Organization Details Recorded Time Smoker 69278969 Active 2021 CHICO LEÓN Attn: Accountin g,[address] [facility], [place], [address], [place] [facility] 2 16:17:34 Prediabetes 463424412 Active 2021 CHICO LEÓN Attn: Accountin g,[address] [facility], [place], [address], [place] [facility] 2 16:17:24 Serum creatinine above reference range 515876873 Active 2021 CHICO LEÓN Attn: Accountin g,[address] [facility], [place], [address], [place] [facility] 2 16:17:27 Neck swelling 594841689 Active 2021 CHICO LEÓN Attn: Accountin g,[address] [facility], [place], [address], [place] [facility] 2 16:43:27 Depression screening Active 2021 CHICO LEÓN Attn: Accountin g,[address] [facility], [place], [address], [place] [facility] 2 16:43:38 Vitamin D deficiency 61623263 Active 2021 CHICO LEÓN Attn: Accountin g,[address] [facility], [place], [address], [place] [facility] 2 12:59:01 Mixed anxiety and depressive disorder 655131147 Active 2023 CHICO LEÓN Attn: Accountin g,[address] [facility], [place], [address], [place] [facility] 4 14:53:54 Generalized anxiety disorder 49204053 [place] Ter[place]ropeza[place] [facility] 7 10:45:31 Attention deficit hyperactivi ty disorder, predominant ly inattentive type 66789664 Active Ter[place] [facility] [place] 10:45:31 Anxiety 68079100 Active SINCE REGLA Jordan [place] [facility] 6 10:24:48 Posttraumat ic stress disorder 81661361 Active SINCE REGLA [place] [facility] 6 10:24:48 Recurrent miscarriage 358389105 Active Ter[place] [facility] [place] 10:45:31 Recurrent miscarriage 041008028 Completed [place] [facility] [place] 10:45:31 Chronic post-trauma tic stress disorder 207588877 Active [place] [facility] [place] 10:45:31 Chronic post-trauma tic stress disorder 230588656 Completed [place] [facility] [place] 10:45:31 Generalized anxiety disorder 83802321 Completed Ter[place] [facility] [place] 10:45:31 Attention deficit hyperactivi ty disorder, predominant ly inattentive type 82463034 Completed [place] [facility] [place] 10:45:31 Bacterial vaginosis 365524345 Active [place] [facility] [place] 10:45:31 Bacterial vaginosis 867104688 Completed [place] [facility] [place] 10:45:31 HPV - Human papillomavi abimael test positive Active Ter[place] [facility] [place] 10:45:31 HPV - Human papillomavi abimael test positive Completed [place] [facility] [place] 10:45:31 Problem Notes None recorded. Procedures Surgical History Date Name Laterality Status Provider Name and Address Organization Details Recorded Time 022 cholecystectomy completed CHICO LEÓN Attn: Accounting,[address] [place], [address], [place] [facility] 01/07/2022 09:19:12 016 Date of Last Pap Smear completed Rut Jordan MA [facility] 11/28/2015 16:06:55 012 Dilation and Curettage completed Mi Frank MD Attn: Accounting,[address] [facility], [place], [address], [place] [facility] 11/28/2015 16:37:34 Imaging Results Imaging Date Name Status LastModified by Organiz ation Details LastModified Time 04/29/2023 US, abdominal wall completed [address], [address], 05/07/2023 09:10:04 04/29/2023 US, abdominal wall completed [address], [address], 05/07/2023 09:10:04 04/29/2023 US, abdominal wall completed [address], [address], 06/05/2023 14:16:11 06/06/2023 XR, chest, 2 view completed [address], [address], 06/12/2023 15:43:50 06/06/2023 US, abdominal wall completed [address], [address], 06/12/2023 15:43:50 Procedure Notes None recorded. Medical Equipment None Reported. Allergies No known drug allergies Medications Name Sig Start Date Stop Date Status Note LastModified by Organization Details LastModified Time Prometrium 200 mg capsule Take 1 capsule every day by oral route for 12 days. 01/04 completed Not Available Not Available Not Available amoxicillin 500 mg capsule 01/04 completed Not Available Not Available Not Available doxycycline hyclate 100 mg capsule 01/04 completed Not Available Not Available Not Available paroxetine 10 mg tablet 04/10 completed Not Available Not Available Not Available triazolam 0.25 mg tablet TAKE 1 TABLET BY MOUTH 1 HOUR PRIOR TO DENTAL APPOINTME NT AND BRING BOTTLE TO APPOINTME NT 01/04 completed Not Available Not Available Not Available trazodone 50 mg tablet 01/04 completed Not Available Not Available Not Available ibuprofen 800 mg tablet TAKE 1 TABLET BY MOUTH EVERY 6 HOURS NEEDED FOR PAIN 04/10 completed Not Available Not Available Not Available hydrocodone 5 mg-acetamin ophen 325 mg tablet TAKE 1 TO 2 TABLETS BY MOUTH EVERY 6 HOURS NEEDED FOR PAIN 01/04 completed Not Available Not Available Not Available tretinoin 0.025 % topical cream APPLY TOPICALLY TO THE AFFECTED AREA EVERY DAY AT BEDTIME active Not Available Not Available No t Available spironolact one 100 mg tablet TAKE 1 TABLET BY MOUTH EVERY DAY active Not Available Not Available No t Available sertraline 100 mg tablet 01/04 completed Not Available Not Available Not Available methylpheni date ER 54 mg tablet,exte nded release 24 hr 01/04 completed Not Available Not Available Not Available metronidazo le 500 mg tablet TAKE 1 TABLET BY MOUTH TWICE DAILY 01/04 completed Not Available Not Available Not Available sulfamethox azole 800 mg-trimetho prim 160 mg tablet TAKE 1 TABLET BY MOUTH EVERY 12 HOURS active Not Available Not Available No t Available omeprazole 40 mg capsule,del ayed release active Not Available Not Available Not Available triamcinolo ne acetonide 0.1 % topical cream APPLY TOPICALLY TO THE AFFECTED AREA TWICE DAILY active Not Available Not Available No t Available amoxicillin 500 mg tablet TAKE 1 TABLET BY MOUTH EVERY 8 HOURS UNTIL ALL TAKEN FOR DENTAL INFECTION 01/04 completed Not Available Not Available Not Available acyclovir 800 mg tablet Take 1 tablet every day by oral route. 01/04 completed Not Available Not Available Not Available Vitamin tablet Take 1 tablet every day by oral route as directed for 90 days. 01/04 completed Not Available Not Available Not Available meloxicam 7.5 mg tablet 01/04 completed Not Available Not Available Not Available bupropion HCl 100 mg tablet 04/10 completed Not Available Not Available Not Available alprazolam 0.5 mg tablet active Not Available Not Available Not Available citalopram 20 mg tablet 06/19 completed Not Available Not Available Not Available lorazepam 0.5 mg tablet 01/04 completed Not Available Not Available Not Available paroxetine 20 mg tablet active Not Available Not Available Not Available sertraline 25 mg tablet 01/04 completed Not Available Not Available Not Available omeprazole 20 mg capsule,del ayed release TAKE 1 CAPSULE BY MOUTH EVERY DAY 04/10 completed Not Available Not Available Not Available folic acid 1 mg tablet Take 3 tablets every day by oral route. 01/04 completed Not Available Not Available Not Available mirtazapine 15 mg tablet 01/04 completed Not Available Not Available Not Available gabapentin 100 mg capsule 01/04 completed Not Available Not Available Not Available ibuprofen 600 mg tablet Take 1 tablet 3 times a day by oral route with meal(s) for 14 days. 06/19 completed Not Available Not Available Not Available Vitamin D2 1,250 mcg (50,000 unit) capsule 01/04 completed Not Available Not Available Not Available ondansetron 4 mg disintegrat ing tablet DISSOLVE 1 TABLET ON THE TONGUE EVERY 6 HOURS NEEDED FOR NAUSEA OR VOMITING 01/04 completed Not Available Not Available Not Available cefdinir 300 mg capsule 1 capsule by mouth every 12 hours 04/10 completed Not Available Not Available Not Available fluticasone propionate 50 mcg/actuati on nasal spray,suspe nsion SHAKE LIQUID AND USE 2 SPRAYS IN EACH NOSTRIL EVERY DAY 04/10 completed Not Available Not Available Not Available dicyclomine 10 mg capsule TAKE 1 CAPSULE BY MOUTH THREE TIMES DAILY FOR 14 DAYS NEEDED 06/19 completed Not Available Not Available Not Available loratadine 10 mg tablet Take 1 tablet every day by oral route in the morning for 30 days, for allergies . 2023 active Not Available Not Available Not Avai lable methylpheni date ER 36 mg tablet,exte nded release 24 hr 01/04 completed Not Available Not Available Not Available bupropion HCl SR 200 mg tablet,12 hr sustained-r elease 06/19 completed Not Available Not Available Not Available chlorhexidi ne gluconate 0.12 % mouthwash RINSE AND GARGLE 15 ML BY MOUTH OR THROAT FOUR TIMES DAILY 01/04 completed Not Available Not Available Not Available Focalin XR 15 mg capsule,ext ended release 06/19 completed Not Available Not Available Not Available Vyvanse 50 mg capsule 01/04 completed Not Available Not Available Not Available Vyvanse 70 mg capsule active Not Available Not Available N ot Available cholecalcif gilberto (vitamin D3) 1,250 mcg (50,000 unit) capsule TAKE 1 CAPSULE BY MOUTH EVERY WEEK WITH MEALS 04/10 completed Not Available Not Available Not Available Vyvanse 60 mg capsule 04/10 completed Not Available Not Available Not Available Vitamin D3 50 mcg (2,000 unit) capsule Take 1 capsule every day by oral route. 01/04 completed Not Available Not Available Not Available Vitals Date Recorded Body height Body mass index (BMI) Body weight Oxygen saturation Oxygen saturation in Arterial blood by Pulse oximetry Heart rate Respiratory rate Systolic blood pressure Diastolic blood pressure Provider Name and Address Organization Details Last Updated DateTime 4 170.18 cm 32.6 kg/m2 11571.2 1 g 96 % 96 % 102 /min 18 /min 137 mm[Hg] 91 mm[Hg] Julisa Sloan MA [facility] 4 10:08:55 Date Recorded Systolic blood pressure Diastolic blood pressure Provider Name and Address Organization Details Last Updated DateTime 04/10/2023 123 mm[Hg] 85 mm[Hg] CHICO LEÓN Attn: Accounting,[address] [place], [address], [facility] 04/10/2023 10:47:47 Date Recorded Body height Body mass index (BMI) Body weight Oxygen saturation Oxygen saturation in Arterial blood by Pulse oximetry Heart rate Respiratory rate Systolic blood pressure Diastolic blood pressure Provider Name and Address Organization Details Last Updated DateTime 4 170.18 cm 33.5 kg/m2 80443.7 7 g 98 % 98 % 84 /min 16 /min 137 mm[Hg] 82 mm[Hg] Julisa Sloan MA [facility] 4 08:38:02 Date Recorded Body height Body mass index (BMI) Body weight Oxygen saturation Oxygen saturation in Arterial blood by Pulse oximetry Heart rate Systolic blood pressure Diastolic blood pressure Provider Name and Address Organization Details Last Updated DateTime 4 170.18 cm 33.8 kg/m2 65165.9 5 g 97 % 97 % 107 /min 144 mm[Hg] 85 mm[Hg] Karen Gaspar MA [facility] 4 14:04:33 Date Recorded Respiratory rate Heart rate Systolic blood pressure Diastolic blood pressure Provider Name and Address Organization Details Last Updated DateTime 06/20/2023 18 /min 90 /min 130 mm[Hg] 80 mm[Hg] CHICO LEÓN Attn: Accounting ,[address] [place], [address] , [facility] 06/20/2023 14:27:34 Date Recorded Body height Body mass index (BMI) Body weight Oxygen saturation Oxygen saturation in Arterial blood by Pulse oximetry Heart rate Systolic blood pressure Diastolic blood pressure Provider Name and Address Organization Details Last Updated DateTime 4 170.18 cm 33.7 kg/m2 09050.3 6 g 98 % 98 % 103 /min 138 mm[Hg] 96 mm[Hg] Julisa Sloan MA [facility] 4 14:05:45 Date Recorded Heart rate Respiratory rate Systolic blood pressure Diastolic blood pressure Provider Name and Address Organization Details Last Updated DateTime 09/25/2023 92 /min 18 /min 136 mm[Hg] 86 mm[Hg] CHICO LEÓN Attn: Accounting ,[address] [place], [address] , [facility] 09/25/2023 14:26:26 Date Recorded Body height Body mass index (BMI) Body weight Oxygen saturation Oxygen saturation in Arterial blood by Pulse oximetry Heart rate Respiratory rate Systolic blood pressure Diastolic blood pressure Provider Name and Address Organization Details Last Updated DateTime 4 170.18 cm 35.6 kg/m2 776806. 47 g 99 % 99 % 82 /min 16 /min 131 mm[Hg] 82 mm[Hg] [facility] 4 08:34:51 Social History Question Answer Notes LastModified by Organizat ion Details LastModified Time Tobacco Smoking Status Current Every Day Smoker Rut Jordan MA null, [place] - [facility] 11/28/2015 15:57:38 Do You Have An Advance Directive? No Information not available 11/28/2015 If You Are , What Was Your Level Of Alcohol Consumption Prior To ? None Information not available 11/28/2015 Plan No Information no t available 11/28/2015 Is Blood Transfusion Acceptable In An Emergency? Yes Information not available 11/28/2015 What Is Your Level Of Caffeine Consumption? Occasional Information not available 11/28/2015 Live With Cats/exposure To Cat Litter No Information not available 11/28/2015 How Much Tobacco Do You Chew? None Information not available 11/28/2015 In The 14 Days Before Symptom Onset, Have You Had Close Contact With A Laboratory-confir med COVID-19 While That Case Was Ill? No Information not available 02/21/2022 In The 14 Days Before Symptom Onset, Have You Had Close Contact With A Person Who Is Under Investigation For COVID-19 While That Person Was Ill? No Information not available 02/21/2022 Have You Been To An Area Known To Be High Risk For COVID-19? No Information not available 02/21/2022 What Type Of Diet Are You Following? VEGETARIAN Information not available 11/28/2015 Which Illicit Or Recreational Drugs Have You Used? None Information not available 11/28/2015 Education 2 Year College Informatio n not available 11/28/2015 Have There Been Any Changes To Your Family Or Social Situation? No Information no t available 11/28/2015 Frequent Air Travel No Information not available 11/28/2015 Illicit Drugs Pre- None Information not available 11/28/2015 How Many Years Have You Used Illicit Or Recreational Drugs? 0 Information not available 11/28/2015 Live Alone Or With Others? With Others Information not available 11/28/2015 Marital Status Informatio n not available 11/28/2015 What Was The Date Of Your Most Recent Tobacco Screening? 09/25/2023 Information not available 09/25/2023 How Many Children Do You Have? 0 Information not available 11/28/2015 Seat Belts Used Routinely Yes Information not available 11/28/2015 Are You Sexually Active? No Information not available 11/28/2015 Do You Have Smoke And Carbon Monoxide Detectors In Your Home? Yes Information not available 11/28/2015 Are You Passively Exposed To Smoke? Yes Information no t available 11/28/2015 How Much Tobacco Do You Smoke? 0.5 PPD Information not available 11/28/2015 Smoking Pre- Yes Information not available 11/28/2015 General Stress Level High Information not available 11/28/2015 Do You Use Sunscreen Routinely? Yes Information not available 11/28/2015 Has Tobacco Cessation Counseling Been Provided? Yes Information not available 01/04/2022 On What Date Was Tobacco Cessation Counseling Provided? 09/25/2023 Information not available 09/25/2023 How Many Years Have You Smoked Tobacco? 9 Information not available 11/28/2015 Sex: Unknown Functional Status Question Answer Note LastModified by Organizat ion Details LastModified Time Do you or have you ever used any other forms of tobacco or nicotine? Yes Information not available 01/04/2022 What is your level of alcohol consumption? None Information not available 11/28/2015 Are you currently employed? 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 Occasional Information not available 11/28/2015 Mental Status None recorded. Family History Relationship Description Onset Age of this Age Resolved Age Notes LastModified by Organization Details LastModified Time Mother Depressive disorder [email or web address] Not available 2015 12:30:48 Father Depressive disorder [email or web address] Not available 2015 12:30:48 Father Alcoholism [email or web address] Not availab le 11/29/2015 12:30:48 Medical History Condition Response Coronary Artery Disease N Blood Diseases N Kidney Cyst N Hyperthyroidism N Blood Transfusion N MRSA N Blood disorders N Emphysema N COPD N Blood Clots N Depression Y Pneumonia N Peripheral Arterial Disease N Premature N Edema N TIA N Headaches/Migraines N Anxiety Disorder Y Obesity N Infertility N Polyps N Acid Reflux (GERD) N Hematuria N Stroke N Neck Injury N Polio N Hospital Admission other than N Neurologic Disorder N Other Sleep Disorders N Rheumatoid Arthritis N Fibromyalgia N Abdominal Aortic Aneurysm Repair N Kidney Disease N Heart Conditions N Heart Disease/Heart Problems N Hospitalizations N Brain Tumors N Acne N Eating Disorder N Skin Problems N Constipation N Meningitis N Tuberculosis N Cerebral Palsy N Myocardial Infarction N Asthma N Substance Abuse N Peripheral Vascular Disease N Vertigo N Sleep Disorder N Cirrhosis N Pulmonary Embolism N Chicken Pox N Flomax Use Past or Present N Hematologic Disease N Anxiety/Depression Y Thyroid Disease N Colon Cancer N Glaucoma N Lung Disease N Developmental or Behavioral Disorders N Bipolar N Pacemaker N Diverticulitis/Diverticulosis N Anesthesia Complications N Orthopedic Problems N Orthotics N Head Injury/Concussion N Congenital Anomalies N [place]renas Bite N Chronic Kidney Disease N Endometriosis N Liver Disease N Dialysis N Schizophrenia N Speech Delay N Chronic Obstructive Pulmonary Disease N Parkinson's Disease N Thyroid Problems N GI Problems N Developmental Delay N Anemia N Immune System Disorder N Multiple Sclerosis N Colon Polyps N Heart Attack (CT) N Diabetes N Cardiomyopathy N Blood Transfusions N Heart Problems/Murmur N Eye Trauma N Congestive Heart Failure (CHF) N Valvular Heart Disease N Hyperlipidemia N Double Vision N Abuse/Domestic Violence N Hepatitis B N Lupus N Epilepsy/Seizures N Reflux/GERD N Aneurysm N Bronchitis N Heart Disease N Hypertension N Pre-Eclampsia N Heart Failure N Other N Gout N High Blood Pressure N Atrial Fibrillation N Kidney Stones N Head Trauma/Injury N Congenital Heart Disease N Spine Problems N Gastrointestinal Disease N Lung Mass N Sinusitis N Obstructive Sleep Apnea N Muscle, Joint, or Bone Problems N Autoimmune disease N Vision or Eye Problems N Arthritis N Blood Clot N Cancer N Seasonal allergies N Leg or Foot Ulcers N Raynaud's Disease N Aortic Aneurysm N Arrhythmia N Headaches N Heart Problems N Ambloypia N Ear or Hearing Problems N Hyperparathyroidism N Migraines N Artificial Joints N Kidney or Bladder Problems N NSAID Use N Encephalitis N PTSD N Ulcers N Prostate Hypertrophy N Bleeding Disorder N AIDS/HIV N Urinary Tract Infection N Back Problems N Allergies N Atrial Flutter N GERD/Reflux N Hepatitis N Autism Spectrum Disorder (ASD) N Breast Cancer N Hernia N Hypothyroidism N Breast Problem N Genitourinary Disease N Deep Vein Thrombosis N Varicose Veins N Cystic Fibrosis N Hearing Loss N Developmental Problems N Carotid Disease N Vitamin D Deficiency N ADHD N Bladder or Kidney Problems N High Cholesterol N [place]iers N Valvular Abnormalities N Psychiatric/Mental Health Condition N Organ Transplant N Foot Deformity N Allergies/Hayfever N Dyslipidemia N Hyponatremia N Diabetic Eye Disease N Osteoporosis/Osteopenia N Back Pain N Proteinuria N Mental Illness N Neurological Problems N Ovarian Cancer N Bedwetting N Seizures/Epilepsy N Kidney Failure N Ocular trauma N Dementia N Diverticulitis N Sleep Apnea N Mental Problems N Warfarin Management N Osteoporosis N Gynecological History Statement/Question Response Abnormal Pap Y Flow Moderate Date of LMP On BCP's at Conception? N STIs/STDs N HPV Vaccine N Duration of Flow (days) 4 Age at Menarche 13 Current Control Method None Frequency of Cycle (Q days) 28 Sexually Active? N Menses Monthly Y Date of Last Pap Smear 11/28/2015 LMP Approximate Desired Control Method Other Obstetrics History GPAL:G 3 P 0 0 2 0 Type Value Multiple Births 0 Full Term 0 Induced 0 Spontaneous 2 Premature 0 Living 0 Ectopics 0 Total 3 Past Encounters Encounter ID Performer Location Encounter Start Date Encounter Closed Date Diagnosis/Indication Diagnosis SNOMED-CT Code Diagnosis ICD10 Code Diagnosis Note [id number] MD Israel Saucedo ([employer]) [address] [place] [address] 11/28/2015 15:12:39 11/29/2015 10:20:40 High risk 10562569 O09.91 Recurrent miscarriage 10 [id number] N96 [id number] Mi Frank MD [facility] ([employer]) [address] [place] [id number] 11/29/2015 10:02:15 11/30/2015 10:51:47 High risk 99320159 O09.91 Transfer care to [facility] for severe psychiatri c issues All labs ordered yesterday Chronic post-traumatic stress disorder 440345613 F43.12 Generalize d anxiety disorder 14976157 F41.1 Attention deficit hyperactivity disorder, predominantly inattentive type 26273212 F90.0 Recurrent miscarriage 10 [id number] N96 all other labs ordered yesterday [id number] David lynn MD [facility] [address] [place] [address] 01/04/2022 10:32:44 01/07/2022 11:13:42 Smoker 88705462 F17.200 2 pk/week Neck swelling 056325415 R22.1 x3 yrsrecurre nt strep throat and was multiple rounds of antibiotic s w/o reliefDeni es cough at night, sore throat, odynophagi a, or dysphagiac onstantly spitting things up, describes a specks of black/red/ pink mixed in with her sputum and provided picturesPE x- nlUS head and neckfuture referral to ENT Adult [facility] th examination [id number] Z00.00 routine labs Depression screening 171 394562 Z13.31 PHQ 8on xanax, wellbutrin , and vyvansefol lows with psychPEx- anxious, talkative, pressured speech, tangential Obesity 301039721 E66.9 BMI 33.2discus sed increasing exercise and healthier food options, high protein, low fat diet History of cholecystectomy 432414840 Z90.49 removed at [place] 2 wks agounknown surgeon's name and has not followed upstates that [employer] was involved due to fluid in her pelvisPEx- well healing surgical scars, superior to umbilicus 2 inch horizontal incision, RUQ 1 inch horizontal incision, non-TTPreq uested records [id number] David lynn MD [facility] [address] [place] [address] 02/06/2022 14:15:39 02/07/2022 14:20:29 Neck swelling 174963865 R22.1 02/06/22:U S neck and tissue- normal appearing cervical LADpt still c/o coughing up tissue and hairfeels like something is stuck in my throatsta pete that neck swelling has improvedwi ll order barium swallow studyrefer to ENT 01/04/22:x 3 yrsrecurre nt strep throat and was multiple rounds of antibiotic s w/o reliefDeni es cough at night, sore throat, odynophagi a, or dysphagiac onstantly spitting things up, describes a specks of black/red/ pink mixed in with her sputum and provided picturesPE x- nlUS head and neckfuture referral to ENT Serum crea tinine above reference range 880409875 R79.89 122:n ormal Cr and eGFR- inpatient labs 12/11/21re peat CMP 01/04/22:C r 1.5eGFR 47repeat at f/u visit Fatigue 47792196 R53.83 c/o chronic fatigueno difference with Vkayceee, psychiatry awarewill check Vit D and Vitamin B 12 Left flank pain 21496931 9 R10.9 c/o L inner groin pain and L flank pain since surgerysaw Dr. Borjas and had pelvic/tra nsvaginal US donehad f/u surgeon post cholecyste ctomy, rec'd CT scan and advised Dr. Borjas to orderpt states she has to lift up her L leg when driving due to pain [id number] Ricardo Thompson MD [facility] [address] [place] [address] 02/21/2022 16:19:21 02/22/2022 10:20:19 Acute sinusitis 84264343 J01.90 Dysphagia 94188444 R13.1 0 barium swallow pending [id number] Ricardo Thompson MD [facility] ts [address] [place] [phone] 04/08/2022 11:18:53 04/08/2022 13:11:59 Chronic sinusitis 88087583 J32.9 follow-up after CT scan [id number] David lynn MD [facility] [address] [place] [address] 04/10/2023 10:04:44 04/10/2023 11:03:41 Pain of right shoulder joint 9795098629 7262015 M25.511 04/10/23:- no trauma or injury- worsening past 2 wks- located near axilla- trial ibuprofen for 2 wks Fatigue 43207623 R53.83 04/10/23:- c/o chronic fatigue- no difference with Vyvanse, psychiatry is aware- will check Vit D and Vitamin B 12 Obesity 503226960 E66.9 04/10/23:- BMI 32.6- discussed increasing exercise and healthier food options, high protein, low fat diet 01/04/22:- BMI 33.2- discussed increasing exercise and healthier food options, high protein, low fat diet Right flank pain 6366906 09 R10.9 04/10/23:- noticed lump on R flank a couple months ago- hurts in certain sitting positions- no GI sxs- no UA sxPEx- able to palpate 3 cm x 2 cm horizontal superficia l nodule to R flank area, non-TTP without erythema- ordered US Idiopathic urticaria 422 46419 L50.1 04/10/23:- to abdomen- pt reports sensitive skin and breaks out randomly all the timePEx- 4 cm x 5 cm circular erythemato us patch to mid abdomen- c/w hydrocorti sone cream- trial antihistam ine Anxiety 09064765 F41.9 04/10/23:- still experienci ng panic attacks- rec'd f/u with psych Depression screening 171 149636 Z13.31 PHQ 9on xanax, wellbutrin , and vyvansefol lows with psych [id number] David lynn MD [facility] [address] [place] [address] 05/07/2023 08:34:41 05/07/2023 09:02:42 Right flank pain 740899296 R10.9 05/07/23: US abdominal wall 04/29/23- 7 cm lipoma to R flankgener al surgery referral sent 04/10/23:- noticed lump on R flank a couple months ago- hurts in certain sitting positions- no GI sxs- no UA sxPEx- able to palpate 3 cm x 2 cm horizontal superficia l nodule to R flank area, non-TTP without erythema- ordered US Strain of right pectoral muscle [id number] 7391043 S29.011A 05/07/23:pa in starts in upper R breast, moves into axilla and down her armdescrib es as shooting painno trauma or injuryno relief with ibuprofenP Ex- nl, R sided chest wall non TTP w/o edema or erythemamo st likely pec muscle strain, pt requesting imagingord ered US chest wall, if normal will refer to PT 04/10/23: R shoulder pain- no trauma or injury- worsening past 2 wks- located near axilla- trial ibuprofen for 2 wks Dysphagia 40899142 R13.1 0 requesting new ENT referral [id number] David lynn MD [facility] [address] [place] [address] 06/20/2023 13:59:43 06/20/2023 14:34:51 Strain of right pectoral muscle 4323592701 2955119 S29.011A 06/20/23: CXR nl, did not complete US chest wall due to issue at [place] 05/07/23:pa in starts in upper R breast, moves into axilla and down her armdescrib es as shooting painno trauma or injuryno relief with ibuprofenP Ex- nl, R sided chest wall non TTP w/o edema or erythemamo st likely pec muscle strain, pt requesting imagingord ered US chest wall, if normal will refer to PT 04/10/23: R shoulder pain- no trauma or injury- worsening past 2 wks- located near axilla- trial ibuprofen for 2 wks Dysphagia 07471424 R13.1 0 needs to call ENT to schedule apptcan push on R chest wall which causes her to spit up mucus, small dots of blood and large blue string Lipoma of abdominal wall 021765524 D17.[address] Enrique this month for removal, needs referral to be re-sent04/17 04/12- 7 cm lipoma to R flank Idiopathic urticaria 422 33699 L50.1 06/20/23: still c/o intermitte nt red patches on her chest and arms a/w increased itchingput on lotion multiple times/dayt rial claritin 04/10/23:- to abdomen- pt reports sensitive skin and breaks out randomly all the timePEx- 4 cm x 5 cm circular erythemato us patch to mid abdomen- c/w hydrocorti sone cream- trial antihistam ine Mixed anxi ety and depressive disorder 880380994 F41.8 PHQ 11on chucho lira paxilfollo ws with psych [id number] David lynn MD [facility] [address] [place] [address] 09/25/2023 14:02:12 09/25/2023 14:28:56 Dysphagia 76634076 R13.10 09/25/23: saw ENT 08/13/23-1 . Laryngopha ryngeal reflux (LPR)2. Dysphagia, unspecifie d type3. Polyp of nasal cavity4. Tonsil stoneRecom mend continuing sinus rinse, add Flonase 2 sprays each nostril dailyOmepr azole 40 mg daily x8 weeks.Refe r to general ENT for discussion for tonsillect jose and nasal polyp.Foll ow-up in 2 months 06/20/23: needs to call ENT to schedule apptcan push on R chest wall which causes her to spit up mucus, small dots of blood and large blue string Chronic ab dominal pain 762207242 R10.[address] omach will be hard to RLQ, pain wraps around to the R side of her backGB removed 12/08recen t CT relatively nl, 1.3 cm calcified mass to RUQ, has upcoming MRI abd, by Dr. Horan General Surgery Change in skin lesion 39 8660015 L98.9 requesting referral to derm for lesions on her face Cystic acne 58535809 L70 .0 trial tretinoin Depression screening 171 227097 Z13.31 09/25/23: PHQ 0 12/2021: PHQ 9on xanax, wellbutrin , and vyvansefol lows with psych [id number] Joshua Marrero MD [facility] [address] [place] [address] 12/30/2023 08:31:50 12/30/2023 08:51:49 Change in skin lesion 507536095 L98.9 12/30/23: c/o worm/strin g like substance that came out of the back of her scalp 2-3 wks ago while combing her hair, 6 inches in lengthpt saved object in plastic container at home, provided picturesPE x- scalp exam nlre-sent referral 09/25/23: requesting referral to derm for lesions on her face Chronic ab dominal pain 396387696 R10.9 12/30/23: re-sent referral 09/25/23: feels st omach will be hard to RLQ, pain wraps around to the R side of her backGB removed 12/08recen t CT relatively nl, 1.3 cm calcified mass to RUQ, has upcoming MRI abd, by Dr. Horan General Surgery Health Concerns Section Related Observation LastModified by Organization Jaren ls LastModified Time None Recorded Concern Status LastModified by Organization Details LastModified Time None Recorded Advance Directives Directive N: Payers Encounter Date Sequence Insurance Name Policy Number Policy Reinoso Covered Member ID Reinoso Member ID Guarantor Name 04/10/2023 1 [facility] - DOS ON OR AFTER 20 (MEDICAID REPLACEMENT - HMO) Sherie Virginie [id number] Sherie Virginie 05/07/2023 1 [employer] [facility] - DOS ON OR AFTER 20 (MEDICAID REPLACEMENT - HMO) Sherie Virginie [id number] Sherie Virginie 06/20/2023 1 [employer] [facility] - DOS ON OR AFTER 20 (MEDICAID REPLACEMENT - HMO) Sherie Virginie [id number] Sherie Virginie 09/25/2023 1 [employer] [facility] - DOS ON OR AFTER 20 (MEDICAID REPLACEMENT - HMO) Sherie Virginie [id number] Sherie Virginie 12/30/2023 1 [employer] [facility] - DOS ON OR AFTER 20 (MEDICAID REPLACEMENT - HMO) Sherie Virginie [id number] Sherie Virginie Notes Date Note Type Note Provider Name and Address Organization Details Recorded Time 04/10/2023 text/html Patient is a 37 y/o F, with a past medical history of ADHD, anxiety, and PTSD. Presenting to the office today for back pain. 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 CHICO LEÓN Attn: Accounting, [address] [facility], [place], [address], [facility] 04/15/2023 12:52:11 05/07/2023 text/html Pt presents to discuss US results. Reports that she still has intermittent pain located on her R flank and is concerned it is due to lipoma. Requesting referral to surgery for remova. CHICO LEÓN Attn: Accounting, 1 [facility], [place], [address], [place] [facility] 05/08/2023 11:39:08 06/20/2023 text/html Pt presents for test result f/u. Reports that she completed US stomach and CXR at [place], but they did not have orders for US chest wall. States that she believes imaging is inaccurate because it said there was no lipoma on her R side when prior imaging had noted this. CHICO LEÓN Attn: Accounting, 1 [facility], [place], [address], [facility] 06/20/2023 14:56:02 09/25/2023 text/html Pt presents for 3 mo f/u appt. Reports that she saw ENT and general surgery. Surgery ordered MRI abdomen on 10/17/23 due to nodule to the right side of her stomach. Surgery rec'd pt see GI. States that ENT rec'd pt have her tonsils removed and referred pt to ENT specialist.C/o bumps to her upper lip and chin for the past year. States that bumps are really dry and are not related to acne. Endorses that she will wash her face and blue strings come out of the bumps and strings are similar to what she spits up. CHICO LEÓN Attn: Accounting, 1 [facility], [place], [address], [place] [facility] 09/25/2023 15:59:30 12/30/2023 text/html Pt presents for referrals and skin follow-up. States that 2-3 wks ago, she was combing her hair and had a string/worm like substance come out of the back of her scalp. Reports that it was about 6 inches long. Endorses that this has never occurred before. Denies pain, redness, or swelling to scalp. Pt went to yesterday due to swollen lymph nodes and was given bactrim. 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 Status 11/28/19 16 1 CLOSED Fetus Data First Name Last Name Admitted to NICU Weight (g) Sex Living Outcome Pediatric Complications Fetus ID Race Codes Race Delivery Type Demise [id number] Problems Problem Notes Problem Name Start Date End Date Resolution Snomed Code Not e Recurrent miscarriage 27612624 1 Chronic post-traumatic stres s disorder 178490952 Generalized anxiety disorder 2 8217751 Attention deficit hyperactiv ity disorder, predominantly inattentive type 69056119 Bacterial vaginosis 788097467 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 802067422 Bal Calculation Initial Bal Date Initial Exam Date Initial Exam Provider Initial Ultrasound Date Last Menstrual Period Date Ultra Sound Weeks Gestation 06/16/2016 11/28/2015 warner 09/10/2015 0 Eighteen To Twenty Week Bal Update Ultra Sound Date Fundal Height At Umbil Quickening Date Ultra Sound Latest Weeks Gestation Final Bal Confirmed By Final Bal Confirmed Date Final Bal Date Ultra Sound Latest Days Gestation 0 06/17/19 17 0 Pre-jose armando Flowsheet Flowsheet Date 11/28/2015 Gonzalez Score Blood Edema Fundus Height Fundus Units Glucose Ketones Leukocytes Nitrite Labor Signs Protein Cervic Dilation Cervic Effacement Cervic Station neg none none negative none neg Type Weight in lbs Pre/Post Dialysis Refused [id number] BP Diastolic BP Location Tested BP Systolic BP Type Fetus Heart Rate Present Fetus Movement A No Comments Patient went for blood work and she wanted to do pphysical exam tomorrow morning. precautions discussed. Refer to [facility] secondary to psychiatric issues. 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 Patient say she will come back for exam tomorrow morning and left the clinic Flowsheet Date 11/29/2015 Gonzalez Score Blood Edema Fundus Height Fundus Units Glucose Ketones Leukocytes Nitrite Labor Signs Protein Cervic Dilation Cervic Effacement Cervic Station trace none 10 cm none negative none 1+ 0cm 0% -4 Type Weight in lbs Pre/Post Dialysis Refused 202.508646326425 BP Diastolic BP Location Tested BP Systolic BP Type 78 122 sitting Fetus Heart Rate Present Fetus Movement Comments Patient came back for exam t katie. precautions discussed. Transfer care to [facility] secondary to severe psychiatric issues. She is asking for a prescription for amphetamine. Advised patient that she can not take amphetamines during . She has appointment with [facility] and ultrasound on 11/30/15 at 0730 AMThrombophilia workup for recurrent miscarriages ordered yesterday. Menstrual History Last Menstrual Date Menses Monthly On Bcp Conception Prior Menses Frequency Hcg Plus Date Menarche Onset Age 0709/10/2015 true 28 13 Genetic Screening And Infection History Question Response Note Patient's Age Will Be 35 Years Or Older At Estim ated Date of Delivery false Thalassemia (Iranian, Slovak, Mediterranean, Or Background): MCV < 80 false Neural Tube Defect (Meningomyelocele, Spina Bifi da, Or Anencephaly) false Congenital Heart Defect false Down Syndrome false Kaveh-Sachs (eg, Hinduism, Cajun, Macedonian-[place]) f alse Conor Disease false Sickle Cell Disease Or Trait () false Hemophilia Or Other Blood Disorders false Muscular Dystrophy false Cystic Fibrosis false Mcminn's Chorea false Mental Retardation/Autism false If Yes, Was Person Tested For Fragile X? false Other Inherited Genetic Or Chromosomal Disorder false Maternal Metabolic Disorder (eg, Type 1 Diabetes , PKU) false Patient Or Baby's Father Had A Child With Defects Not Listed Above false Recurrent Loss, Or A Stillbirth false Medications (including Suppl ements, Vitamins, Herbs, OTC Drugs), Illicit/Recreational Drugs, Alcohol false If Yes, Agent(s) And Strength/Dosage false Any Other Genetic History false Live With Someone With TB Or Exposed To TB false Patient Or Partner Has History Of Genital Herpes false Rash Or Viral Illness Since Last Menstrual Perio d false History Of STD, Gonorrhea, Chlamydia, HPV, Syphi lis false Other Infection History false Plans and Education First Trimester Discussed Date Discussion Item Discussion Note Discuss ed By 11/29/2015 Anticipated course of care [facility] 11/29/2015 Alcohol [facility] 11/29/2015 [facility]2015 Environmental/work hazards s [facility] 11/29/2015 Screening for aneuploidy [facility] 11/29/2015 Nutrition counseling ; special diet; dietary precautions (mercury, listeriosis) [facility] 11/29/2015 Childbirth classes/hospital facilities [facility] 11/29/2015 HIV and other routine tests [facility] 11/29/2015 Risk factors identif ied by history [facility] 11/29/2015 Weight gain counseling [facility] 11/29/2015 Exercise [facility] 11/29/2015 Teratogens [facility] 11/29/2015 Use of any medicatio ns (including supplements, vitamins, herbs, or OTC drugs) [facility] 11/29/2015 [facility] 11/29/2015 Sexual activity [facility] 11/29/2015 Tobacco/smoking cess ation counseling (ask, advise, assess, assist, and arrange) [facility] 11/29/2015 Illicit/recreational drugs [email or web address] 11/29/2015 Dental care [facility] 11/29/2015 Travel [facility] 11/29/2015 Seat belt use [facility] 11/29/2015 Indications for ultrasonography [facility] 11/29/2015 Avoidance of saunas or hot tubs [facility] 11/29/2015 Toxoplasmosis precautions (cats/raw meat) [facility] Second Trimester Discussed Date Discussion Item Discussion Note Discuss ed By Third Trimester Discussed Date Discussion Item Discussion Note Discuss ed By Delivery Information Delivery Date Delivery Type Labor Anesthesia Weeks Gestation Incision Type Labor Labor Length Hrs Delivered By Post Complications Tubal Sterilization Discharge Date Comments 7 40.3 Miscarried Discharge Information Feeding Method Contraceptive Method Maternal HG B and HCT Levels
--- OUTSIDE RECORDS SUMMARY | 2024-07-01 13:42 | XMS_ITS | Patient Health Record ---
Author Organization [facility] Address [address] [place] [address] Care Team Providers Care Medicaid Collection Specialist Name Role Phone Lionel Butt Primary Care Provider [employer] [facility], [facility] Unavailable U jelaniSydnee Velazco Unavailable [phone] Allergies Allergen (clinical drug ingredient) Drug/Non Drug Allergy documented on EMR Reaction Allergy Type Onset Date Status quetiapine SEROquel Muscle Spasms Drug Allergy Ac tive Results Component Value Reference Range Notes 12 Panel Urine Drug Screen Reviewed date:05/25/2024 04:55:17 PM Interpretation: Performing Lab: Notes/Report: THC neg DANTE neg MOP (OPI) neg AMP neg MET neg BAR neg BZO neg MDMA neg MTD neg OXY neg PCP neg BUP neg Reason For Referral No Information Medications Medication SIG (Take, Route, Frequency, Duration) Notes Start Date End Date Status Dexmethylphenidate HCl ER 15 MG 1 capsule in the morning Orally Once a day for 30 days 12/03/2022 Not-Taking Vyvanse 70 MG 1 capsule in the morning Orally Once a day. for 30 days 06/05/2023 Not-Taking buPROPion HCl ER (SR) 200 mg 1 tablet Orally Twice a day for 30 days Not-Taking Citalopram Hydrobromide 20 MG 1 tablet Orally Once a day for 30 days 12/01/2022 Not-Taking ALPRAZolam 0.5 MG 0.5 - 1 tablet Orally Once a day for extreme anxiety for 30 days Client would like to spanish moss picker today. 05/20/2024 Active PARoxetine HCl 20 MG 1 tablet in the morning Orally Once a day for 30 days Client would like to spanish moss picker today. 06/11/2023 Active Vyvanse 70 MG 1 capsule in the morning Orally Once a day. Please fill on or after June 16, 2024. for 30 days 05/30/2024 Active Spironolactone 100 MG 1 tablet Orally Once a day Active Vyvanse 70 MG 1 capsule in the morning Orally Once a day. for 30 days Client would like to spanish moss picker today. 05/20/2024 Active Vyvanse 70 MG 1 capsule in the morning Orally Once a day. for 16 days [facility] refill till in person appt. 04/13/2024 Active Social History Tobacco Use: Social History Observation Description Date Details (start date - stop date) Current Smoker NA - NA Sex Assigned At : Social History Observation Description Sex Assigned At Female Dont use, Tobacco Use/Smoking Question Answer Notes Are you a current smoker Tobacco Control (Standard) Question Answer Notes Tobacco use: Current smoker Problems Problem Type SNOMED Code ICD Code Onset Dates Problem Status W/U Status Risk Notes Problem 61769284 Attention-defici t hyperactivity disorder, predominantly inattentive type (F90.0) Active confirmed Problem 93786996 Other chronic pain (G89.29) Active confirmed Problem 07116367 Tobacco dependency (F17.200) Active confirmed Problem 12355741 PTSD (post-traumatic stress disorder) (F43.10) Active confirmed Problem Vitamin D deficiency (91226261) Vitamin D deficiency (E55.9) Active confirmed Problem Generalized anxiety disorder (45944778) DAKOTAH (generalized anxiety disorder) (F41.1) Active confirmed Problem 037638709 Pulmonary nodule (R91.1) Active confirmed Problem MDD (major depressive disorder), recurrent episode, mild (F33.0) Active confirmed Problem 321896247 Panic disorder [episodic paroxysmal anxiety] (F41.0) Active confirmed Vital Signs Height 67 in 05/20/2024 Encounters Encounter Location Date Provider Diagnosis [address] [place] [address] 09/16/2023 Lionel Butt Attention-deficit hyperactivity disorder, predominantly inattentive type F90.0 ; DAKOTAH (generalized anxiety disorder) F41.1 ; Panic disorder [episodic paroxysmal anxiety] F41.0 and PTSD (post-traumatic stress disorder) F43.[address] [address] 11/26/2023 Lionel Butt Attention-deficit hyperactivity disorder, predominantly inattentive type F90.0 ; Panic disorder [episodic paroxysmal anxiety] F41.0 ; PTSD (post-traumatic stress disorder) F43.10 ; DAKOTAH (generalized anxiety disorder) F41.1 and MDD (major depressive disorder), recurrent episode, mild F33.[address] [address] 05/20/2024 Lionel Butt Attention-deficit hyperactivity disorder, predominantly inattentive type F90.0 ; Medication monitoring encounter Z51.81 ; Panic disorder [episodic paroxysmal anxiety] F41.0 and PTSD (post-traumatic stress disorder) F43.[address] [address] 07/21/2023 Lionel Butt Attention-deficit hyperactivity disorder, predominantly inattentive type F90.[address] [address] 08/25/2023 Lionel Butt [facility] [address] [address] 09/01/2023 Lionel Butt Attention-deficit hyperactivity disorder, predominantly inattentive type F90.0 ; Panic disorder [episodic paroxysmal anxiety] F41.0 ; MDD (major depressive disorder), recurrent episode, mild F33.0 and DAKOTAH (generalized anxiety disorder) F41.[address] [address] 11/21/2023 Sydnee Beth DAKOTAH (generalized anxiety disorder) F41.1 ; Attention-deficit hyperactivity disorder, predominantly inattentive type F90.0 and Panic disorder [episodic paroxysmal anxiety] F41.0 [facility] [address] [place] [address] 12/30/2023 Lionel Butt [address] [address] 02/26/2024 Lionel Butt Attention-deficit hyperactivity disorder, predominantly inattentive type F90.0 ; Panic disorder [episodic paroxysmal anxiety] F41.0 and DAKOTAH (generalized anxiety disorder) F41.[address] [place] [address] 04/12/2024 Lionel Butt Attention-deficit hyperactivity disorder, predominantly inattentive type F90.0 ; Panic disorder [episodic paroxysmal anxiety] F41.0 and DAKOTAH (generalized anxiety disorder) F41.[address] [place] [address] 01/28/2024 Lionel Butt [address] [place] [address] 03/18/2024 Lionel Butt Assessments Encounter Date Diagnosis (ICD Code) Assessment Notes Treatment Notes Treatment Clinical Notes Section Notes 07/21/2023 Attention-deficit hyperactivity disorder, predominantly inattentive type (ICD-10 - F90.0) 09/01/2023 Attention-deficit hyperactivity disorder, predominantly inattentive type (ICD-10 - F90.0) 09/16/2023 Attention-deficit hyperactivity disorder, predominantly inattentive type (ICD-10 - F90.0) 11/26/2023 Attention-deficit hyperactivity disorder, predominantly inattentive type (ICD-10 - F90.0) 11/21/2023 DAKOTAH (generalized anxiety disorder) (ICD-10 - F41.1) 02/26/2024 Attention-deficit hyperactivity disorder, predominantly inattentive type (ICD-10 - F90.0) 04/12/2024 Attention-deficit hyperactivity disorder, predominantly inattentive type (ICD-10 - F90.0) 05/20/2024 Attention-deficit hyperactivity disorder, predominantly inattentive type (ICD-10 - F90.0) 05/20/2024 Medication monitoring encounter (ICD-10 - Z51.81) 05/20/2024 Panic disorder [episodic paroxysmal anxiety] (ICD-10 - F41.0) 11/26/2023 Panic disorder [episodic paroxysmal anxiety] (ICD-10 - F41.0) 02/26/2024 Panic disorder [episodic paroxysmal anxiety] (ICD-10 - F41.0) 04/12/2024 Panic disorder [episodic paroxysmal anxiety] (ICD-10 - F41.0) 09/16/2023 DAKOTAH (generalized anxiety disorder) (ICD-10 - F41.1) 09/01/2023 Panic disorder [episodic paroxysmal anxiety] (ICD-10 - F41.0) 11/21/2023 Attention-deficit hyperactivity disorder, predominantly inattentive type (ICD-10 - F90.0) 09/16/2023 Panic disorder [episodic paroxysmal anxiety] (ICD-10 - F41.0) 09/01/2023 MDD (major depressive disorder), recurrent episode, mild (ICD-10 - F33.0) 02/26/2024 DAKOTAH (generalized anxiety disorder) (ICD-10 - F41.1) 11/21/2023 Panic disorder [episodic paroxysmal anxiety] (ICD-10 - F41.0) 11/26/2023 PTSD (post-traumatic stress disorder) (ICD-10 - F43.10) 04/12/2024 DAKOTAH (generalized anxiety disorder) (ICD-10 - F41.1) 05/20/2024 PTSD (post-traumatic stress disorder) (ICD-10 - F43.10) 11/26/2023 DAKOTAH (generalized anxiety disorder) (ICD-10 - F41.1) 09/16/2023 PTSD (post-traumatic stress disorder) (ICD-10 - F43.10) 09/01/2023 DAKOTAH (generalized anxiety disorder) (ICD-10 - F41.1) 11/26/2023 MDD (major depressive disorder), recurrent episode, mild (ICD-10 - F33.0) 09[place]16/2023 [place]. Discussed sleep hygiene and caffeine intake with encouragement to limit electronic devices an hour before bed and to limit caffeine after 3:00pm. Exercise benefits for mood and health discussed. Psychoeducation regarding psychiatric illness provided. Client was educated about risks and benefits of medication, alternatives to medication, off label uses of medication, suicidal ideation with SSRIs, self-administration and compliance with medication along with how to safely store medication. Verbal informed consent obtained. Client agrees to return sooner if symptoms worsen or if suicidal or homicidal ideations occur. Client has the phone number to the 24-hour crisis line at [facility]. Questions addressed. Client verbalized understanding of all information and is agreeable to treatment plan. 11/26/2023 [place]. Discussed sleep hygiene and caffeine intake with encouragement to limit electronic devices an hour before bed and to limit caffeine after 3:00pm. Exercise benefits for mood and health discussed. Psychoeducation regarding psychiatric illness provided. Client was educated about risks and benefits of medication, alternatives to medication, off label uses of medication, suicidal ideation with SSRIs, self-administration and compliance with medication along with how to safely store medication. Verbal informed consent obtained. Client agrees to return sooner if symptoms worsen or if suicidal or homicidal ideations occur. Client has the phone number to the 24-hour crisis line at [facility]. Questions addressed. Client verbalized understanding of all information and is agreeable to treatment plan. 05/20/2024 [place]. Discussed sleep hygiene and caffeine intake with encouragement to limit electronic devices an hour before bed and to limit caffeine after 3:00pm. Exercise benefits for mood and health discussed. Psychoeducation regarding psychiatric illness provided. Client was educated about risks and benefits of medication, alternatives to medication, off label uses of medication, suicidal ideation with SSRIs, self-administration and compliance with medication along with how to safely store medication. Verbal informed consent obtained. Client agrees to return sooner if symptoms worsen or if suicidal or homicidal ideations occur. Client has the phone number to the 24-hour crisis line at [facility]. Questions addressed. Client verbalized understanding of all information and is agreeable to treatment plan. Plan Of Treatment No Information Insurance Providers Payer Name Payer Address Payer Phone Subscriber Number Group Number Insured Name Patient Relationship to Insured Coverage Start Date Coverage End Date [facility] Claims Department [address] [place] [id number] [phone] [id number] Sherie Rachel Self - patient is the insured 1 [facility] Claims Department [address] [place] [address] [phone] [id number] Sherie Rachel Self - patient is the insured 7 1 [facility] Claims Department [address] [place] [address] [phone] [id number] DustinBooSherie Self - patient is the insured 1 Medical (General) History Medical History History ICD Code history of fracture of the right scapula PTSD panic disorder ADHD obesity pulmonary nodules smoker Surgical History Surgery Date(Month/Year) D&C 2010 cholecystectomy 11/2021 Hospitalization History Reason Date(Month/Year) CRU in past for extreme anxiety several years ago
--- OUTSIDE RECORDS SUMMARY | 2024-07-01 13:42 | XMS_ITS | Clinical Summary ---
Author Organization [facility] Address [address] [facility] [place] [address] Care Team Providers Care Waiter/Waitress Club Name Role Phone Michele Mckenna MD Primary Care Provider [phone] Source Comments [facility],non-owned Affiliates and Associated Physician Practices is amultiple site organization consisting of ambulatory clinics and hospital sitesin [place], [place], [place] and [place]. This disclosure is being madepursuant to the Care Everywhere program and may not contain all information available regarding this patient. Last updated 17.[facility] [employer] Allergies No known active allergies Medications * Be aware that medications may not be up to date on this document. Alwaysverify current medications with the patient. ibuprofen (MOTRIN) 600 MG tablet Take 1 Tab by mouth every 6 hours as needed for Pain 60 Tab 05/21/19 17 Active ALPRAZolam (Xanax) 0.25 MG tablet 03/22/19 24 Active loratadine (Claritin) 10 MG tablet Take 1 (one) tablet by mouth every morning 06/20/19 24 Active fluticasone propionate (Flonase) 50 MCG/ACT nasal spray 08/13/19 24 Active lisdexamfetami ne (Vyvanse) 70 MG capsule Take 1 (one) capsule by mouth every morning Active cetirizine (ZyrTEC) 10 MG tabletIndicati ons:Rash and other nonspecific skin eruption Take 1-4 pills day as needed for itch or skin sensations. 120 tablet 3 03/22/19 25 Active doxycycline hyclate 100 MG tabletIndicati ons:Acne Vulgaris Take 1 (one) tablet by mouth 2 times daily Reasons: Common Acne 60 tablet 2 04/06/19 25 Active Additional Information Patient not taking.Reported on 06/23/2024 mupirocin (Bactroban) 2 % ointmentIndica tions:Rash and other nonspecific skin eruption Apply to affected area on chin twice daily for 7 days 30 g 05/08/19 25 Active Additional Information Patient not taking.Reported on 05/17/2024 omeprazole (PriLOSEC) 40 MG capsuleIndicat ions:Epigastri c pain TAKE 1 CAPSULE BY MOUTH TWICE A DAY BEFORE BREAKFAST AND SUPPER 186 capsule 1 06/15/19 25 Active Vitamin D-[address] 25 MCG (1000 UT) Take 1 (one) tablet by mouth once daily 06/08/19 25 Active ivermectin (Stromectol) 3 MG tabletIndicati ons:Trichurias is Take 8 (eight) tablets by mouth every 7 days (once a week) Reasons: Trichuriasis 32 tablet 3 06/24/19 25 2024 Active valACYclovir (Valtrex) 1 GM tabletIndicati ons:Herpesvira l vesicular dermatitis Take 1 (one) tablet by mouth once daily 30 tablet 11 06/24/19 25 Active ivermectin (Stromectol) 3 MG tabletIndicati ons:Rash and other nonspecific skin eruption Take 8 (eight) tablets by mouth every 7 days 32 tablet 3 03/22/19 25 2024 Discontinued(R eorder) omeprazole (PriLOSEC) 40 MG capsuleIndicat ions:Epigastri c pain Take 1 (one) capsule by mouth 2 times daily, before breakfast and supper 62 capsule 05/13/19 25 2024 Discontinued ivermectin (Stromectol) 3 MG tabletIndicati ons:Rash and other nonspecific skin eruption Take 8 (eight) tablets by mouth every 7 days (once a week) 32 tablet 3 06/24/19 25 2024 Discontinued valACYclovir (Valtrex) 1 GM tabletIndicati ons:History of herpes simplex infection Take 1 (one) tablet by mouth once daily 30 tablet 11 06/24/19 25 2024 Discontinued Active Problems Patient Care Coordination No te Formatting of this note migh t be different from the original. Patient needs 2nd sequential screen!!! 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 05/20/2016 Overview (05/20/2016): 05/20/2016 History of stillbirth in pre gnant patient in third trimester, antepartum 04/24/2016 Sequential Screen 12/04/2015 Overview (01/29/2016): 1st look on 11/30/2015 Result: 1:6,200 for DS and 1:10,000 for Trisomy 18 2nd blood draw ideal dates: 12/31/2015-01/14/2016 Letter sent 12/04/2015 Final result: 1:10,000 DS, 1:10,000 T18, 1:6,000 ONTD Letter sent 01/29/2016 Supervision of high-risk of young prim igravida 11/29/2015 Overview (01/03/2016): PNL: Ab: GCT: HIV: GBS: Dating: H/H/Plt: Hgb Elec: normal UDS: QS: CF: Pap: Gc/Chl: UCx: Breast/Bottle: Family Planning: PTSD (post-traumatic stress disorder) 11/29/2015 Anxiety 11/29/2015 ADHD (attention deficit hyperactivity disorder) 11/29/2015 DAKOTAH (generalized anxiety disorder) 11/29/2015 Panic attack 11/29/2015 Depression screen 11/29/2015 Overview (11/29/2015): EPDS score: Encounters Date Type Department Care Team Description 07/01/2024 Telephone [facility] - General Dermatology [address], [address] [place] [phone] Fareed Mir MD 06/23/2024 1:10 PM CDT Office Visit [facility] - General Dermatology [address], [address] [place] [phone] Fareed Mir MD Rash and other nonspecific skin eruption (Primary Dx); History of herpes simplex infection; Herpesviral vesicular dermatitis 06/23/2024 Travel 06/14/2024 Refill [facility] - GI [address] [place] [phone] Samm Dunn MD Med Change Request 05/24/2024 8:00 AM CDT Office Visit [facility] - Ophthalmology [address] [place] [phone] Eye irritation (Primary Dx) 05/24/2024 Travel 05/20/2024 Telephone [facility] - Ophthalmology [address] [place] [phone] Froilan White MD Eye Problem 05/17/2024 10:53 AM CDT Anesthesia Event [facility] [place] [address] Francisco J Rice MD 05/17/2024 9:55 AM CDT - 05/17/2024 10:45 AM CDT Surgery [facility] [place] [address] Samm Dunn MD EGD concepcion/ gustavo 05/17/2024 9:48 AM CDT - 05/17/2024 11:59 AM CDT Hospital Encounter [facility] [place] [address] Samm Dunn MD Surgery General Discharge Disposition: Home or Self Care 05/17/2024 Travel 05/13/2024 Patient Outreach [facility] [address] [place] [address] Jeana Richardson RN 05/12/2024 1:00 PM CDT Office Visit [facility] - GI [address] [place] [phone] Samm Dunn MD Epigastric pain (Primary Dx); Dysphagia, unspecified type; RUQ pain; Esophageal thickening 05/12/2024 Travel 05/11/2024 Telephone [facility] - Ophthalmology [address] [place] [phone] Froilan White MD Eye Problem 05/07/2024 Orders Only [facility] - Dermatology [address] [place] [phone] Jamari Callejas MD Rash and other nonspecific skin eruption 05/05/2024 Telephone [facility] - General Dermatology [facility] [address] [place] [phone] Fareed Mir MD Allergic reaction; Med Question 04/21/2024 Travel 04/16/2024 Refill [facility] - Dermatology [address] [place] [phone] Fareed Mri MD MEDICATION REFILL 04/09/2024 Telephone [facility] - Dermatology [address] [place] [phone] Fareed Mir MD Refill Request 04/07/2024 [facility] - General Dermatology [facility] [address] [place] [phone] Fareed Mir MD Med Question 04/06/2024 Orders Only [facility] - Dermatology [address] [place] [phone] Jamari Callejas MD Ocular rosacea from Last 3 Months Immunizations Immunization Administration Dates Next Due HEP A VACCINE, ADULT 12/26/2008 TDAP (7yrs+) 05/01/2016 Family History Medical History Relation Name Comments Hypertension Father Diabetes Mother Relation Name Status Comments Father Mother Social History Tobacco Use Types Packs/Day Years Used Date Smoking Tobacco: Every Day Cigarettes 0.5 19.4 Started: 02/21/2005 Smokeless Tobacco: Never Tobacco Cessation:Ready to Q uit: Not Asked; Counseling Given: Not Answered Alcohol Use Standard Drinks/Week Comments No 0 (1 standard drink = 0.6 oz pur e alcohol) Comments No Sex and Gender Information Value Date Recorded Sex Assigned at Not on file Legal Sex Female 8:18 AM CDT Gender Identity Not on file Sexual Orientation Not on file Last Filed Vital Signs Vital Sign Reading Time Taken Comments Blood Pressure 123/83 05/17/2024 11:45 AM CDT Pulse 96 05/17/2024 11:45 AM CDT Temperature 36.4 C (97.6 F) 05/17/2024 11:16 AM CDT Respiratory Rate 28 05/17/2024 11:4 5 AM CDT Oxygen Saturation 96% 05/17/2024 11: 45 AM CDT Inhaled Oxygen Concentration - - Weight 108.1 kg (238 lb 6.4 oz) 025 10:23 AM CDT Height 170.2 cm (5' 7) 05/17/2024 10:2 3 AM CDT Body Mass Index 37.34 05/17/2024 10:23 AM CDT Plan of Treatment Upcoming Encounters Date Type Department Care Team (Late st Contact Info) Description 08/18/2024 1:00 PM CDT Office Visit [facility] - GI [address] [facility] [place] [phone] Samm Dunn MD [address] [facility] [address] [place] [address] 10/20/2024 1:20 PM CDT Office Visit [facility] - General Dermatology [address], [facility] [address] [place] [address] Fareed Mir MD [address] [place] [address] [address] [place] [address] Health Maintenance Due Date Last Done Comments HEPATITIS B VACCINE (1 of 3 - 19+ 3-dose series) 2004 PNEUMOCOCCAL VACCINE (1 of 2 - PCV) 2004 COVID-19 VACCINE (1 - 2023-2 5 season) 2023 DEPRESSION SCREENING 02/18/2024 INFLUENZA VACCINE (Season Ended) 2024 06/16/2018 PAP SMEAR 03/27/2025 03/27/2022 DTAP/TDAP/TD VACCINES (2 - T d or Tdap) 05/01/2026 05/01/2016 ZOSTER VACCINE (1 of 2) 12/29/2035 HIV SCREENING Completed 03/27/2016, 2015 HEPATITIS C SCREENING Completed 06/16/2018 HIB VACCINE Aged Out No longer eligi ble based on patient's age to complete this topic HPV VACCINE Aged Out No longer eligi ble based on patient's age to complete this topic MENINGOCOCCAL (Group B) VACCINE SHARED DECISION-MAKING Aged Out No longer eligible based on patient's age to complete this topic MENINGOCOCCAL GROUPS A/C/Y/W VACCINE Aged Out No longer eligible b ased on patient's age to complete this topic Goals Goal Patient Goal Type Associated Problems Recent Progress Patient-Stated? Author Medication Management General No Rozina Joseph RN Procedures Procedure Name Priority Date/Time Associated Diagnosis Comments PATHOLOGY TISSUE Routine 05/17/2024 11:0 2 AM CDT Epigastric pain EGD Routine 05/17/2024 10:48 AM CDT CA ED EGD FLEX TRANSORAL DX 05/17/2024 10:48 AM CDT Epigastric pain Special Needs EGD Received: Yesterday Rozina Joseph RN Nelson, Alfred Dennyson, MD; Jeana Richardson RN Hi There, Can you please schedule an Egd with Dr. Dunn. Thanks Received Date Received Time May 12, 2024 2:13 PM HCG URINE QUALITATIVE - POCT (IP) INTERFACED Routine 05/17/2024 10:09 AM CDT HCG URINE QUAL POCT NOTIFICATION STAT 05/17/2024 10:03 AM CDT Pre-op exam HIV-1 HIV-2 ANTIBODY + HIV P24 AG PANEL Routine 03/27/2016 3:29 PM KAYAKING INSTRUCTOR Supervision of high-risk of young primigravida from Last 3 Months or Most Recently Relevant to Health Maintenance Results * PATHOLOGY TISSUE (05/17/2024 11:02 AM CDT) Case Report Surgical Pathology Report Case: [id number] Authorizing Provider: Samm Dunn, Collected: 05/17/2024 11:02 AM Ordering Location: [facility] Received: 05/17/2024 12:58 PM Pathologist: Jessica Real MD Specimen: Gastric Biopsy, gastric bx - gastritis, r/o h. pylori 05/18/2024 3:[address] [facility] Final Diagnosis Stomach, biopsy (A): - Erosive gastropathy - Negative for H. pylori 05/18/2024 3:[address] [facility] Microscopic Description and Comment The gastric biopsy has several fragments of mucosa with varying degrees of reactive changes, and one fragment with superficial erosion and fibrin deposition. There is no background of chronic active gastritis and no H. pylori organisms, including by H. pylori immunostain (block A1, with appropriately staining controls). 05/18/2024 3:[address] [facility] Clinical History The patient is a 38-year-old woman with epigastric abdominal pain and dysphagia. Operative procedure/findings: EGD - gastritis, biopsied to rule out H. pylori 05/18/2024 3:[address] [facility] Gross Description The requisition and specimen(s) are identified with the patient's name Dudley Rachel. Received in formalin, specimen A, consists of multiple guidry-white tissue fragments, 0.1-0.4 cm, 1.0 x 0.5 x 0.2 cm in aggregate, submitted in toto in cassette A1. LT 05/18/2024 3:[address] [facility] Pathologist Location at [facility] 05/18/2024 3:[address] [facility] Disclaimer The performance characteristics of all immunohistochemical and indirect immunofluorescence stains (if any) cited in this report were determined by the Histopathology Laboratory of [facility]. Some of these tests were developed by our own laboratory and have not been cleared or approved by the US Food and Drug Administration. The FDA does not require this test to go through premarket FDA review. These tests are used for clinical purposes. They should not be regarded as investigational or for research. This laboratory is certified under the Clinical Laboratory Improvement Amendments (CLIA) as qualified to perform high complexity clinical laboratory testing. This case has been personally reviewed and interpreted by the attending (teaching) pathologist. 05/18/2024 3:[address] [facility] Embedded Images 05/18/2024 3:[address] [facility] Biopsy, NOS GASTRIC BIOPSY SPECIMEN / Unknown 05/17/2024 11:02 AM CDT 05/17/2024 12:58 PM CDT Comment:Pre-op diagnosis: Epigastric pain [R10.13] Samm Dunn MD LAB - PATHOLOGY/CYTOLO GY ORDERABLES Final Result [facility] [address] [phone] * EGD (05/17/2024 10:48 AM CDT) Report Endoscopy POC Endoscopy Department Report _ Patient Name: Dudley Rachel Procedure Date: 05/17/2024 10:48 AM Date of : 1985 Classification: Outpatient Gender: Female Ethnicity: Not or Race: White _ Providers: Samm Perez MD: Procedure: Upper GI endoscopy Indications: Epigastric abdominal pain, Dysphagia Medications: Propofol per Anesthesia Description of Procedure: After obtaining informed consent, the endoscope was passed under direct vision. Throughout the procedure, the patient's blood pressure, pulse, and oxygen saturations were monitored continuously. The Endoscope was introduced through the mouth, and advanced to the second part of duodenum. The upper GI endoscopy was accomplished without difficulty. The patient tolerated the procedure well. Findings: The Z-line was regular and was found 36 cm from the incisors. A 3 cm hiatal hernia was present. There is no endoscopic evidence of esophagitis, inflammation, stenosis, stricture, ulcerations or varices in the entire esophagus. Patchy moderate inflammation characterized by congestion (edema), erythema, friability, granularity, mucus and shallow ulcerations was found in the gastric body, in the gastric antrum and at the pylorus. Biopsies were taken with a cold forceps for Helicobacter pylori testing. The examined duodenum was normal. Estimated Blood Loss: Estimated blood loss: none. Complications: No immediate complications. Impression: - Z-line regular, 36 cm from the incisors. - 3 cm hiatal hernia. - Gastritis. Biopsied. - Normal examined duodenum. Recommendation: - Await pathology results. - Use Prilosec (omeprazole) 40 mg PO BID for 8 weeks. - Repeat upper endoscopy in 12 weeks to check healing of superficial ulcer and persistent pain Attending Participation: I personally performed the entire procedure. Procedure Code(s): --- Professional --- 19818, Esophagogastroduo denoscopy, flexible, transoral; with biopsy, single or multiple Diagnosis Code(s): --- Professional --- K44.9, Diaphragmatic hernia without obstruction or gangrene K29.70, Gastritis, unspecified, without bleeding R10.13, Epigastric pain R13.10, Dysphagia, unspecified CPT copyright 2021 [employer]. All rights reserved. The codes documented in this report are preliminary and upon steerer review may be revised to meet current compliance requirements. Samm Dunn, 05/17/2024 11:15:26 AM Note Initiated On: 05/17/2024 10:48 AM Number of Addenda: [address] [address] [facility] 05/17/2024 10:4 8 AM CDT us Samm Dunn MD GI PROCEDURE ORDERABLE S Edited Result - Final Performing Organization Address [facility]/ZIP Co de Phone Number [facility] * HCG URINE QUALITATIVE - POCT (IP) INTERFACED (05/17/2024 10:09 AM CDT) HCG Qual Urine Negative Negative 05/17/2024 10:16 AM CDT [facility] Urine URINE / Unknown 05/17/2024 1 0:09 AM CDT 05/17/2024 10:16 AM CDT us Samm Dunn MD LAB - POINT OF CARE OR DERABLES Final Result Performing Organization Address [facility] Co de Phone Number [address] [address], [place] [phone] * HCG URINE QUAL POCT NOTIFICATION (05/17/2024 10:03 AM CDT) Comment Notification Label Only - See Separate Report 05/17/2024 11:31 AM CDT [facility] Urine URINE / Unknown 05/17/2024 1 0:03 AM CDT 05/17/2024 10:03 AM CDT us Samm Dunn MD LAB - URINALYSIS ORDER MINESH Final Result Performing Organization Address [facility] Co de Phone Number [address] [address], [place] [phone] * HIV-1 HIV-2 ANTIBODY + HIV P24 AG PANEL (03/27/2016 3:29 PM KAYAKING INSTRUCTOR) HIV1/2 Ab + P24 Ag Non Reactive Non Reactive 03/27/2016 7:13 PM KAYAKING INSTRUCTOR [facility] Blood BLOOD SPECIMEN / Unknown Venipuncture / Unknown 03/27/2016 3:29 PM KAYAKING INSTRUCTOR 03/27/2016 4:08 PM KAYAKING INSTRUCTOR Narrative [facility] - 03/27/2016 7:13 PM KAYAKING INSTRUCTOR No Laboratory evidence of HIV infection. us Aubrie Strong MD LAB - CHEMISTRY ORDERABLES Fi nal Result Performing Organization Address City/State/[facility] Co de Phone Number [facility] [address] [place] [address] from Last 3 Months or Most Recently Relevant to Health Maintenance Insurance Advance Directives * Full Code (Latest Code Status on File) Date Activated Date Inactivated Comments 05/18/2016 8:25 AM 05/20/2016 4:51 PM * Full Code Date Activated Date Inactivated Comments 05/13/2016 6:15 PM 05/13/2016 9:30 PM * Full Code Date Activated Date Inactivated Comments 02/22/2016 9:17 PM 02/22/2016 11:37 PM Care Teams Waiter/Waitress Club Relationship Specialty Start Date End Date Michele Mckenna MD [address], [facility] [place] [address] PCP - General Internal Medicine 03/22/24
--- OUTSIDE RECORDS SUMMARY | 2024-07-01 13:42 | XMS_ITS | Encounter Summary ---
Author Organization [facility] Health Address [address] [facility] [place] [address] Care Team Providers Care [employer] Paralegal Name Role Phone Michele Mckenna MD Primary Care Provider [phone] Encounter Details Date Type Department Care Team (Late st Contact Info) Description 07/01/2024 Telephone [facility] - General Dermatology [address], [address] [place] [address] Fareed Gonzalez MD [address] [facility] [address] [place] [address] Social History Tobacco Use Types Packs/Day Years Used Date Smoking Tobacco: Every Day Cigarettes 0.5 19.4 Started: 02/21/2005 Smokeless Tobacco: Never Alcohol Use Standard Drinks/Week Comments No 0 (1 standard drink = 0.6 oz pur e alcohol) Comments No Sex and Gender Information Value Date Recorded Sex Assigned at Not on file Legal Sex Female 8:18 AM CDT Gender Identity Not on file Sexual Orientation Not on file documented as of this encounter Functional Status * Is person deaf or have serious hearing difficulty? Answer Date of Assessment Author No 05/17/2024 11:16 AM CDT Luciana Stap[place] RN * Is person blind or have serious difficulty seeing? Answer Date of Assessment Author No 05/17/2024 11:16 AM CDT Luciana Stap[place] RN * Does person have serious difficulty walking/climbing stairs? Answer Date of Assessment Author No 05/17/2024 11:16 AM CDT Luciana Stap[place] RN * Does person have difficulty dressing/bathing? Answer Date of Assessment Author No 05/17/2024 11:16 AM CDT Luciana Stap[place] RN * Does person have difficulty doing errands alone? Answer Date of Assessment Author No 05/17/2024 11:16 AM CDT Luciana Stap[place] RN documented as of this encounter Mental Status * Does person have difficulty concentrating/remembering/making decisions? Answer Entry Date Author No 05/17/2024 11:16 AM CDT Luciana Stap[place] RN documented in this encounter Miscellaneous Notes * Telephone Encounter - Fran Murillo - 07/01/2024 1:15 PM CDT Pt calling to speak with dr gonzalez regarding ivermectin (Stromectol) 3 MG tablet. Pt just found out she's and she wants to make sure this medication is safe to take documented in this encounter Plan of Treatment Upcoming Encounters Date Type Department Care Team (Late st Contact Info) Description 08/18/2024 1:00 PM CDT Office Visit [facility] - GI [address] [facility], [place] [phone] Samm Dunn MD [address] [facility] [address] [place] [phone] 10/20/2024 1:20 PM CDT Office Visit [facility] - General Dermatology [address], [address] [place] [phone] Fareed Gonzalez MD [address] [place] [address] [address] [place] [address] documented as of this encounter Goals Goal Patient Goal Type Associated Problems Recent Progress Patient-Stated? Author Medication Management General No Rozina Joseph, RN documented as of this encounter Visit Diagnoses Not on filedocumented in this encounter Care Teams [employer] Paralegal Relationship Specialty Start Date End Date Michele Mckenna MD [address], [place] [address] [place] [address] PCP - General Internal Medicine 03/22/24 documented as of this encounter
--- OUTSIDE RECORDS SUMMARY | 2024-07-01 13:42 | XMS_ITS | Encounter Summary ---
Author Organization [facility] Healthcare Address [address] [place] [address] Care Team Providers Care Electrocardiograph Repairer Name Role Phone Michele Mckenna MD Primary Care Provider [phone] Encounter Details Date Type Department Care Team (Late st Contact Info) Description 06/02/2024 Results Follow-Up [facility] Primary Care at [facility] [address] [id number] Michele Mckenna MD [address] [facility] [address] [address] Social History Tobacco Use Types Packs/Day Years Used Date Smoking Tobacco: Every Day Cigarettes 0.2 15 Smokeless Tobacco: Never AUDIT-C Answer Date Recorded Q1: How often [...] on file Legal Sex Female 11:53 AM MOTH PROOFER Gender Identity Female 11/30/2020 2:26 PM CDT Sexual Orientation Straight 11/30/2020 2: 26 PM CDT documented as of this encounter Functional Status * Audit-C Score Answer Date of Assessment Author 1 06/04/2024 8:51 AM LINKT Gus Matthews RN * Question Answer Date of Assessment Author Q1: How often do you have a drink containing alcohol? Monthly or less 06/04/2024 8:51 AM LINKT Sarah Matthews RN Q2: How many drinks containing alcohol do you have on a typical day when you are drinking? 1 or 2 06/04/2024 8:51 AM LINKT Sarah Matthews R N Q3: How often do you have six or more drinks on one occasion? Never 06/04/2024 8:51 AM Sarah Ceballos R N documented as of this encounter Plan of Treatment Not on file documented as of this encounter Visit Diagnoses Not on filedocumented in this encounter Care Teams Electrocardiograph Repairer Relationship Specialty Start Date End Date Michele Mckenna MD PCP - General Internal Medicine 09/01/20 documented as of this encounter
--- OUTSIDE RECORDS SUMMARY | 2024-07-01 13:42 | XMS_ITS | Clinical Summary ---
Author Organization [facility] Address [address] [place] [id number] Care Team Providers Care Crystallography Teacher Name Role Phone Poornima Alvarez Primary Care Provider [phone] Allergies No known active allergies Medications fluoxetine 40 MG capsule Take 40 mg by mouth daily. 05/04/2018 Active VYVANSE 70 MG capsule Take 70 mg by mouth every morning. 05/04/2018 Active Active Problems Problem Noted Date Diagnosed Date Attention deficit hyperactiv ity disorder (ADHD), predominantly inattentive type 06/12/2018 Recurrent major depressive disorder 06/12/2018 Anxiety 06/12/2018 Immunizations Immunization Administration Dates Next Due Hepatitis A (Generic) 12/26/2008 Influenza Adult (Generic) 06/16/2018 Tdap (Generic) 05/01/2016 Family History Medical History Relation Comments Anxiety Father Arthritis Father Depression Father Mental Health Father lung problems Maternal Grandmother Depression Mother Diabetes Mother Mental Health Mother Vision loss Mother brain bleed Mother Cancer Paternal Grandfather Mental Health Sister Relation Status Comments Father Maternal Grandmother Mother Paternal Grandfather Sister Social History Tobacco Use Types Packs/Day Years Used Date Smoking Tobacco: Every Day Cigarettes 0.3 10 Smokeless Tobacco: Never Alcohol Use Standard Drinks/Week Comments Yes 1.7 (1 standard drink = 0.6 oz p ure alcohol) once a month AUDIT-C Answer Date Recorded Frequency of Alcohol Consumption Monthly or less 05/05/2018 Average Number of Drinks 1 or 2 019 Frequency of Binge Drinking Never 04/17 PHQ-2 Answer Date Recorded PHQ-2 Score - If the patient scores above 3, please move on to questions 3-9 4 07/05/2019 Comments No Sex and Gender Information Value Date Recorded Sex Assigned at Not on file Legal Sex Female 5:20 PM CDT Gender Identity Not on file Sexual Orientation Not on file Last Filed Vital Signs Vital Sign Reading Time Taken Comments Blood Pressure 136/88 07/05/2019 1:12 PM CDT Pulse 84 07/05/2019 1:12 PM CDT Temperature 36.5 C (97.7 F) 07/05/2019 1:12 PM CDT Respiratory Rate 18 07/05/2019 1:12 PM CDT Oxygen Saturation 94% 07/05/2019 1:12 PM CDT Inhaled Oxygen Concentration - - Weight 95.7 kg (211 lb) 07/05/2019 1:12 PM CDT Height 170.2 cm (5' 7) 07/05/2019 1:12 PM CDT Body Mass Index 33.05 07/05/2019 1:12 PM CDT Plan of Treatment Health Maintenance Due Date Last Done Comments Cervical Cancer Screening Pa p Smear (Age 30 to 64) Every 3 Years 1985 Annual Physical 1988 Hepatitis B Vaccines (1 of 3 - 19+ 3-dose series) 2004 Pneumococcal Vaccine: Pediat rics (0 to 5 Years) and At-Risk Patients (6 to 49 Years) (1 of 2 - PCV) 2004 Cervical Cancer Screening Pa p with HPV Testing (Age 30 to 64) Every 5 Years 12/29/2015 Cervical Cancer Screening with HPV 12/29/2015 COVID-19 Vaccine (2023-2 5 season) 2023 DTaP, Tdap and Td Vaccines ( 2 - Td or Tdap) 05/01/2026 05/01/2016 Hepatitis C Completed 06/16/2018 HPV Vaccines Aged Out No longer eligi ble based on patient's age to complete this topic Meningococcal B Vaccine Aged Out No l onger eligible based on patient's age to complete this topic Meningococcal Vaccine Aged Out No ольга johan eligible based on patient's age to complete this topic RSV Immunizations Under 20 Months Aged Out No longer eligible based on patient's age to complete this topic Procedures Procedure Name Priority Date/Time Associated Diagnosis Comments HEPATITIS C ANTIBODY Routine 06/16/2018 1:51 PM CDT Unprotected sex from Last 3 Months or Most Recently Relevant to Health Maintenance Results * HEPATITIS C ANTIBODY (06/16/2018 1:51 PM CDT) HEPATITIS C AB NON-REACTI VE NON-REACTI VE 06/16/2018 4:12 PM CDT [facility] 06/16/2018 1:51 PM CDT Po[facility] Final Resul t [facility] [address] [place] [address], from Last 3 Months or Most Recently Relevant to Health Maintenance Insurance Care Teams Crystallography Teacher Relationship Specialty Start Date End Date Poornima Alvarez APNP [address] [place] [id number] PCP - General NURSE PRACTITIONER 05/05/18
--- OUTSIDE RECORDS SUMMARY | 2024-07-01 13:42 | XMS_ITS | Data Portability ---
Author Organization [facility] Address [address] [place] [address] [place] [address] Assessment No assessment recorded. Plan of Treatment Reminders Order Date Submit Date Provider Last Modified By Organization Details Last Modified Time Details Appointments U/S OB DATIN G/VIA BILIT Y 2024 01:00P M ULTRASOUND Not available Not available Not available OB SCREE N 2024 11:30A Fer BORJAS MD Not available Not available Not available Lab pregn michael test, urine [address] [facility], [facility] [address], [place], [address], 03/27/2022 12:29:44 urina lysis , dipst ick 2022 023 [place] [address], [address], [place], [address], 03/27/2022 12:31:05 Referral None recor ded. Procedures None recor ded. Surgeries None recor ded. Imaging CT, abdom en + pelvi s, w/ contr ast [address] [facility], [address], [address], [place], [address], 06/20/2022 16:16:57 US, pelvi s 2022 023 [email or web address] [place], [address], [place], [address], 04/01/2022 20:55:47 US, trans vagin al 2022 [address]23 [address], [address], [place], [address], 04/01/2022 20:55:47 US, pelvi s, compl ete 2022 023 [facility], [address], [place], [address], 04/08/2022 10:51:05 US, pelvi s 2021 [address], [address], [place], [address], 01/24/2022 22:05:45 US, trans vagin al 2021 [address], [address], [place], [address], 01/24/2022 22:05:45 Medication Orders None recor ded. Patient TargetsNo targets recorded. Patient InstructionsNo instructions recorded. Reason for Referral None Reported. Results Created Date Observation Date Name Description Value Unit Range Abnormal Flag Note LastModifiedBy Organization Detail LastModifiedTime 03/27/19 23 03/27/2022 IMAGE GUIDE D PAP AND HPV REGAR DLESS image guided Pap, HPV regardless of Pap result SEE RESULT S BELOW CASE REPOR T: Cytol ogy Gynec ologi louis Repor t Case: [id number] Autho rojas g Provi jose: Denice Bang NP Colle cted: 03/27 1258 Order ing Locat ion: [place] Patho log[facility] Recei hair: 03/28 0822 First Scree n: Noora ni, Moham ed, CT Speci men: Scree roman Pap - Image d, Cervi x STATE MENT OF ADEQU ACY: Satis facto ry for evalu ation Trans forma tion zone compo nent prese nt FINAL DIAGN OSIS: Negat rm for Intra epith elial Lesio leah or Myranda walker (NIL) . Elect alonzo dorsey d by Tawanda Huerta ed, CT on 2022 at 1:43 PM ----- ----- ----- ----- ----- ----- ----- ----- ----- ----- ----- ----- ----- ----- ----- ----- ----- ---- HPV RESUL TS: HPV mRNA E6/E7 : No HPV mRNA Detec carolyne NOTE: This high risk HPV mRNA assay detec ts fourt een high- risk HPV types (16, 18, 31, 33, 35, 39, 45, 51, 52, 56, 58, 59, 66, 68) witho ut diffe renti ation . COMME NT: Note: This speci men was revie wed by a Cytot echno logis t and/o r Patho logis t (as indic ated in this repor t) after evalu ation using the Thinp rep Imagi ng Syste m. [facility]: Menst rual Statu s: LMP (if appli cable ): Clini louis Histo ry/Pr eviou s Pap: Type of Neopl dimple (if appli cable ): Signi fican t Clini louis Findi ngs: Other Histo ry: Hormo marko (if appli cable ): PAP EDUCA MINGO L NOTE: The Pap Test is a scree roman test with an inher ent false negat rm rate. Liqui d-bas ed sampl ing may decre ase, but will not elimi aries, false negat rm resul ts. A negat rm resul t does not precl ude the prese nce and/o r devel opmen t of disea se, since the prese nce of abnor mal cells in the sampl e depen ds on the locat ion of the lesio n and sampl ing techn ique. Joss nued regul ar scree roman is the best metho d of cance r preve ntion . If repor carolyne cytol ogic findi ng do not corre late with physi louis and/o r histo rical findi ngs, raymon joseph virgie ion is recom ange d, as clini matthew su nted. Not Available [facility] (Lab) [address], [place], [address], 03/30/2022 14:46:08 03/27/19 23 03/27/2022 CT/GC (JESÚS) , THINP REP VIAL chlamydia trachomatis, PCR Negati ve negati ve Not Available [facility] (Lab) [address], [place], [address], 03/30/2022 14:46:09 03/27/19 23 03/27/2022 CT/GC (JESÚS) , THINP REP VIAL neisseria gonorrhoeae, PCR Negati ve negati ve Not Available [facility] (Lab) [address], [place], [address], 03/30/2022 14:46:09 03/27/19 23 03/27/2022 TRICH OMONA S VAGIN ISIDRO (RRNA ) trichomonas vaginalis ribosomal RNA (rrna) Negati ve negati ve Not Available [facility] (Lab) [address], [place], [address], 03/30/2022 14:46:09 03/27/19 23 03/27/2022 CULTU RE: URINE result report SEE RESULT S BELOW Test: Cultu re: Urine Speci men Sourc e: Urine Voide d Speci men Type: Urine Speci men Date: 023 12:58 PM Resul t Date: 2022 5:42 AM Resul t Statu s: Final resul t Abnor mal: No Resul ting Lab: [facility] [address] [address] Tel: CULTU RE ----- ----- ----- --- No growt h in 1 day (dete ction level of 10,00 0 colon ies / ml.) Not Available [facility] (Lab) [address], [place], [address], 03/30/2022 14:46:09 03/27/19 23 03/27/2022 urina lysis , dipst ick Leukocytes neg Not Available [facility] [address], [place], [address], 03/27/2022 12:30:30 03/27/19 23 03/27/2022 urina lysis , dipst ick Nitrite neg Not Available [place] [address], [place], [address], 03/27/2022 12:30:30 03/27/19 23 03/27/2022 urina lysis , dipst ick Urobilinogen neg Not Available [facility] [address], [place], [address], 03/27/2022 12:30:30 03/27/19 23 03/27/2022 urina lysis , dipst ick Protein neg Not Available [place] [address], [place], [address], 03/27/2022 12:30:30 03/27/19 23 03/27/2022 urina lysis , dipst ick pH 6 Not Available [place] [address], [place], [address], 03/27/2022 12:30:30 03/27/19 23 03/27/2022 urina lysis , dipst ick Blood + Not Available [place] [address], [place], [address], 03/27/2022 12:30:30 03/27/19 23 03/27/2022 urina lysis , dipst ick Specific [place] 1.060 Not Available [facility] [address], [place], [address], 03/27/2022 12:30:30 03/27/19 23 03/27/2022 urina lysis , dipst ick Ketone neg Not Available [place] [address], [place], [address], 03/27/2022 12:30:30 03/27/19 23 03/27/2022 urina lysis , dipst ick Bilirubin neg Not Available [facility] [address], [place], [address], 03/27/2022 12:30:30 03/27/1903/27/2022 urina lysis , dipst ick Glucose neg Not Available [place] [address], [place], [address], 03/27/2022 12:30:30 03/27/19 23 03/27/2022 urina lysis , dipst ick Appearance clear Not Available [facility] [address], [place], [address], 03/27/2022 12:30:30 03/27/1903/27/2022 urina lysis , dipst ick Color yellow Not Available [place] [address], [place], [address], 03/27/2022 12:30:30 03/27/19 23 03/27/2022 pregn michael test, urine HCG negati ve Not Available [place] [address], [place], [address], 03/27/2022 12:29:37 01/25/20 22 01/24/2022 US, serge quintero No observ ation record ed. [email or web address] [place] [address], [place], [address], 01/24/2022 13:57:34 01/25/20 22 01/24/2022 US, trans vagin al No observ ation record ed. [email or web address] [place] [address], [place], [address], 01/24/2022 13:57:20 01/25/20 22 01/24/2022 US, pelvi s No observ ation record ed. [email or web address] [place] [address], [place], [address], 01/24/2022 23:25:08 04/01/19 23 04/01/2022 imagi ng/di agnos tic resul t No observ ation record ed. NICOLE [address], [place], [address], 04/04/2022 13:17:48 04/01/19 23 04/01/2022 US, pelvi s No observ ation record ed. [email or web address] [place] [address], [place], [address], 04/01/2022 17:53:41 04/01/19 23 04/01/2022 US, trans vagin al No observ ation record ed. [email or web address] [place] [address], [place], [address], 04/01/2022 17:53:31 05/04/19 23 05/03/2022 CT, orbit s + paran brad sinus es, w/o contr ast No observ ation record ed. [address], [place], [address], 05/04/2022 18:50:28 Result Notes None recorded. Procedures Surgical History Date Name Laterality Status Provider Name and Address Organization Details Recorded Time 3 Dilation and Curettage completed Jerri Fox [facility] 12/17/2021 18:35:44 Imaging Results Imaging Date Name Status LastModified by Organization Details LastModified Time 01/24/2022 US, pelvis completed [email or web address] [place] [address], [place], [address], 01/24/2022 13:57:34 01/24/2022 US, transvaginal completed [email or web address] [place] [address], [place], [address], 01/24/2022 13:57:20 01/24/2022 US, pelvis completed [email or web address] [place] [address], [place], [address], 01/24/2022 23:25:08 04/01/2022 imaging/diagnost ic result completed NICOLE [place] [address], [place], [address], 04/04/2022 13:17:48 04/01/2022 US, pelvis completed [email or web address] [place] [address], [place], [address], 04/01/2022 17:53:41 04/01/2022 US, transvaginal completed [email or web address] [facility] [address], [place], [address], 04/01/2022 17:53:31 05/03/2022 CT, orbits + paranasal sinuses, w/o contrast completed [email or web address] [facility] [address], [place], [address], 05/04/2022 18:50:28 Procedure Notes None recorded. Medical Equipment None Reported. Allergies No known drug allergies Medications Name Sig Start Date Stop Date Status Note LastModified by Organization Details LastModified Time amoxicillin 500 mg capsule 03/27 completed Not Available Not Available Not Available doxycycline hyclate 100 mg capsule 03/27 completed Not Available Not Available Not Available paroxetine 10 mg tablet active Not Available Not Available Not Available triazolam 0.25 mg tablet TAKE 1 TABLET BY MOUTH 1 HOUR PRIOR TO DENTAL APPOINTME NT AND BRING BOTTLE TO APPOINTME NT 03/27 completed Not Available Not Available Not Available ibuprofen 800 mg tablet active Not Available Not Available Not Available hydrocodone 5 mg-acetamin ophen 325 mg tablet TAKE 1 TO 2 TABLETS BY MOUTH EVERY 6 HOURS NEEDED FOR PAIN 03/27 completed Not Available Not Available Not Available spironolact one 100 mg tablet active Not Available Not Available Not Available metronidazo le 500 mg tablet TAKE 1 TABLET BY MOUTH TWICE DAILY 03/27 completed Not Available Not Available Not Available amoxicillin 500 mg tablet TAKE 1 TABLET BY MOUTH EVERY 8 HOURS UNTIL ALL TAKEN FOR DENTAL INFECTION 03/27 completed Not Available Not Available Not Available bupropion HCl 100 mg tablet 03/27 completed Not Available Not Available Not Available alprazolam 0.5 mg tablet active Not Available Not Available Not Available omeprazole 20 mg capsule,del ayed release TAKE 1 CAPSULE BY MOUTH EVERY DAY active Not Available Not Available No t Available gabapentin 100 mg capsule 03/27 completed Not Available Not Available Not Available ibuprofen 600 mg tablet active Not Available Not Available Not Available Vitamin D2 1,250 mcg (50,000 unit) capsule 03/27 completed Not Available Not Available Not Available ondansetron 4 mg disintegrat ing tablet 03/27 completed Not Available Not Available Not Available cefdinir 300 mg capsule TAKE 1 CAPSULE BY MOUTH EVERY 12 HOURS active Not Available Not Available No t Available fluticasone propionate 50 mcg/actuati on nasal spray,suspe nsion SHAKE LIQUID AND USE 2 SPRAYS IN EACH NOSTRIL EVERY DAY active Not Available Not Available No t Available amoxicillin 875 mg-potassiu m clavulanate 125 mg tablet TAKE 1 TABLET BY MOUTH TWICE DAILY FOR 14 DAYS 03/27 completed Not Available Not Available Not Available bupropion HCl SR 200 mg tablet,12 hr sustained-r elease active Not Available Not Available Not Available chlorhexidi ne gluconate 0.12 % mouthwash RINSE AND GARGLE 15 ML BY MOUTH OR THROAT FOUR TIMES DAILY 03/27 completed Not Available Not Available Not Available amoxicillin 03/27 completed Not Available Not Available Not Available Vyvanse 70 mg capsule active Not Available Not Available N ot Available Vitals Date Recorded Body height Systolic blood pressure Diastolic blood pressure Provider Name and Address Organization Details Last Updated DateTime 03/27/2022 170.18 cm 124 mm[Hg] 81 mm[Hg] Mirela Trevino [facility] 03/27/2022 12:09:07 Date Recorded Body height Body height Provider Name and Address Organization Details Last Updated DateTime 04/08/2022 170.18 cm 170.18 cm Jerri Fox [facility] 04/08/2022 17:50:57 Social History Question Answer Notes LastModified by Organizat ion Details LastModified Time Tobacco Smoking Status Current Every Day Smoker Joceline Meyers sandip, [facility] 04/08/2022 14:27:53 Are You Blind Or Do You Have Difficulty Seeing? No Information not available 03/27/2022 Are You Deaf Or Do You Have Serious Difficulty Hearing? No Information not available 03/27/2022 Do You Have Difficulty Walking Or Climbing Stairs? No [email or web address] Information not available 04/08/2022 Sex: Unknown Functional Status Question Answer Note LastModified by Organizat ion Details LastModified Time Are you able to walk? YESWOREST Information not available 03/27/2022 Are you able to care for yourself? Yes [email or web address] Information not available 04/08/2022 Do you have difficulty dressing or bathing? No [email or web address] Information not available 04/08/2022 Mental Status None recorded. Family History Relationship Description Onset Age of this Age Resolved Age Notes LastModified by Organization Details LastModified Time Mother Genetic disease [email or web address] Not available 09/2022 12:09:11 Mother Mental disorder [email or web address] Not available 09/2022 12:09:11 Maternal Grandmother Genetic disease [email or web address] Not available 09/2022 12:09:11 Maternal Grandmother Cerebrovascu lar accident [email or web address] Not available 0 03/27/2022 12:09:11 Maternal Grandmother Mental disorder [email or web address] Not available 09/2022 12:09:11 Maternal Uncle Genetic disease [email or web address] Not available 02/0 09/2022 12:09:11 Maternal Uncle Mental disorder [email or web address] Not available 09/2022 12:09:11 Maternal Uncle Mental disorder [email or web address] Not available 09/2022 12:09:11 Brother Mental disorder [email or web address] Not available 09/2022 12:09:11 Maternal Aunt Mental disorder [email or web address] Not available 09/2022 12:09:11 Maternal Aunt Cerebrovascu lar accident [email or web address] Not available 0 03/27/2022 12:09:11 Father Anxiety disorder [email or web address] Not available 09/2022 12:09:11 Father Mental disorder [email or web address] Not available 09/2022 12:09:11 Paternal Aunt Mental disorder [email or web address] Not available 09/2022 12:09:11 Maternal Grandfather Blood coagulation disorder [email or web address] Not available 09/2022 12:09:11 Medical History Condition Response Anxiety Disorder Y Other Y Gynecological History Statement/Question Response Flow Light Date of LMP 03/22/2022 STIs/STDs Y HPV Vaccine N Duration of Flow (days) 5 Current Control Method None Frequency of Cycle (Q days) 6 Sexually Active? Y Age of first menstrual cycle 13 Date of Last Pap Smear Sexual Problems? N Desired Control Method Hysterectom y LMP Approximate Obstetrics History GPAL:G 3 P 1 0 1 0 Type Value Full Term 1 Spontaneous 1 Living 0 Total 3 Past Encounters Encounter ID Performer Location Encounter Start Date Encounter Closed Date Diagnosis/Indication Diagnosis SNOMED-CT Code Diagnosis ICD10 Code Diagnosis Note [id number] Trip Borjas MD [place] [address] [address] 12/17/2021 16:09:48 12/17/2021 17:24:56 Hirsutism 568860158 L68.0 Female pel lily inflammatory disease 982738297 N73.9 this patient is a 35-year-ol d female who was admitted the hospital for look pain right upper quadrant pain. After surgical interventi on she was found have some tubo-ovari an abscesses bilaterall y. She test positive for chlamydia in the hospital. None never imaging suggestive of abscess. We discussed appropriat e treatment for pelvic inflammato ry disease. She is taking doxycyclin e metronidaz ole. She is unsure of the dosing. I asked her to check her bottles on her medication make sure she has got enough for 14 days a treatment that she is taking both twice a day. We talked about her health in general. We talked about well-woman exam and follow-up for test to cure. We spent over 20 minutes face-to-fa ce. More than 50% was counseling . She will follow-up in 1 month for test to cure and well-woman exam [id number] Trip Borjas MD [place] [address] [address] 01/24/2022 12:38:06 01/24/2022 13:55:53 Pain in pelvis 74916842 R10.2 [id number] PARDEEP Ellison [place] [address] [address] 03/27/2022 12:00:40 03/27/2022 13:23:04 Irregular periods 84855256 N92.6 Pain in pelvis 30712673 R10.2 This patient is a 36 -year-old female with pelvic pain. We have agreed to complete the evaluation with pelvic ultrasound . The patient will return after the pelvic ultrasound to discuss those findings and to develop a treatment plan. A comprehens rm history and physical exam was performed today. We spent over 25 minutes face-to-fa ce. The patient was given precaution s. She will contact clinic if pelvic pain increases in frequency or intensity. Also notify clinic of any new symptoms associated with pelvic pain. She does not appear to have an acute pelvic infection today, but was asked to contact us Immediatel y with nausea, vomiting, fever, chills. NATALIE sent for hx of chlamydia/ PID ap updated todayUA today WNL, cx sentUPT (-)Updated pelvic u/s orderedRTC for pelvic u/s f/uED precaution s discussed Time spent in visit is a total of 30 mins with at least 50% of visit consisting of counseling and review of plan of care. Venereal d isease screening 301129813 Z11.3 History of chlamydial infection [id number] Z86.19 Screening for malignant neoplasm of cervix 374437961 Z12.4 [id number] Trip Borjas MD [place] [address] [address] 04/01/2022 16:32:36 04/01/2022 17:44:53 Pain in pelvis 87719547 R10.2 [id number] Trip Borjas MD [place] [address] [address] 04/08/2022 14:27:24 04/08/2022 21:15:44 Endometriosis of pelvis 45132381 N80.30 Pain in pelvis 93831918 R10.2 [id number] Trip Borjas MD [place] [address],[facility] [place] [address] 04/08/2022 17:47:34 04/09/2022 12:42:10 Abdominal pain 61707734 R10.9 36-year-ol d female reports abdominal pain. She recently had cholecyste ctomy. She has some abdominal pain that is severe. It Has been felt in appears quadrants of her abdomen over time. Patient is known to have pelvic pain and pelvic inflammato ry disease previously . Patient may have some intra-abdo zehra adhesions that are causing partial obstructio n. Abdominal pain needs to be value was CT of the abdomen pelvis. Spent 20 minutes on the phone with the patient. More than 50% was counseling . We agreed proceed with CT of the abdomen and pelvis Health Concerns Section Related Observation LastModified by Organization Detai ls LastModified Time None Recorded Concern Status LastModified by Organization Details LastModified Time None Recorded Advance Directives Directive None Recorded Payers Encounter Date Sequence Insurance Name Policy Number Policy Reinoso Covered Member ID Reinoso Member ID Guarantor Name 01/24/2022 1 [facility] - DOS ON OR AFTER 20 (MEDICAID REPLACEMENT - HMO) Jacquelyn Rachel [id number] Jacquelyn Rachel 03/27/2022 1 [facility] - DOS ON OR AFTER 20 (MEDICAID REPLACEMENT - HMO) Jacquelyn Rachel [id number] Jacquelyn Rachel 04/01/2022 1 [facility] - DOS ON OR AFTER 20 (MEDICAID REPLACEMENT - HMO) Jacquelyn Rachel [id number] Jacquelyn Dustin 04/08/2022 1 [facility] - DOS ON OR AFTER 20 (MEDICAID REPLACEMENT - HMO) Jacquelyn Sullivany [id number] Jacquelyn Sullivany 04/08/2022 1 [facility] - DOS ON OR AFTER 20 (MEDICAID REPLACEMENT - HMO) Jacquelyn Sullivany [id number] Jacquelyn Rachel Notes Date Note Type Note Provider Name and Address Organization Details Recorded Time 03/27/2022 text/html 36yo [id number] for evaluation of pelvic painHx of PID/chlamydia 11/2021. Completed treatment, no NATALIE yetCondoms for BC, states she desires hysterectomyShe has been having bilateral pelvic pain on and off x 2 months. A dull aching sensation that comes and goes. Happens randomly, mostly when driving or sitting upright.No vaginal discharge, itching, odors, n/v, fevers, flank pains, urinary sx's, flu-like symptoms, or bowel changesShe is unsure about her pap hx, know positive HPV at some point PARDEEP Ellison [address], [place], [address], [facility] 03/27/2022 13:17:28 04/08/2022 text/html 36-year-old cyrus garcia reports abdominal pain. She recently had cholecystectomy. She has some abdominal pain that is severe. It Has been felt in appears quadrants of her abdomen over time. Patient is known to have pelvic pain and pelvic inflammatory disease previously. Patient may have some intra-abdominal adhesions that are causing partial obstruction. Abdominal pain needs to be value was CT of the abdomen pelvis. Spent 20 minutes on the phone with the patient. More than 50% was counseling. We agreed proceed with CT of the abdomen and pelvis Trip Borjas MD [address], [place], [address], [facility] 04/08/2022 21:40:40 OBGyn Episode Ob Episode Information Episode Created Date Number of Fetuses Patient Bloodtype Patient rh Status Prepregnancy Weight lbs Domestic Partner Domestic Partner Phone Father Name Machine Washer Status 12/18/19 22 1 CLOSED Fetus Data First Name Last Name Admitted to NICU Weight (g) Sex Living Outcome Pediatric Complications Fetus ID Race Codes Race Delivery Type , Spontane ous [id number] Bal Calculation Initial Bal Date Initial Exam Date Initial Exam Provider Initial Ultrasound Date Last Menstrual Period Date Ultra Sound Weeks Gestation 0 Eighteen To Twenty Week Bal Update Ultra Sound Date Fundal Height At Umbil Quickening Date Ultra Sound Latest Weeks Gestation Final Bal Confirmed By Final Bal Confirmed Date Final Bal Date Ultra Sound Latest Days Gestation 0 0 Menstrual History Last Menstrual Date Menses Monthly On Bcp Conception Prior Menses Frequency Hcg Plus Date Menarche Onset Age Delivery Information Delivery Date Delivery Type Labor Anesthesia Weeks Gestation Incision Type Labor Labor Length Hrs Delivered By Post Complications Tubal Sterilization Discharge Date Comments 3 Discharge Information Feeding Method Contraceptive Method Maternal HG B and HCT Levels Ob Episode Information Episode Created Date Number of Fetuses Patient Bloodtype Patient rh Status Prepregnancy Weight lbs Domestic Partner Domestic Partner Phone Father Name Machine Washer Status 12/18/19 22 1 CLOSED Fetus Data First Name Last Name Admitted to NICU Weight (g) Sex Living Outcome Pediatric Complications Fetus ID Race Codes Race Delivery Type Demise [id number] Bal Calculation Initial Bal Date Initial Exam Date Initial Exam Provider Initial Ultrasound Date Last Menstrual Period Date Ultra Sound Weeks Gestation 0 Eighteen To Twenty Week Bal Update Ultra Sound Date Fundal Height At Umbil Quickening Date Ultra Sound Latest Weeks Gestation Final Bal Confirmed By Final Bla Confirmed Date Final Bal Date Ultra Sound Latest Days Gestation 0 0 Menstrual History Last Menstrual Date Menses Monthly On Bcp Conception Prior Menses Frequency Hcg Plus Date Menarche Onset Age Delivery Information Delivery Date Delivery Type Labor Anesthesia Weeks Gestation Incision Type Labor Labor Length Hrs Delivered By Post Complications Tubal Sterilization Discharge Date Comments 7 Discharge Information Feeding Method Contraceptive Method Maternal HG B and HCT Levels Ob Episode Information Episode Created Date Number of Fetuses Patient Bloodtype Patient rh Status Prepregnancy Weight lbs Domestic Partner Domestic Partner Phone Father Name Machine Washer Status 12/18/19 22 1 CLOSED Fetus Data First Name Last Name Admitted to NICU Weight (g) Sex Living Outcome Pediatric Complications Fetus ID Race Codes Race Delivery Type 2267.96 F Full Term [id number] Vaginal Delivery Bal Calculation Initial Bal Date Initial Exam Date Initial Exam Provider Initial Ultrasound Date Last Menstrual Period Date Ultra Sound Weeks Gestation 0 Eighteen To Twenty Week Bal Update Ultra Sound Date Fundal Height At Umbil Quickening Date Ultra Sound Latest Weeks Gestation Final Bal Confirmed By Final Bal Confirmed Date Final Bal Date Ultra Sound Latest Days Gestation 0 0 Menstrual History Last Menstrual Date Menses Monthly On Bcp Conception Prior Menses Frequency Hcg Plus Date Menarche Onset Age Delivery Information Delivery Date Delivery Type Labor Anesthesia Weeks Gestation Incision Type Labor Labor Length Hrs Delivered By Post Complications Tubal Sterilization Discharge Date Comments 7 40 baby about 2 weeks after Discharge Information Feeding Method Contraceptive Method Maternal HG B and HCT Levels
--- OUTSIDE RECORDS SUMMARY | 2024-07-01 13:42 | XMS_ITS | Encounter Summary ---
Author Organization [facility] Address [facility] [place] [address] Care Team Providers Care Siderographist Name Role Phone Poornima Alvarez Primary Care Provider [phone] Encounter Details Date Type Department Care Team (Late st Contact Info) Description 06/30/2018 [employer] Message Enc [facility] Medical Group Family & Internal Medicine [facility] [address] [place] [address] Poornima Alvarez APNP [address] [place], [place] [phone] RE: Clearance Social History Tobacco Use Types Packs/Day Years [...] 019 Frequency of Binge Drinking Never 04/17 Comments No Sex and Gender Information Value Date Recorded Sex Assigned at Not on file Legal Sex Female 5:20 PM CDT Gender Identity Not on file Sexual Orientation Not on file documented as of this encounter Progress Notes * Tamiko Barth RN - 07/01/2018 1:20 PM CDT ,message sent to patient that we could clear her for work. documented in this encounter Plan of Treatment Not on file documented as of this encounter Visit Diagnoses Not on filedocumented in this encounter Care Teams Siderographist Relationship Specialty Start Date End Date Poornima Alvarez APNP [address] [place] [address] PCP - General NURSE PRACTITIONER 05/05/18 documented as of this encounter
--- OUTSIDE RECORDS SUMMARY | 2024-07-01 13:42 | XMS_ITS ---
Author Organization [facility] Address [address] [place] [address] Care Team Providers Care Carrier Loader Name Role Phone Lionel Butt Primary Care Provider [place], [facility] Unavailable U navailable REASON FOR VISIT missed last appt-last seen 11/26/23 Social History Sex Assigned At : Social History Observation Description Sex Assigned At Female Encounters Encounter Location Date Provider Diagnosis [address] [place] [address] 04/29/2024 Lionel Butt Plan Of Treatment No Information Progress Notes * Sherie RIGGSDOB:1985 (38 yo F)Acc No.[id number]:04/29/2024 UNLOCKED PROGRESS NOTE Patient: Sherie SHAH Provider: Fredis Butt DNP, PMHNP-BC :1985 A ge:38 Y S ex:Female Date:04/29/2024 [address] [facility] Subjective: * Chief Complaints: * 1 . Missed last appt-last seen 11/26/23. * Medical History: Objective: * Vitals: Assessment: Plan: * Treatment: * * Electronic signature of Ian Butt APRN, [id number] on 07/01/2024 at 01:42 PM CDT Sign off status: Pending * Provider: Fredis Butt DNP, PMHNP-BC Date: 0 04/29/2024 Generated for Dorcas franco/Robert/Olivia on: 0 07/01/2024 01:42 PM CDT
--- OUTSIDE RECORDS SUMMARY | 2024-07-01 13:42 | XMS_ITS | Referral Summary ---
Author Organization [facility] Address [address] [place] [phone] Phone Care Team Providers Care Ward Attendant Name Role Phone Michele Mckenna MD Primary Care Provider [phone] Encounters Date Type Department Care Team Description 06/24/2024 1:00 PM CDT - 06/24/2024 11:59 PM CDT Hospital Encounter [facility] Neurology Testing [address] [place] [address] Paresthesia of hand Discharge Disposition: Discharge to home or self care 06/08/2024 Results Follow-Up [facility] [address] [facility] [address] [place] [address] Raymon Woodard MD 06/04/2024 10:35 AM CDT - 06/04/2024 11:35 AM CDT Surgery [facility] Operating Room [address] [place] [address] Raymon Woodard MD EXCISION SOFT TISSUE LIPOMA OF RIGHT FLANK 06/04/2024 9:38 AM CDT Anesthesia Event [facility] Operating Room [address] [place] [address] Juan Jose Anguiano MD Alexander, Jeffrey Michael, DO 06/04/2024 8:47 AM CDT - 06/04/2024 11:37 AM CDT Hospital Encounter [facility] Operating Room [address] [place] [address] Raymon Woodard MD Abdominal wall mass of right flank Discharge Disposition: Discharge to home or self care 06/02/2024 Results Follow-Up [facility] Primary Care at [address], [place] [phone] Michele Mckenna MD 05/31/[address] [facility] Convenient Care at [address], [place] [phone] Marily Storey, REINALDO 05/31/2024 Results Follow-Up [facility] Convenient Care at [address] [place] [phone] Marily Storey, REINALDO 05/31/2024 Results Follow-Up [facility] Convenient Care at [address] [place] [phone] Marily Storey, REINALDO 05/31/2024 2:04 PM CDT - 05/31/2024 11:59 PM CDT Hospital Encounter [facility] [address] [place] [address] Acute pain of right shoulder Discharge Disposition: Discharge to home or self care 05/31/2024 2:04 PM CDT - 05/31/2024 11:59 PM CDT Hospital Encounter [facility] [address] [place] [address] Acute pain of right shoulder Discharge Disposition: Discharge to home or self care 05/31/2024 1:00 PM CDT - 05/31/2024 11:59 PM CDT Hospital Encounter [facility] ` [address] [place] [address] Skin mass Discharge Disposition: Discharge to home or self care 05/27/2024 1:45 PM CDT Office Visit [facility] [address] [facility] [address] [place] [address] Brisa Aguayo NP Abdominal wall mass of right flank (Primary Dx); Skin mass 05/24/2024 3:15 PM CDT Office Visit [facility] Primary Care at [address], [place] [phone] Michele Mckenna MD IFG (impaired fasting glucose) (Primary Dx); Vitamin D deficiency; Gastritis without bleeding, unspecified chronicity, unspecified gastritis type; Paresthesia of hand; Skin mass; Healthcare maintenance 05/06/2024 6:30 PM CDT Office Visit [facility] Care at [place] [address] [facility] [address], [place] [address] Katarzyna Hayes NP Acute pain of right shoulder (Primary Dx) 05/06/2024 Nurse Triage [facility] Primary Care at [address] [phone] Michele Mckenna MD 05/05/2024 Patient Self-Triage [facility]/ Phys[facility] [address] [place] [address] Mychart, Generic Provider 05/02/2024 4:45 PM CDT Office Visit [facility] Care at [address] [phone] Radha Ferguson NP Acute pain of right shoulder (Primary Dx); Elevated blood pressure reading in office without diagnosis of hypertension; Cold sore 04/15/2024 Results Follow-Up [facility] Primary Care at [address] [phone] Michele Mckenna MD 04/13/2024 3:47 PM AIR TANK ASSEMBLER - 04/13/2024 11:59 PM AIR TANK ASSEMBLER Hospital Encounter [facility] [address] [place] [address] Healthcare maintenance; Polyarthralgia Discharge Disposition: Discharge to home or self care 04/13/2024 3:45 PM AIR TANK ASSEMBLER Lab [facility] Outpatient Lab at [address] [address] CHIKA positive (Primary Dx) 04/05/2024 Orders Only [facility] Primary Care at [address] [phone] Michele Mckenna MD Personal history of unspecified infectious and parasitic disease (Primary Dx) from Last 3 Months Allergies Active Allergy Reactions Criticality Noted Date Comments Quetiapine Muscle pain Medium 12/02/2023 Brain Fog Medications lisdexamfetamin e (Vyvanse) 70 mg capsule Take 1 capsule (70 mg total) by mouth correctional lieutenant before breakfast 9 Active ALPRAZolam (XANAX) 0.5 [...] Plan (06/04/2024 7:48 AM CDT): Ultrasound at [facility] demonstrates a 7cm lipoma, she feels it [...] 11/30/2020 Assessment & Plan (03/20/2024 7:47 PM AIR TANK ASSEMBLER): Patient should reduce sugar and carbs, increase [...] 10/30/2020 Assessment & Plan (03/20/2024 7:47 PM AIR TANK ASSEMBLER): Nicotine replacement therapy and smoking cessation counseling [...] 40 mg at bedtime Anxiety 11/29/2015 10/30/2020 Immunizations Immunization Administration Dates Next Due Hep A, Adult 12/26/2008,06/25/2008 Influenza, Unspecified 03/16/2024(Deferr ed: Patient Refused),11/17/2022(Deferred: Patient Refused),11/30/2020(Deferred: Patient Refused),10/30/2020(Deferred: Patient Refused),11/18/2019(Deferred: Patient Refused),11/18/2019(Deferred: Patient Refused),06/16/2018 Tdap 05/01/2016 Social History Tobacco Use Types Packs/Day Years [...] on file Legal Sex Female 11:53 AM AIR TANK ASSEMBLER Gender Identity Female 11/30/2020 2:26 PM CDT Sexual Orientation Straight 11/30/2020 2: 26 PM CDT Last Filed Vital Signs Vital Sign Reading [...] 06/04/2024 9:07 AM CDT Plan of Treatment Not on file Procedures Procedure Name Priority Date/Time Associated Diagnosis Comments EMG/NCV Routine 06/24/2024 1:33 PM CDT Paresthesia of hand SURGICAL PATHOLOGY Routine 06/04/2024 11 :15 AM CDT Abdominal wall mass of right flank ID AN ELECTIVE SUPRAGLOTTIC AIRWAY Routine 06/04/2024 9:50 [...] right shoulder EGFR Routine 04/13/2024 3:47 PM AIR TANK ASSEMBLER Healthcare maintenance DIFFERENTIAL AUTO Routine 04/13/2024 3:4 7 PM AIR TANK ASSEMBLER Healthcare maintenance CHIKA QUALITATIVE WITH REFLEX TO CHIKA QUANTITATIVE Routine 04/13/2024 3:47 PM AIR TANK ASSEMBLER Polyarthralgia HEMOGLOBIN A1C Routine 04/13/2024 3:47 PM AIR TANK ASSEMBLER Healthcare maintenance VITAMIN D 25 HYDROXY Routine 04/13/2024 3:47 PM AIR TANK ASSEMBLER Healthcare maintenance THYROID FUNCTION CASCADE Routine 04/13/2024 3:47 PM AIR TANK ASSEMBLER Healthcare maintenance LIPID PANEL Routine 04/13/2024 3:47 PM AIR TANK ASSEMBLER Healthcare maintenance COMPREHENSIVE METABOLIC PANEL Routine 04/13/2024 3:47 PM AIR TANK ASSEMBLER Healthcare maintenance CBC WITH AUTO DIFFERENTIAL Routine 04/13/2024 3:47 PM AIR TANK ASSEMBLER Healthcare maintenance HEPATITIS C ANTIBODY Routine 04/13/2024 3:47 PM AIR TANK ASSEMBLER Healthcare maintenance from Last 3 Months Results [...] n) 06/04/2024 10:09 AM CDT Narrative PATHOLOGY [facility] - 06/07/2024 3:37 PM CDT EPIC results best viewed via link to PDF [facility] Department of Pathology [address] [place], [place] [id number] Note to Patients: This report may contain [...] the details. Final Report Patient Name: DUDLEY RACHEL Address: [address] [place] [address] Gender: F : 1985 (Age: 38) Service: Surgery Location: [facility] Hospital #: [id number] Patient Type: [facility] Taken: 06/04/2024 Received: 06/04/2024 Accessioned: 06/04/2024 Reported: [...] single formalin filled container labeled with DUDLEY RACHEL and right flank lipoma. It is a 6 x 5 x 3 cm encapsulated mass of homogeneous fat. Its external and cut surfaces are devoid of hemorrhage, necrosis or other atypical gross features. The specimen is sectioned and represented in 3 cassettes. Marcie Dickson R.N., P.A./sIrael Jacobo M.D. REPORT IMAGES AND SCANNED DOCUMENTS, IF INCLUDED, ONLY VIEWABLE IN PDF VERSION OF REPORT The performance characteristics of some immunohistochemical stains, fluorescence in-situ hybridization tests and immunophenotyping by flow cytometry cited in this report (if any) were determined by the Surgical Pathology Department at [facility] as part of an ongoing quality specialist program and in compliance with federally mandated [...] characteristics determined by the Surgical Pathology Department [facility]. It has not been cleared or approved by the U. S. Food and Drug Administration. Note for decalcified specimens: This assay has not been validated on decalcified tissues. Results should be interpreted with caution given the possibility of false negativity on decalcified specimens Raymno Woodard MD LAB PATHOLOGY ORDER MINESH Final Result PATHOLOGY [facility] ([place] [address] [place] [address] * ID AN ELECTIVE SUPRAGLOTTIC AIRWAY (06/04/2024 9:50 AM CDT) Narrative Reyes Lakhani CRNA - 06/04/2024 9:50 AM CDT Reyes Lakhani CRNA 06/04/2024 9:51 AM Airway Patient location: OR Urgency: elective Indications for airway management: anesthesia Difficult airway: no Staff: Placed by: ASSISTANT MERCHANDISER: Reyes Lakhani CRNA Emergent airway documentation: Risks [...] by: Makayla Dias M.D. Katarzyna Hayes NP IM XR PROCEDURES Final Result * XR Shoulder [...] seen. Electronically signed by: Makayla Dias M.D. us Katarzyna Hayes NP [facility] XR PROCEDURES Final Result * CHIKA ab ql w/rflx to CHIKA qn (04/13/2024 3:47 PM AIR TANK ASSEMBLER) CHIKA Negative Comment: Interpretive Data Normal range [...] last revised on 2019. Testing performed by: [facility], [address] [place]., [address] Blood 04/13/2024 3:47 PM AIR TANK ASSEMBLER 04/14/2024 9:57 AM AIR TANK ASSEMBLER us Michele Mckenna MD LAB BLOOD ORDERABLES Final R esult ANGELA K[facility] [address] Department [place] [address] * eGFR (04/13/2024 3:47 PM AIR TANK ASSEMBLER) eGFR >90 >=60 mL/min/1. 73 m2 Comment: [...] of Race in Diagnosing Kidney Disease, JASN 2020). The CKD-EPI equation should not be used for patients with unstable renal function and has not been validated in children and those over 70. Current interpretive data was last reviewed 2020. Blood 04/13/2024 3:47 PM AIR TANK ASSEMBLER 04/13/2024 7:37 PM AIR TANK ASSEMBLER us Michele Mckenna MD LAB BLOOD ORDERABLES Final R esult [facility] [address] Department [place] [address] * Differential, auto (04/13/2024 3:47 PM AIR TANK ASSEMBLER) Neutrophil abs 5.2 1.5 - 6.5 K/cumm Imm gran abs 0.0 0.0 - 0.1 K/cumm [facility] Lymphocyte abs 1.9 0.8 - 3.3 K/cumm [facility] Monocyte abs 0.7 0.2 - 0.8 K/cumm [facility] Eosinophil abs 0.3 0.0 - 0.5 K/cumm [facility] Basophil abs 0.1 0.0 - 0.1 K/cumm [facility] Neutrophil pct 63.7 % [facility] Comment: Interpretive Data Percent cell count reference ranges are not reported, since discordance with absolute values may lead to misinterpretation of CBC data. Current Interpretive Data was last revised on 2017. Imm gran pct 0.4 % [facility] Comment: Interpretive Data Percent cell count reference ranges are not reported, since discordance with absolute values may lead to misinterpretation of CBC data. Current Interpretive Data was last revised on 2017. Lymphocyte pct 22.9 % [facility] Comment: Interpretive Data Percent cell count reference ranges are not reported, since discordance with absolute values may lead to misinterpretation of CBC data. Current Interpretive Data was last revised on 2017. Monocyte pct 8.5 % [facility] Comment: Interpretive Data Percent cell count reference ranges are not reported, since discordance with absolute values may lead to misinterpretation of CBC data. Current Interpretive Data was last revised on 2017. Eosinophil pct 3.8 % [facility] Comment: Interpretive Data Percent cell count reference ranges are not reported, since discordance with absolute values may lead to misinterpretation of CBC data. Current Interpretive Data was last revised on 2017. Basophil pct 0.7 % [facility] Comment: Interpretive Data Percent cell count reference ranges are not reported, since discordance with absolute values may lead to misinterpretation of CBC data. Current Interpretive Data was last revised on 2017. Blood 04/13/2024 3:47 PM AIR TANK ASSEMBLER 04/13/2024 7:27 PM AIR TANK ASSEMBLER us Michele Mckenna MD LAB BLOOD ORDERABLES Final R esult Performing Organization Address City/[facility] Co de Phone Number ANGELA [address] [address] [address] [facility] [employer] [place] [address] * Thyroid Function [place] (04/13/2024 3:47 PM AIR TANK ASSEMBLER) TSH 2.25 0.30 - 4.20 mcIUnit/mL Blood 04/13/2024 3:47 PM AIR TANK ASSEMBLER 04/13/2024 7:27 PM AIR TANK ASSEMBLER us Michele Mckenna MD LAB BLOOD ORDERABLES Final R esult Performing Organization Address [facility] de Phone Number ANGELA KIM [address] [address] [facility] [employer] [place] [address] * (ABNORMAL) CBC with auto differential (04/13/2024 3:47 PM AIR TANK ASSEMBLER) WBC 8.2 3.8 - 9.9 K/cumm Hgb 14.2 11.9 - 15.5 g/dL [facility] Hct 46.3(H) 35.6 - 45.5 % C[facility] Plt 301 150 - 400 K/cumm [facility] MPV 11.8 9.1 - 12.3 fL [facility] RBC 5.37(H) 3.90 - 5.20 M/cumm [facility] MCV 86.2 81.3 - 96.4 fL [facility] MCH 26.4(L) 27.1 - 33.3 pg [facility] MCHC 30.7(L) 32.3 - 35.7 g/dL [facility] RDW CV 13.6 11.1 - 14.9 % [facility] RDW SD 42.5 35.7 - 48.1 fL [facility] NRBC abs 0.00 0.00 - 0.01 K/cumm [facility] Blood 04/13/2024 3:47 PM AIR TANK ASSEMBLER 04/13/2024 7:27 PM AIR TANK ASSEMBLER us Michele Mckenna MD LAB BLOOD ORDERABLES Final R esult Performing Organization Address [facility] Co de Phone Number ANGELA KIM [address] [address] Department of [employer] [place] [address] * Hepatitis C antibody Blood (04/13/2024 3:47 PM AIR TANK ASSEMBLER) [facility] Hep C Ab Nonreactive Nonreactive Comment: Interpretive [...] revised on 2019. Blood 04/13/2024 3:47 PM AIR TANK ASSEMBLER 04/13/2024 7:27 PM AIR TANK ASSEMBLER us Michele Mckenna MD LAB MICROBIOLOGY - GENERAL O RDERABLES Final Result Performing Organization Address [facility] Co de Phone Number ANGELA [address] [place] [address] * (ABNORMAL) Vitamin D 25 hydroxy (04/13/2024 3:47 PM AIR TANK ASSEMBLER) [facility] Vitamin D 25-OH 10(L) 30 - 80 ng/mL Blood 04/13/2024 3:47 PM AIR TANK ASSEMBLER 04/13/2024 7:27 PM AIR TANK ASSEMBLER us Michele Mckenna MD LAB BLOOD ORDERABLES Final R esult Performing Organization Address [facility] Co de Phone Number ANGELA [address] [address] Department of [employer] [place] [address] * (ABNORMAL) Hemoglobin A1c (04/13/2024 3:47 PM AIR TANK ASSEMBLER) Hgb A1C 6.0(H) 4.0 - 5.6 % Estimated Average Glucose 126 mg/dL ANGELA KIM Comment: The ADA recommends reporting an estimated Average Glucose (eAG) with all Hemoglobin A1c results using the equation derived from a study of 507 normal and diabetic adults. Minority populations were underrepresented and children were not included. (Diabetes Care 31:5185-1487, 2008). The eAG is not equivalent to a fasting glucose. Blood 04/13/2024 3:47 PM AIR TANK ASSEMBLER 04/13/2024 7:27 PM AIR TANK ASSEMBLER us Michele Mkcenna MD LAB BLOOD ORDERABLES Final R esult [facility] [address] [address] Department [place] [address] * Lipid panel (04/13/2024 3:47 PM AIR TANK ASSEMBLER) Cholesterol 155 30 - 199 mg/dL Comment: [...] NCEP Expert Panel. Circulation 2004;110:227 3. Vinh Gómez al. EVER Cardiol. 2019June 17;5(5):540-548. doi: 10.1001/jamacardio.2020.0013 Current Interpretive Data was last revised on 2023. Non-HDL Cholesterol 107 mg/dL ANGELA KIM Comment: Interpretive Data Ages [...] last revised on 2017. Chol/HDL ratio 3 [facility] Blood 04/13/2024 3:47 PM AIR TANK ASSEMBLER 04/13/2024 7:27 PM AIR TANK ASSEMBLER Narrative [facility] - 04/13/2024 8:40 PM AIR TANK ASSEMBLER Has the patient been fasting for 8 hours or more?->Yes us Michele Mckenna MD LAB BLOOD ORDERABLES Final R esult [facility] [address] Department [place] [address] * Comprehensive metabolic panel (04/13/2024 3:47 PM AIR TANK ASSEMBLER) Sodium 141 135 - 145 mmol/L Potassium, [...] Units/L [facility] Blood 04/13/2024 3:47 PM AIR TANK ASSEMBLER 04/13/2024 7:27 PM AIR TANK ASSEMBLER Narrative [facility] - 04/13/2024 8:39 PM AIR TANK ASSEMBLER Has the patient fasted?->Yes us Michele Mckenna MD LAB BLOOD ORDERABLES Final R esult [address] Department [place] [address] from Last 3 Months Insurance [facility] Care Teams Ward Attendant Relationship Specialty Start Date End Date Michele Mckenna MD PCP - General Internal Medicine 09/01/20
--- OUTSIDE RECORDS SUMMARY | 2024-07-01 13:42 | XMS_ITS | Encounter Summary ---
Author Organization [facility] Address [address] [place] [address] Care Team Providers Care String Winding Machine Operator Name Role Phone Poornima Alvarez Myesha JIMENEZ Primary Care Provider [phone] Encounter Details Date Type Department Care Team (Latest Contact Info) Description 06/25/2018 FastBook[employer] Message Enc [facility] Medical Group Multispecialty Care - [facility] [address] [facility], [address] [place] [phone] Javid Lenz MD [address] 5[address] [place], [place] [address] Referral Request Social History Tobacco Use Types Packs/Day Years [...] as of this encounter Progress Notes * Lucy Vo MA - 06/26/2018 7:47 AM CDT LVM for pt that she does not need to follow up with us and that we can get a work note to her on Friday, but if she needs something sooner then she should see her PCP. She can also get her referral from her PCP. documented in this encounter Plan of Treatment Not on file documented as of this encounter Visit Diagnoses Not on filedocumented in this encounter Care Teams String Winding Machine Operator Relationship Specialty Start Date End Date Poornima Alvarez APNP [address] [place] [address] PCP - General NURSE PRACTITIONER 05/05/18 documented as of this encounter
--- OUTSIDE RECORDS SUMMARY | 2024-07-01 13:42 | XMS_ITS | Encounter Summary ---
Author Organization [facility] Health Address [address] [facility] [place] [address] Care Team Providers Care Strategic Consultant Name Role Phone Michele Mckenna MD Primary Care Provider [phone] Encounter Details Date Type Department Care Team (Late st Contact Info) Description 03/24/2024 Telephone [facility] - General Dermatology [address], [address] [place] [address] Fareed Mir MD [address] [facility] 3 [place] [address] Social History Tobacco Use Types [...] difficulty? Answer Date of Assessment Author No 05/18/2016 8:29 AM Guido Amaro RN * Is person blind or have serious difficulty seeing? Answer Date of Assessment Author No 05/18/2016 8:29 AM Guido Amaro RN * Does person have serious difficulty walking/climbing stairs? Answer Date of Assessment Author No 05/18/2016 8:29 AM Guido Amaro RN * Does person have difficulty dressing/bathing? Answer Date of Assessment Author No 05/18/2016 8:29 AM Guido Amaro RN * Does person have difficulty doing errands alone? Answer Date of Assessment Author No 05/18/2016 8:29 AM Guido Amaro RN documented as of this encounter Mental Status * Does person have difficulty concentrating/remembering/making decisions? Answer Entry Date Author No 05/18/2016 8:29 AM Guido Amaro RN documented in this encounter Miscellaneous Notes * Telephone Encounter - Fran Murillo - 03/24/2024 3:33 PM CST [facility] for ivermectin (Stromectol) 3 MG tablet. Told pt to give dr office a call R WELL DRILLER documented in this encounter Plan of Treatment Upcoming Encounters Date Type Department Care Team (Late st Contact Info) Description 08/18/2024 1:00 PM CDT Office Visit [facility] - GI [address] [facility], [place] [phone] Samm Dunn MD [address] [facility] 2 [place] [address] 10/20/2024 1:20 PM CDT Office Visit [facility] - General Dermatology [address], [facility] [address] [place] [address] Fareed Mir MD [address] [place] [address] [address] [place] [address] documented as of this encounter Visit Diagnoses Not on filedocumented in this encounter Care Teams Strategic Consultant Relationship Specialty Start Date End Date Michele Mckenna MD [address], [address] [place] [address] PCP - General Internal Medicine 03/22/24 documented as of this encounter
--- OUTSIDE RECORDS SUMMARY | 2024-07-01 13:42 | XMS_ITS | Encounter Summary ---
Author Organization [facility] Address Critical access hospital[address] [place] [address] Care Team Providers Care Asset Protection Detective Name Role Phone Poornima Alvarez Primary Care Provider [phone] Encounter Details Date Type Department Care Team (Late st Contact Info) Description 07/15/2019 MyChart Message Enc [facility] Medical Group Family & Internal Medicine [facility] [address] [place] [address] Poornima Alvarez APNP [address] [place] [address] RE: Follow Up/Update Social History Tobacco Use Types Packs/Day Years [...] on file Sexual Orientation Not on file COVID-19 Exposure Response Date Recorded In the last month, have you been in contact with someone who was confirmed or suspected to have Coronavirus / COVID-19? No / Unsure 07/05/2019 12:53 PM CDT documented as of this encounter Plan of Treatment Not on file documented as of this encounter Visit Diagnoses Not on filedocumented in this encounter Additional Health Concerns Assessment Noted Time PHQ-9 Depression Total Score: 12 020 1:12 PM CDT documented as of this encounter Care Teams Asset Protection Detective Relationship Specialty Start Date End Date Poornima Alvarez APNP [address] [place] [address] PCP - General NURSE PRACTITIONER 05/05/18 documented as of this encounter
[2024-07-01 15:35] LABS: Beta HCG Quantitative 517.79 mIU/ML
[2024-07-03 12:28] LABS: Beta HCG Quantitative 876.35 mIU/ML
[2024-07-08 18:12] LABS: Beta HCG Quantitative 3156.00 mIU/ML
== END 2024-09-29 23:59 | disposition home or self-care (01) ==
LOC: ANHLAB 17:30
PROVIDERS: PCP Internal Medicine; Visit Provider Obstetrics & Gynecology
DX: N91.2 Amenorrhea, unspecified (principal)
CPT/HCPCS: 36415; 84702

== ENCOUNTER 2024-07-15 03:07 | Day surgery (SDC) | payer OTHER, SELFPAY ==
[2024-07-14 09:30] VITALS: BMI 36.6
--- NOTE | 2024-07-14 09:41 | PC.NURSE ---
Report to the Outpatient Waiting Room, entrance under the green pavilion located off [facility], at time _0900_ on date _[id number]_. Planned Procedure Time: _1100_.? Time changes happen often and if your time is changed the preop area will call you the afternoon before. - You and your visitor will be asked to self-screen and do not enter if you have any COVID symptoms. Please call surgeon if you need to reschedule. - A mask is optional within the hospital at this time. Patients may have clear liquids (water, carbonated beverages, clear teas, apple juice) until 3 hours prior to surgery with a maximum of 20 ounces. - No food from midnight until time of surgery and no smoking, or chewing tobacco (or any form of nicotine). No chewing gum, candy or mints. Take only the following medications with a SIP of water on the morning of surgery: __If needed may use Alprazolam.___ DO NOT STOP ANY OF YOUR OTHER PRESCRIPTION MEDICATIONS PRIOR TO SURGERY EXCEPT THE FOLLOWING Hold all vitamins and supplements for 3 days per anesthesiologist. Medications to discontinue per physician Date to take last dose Please no make-up, nail turkish, hairspray, perfume, deodorant, or body powder the day of surgery.? No jewelry (including any body piercings) or valuables the day of surgery, leave them at home.? Please take a shower or bath the night before, or the morning of, surgery with an antibacterial soap.? Wear comfortable, loose fitting clothing. - Jewelry must be removed prior to entering the operating room.? Rings and piercings that are not removed may be cut off. - The hospital will not accept responsibility for valuables.? - Please leave all valuables, including medications, at home the day of surgery. If you are going home after surgery, a licensed forklift driver must drive you home.? - NO public transportation without another adult if you receive anesthesia. - We recommend that an adult stay with you for 24 hours following discharge. - We also recommend that you do not drive, make important decision, drink alcoholic beverages, or take any drugs that were not prescribed by your health care provider for at least 24 hours after your discharge time. Follow any additional instructions given to you from your surgeon. Telephone instructions given to ___Sherie__and asked if any additional questions and then verbalized understanding. Patient advised to call surgeon office or pre surgery nurse liaison [phone] if any additional questions.
[2024-07-15] VITALS (9 sets, daily range): BP systolic 107–123; BP diastolic 51–88; PULSE 67–98; RESP 15–84; TEMP 36.1–36.6; O2SAT 94–100
--- OUTSIDE RECORDS SUMMARY | 2024-07-15 03:10 | XMS_ITS | Encounter Summary ---
Author Organization [facility] Health Address [address] [facility] [place] [address] Care Team Providers Care Rental Car Ferry Driver Name Role Phone Michele Mckenna MD Primary Care Provider [phone] Encounter Details Date Type Department Care Team (Late st Contact Info) Description 07/01/2024 Telephone [facility] - General Dermatology [address], [address] [place] [address] Fareed Gonzalez MD [address] [facility] 3 [place] [address] Social History Tobacco Use Types [...] Office Visit [facility] - [address] [facility], [place] [address] Samm Dunn MD [facility] [address] 10/20/2024 1:20 PM CDT Office Visit [facility] - General Dermatology [address], [address] [place] [address] Fareed Gonzalez MD [address] [facility] 3L [place] [address] documented as of this encounter Goals Goal Patient Goal Type Associated Problems Recent Progress Patient-Stated? Author Medication Management General No Rozina Joseph RN documented as of this encounter Visit Diagnoses Not on filedocumented in this encounter Care Teams Rental Car Ferry Driver Relationship Specialty Start Date End Date Michele Mckenna MD [address], [facility] [address] [place] [address] PCP - General Internal Medicine 03/22/24 documented as of this encounter
--- OUTSIDE RECORDS SUMMARY | 2024-07-15 03:10 | XMS_ITS | Clinical Summary ---
Author Organization [facility] Care Address [address] [place] [address] Phone Care Team Providers Care Jointer Machine Operator Name Role Phone Michele Mckenna MD Primary Care Provider [phone] Allergies Active Allergy Reactions Criticality Noted Date Comments Quetiapine Muscle pain Medium 12/02/2023 Brain Fog Medications lisdexamfetamin e (Vyvanse) 70 mg capsule Take 1 capsule (70 mg total) by mouth customer resource specialist before breakfast 9 Active ALPRAZolam (XANAX) 0.5 [...] Date Supervision of high risk in [facility] 07/05/2024 Overview (07/05/2024): [] [...] [] MOC: [] Method of feeding: [] Rail Crew Member (specifically which provider): [] PP Depression Discussed: [...] D&C 07/05/2024 of unknown anatomic location Overview (07/13/2024): Telephone Number Relationship Voicemail Okaubrey [phone] (home) Home Yes [] PUL Card Given Working Diagnosis: PUL Date presented: 07/08/24 Brief HPI: 38 y.o. at unknown gestational age presents with vaginal bleeding, +UPT. Ultrasound: -Thickened endometrial stripe, no free fluid, no adenxal masses 07/05: bHCG 1580 07/07: bHCG 2238, 41% increase. 07/08: Notified patient of results via voicemail and [employer] message. Patient confirmed she received the results. Tasked for initial OB visit and ultrasound. 07/09: US and initial OB appt scheduled in [place] 07/15. To follow up with primary OB Rh Status: O Positive [] Rhogam Given Beta Trend: OSH 517 07/01/2024 876 07/03/2024 Lab Results Component Value Date HCG 2,238.0 (H) 07/07/2024 HCG 1,580.0 (H) 07/05/2024 PLAN Ultrasound and initial OB appointment scheduled for 07/15, patient will follow up with primary OB. [x] Signed out with attending and billy to remove from beta book. Attending Name: Dr. Wilkes Abdominal wall mass of right flank 05/27/2024 Assessment & Plan (06/04/2024 7:48 AM CDT): Ultrasound at [facility] demonstrates a 7cm lipoma, she feels it [...] 11/30/2020 Assessment & Plan (03/20/2024 7:47 PM RETIREMENT BENEFITS SPECIALIST): Patient should reduce sugar and carbs, increase [...] 10/30/2020 Assessment & Plan (03/20/2024 7:47 PM RETIREMENT BENEFITS SPECIALIST): Nicotine replacement therapy and smoking cessation counseling [...] Encounters Date Type Department Care Team Description 07/08/2024 Telephone [facility] [address] [place] [address] 3rd Floor [address] [place] [phone] Rei Pedro 07/08/[address] [address] Priyanka Loera MD 07/08/2024 Orders Only [address] [address] Priyanka Loera MD of unknown anatomic location (Primary Dx) 07/07/2024 8:40 PM CDT - 07/07/2024 11:59 PM CDT Hospital Encounter [address] [address] of unknown anatomic location Discharge Disposition: Discharge to home or self care 07/07/2024 2:[address] [facility] Outpatient Lab at [address] [address] 07/07/[address] [phone] Priyanka Loera MD 07/06/2024 Orders Only [address] [phone] Priyanka Loera MD of unknown anatomic location (Primary Dx) 07/05/2024 12:29 PM CDT - 07/05/2024 3:58 PM CDT Hospital Encounter [address] [phone] Tommy Dunn MD Discharge Disposition: Discharge to home or self care 07/05/2024 Telephone [facility] Maternal- Medicine [address] [place] [address] 7th Floor [address] [place] [phone] Linette Arboleda 07/05/[address] [phone] Elisabet Cartagena RN Incoming Call 07/01/2024 Telephone [facility] Maternal- Medicine [address] [place] [address] 7th [address] [place] [phone] Jocelyn Mir CMA MFM Self-Referral 06/24/2024 1:00 PM CDT - 06/24/2024 11:59 PM CDT Hospital Encounter [facility] Neurology Testing [address] [place] [address] Paresthesia of hand Discharge Disposition: Discharge to home or self care 06/08/2024 Results Follow-Up [facility] [address] [facility] [address] [place] [address] Raymon Woodard MD Surgical pathology 06/04/2024 10:35 AM CDT - 06/04/2024 11:35 AM CDT Surgery [facility] Operating Room 1 [place] [address] Raymon Woodard MD EXCISION SOFT TISSUE LIPOMA OF RIGHT FLANK 06/04/2024 9:38 AM CDT Anesthesia Event [facility] Operating Room 1 [place] [address] Juan Jose Anguiano MD Alexander, Jeffrey Michael, DO 06/04/2024 8:47 AM CDT - 06/04/2024 11:37 AM CDT Hospital Encounter [facility] Operating Room 1 [place] [address] Raymon Woodard MD Abdominal wall mass of right flank Discharge Disposition: Discharge to home or self care 06/02/2024 Results Follow-Up [facility] Primary Care at [facility] [address] [facility] [address], [place] [phone] Michele Mckenna MD US Soft Tissue Lower Back 05/31/2024 2:04 PM CDT - 05/31/2024 11:59 PM CDT Hospital Encounter [facility] Diagnostic Imaging [id number] [place] [address] Acute pain of right shoulder Discharge Disposition: Discharge to home or self care 05/31/2024 2:04 PM CDT - 05/31/2024 11:59 PM CDT Hospital Encounter [facility] Diagnostic Imaging [address] [place] [address] Acute pain of right shoulder Discharge Disposition: Discharge to home or self care 05/31/2024 1:00 PM CDT - 05/31/2024 11:59 PM CDT Hospital Encounter [facility] ` [address] [place] [address] Skin mass Discharge Disposition: Discharge to home or self care 05/31/[address] [facility] Convenient Care at [address] [place] [address] Marily Storey NP 05/31/2024 Results Follow-Up [facility] at [address] [place] [address] Marily Storey NP XR Shoulder Right 2 or More Views 05/31/2024 Results Follow-Up [facility] at [address] [place] [address] Marily Storey NP XR Spine Cervical 2 or 3 Views 05/27/2024 1:45 PM CDT Office Visit [facility] [address] [facility] [address] [place] [address] EyersBrisa NP Abdominal wall mass of right flank (Primary Dx); Skin mass 05/24/2024 3:15 PM CDT Office Visit [facility] Primary Care at [facility] [address] [facility] [address], [place] [address] Michele Mckenna MD IFG (impaired fasting glucose) (Primary Dx); Vitamin D deficiency; Gastritis without bleeding, unspecified chronicity, unspecified gastritis type; Paresthesia of hand; Skin mass; Healthcare maintenance 05/06/2024 6:30 PM CDT Office Visit [facility] at [place] [address] [place] [address] [address] [address] Ktaarzyna Hayes NP Acute pain of right shoulder (Primary Dx) 05/06/2024 Nurse Triage [facility] Primary Care at [facility] [address] [facility] [address], [place] [address] Michele Mckenna MD 05/05/2024 Patient Self-Triage [facility] [address] [place] [address] Mychart, Generic Provider 05/02/2024 4:45 PM CDT Office Visit [facility] Care at [address] [phone] Radha Ferguson NP Acute pain of right shoulder (Primary Dx); Elevated blood pressure reading in office without diagnosis of hypertension; Cold sore from Last 3 Months Immunizations Immunization Administration [...] on file Legal Sex Female 11:53 AM RETIREMENT BENEFITS SPECIALIST Gender Identity Female 11/30/2020 2:26 PM CDT [...] Estimated Date of Delivery 07/05/2024 - Present (07/15/2024) Unknown Dating Summary Based On YOGI GA Diff Last Menstrual Period on 04/27/2024 Vitals Pregravid Weight Height TWG (As of 07/15/2024) Pregrav id BMI 170.2 cm (5' 7) Date GA Fund Present FHR Mvmt BP [...] get in contact with medical records at [facility] for her past delivery notes and upload [...] P M CDT Height 170.2 cm (5' 7) 07/05/2024 12:35 PM CDT Body Mass Index [...] Procedure Name Priority Date/Time Associated Diagnosis Comments HCG, BLOOD, QUANTITATIVE Routine 07/07/2024 3:30 PM CDT of unknown anatomic location B CHECK SAMPLE STAT 07/05/2024 3:39 PM [...] CDT Abdominal wall mass of right flank MT AN ELECTIVE SUPRAGLOTTIC AIRWAY Routine 06/04/2024 9:50 [...] PM CDT Acute pain of right shoulder HEPATITIS C ANTIBODY Routine 04/13/2024 3:47 PM RETIREMENT BENEFITS SPECIALIST Healthcare maintenance from Last 3 Months or Most Recently Relevant to Health Maintenance Results * (ABNORMAL) hCG, blood, quantitative (07/07/2024 3:30 PM CDT) hCG, quant 2,238.0(H ) 0.0 - 5.0 IUnits/L Comment: Interpretive Data Male: < 5 IU/L Non- premenopausal Female: <5 IU/L The [employer] hCG Beta Quant assay procedure was used. Results from different manufacturers or methods may not be comparable. Serial testing should be performed using the same method. Interpretive Data was last revised on 2023 Blood 07/07/2024 3:30 PM CDT 07/07/2024 9:04 PM CDT [facility] Manuela Loera MD LAB BLOOD ORDERABLES Final Result [facility] [address] [address] Department [place] [address] * Check Sample (07/05/2024 3:39 PM CDT) ABO Rh O Positive [facility] OTHER 07/05/2024 3:39 PM CDT 07/05/2024 3:52 PM CDT us Tommy Dunn MD LAB BLOOD ORDERABLES Final Result Performing Organization Address [facility]/ZIP Co de Phone Number [facility] Department [place] [address] [facility] * eGFR (07/05/2024 2:01 PM CDT) Pathologist [facility] eGFR >90 >=60 mL/min/1. 73 m2 Comment: [...] ORDERABLES Fin al Result Performing Organization Address City/[facility]/ZIP Co de Phone Number [facility] Department [place] [address] * (ABNORMAL) CBC without differential (07/05/2024 2:01 PM CDT) Pathologist [facility] WBC 11.47(H) 3.80 - 9.90 K/cumm Hgb 13.6 11.9 - 15.5 g/dL [facility] Hct 41.5 35.6 - 45.5 % [facility] Plt 266 150 - 400 K/cumm [facility] MPV 11.0 9.1 - 12.3 fL [facility] RBC 5.02 3.90 - 5.20 M/cumm [facility] MCV 82.7 81.3 - 96.4 fL [facility] MCH 27.1 27.1 - 33.3 pg [facility] MCHC 32.8 32.3 - 35.7 g/dL [facility] RDW CV 14.6 11.1 - 14.9 % [facility] RDW SD 43.1 35.7 - 48.1 fL [facility] NRBC abs 0.00 0.00 - 0.01 K/cumm [facility] Blood 07/05/2024 2:01 PM CDT 07/05/2024 2:23 PM CDT Alana Cazares LEATHER BELT MAKER LAB BLOOD ORDERABLES Fin al Result [facility] [email or web address] [address] * Type and screen (07/05/2024 2:01 PM CDT) Pathologist [facility] Leydi, indirect Negative ABO Rh O Positive [facility] Blood 07/05/2024 2:01 PM CDT 07/05/2024 2:58 PM CDT Narrative [facility] - 07/05/2024 4:30 PM CDT Has the patient had Daratumumab or Isatuximab in the past 6 months?->Unknown Alana Cazares NP LAB BLOOD BANK TEST ORDE RABLES Final Result Performing Organization Address City/[facility]/ZIP Co de Phone Number [facility] of [employer] [place] [address] * (ABNORMAL) hCG, blood, quantitative (07/05/2024 2:01 [...] NP LAB BLOOD ORDERABLES Fin al Result [facility] Department [place] [address] * Comprehensive metabolic panel (07/05/2024 2:01 PM CDT) Pathologist [facility] Sodium 141 135 - 145 mmol/L Potassium, pl 4.7 3.3 - 4.9 mmol/L [facility] Chloride 106 97 - 110 mmol/L [facility] CO2 27 22 - 32 mmol/L [facility] Anion gap 8 2 - 15 mmol/L [facility] BUN 10 6 - 25 mg/dL [facility] Creatinine 0.72 0.60 - 1.10 mg/dL [facility] Glucose 104 70 - 199 mg/dL [facility] Comment: Interpretive Data Fasting glucose >/= 126 [...] Calcium 9.7 8.5 - 10.3 mg/dL [facility] Bilirubin, total 0.3 0.1 - 1.2 mg/dL [facility] Protein, pl 7.1 6.5 - 8.5 g/dL [facility] Albumin 4.0 3.5 - 5.0 g/dL [facility] Alk phos 91 40 - 130 Units/L [facility] ALT 34 7 - 45 Units/L [facility] AST 19 10 - 45 Units/L [facility] Blood 07/05/2024 2:01 PM CDT 07/05/2024 2:18 PM CDT Alana Cazares NP LAB BLOOD ORDERABLES Fin al Result [facility] Department [place] [address] * (ABNORMAL) POCT hCG, urine (07/05/2024 1:15 PM CDT) Pathologist [facility] HCG, ur, POC Positive(A) Negative Lot Number [id number] QC Backgroud Clear Acceptable QC Control Line Acceptable Urine 07/05/2024 1:15 PM CDT Alana Cazares LEATHER BELT MAKER POINT OF CARE TEST ORDER MINESH Final [...] 10:09 AM CDT Narrative PATHOLOGY [facility] - 06/07/2024 3:37 PM CDT EPIC results best viewed via link to PDF [facility] Department of Pathology [address] [place] [address] Note to Patients: This report may contain [...] Final Report Patient Name: DUDLEY RACHEL [address]: [address] [place] [address] Gender: F : 1985 (Age: 38) Service: Surgery Location: [facility] Hospital #: [id number] Patient Type: [facility] Taken: 06/04/2024 Received: 06/04/2024 Accessioned: 06/04/2024 [...] determined by the Surgical Pathology Department at [facility] as part of an ongoing quality improvement specialist program and in compliance with federally [...] characteristics determined by the Surgical Pathology Department [facility]. It has not been cleared or approved by the U. S. Food and Drug Administration. Note for decalcified specimens: This assay has not been validated on decalcified tissues. Results should be interpreted with caution given the possibility of false negativity on decalcified specimens us Raymon Woodard MD LAB PATHOLOGY ORDER MINESH Final Result PATHOLOGY [facility] [address] [place] [address] * MT AN ELECTIVE SUPRAGLOTTIC AIRWAY (06/04/2024 9:50 AM CDT) Narrative Reyes Lakhani CRNA - 06/04/2024 9:50 AM CDT Reyes Lakhani CRNA 06/04/2024 9:51 AM Airway Patient location: OR Urgency: elective Indications for airway management: anesthesia Difficult airway: no Staff: Placed by: LOSS PREVENTION OFFICER: Reyes Lakhani CRNA Emergent airway documentation: Risks [...] by: Makayla Dias M.D. Katarzyna Hayes NP IMG XR PROCEDURES Final Result * XR Shoulder [...] by: Makayla Dias M.D. Katarzyna Hayes NP [facility] XR PROCEDURES Final Result * Hepatitis C antibody Blood (04/13/2024 3:47 PM RETIREMENT BENEFITS SPECIALIST) Hep C Ab Nonreactive Nonreactive Comment: Interpretive [...] revised on 2019. Blood 04/13/2024 3:47 PM RETIREMENT BENEFITS SPECIALIST 04/13/2024 7:27 PM RETIREMENT BENEFITS SPECIALIST us Michele Mckenna MD LAB MICROBIOLOGY - GENERAL O RDERABLES Final Result [facility] [address] [facility] Department [place] [address] from Last 3 Months or Most Recently Relevant to Health Maintenance Insurance Care Teams Jointer Machine Operator Relationship Specialty Start Date End Date Michele Mckenna MD [address] [facility] [address], [place] [address] PCP - General Internal Medicine 07/07/24
--- OUTSIDE RECORDS SUMMARY | 2024-07-15 03:10 | XMS_ITS | Data Portability ---
Author Organization [facility] Address [address] [place] [address] Care Team Providers Care Senior Support Analyst Name Role Phone NIDIA PIPER Primary Care Provider [phone] Assessment Encounter Date Assessment Date Assessment LastModified by Organization Details LastModified Time 04/10/2023 04/10/2023 Sections of the HPI, exam and assessment completed by Heaven Billings, [employer] student and have been reviewed by me. I agree with the exam findings, assessment and plan except where specifically documented or amended. -Nidia Piper, [facility], PAOsmar [email or web address] Not available 04/15/2023 01:04:08 Plan of Treatment Reminders Order Date Submit Date Provider Last Modified By Organization Details Last Modified Time Details Appointments None recorded. Lab lipid panel, serum 2023 024 [facility], [address], [address], [place], [address], 4 19:10:04 vitamin B12 + folate, serum or blood 2023 024 [facility], [address], [address], [place], [address], 4 11:15:19 vitamin D, 25-hydroxy, total, serum 2023 024 [facility], [address], [address], [place], [address], 4 11:15:21 CBC w/ auto diff 2023 024 [place], [address], [address], [place], [address], 4 19:10:06 CMP, serum or plasma 2023 024 [facility], [address], [address], [place], [address], 4 19:10:05 TSH + free T4, serum 2023 024 [facility], [address], [address], [place], [address], 4 11:15:19 HbA1c (hemoglobin A1c), blood 2023 024 [facility], [address], [address], [place], [address], 4 11:15:20 Referral gastroenter ologist referral 2023 024 [email or web address] Staci Lipscomb MD, [address], [address], [place], [address], 4 08:09:[address] referral 2023 024 shine Mir MD ([facility], Dermatology), [address] [place], [address], 4 14:17:37 gastroenter ologist referral 2023 024 [email or web address] [facility], [address] [facility], [place], [address], 4 07:55:[address] referral 2023 024 [email or web address] [facility], [address] [facility], [place], [address], 4 07:55:21 general surgeon referral 2023 024 [email or web address] Ricardo Enrique MD, [address] [facility], [address], [address], 4 08:04:54 otolaryngol ogist referral 2023 024 [facility], [address], [place], [address], 4 10:24:16 Procedures None recorded. Surgeries None recorded. Imaging US, chest wall - RIGHT PEC 2023 024 [facility], [address] [facility] [address] [facility], [facility], [place], [address], 4 11:09:32 US, abdominal wall - FOCUS ON RIGHT FLANK AREA 2023 024 [facility] (Imaging), [address] [facility] [address] [place] [address], [address], 4 11:24:57 Medication Orders tretinoin 0.025 % topical cream 2023 024 [facility][id number], [address], [place], [place], [id number], 4 14:21:04 loratadine 10 mg tablet 2023 024 [facility] #[id number], [address], [place], [place], [id number], 4 14:51:29 ibuprofen 600 mg tablet 2023 024 [facility] #[id number], [address], [place], [place], [id number], 4 14:20:23 Patient TargetsNo targets recorded. Patient Instructions Encounter Date Encounter Id Patient Instructions Last Modified By Organization Details Last Modified Time 04/10/2023 [id number] A healthy lifestyle: care instructions [email or web address] Not available 04/10/2023 10:46:19 Reason for Referral Senior Product Designer Referral fo r Dysphagia Referring Physician: Nidia Piper [facility], Encounter Date: 05/07/2023 General Surgeon Referral for Lipoma of abdominal wall Referring Physician: [facility], Encounter Date: 06/20/2023 Job Captain Referral for Chronic abdominal pain Referring Physician: Nidia Piper [facility], Encounter Date: 09/25/2023 Massotherapist Referral for C hange in skin lesion Referring Physician: Nidia Piper [facility], Encounter Date: 09/25/2023 Massotherapist Referral for C hange in skin lesion Referring Physician: Nidia Piper [facility], Encounter Date: 12/30/2023 Job Captain Referral for Chronic abdominal pain Referring Physician: Nidia Piper [facility], Encounter Date: 12/30/2023 Results Created Date Observation Date Name Description Value Unit Range Abnormal Flag Note LastModifiedBy Organization Detail LastModifiedTime 04/10/1904/10/2023 LIPID PANEL WITH LDL/H DL RATIO cholesterol, total 156 mg/dL 100-19 9 Not Available [facility] Department [address] [place], [address], 04/10/2023 19:10:04 04/10/19 24 04/10/2023 LIPID PANEL WITH LDL/H DL RATIO triglyceride s 190 mg/dL 0-149 above high normal Not Available [facility] Department [address] [place], [address], 04/10/2023 19:10:04 04/10/19 24 04/10/2023 LIPID PANEL WITH LDL/H DL RATIO HDL cholesterol 55 mg/dL 40-999 Not Available [facility] Department [address] [place], [address], 04/10/2023 19:10:04 04/10/19 24 04/10/2023 LIPID PANEL WITH LDL/H DL RATIO VLDL cholesterol louis 38 mg/dL 5-40 Not Available [facility] Department [address] [place], [address], 04/10/2023 19:10:04 04/10/19 24 04/10/2023 LIPID PANEL WITH LDL/H DL RATIO LDL chol calc ([facility]) 93 mg/dL 0-99 Not Available [facility] Department [address] [place], [address], 04/10/2023 19:10:04 04/10/19 24 04/10/2023 LIPID PANEL WITH LDL/H DL RATIO LDL/HDL ratio 1.7 0-3.2 Not Available [facility] Department [address] [place] [address], [address], 04/10/2023 19:10:04 04/10/19 24 04/10/2023 COMP. METAB OLIC PANEL (14) glucose 102 mg/dL 70-99 above high normal Not Available [facility] Department [address] [place], [address], 04/10/2023 19:10:05 04/10/19 24 04/10/2023 COMP. METAB OLIC PANEL (14) BUN 13 mg/dL 6-20 Not Available [facility] Department [address] [place], [address], 04/10/2023 19:10:05 04/10/19 24 04/10/2023 COMP. METAB OLIC PANEL (14) creatinine 0.82 mg/dL 0.76-1 .27 Not Available [facility] Department [address] [place], [address], 04/10/2023 19:10:05 04/10/19 24 04/10/2023 COMP. METAB OLIC PANEL (14) eGFR 94 >=60 Units for eGFR value s are mL/mi n/1.7 3 The eGFR Calcu latio n has not been valid ated for patie nts under the age of 18. If test resul ts are displ ayed for a patie nt under the age of 18, disre nathaniel that value . Not Available [facility] Department [address] [place], [address], 04/10/2023 19:10:05 04/10/19 24 04/10/2023 COMP. METAB OLIC PANEL (14) BUN/creatini ne ratio 16 9-23 Not Available [facility] Department [address] [place], [address], 04/10/2023 19:10:05 04/10/19 24 04/10/2023 COMP. METAB OLIC PANEL (14) sodium 142 mmol/ L 134-14 4 Not Available [facility] Department [address] [place] [address], [address], 04/10/2023 19:10:05 04/10/19 24 04/10/2023 COMP. METAB OLIC PANEL (14) potassium 4.5 mmol/ L 3.5-5. 2 Not Available [facility] Department [address] [place], [address], 04/10/2023 19:10:05 04/10/19 24 04/10/2023 COMP. METAB OLIC PANEL (14) chloride 104 mmol/ L 96-106 Not Available [facility] Department [address] [place], [address], 04/10/2023 19:10:05 04/10/19 24 04/10/2023 COMP. METAB OLIC PANEL (14) carbon dioxide, total 26 mmol/ L 20-29 Not Available [facility] Department [address] [place], [address], 04/10/2023 19:10:05 04/10/19 24 04/10/2023 COMP. METAB OLIC PANEL (14) calcium 10.0 mg/dL 8.7-10 .2 Not Available [facility] Department [address] [place], [address], 04/10/2023 19:10:05 04/10/19 24 04/10/2023 COMP. METAB OLIC PANEL (14) protein, total 7.7 g/dL 6.0-8. 5 Not Available [facility] Department [address] [place], [address], 04/10/2023 19:10:05 04/10/19 24 04/10/2023 COMP. METAB OLIC PANEL (14) albumin 4.6 g/dL 3.9-4. 9 Not Available [facility] Department [address] [place], [address], 04/10/2023 19:10:05 04/10/19 24 04/10/2023 COMP. METAB OLIC PANEL (14) globulin, total 3.1 g/dL 1.5-4. 5 Not Available [facility] Department [address] [place], [address], 04/10/2023 19:10:05 04/10/19 24 04/10/2023 COMP. METAB OLIC PANEL (14) A/G ratio 1.5 1.2-2. 2 Not Available [facility] Department [address] [place], [address], 04/10/2023 19:10:05 04/10/19 24 04/10/2023 COMP. METAB OLIC PANEL (14) bilirubin, total 0.3 mg/dL 0.0-1. 2 Not Available [facility] Department [address] [place], [address], 04/10/2023 19:10:05 04/10/19 24 04/10/2023 COMP. METAB OLIC PANEL (14) alkaline phosphatase 102 IU/L 44-121 Not Available [facility] Department [address] [place], [address], 04/10/2023 19:10:05 04/10/19 24 04/10/2023 COMP. METAB OLIC PANEL (14) AST (SGOT) 16 IU/L 0-40 Not Available [facility] Department [address] [place], [address], 04/10/2023 19:10:05 04/10/19 24 04/10/2023 COMP. METAB OLIC PANEL (14) ALT (SGPT) 15 IU/L 0-32 Not Available [facility] Department [address] [place], [address], 04/10/2023 19:10:05 04/10/19 24 04/10/2023 CBC WITH DIFFE RENTI AL/PL ATELE T WBC 8.3 x10e3 /uL 3.4-10 .8 Not Available [facility] Department [address] [place], [address], 04/10/2023 19:10:06 04/10/19 24 04/10/2023 CBC WITH DIFFE RENTI AL/PL ATELE T RBC 5.41 x10e6 /uL 3.77-5 .28 above high normal Not Available [facility] Department [address] [place], [address], 04/10/2023 19:10:06 04/10/19 24 04/10/2023 CBC WITH DIFFE RENTI AL/PL ATELE T hemoglobin 14.4 g/dL 11.1-1 5.9 Not Available [facility] Department [address] [place], [address], 04/10/2023 19:10:06 04/10/19 24 04/10/2023 CBC WITH DIFFE RENTI AL/PL ATELE T hematocrit 46.1 % 34.0-4 6.6 Not Available [facility] Department [address] [place], [address], 04/10/2023 19:10:06 04/10/19 24 04/10/2023 CBC WITH DIFFE RENTI AL/PL ATELE T MCV 85 fL 79-97 Not Available [facility] Department [address] [place], [address], 04/10/2023 19:10:06 04/10/19 24 04/10/2023 CBC WITH DIFFE RENTI AL/PL ATELE T MCH 26.6 pg 26.6-3 3.0 Not Available [facility] Department [address] [place], [address], 04/10/2023 19:10:06 04/10/19 24 04/10/2023 CBC WITH DIFFE RENTI AL/PL ATELE T MCHC 31.2 g/dL 31.5-3 5.7 below low normal Not Available [facility] Department [address] [place], [address], 04/10/2023 19:10:06 04/10/19 24 04/10/2023 CBC WITH DIFFE RENTI AL/PL ATELE T RDW 13.2 % 11.5-1 4.5 Not Available [facility] Department [address] [place], [address], 04/10/2023 19:10:06 04/10/19 24 04/10/2023 CBC WITH DIFFE RENTI AL/PL ATELE T platelets 308 x10e3 /uL 150-45 0 Not Available [facility] Department [address] [place], [address], 04/10/2023 19:10:06 04/10/19 24 04/10/2023 CBC WITH DIFFE RENTI AL/PL ATELE T neutrophils 70 % notest b. Not Available [facility] Department [address] [place], [address], 04/10/2023 19:10:06 04/10/19 24 04/10/2023 CBC WITH DIFFE RENTI AL/PL ATELE T lymphs 20 % notest b. Not Available [facility] Department [address] [place], [address], 04/10/2023 19:10:06 04/10/19 24 04/10/2023 CBC WITH DIFFE RENTI AL/PL ATELE T monocytes 7 % notest b. Not Available [facility] Department [address] [place], [address], 04/10/2023 19:10:06 04/10/19 24 04/10/2023 CBC WITH DIFFE RENTI AL/PL ATELE T eos 2 % notest b. Not Available [facility] Department [address] [place], [address], 04/10/2023 19:10:06 04/10/19 24 04/10/2023 CBC WITH DIFFE RENTI AL/PL ATELE T basos 1 % notest b. Not Available [facility] Department [address] [place], [address], 04/10/2023 19:10:06 04/10/19 24 04/10/2023 CBC WITH DIFFE RENTI AL/PL ATELE T neutrophils (absolute) 5.8 x10e3 /uL 1.4-7. 0 Not Available [facility] Department [address] [place], [address], 04/10/2023 19:10:06 04/10/19 24 04/10/2023 CBC WITH DIFFE RENTI AL/PL ATELE T lymphs (absolute) 1.7 x10e3 /uL 0.7-3. 1 Not Available [facility] Department [address] [place], [address], 04/10/2023 19:10:06 04/10/19 24 04/10/2023 CBC WITH DIFFE RENTI AL/PL ATELE T monocytes(ab solute) 0.6 x10e3 /uL 0.1-0. 9 Not Available [facility] Department [address] [place], [address], 04/10/2023 19:10:06 04/10/19 24 04/10/2023 CBC WITH DIFFE RENTI AL/PL ATELE T eos (absolute) 0.2 x10e3 /uL 0.0-0. 4 Not Available [facility] Department [address] [place], [address], 04/10/2023 19:10:06 04/10/19 24 04/10/2023 CBC WITH DIFFE RENTI AL/PL ATELE T baso (absolute) 0.0 x10e3 /uL 0.0-0. 2 Not Available [facility] Department [address] [place], [address], 04/10/2023 19:10:06 04/10/19 24 04/10/2023 CBC WITH DIFFE RENTI AL/PL ATELE T immature granulocytes 0.2 % notest b. Not Available [facility] Department [address] [place], [address], 04/10/2023 19:10:06 04/10/19 24 04/10/2023 CBC WITH DIFFE RENTI AL/PL ATELE T immature grans (abs) 0.0 x10e3 /uL 0.0-0. 1 Not Available [facility] Department [address] [place], [address], 04/10/2023 19:10:06 04/10/19 24 04/10/2023 CBC WITH DIFFE RENTI AL/PL ATELE T NRBC 0 % 0-0 Not Available [facility] Department [address] [place], [address], 04/10/2023 19:10:06 04/10/19 24 04/11/2023 TSH+F REE T4 TSH 3.480 uIU/m L 0.450- 4.500 Not Available [facility] ([facility]) [address] [facility], [place], [address], 04/11/2023 11:15:18 04/10/19 24 04/11/2023 TSH+F REE T4 T4,free(dire ct) 1.34 NG/dL 0.82-1 .77 Not Available [facility] ([facility]) [address] [place], [address], 04/11/2023 11:15:18 04/10/19 24 04/11/2023 VITAM IN B12 AND FOLAT E vitamin B12 428 pg/mL 232-12 45 Not Available [facility] ([facility]) [address] [facility], [place], [address], 04/11/2023 11:15:19 04/10/19 24 04/11/2023 VITAM IN B12 AND FOLAT E folate (folic acid), serum 6.3 NG/mL >3.0 A serum folat e arnoldo ntrat ion of less than 3.1 ng/mL is consi dered to repre sent clini louis defic iency . Not Available [facility] ([facility]) [address] [facility], [place], [address], 04/11/2023 11:15:19 04/10/19 24 04/11/2023 HEMOG LOBIN A1C hemoglobin A1C 5.8 % 4.8-5. 6 above high normal Predi abete s: 5.7 - 6.4 Diabe pete: >6.4 Glyce catalina contr ol for adult s with diabe pete: <7.0 Not Available [facility] ([facility]) [address] [place], [address], 04/11/2023 11:15:20 04/10/19 24 04/11/2023 VITAM IN [...] um and D. Antoine bermeo [place]: [facility] . 2. Temitope k MF, Binkl ey [place], Bisch off-F errar i [place], et al. Evalu ation , treat ment, and preve ntion of vitam in D defic iency : an Endoc rine Socie ty clini louis pract ice guide line. JCEM. 2010; 96(7) :1911 -30. Not Available [facility] ([facility]) [address] [facility], [place], [address], 04/11/2023 11:15:21 05/01/19 24 04/29/2023 US, abdom inal wall No observ ation record ed. [address], [address], 05/07/2023 09:10:04 05/01/19 24 04/29/2023 US, abdom inal wall No observ ation record ed. [address] [address], [place], [address], 05/07/2023 09:10:04 06/05/19 24 04/29/2023 US, abdom inal wall No observ ation record ed. [address] [address], [place], [address], 06/05/2023 14:16:11 06/08/19 24 06/06/2023 XR, chest , 2 view No observ ation record ed. [address], [address], 06/12/2023 15:43:50 06/08/19 24 06/06/2023 US, abdom inal wall No observ ation record ed. [address], [address], 06/12/2023 15:43:50 Result Notes None recorded. Problems Name Problem SNOMED Code Status Onset Date Resolution Date Notes Provider Name and Address Organization Details Recorded Time Smoker 02254237 Active 2021 CHICO LEÓN Attn: Accountin g,[address] [facility], [place], [address], [place] [facility] 2 16:17:34 Prediabetes 834137509 Active 2021 CHICO LEÓN Attn: Accountin g,[address] [facility], [place], [address], [place] [facility] 2 16:17:24 Serum creatinine above reference range 430585829 Active 2021 CHICO LEÓN Attn: Accountin g,[address] [facility], [place], [address], [place] [facility] 2 16:17:27 Neck swelling 060080289 Active 2021 CHICO LEÓN Attn: Accountin g,[address] [facility], [place], [address], [place] [facility] 2 16:43:27 Depression screening Active 2021 CHICO LEÓN Attn: Accountin g,[address] [facility], [place], [address], [place] [facility] 2 16:43:38 Vitamin D deficiency 21500469 Active 2021 CHICO LEÓN Attn: Accountin g,[address] [facility], [place], [address], [place] [facility] 2 12:59:01 Mixed anxiety and depressive disorder 545391865 Active 2023 CHICO LEÓN Attn: Accountin g,[address] [facility], [place], [address], [place] [facility] 4 14:53:54 Generalized anxiety disorder 24023966 Active Teri [place]ropeza[place] [facility] 7 10:45:31 Attention deficit hyperactivi ty disorder, predominant ly inattentive type 46611674 Active Teri Marin null[place] [facility] 7 10:45:31 Anxiety 67576982 Active SINCE REGLA Jordan [place], [place] [facility] 6 10:24:48 Posttraumat ic stress disorder 63617787 Active SINCE REGLA Jordan [place] [facility] 6 10:24:48 Recurrent miscarriage 278054455 Active Ter[place] [facility] 7 10:45:31 Recurrent miscarriage 018896202 Completed Ter[place] [facility] 7 10:45:31 Chronic post-trauma tic stress disorder 068770488 Active Ter[place] [facility] 7 10:45:31 Chronic post-trauma tic stress disorder 864276560 Completed Trei [place] [facility] 7 10:45:31 Generalized anxiety disorder 43381908 Completed Ter[place] [facility] 7 10:45:31 Attention deficit hyperactivi ty disorder, predominant ly inattentive type 71567208 Completed Ter[place] [facility] [place] 10:45:31 Bacterial vaginosis 571572873 Active [place] [facility] [place] 10:45:31 Bacterial vaginosis 902625095 Completed Teri [place] [facility] [...] cholecystectomy completed CHICO LEÓN Attn: Accounting,[address] [place], [address], [place] [facility] 01/07/2022 09:19:12 016 Date of Last Pap Smear completed Rut Jordan MA [place] - [facility] 11/28/2015 16:06:55 012 Dilation and Curettage completed Mi Frank MD Attn: Accounting,[address] [facility], [place], [address], [facility] 11/28/2015 16:37:34 Imaging Results None recorded. Procedure Notes None recorded. Medical Equipment None [...] Not Available Not Available Vitals Date Recorded Systolic blood pressure Diastolic blood pressure Provider Name and Address Organization Details Last Updated DateTime 04/10/2023 123 mm[Hg] 85 mm[Hg] CHICO LEÓN Attn: Accounting,[address] [place], [address], [place] [facility] 04/10/2023 10:47:47 Date Recorded Body height Body mass index (BMI) Body weight Oxygen saturation Oxygen saturation in Arterial blood by Pulse oximetry Heart rate Respiratory rate Systolic blood pressure Diastolic blood pressure Provider Name and Address Organization Details Last Updated DateTime 4 170.18 cm 32.6 kg/m2 22110.2 1 g 96 % 96 % 102 /min 18 /min 137 mm[Hg] 91 mm[Hg] Julisa Sloan MA [facility] 4 10:08:55 Date Recorded Body height Body mass index (BMI) Body weight Oxygen saturation Oxygen saturation in Arterial blood by Pulse oximetry Heart rate Respiratory rate Systolic blood pressure Diastolic blood pressure Provider Name and Address Organization Details Last Updated DateTime 4 170.18 cm 33.5 kg/m2 44541.7 7 g 98 % 98 % 84 /min 16 /min 137 mm[Hg] 82 mm[Hg] Julisa Sloan MA [facility] 4 08:38:02 Date Recorded Respiratory rate Heart rate Systolic blood pressure Diastolic blood pressure Provider Name and Address Organization Details Last Updated DateTime 06/20/2023 18 /min 90 /min 130 mm[Hg] 80 mm[Hg] CHICO LEÓN Attn: Accounting ,[address] [place], [address] , [facility] 06/20/2023 14:27:34 Date Recorded Body height Body mass index (BMI) Body weight Oxygen saturation Oxygen saturation in Arterial blood by Pulse oximetry Heart rate Systolic blood pressure Diastolic blood pressure Provider Name and Address Organization Details Last Updated DateTime 4 170.18 cm 33.8 kg/m2 35502.9 5 g 97 % 97 % 107 /min 144 mm[Hg] 85 mm[Hg] Karen Gaspar MA [facility] 4 14:04:33 Date Recorded Heart rate Respiratory rate Systolic blood pressure Diastolic blood pressure Provider Name and Address Organization Details Last Updated DateTime 09/25/2023 92 /min 18 /min 136 mm[Hg] 86 mm[Hg] CHICO LEÓN Attn: Accounting ,[address] [place], [address] , [facility] 09/25/2023 14:26:26 Date Recorded Body height Body mass index (BMI) Body weight Oxygen saturation Oxygen saturation in Arterial blood by Pulse oximetry Heart rate Systolic blood pressure Diastolic blood pressure Provider Name and Address Organization Details Last Updated DateTime 4 170.18 cm 33.7 kg/m2 20118.3 6 g 98 % 98 % 103 /min 138 mm[Hg] 96 mm[Hg] Julisa Sloan MA [facility] 4 14:05:45 Date Recorded Body height Body mass index (BMI) Body weight Oxygen saturation Oxygen saturation in Arterial blood by Pulse oximetry Heart rate Respiratory rate Systolic blood pressure Diastolic blood pressure Provider Name and Address Organization Details Last Updated DateTime 4 170.18 cm 35.6 kg/m2 203622. 47 g 99 % 99 % 82 /min 16 /min 131 mm[Hg] 82 mm[Hg] Julisa Sloan MA [facility] 4 08:34:51 Social History Question Answer Notes LastModified by Organizat ion Details LastModified Time Tobacco Smoking Status Current Every Day Smoker Rut Jordan MA [facility] 11/28/2015 15:57:38 Do You Have An Advance [...] Of Your Most Recent Tobacco Screening? 09/25/2023 [email or web address] Information not available 09/25/2023 How Many Children [...] Date Was Tobacco Cessation Counseling Provided? 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[email or web address] Information not available 02/14/2022 What [...] N Blood Diseases N Hyperthyroidism N Blood disorders N Blood Transfusion N MRSA N Emphysema N Depression Y COPD N Blood Clots N Pneumonia N Premature N Peripheral Arterial Disease N Edema N TIA N Headaches/Migraines N Anxiety Disorder Y Obesity N Polyps N Infertility N Acid Reflux (GERD) N Hematuria N [...] Disorder N Colon Polyps N Heart Attack ([place]) N Diabetes N Cardiomyopathy N Blood Transfusions [...] SNOMED-CT Code Diagnosis ICD10 Code Diagnosis Note [id number] MD Israel Saucedo ([employer]) [address] [place] [address] 11/28/2015 15:12:39 11/29/2015 10:20:40 High risk 39404702 O09.91 Recurrent miscarriage 10 7587754 N96 [id number] Mi Frank MD [facility] ([employer]) [address] [place] [address] 11/29/2015 10:02:15 11/30/2015 10:51:47 High risk 15014781 O09.91 Transfer care to [facility] for severe psychiatri c issues All labs ordered yesterday Chronic post-traumatic stress disorder 304417576 F43.12 Generalize d anxiety disorder 41260594 F41.1 Attention deficit hyperactivity disorder, predominantly inattentive type 62850647 F90.0 Recurrent miscarriage 10 8749026 N96 all other labs ordered yesterday [id number] David lynn MD [facility] [address] [place] [address] 01/04/2022 10:32:44 01/07/2022 11:13:42 Smoker 61919811 F17.200 2 pk/week Neck swelling 857781201 R22.1 x3 yrsrecurre nt strep throat and was multiple rounds of antibiotic s w/o reliefDeni es cough at night, sore throat, odynophagi a, or dysphagiac onstantly spitting things up, describes a specks of black/red/ pink mixed in with her sputum and provided picturesPE x- nlUS head and neckfuture referral to ENT Adult [facility] th examination [id number] Z00.00 routine labs Depression screening 171 729299 Z13.31 PHQ 8on xanax, wellbutrin , and vyvansefol lows with psychPEx- anxious, talkative, pressured speech, tangential Obesity 265026397 E66.9 BMI 33.2discus sed increasing exercise and healthier food options, high protein, low fat diet History of cholecystectomy 402505529 Z90.49 removed at [facility] 2 wks agounknown surgeon's name and has not followed upstates that [employer] was involved due to fluid in her pelvisPEx- well healing surgical scars, superior to umbilicus 2 inch horizontal incision, RUQ 1 inch horizontal incision, non-TTPreq uested records [id number] David lynn MD [facility] [address] [place] [address] 02/06/2022 14:15:39 02/07/2022 14:20:29 Neck swelling 535324232 R22.1 02/06/22:U S neck and tissue- normal [...] ENT Serum crea tinine above reference range 476774988 R79.89 :n ormal Cr and eGFR- inpatient labs 12/11/21re peat CMP 01/04/22:C r 1.5eGFR 47repeat at f/u visit Fatigue 92641429 R53.83 c/o chronic fatigueno difference with Vyvanse, psychiatry awarewill check Vit D and Vitamin B 12 Left flank pain 46303172 9 R10.9 c/o L inner groin pain and L flank pain since surgerysaw Dr. Borjas and had pelvic/tra nsvaginal US donehad f/u surgeon post cholecyste ctomy, rec'd CT scan and advised Dr. Borjas to orderpt states she has to lift up her L leg when driving due to pain [id number] Ricardo Thompson MD [facility] [address] [place] [address] 02/21/2022 16:19:21 02/22/2022 10:20:19 Acute sinusitis 27958994 J01.90 Dysphagia 24733954 R13.1 0 barium swallow pending [id number] Ricardo Thompson MD [facility] ts [address] [place] [address] 04/08/2022 11:18:53 04/08/2022 13:11:59 Chronic sinusitis 20416611 J32.9 follow-up after CT scan [id number] David lynn MD [facility] [address] [place] [address] 04/10/2023 10:04:44 04/10/2023 11:03:41 Pain of right shoulder joint [id number] 7671374 M25.511 04/10/23:- no trauma or injury- worsening past 2 wks- located near axilla- trial ibuprofen for 2 wks Fatigue 15015523 R53.83 04/10/23:- c/o chronic fatigue- no difference with Vyvanse, psychiatry is aware- will check Vit D and Vitamin B 12 Obesity 334193184 E66.9 04/10/23:- BMI 32.6- discussed increasing exercise and healthier food options, high protein, low fat diet 01/04/22:- BMI 33.2- discussed increasing exercise and healthier food options, high protein, low fat diet Right flank pain 8356429 09 R10.9 04/10/23:- noticed lump on R flank a couple months ago- hurts in certain sitting positions- no GI sxs- no UA sxPEx- able to palpate 3 cm x 2 cm horizontal superficia l nodule to R flank area, non-TTP without erythema- ordered US Idiopathic urticaria 422 06032 L50.1 04/10/23:- to abdomen- pt reports sensitive skin and breaks out randomly all the timePEx- 4 cm x 5 cm circular erythemato us patch to mid abdomen- c/w hydrocorti sone cream- trial antihistam ine Anxiety 67688319 F41.9 04/10/23:- still experienci ng panic attacks- rec'd f/u with psych Depression screening 171 213421 Z13.31 PHQ 9on xanax, wellbutrin , and vyvansefol lows with psych [id number] David lynn MD [facility] [address] [place] [address] 05/07/2023 08:34:41 05/07/2023 09:02:42 Right flank pain 843058415 R10.9 05/07/23: US abdominal wall 04/29/23- 7 cm lipoma to R flankgener al surgery referral sent 04/10/23:- noticed lump on R flank a couple months ago- hurts in certain sitting positions- no GI sxs- no UA sxPEx- able to palpate 3 cm x 2 cm horizontal superficia l nodule to R flank area, non-TTP without erythema- ordered US Strain of right pectoral muscle [id number] S29.011A 05/07/23:pa in starts in upper R [...] axilla- trial ibuprofen for 2 wks Dysphagia 93991390 R13.1 0 requesting new ENT referral [id number] David lynn MD [facility] [address] [place] [address] 06/20/2023 13:59:43 06/20/2023 14:34:51 Strain of right pectoral muscle 0222244627 [id number] S29.011A 06/20/23: CXR nl, did not complete US chest wall due to issue at [facility] 05/07/23:pa in starts in upper R breast, [...] axilla- trial ibuprofen for 2 wks Dysphagia 69441280 R13.1 0 needs to call ENT to schedule apptcan push on R chest wall which causes her to spit up mucus, small dots of blood and large blue string Lipoma of abdominal wall 562393900 D17.[address] 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 Laryngopha [...] large blue string Chronic ab dominal pain 259555098 R10.[address] omach will be hard to RLQ, pain wraps around to the R side of her backGB removed 12/08recen t CT relatively nl, 1.3 cm calcified mass to RUQ, has upcoming MRI abd, by Dr. Horan General Surgery Change in skin lesion 39 5003582 L98.9 requesting referral to derm for lesions on her face Cystic acne 67579598 L70 .0 trial tretinoin Depression screening 171 190572 Z13.31 09/25/23: PHQ 0 12/2021: PHQ 9on xanax, wellbutrin , and vyvansefol lows with psych [id number] Joshua Marrero MD [facility] [address] [place] [address] 12/30/2023 08:31:50 12/30/2023 08:51:49 Change in skin lesion 539754458 L98.9 12/30/23: c/o worm/strin g like substance that came out of the back of her scalp 2-3 wks ago while combing her hair, 6 inches in lengthpt saved object in plastic container at home, provided picturesPE x- scalp exam nlre-sent referral 09/25/23: requesting referral to derm for lesions on her face Chronic ab dominal pain 183704587 R10.9 12/30/23: re-sent referral 09/25/23: feels st [...] Reinoso Member ID Guarantor Name 04/10/2023 1 [facility] - DOS ON OR AFTER 20 (MEDICAID REPLACEMENT - HMO) Sherie Rachel [id number] Sherie Rachel 05/07/2023 1 [facility] - DOS ON OR AFTER 20 (MEDICAID REPLACEMENT - HMO) Sherie Rachel [id number] Sherie Rachel 06/20/2023 1 [facility] - DOS ON OR AFTER 20 (MEDICAID REPLACEMENT - HMO) Sherie Rachel [id number] Sherie Rachel 09/25/2023 1 [facility] - DOS ON OR AFTER 20 (MEDICAID REPLACEMENT - HMO) Sherie Rachel [id number] Sherie Sullivany 12/30/2023 1 [facility] - DOS ON OR AFTER 20 (MEDICAID REPLACEMENT - HMO) Sherie Virginie [id number] Sherie Sullivany Notes Date Note Type Note Provider Name [...] dizziness, weakness, or headaches. CHICO LEÓN Attn: [address] [place], [address], [facility] 04/15/2023 12:52:11 05/07/2023 text/html Pt presents to discuss US results. Reports that she still has intermittent pain located on her R flank and is concerned it is due to lipoma. Requesting referral to surgery for remova. CHICO LEÓN Attn: [address] [place], [address], [facility] 05/08/2023 11:39:08 06/20/2023 text/html Pt presents for test result f/u. Reports that she completed US stomach and CXR at [facility], but they did not have orders for US chest wall. States that she believes imaging is inaccurate because it said there was no lipoma on her R side when prior imaging had noted this. CHICO LEÓN Attn: [address] [facility], [place], [address], [facility] 06/20/2023 14:56:02 09/25/2023 text/html Pt presents for [...] what she spits up. CHICO LEÓN Attn: [address] [facility], [place], [address], [facility] 09/25/2023 15:59:30 12/30/2023 text/html Pt presents for [...] given bactrim. CHICO LEÓN Attn: [address] [place], [address], [facility] 12/30/2023 10:47:37 OBGyn Episode Ob Episode Information Episode Created Date Number of Fetuses Patient Bloodtype Patient rh Status Prepregnancy Weight lbs Domestic Partner Domestic Partner Phone Father Name Hand Cloth Examiner Status 11/28/19 16 1 CLOSED Fetus Data First Name Last Name Admitted to NICU Weight (g) Sex Living Outcome Pediatric Complications Fetus ID Race Codes Race Delivery Type Demise [id number] Problems Problem Notes Problem Name Start Date End Date Resolution Snomed Code Not e Recurrent miscarriage 73787911 1 Chronic post-traumatic stres s disorder 712026192 Generalized anxiety disorder 2 7848009 Attention deficit hyperactiv ity disorder, predominantly inattentive type 38152104 Bacterial vaginosis 261638677 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 precautions discussed. Refer to [facility] secondary to psychiatric issues. Thrombophilia workup for [...] Type Weight in lbs Pre/Post Dialysis Refused 202.293459833705 BP Diastolic BP Location Tested BP Systolic BP Type 78 122 sitting Fetus Heart Rate Present Fetus Movement Comments Patient came back for exam t katie. precautions discussed. Transfer care to [facility] secondary to severe psychiatric issues. She is asking for a prescription for amphetamine. Advised patient that she can not take amphetamines during . She has appointment with [facility] and ultrasound on 11/30/15 at 0730 AMThrombophilia workup for recurrent miscarriages ordered yesterday. Menstrual History Last Menstrual Date Menses Monthly On Bcp Conception Prior Menses Frequency Hcg Plus Date Menarche Onset Age 0709/10/2015 true 28 13 Genetic Screening And Infection History Question Response Note Patient's Age Will Be 35 Years Or Older At Estim ated Date of Delivery false Thalassemia (Slovak, Nigerian, Mediterranean, Or Background): MCV < 80 false Neural Tube Defect (Meningomyelocele, Spina Bifi da, Or Anencephaly) false Congenital Heart Defect false Down Syndrome false Kaveh-Sachs (eg, Islam, Cajun, Bengali-[place]) f alse Conor Disease false Sickle Cell Disease Or Trait () false Hemophilia Or Other Blood Disorders false Muscular Dystrophy false Cystic Fibrosis false Newberry's Chorea false Mental Retardation/Autism false If Yes, [...] ed By 11/29/2015 Anticipated course of care 11/29/2015 Alcohol [facility] 11/29/2015 Intimate partner violence [facility]11/29/2015 Environmental/work hazards s 11/29/2015 Screening for aneuploidy [facility] 11/29/2015 Nutrition counseling ; special diet; dietary precautions (mercury, listeriosis) [facility] 11/29/2015 Childbirth classes/hospital facilities 11/29/2015 HIV and other routine tests 11/29/2015 Risk factors identif ied by history 11/29/2015 Weight gain counseling [facility] ur11/29/2015 Exercise 11/29/2015 Teratogens 11/29/2015 Use of any medicatio ns (including supplements, vitamins, herbs, or OTC drugs) 11/29/2015 lynda11/29/2015 Sexual activity [facility] 11/29/2015 Tobacco/smoking cess ation counseling (ask, advise, assess, assist, and arrange) [facility] 11/29/2015 Illicit/recreational drugs [facility] 11/29/2015 Dental care [facility] 11/29/2015 Travel [facility] 11/29/2015 Seat belt use [facility] 11/29/2015 Indications for ultrasonography [facility] 11/29/2015 Avoidance of saunas or hot tubs [facility] 11/29/2015 Toxoplasmosis precautions (cats/raw meat) [facility] Second Trimester Discussed Date Discussion Item Discussion [...]
--- OUTSIDE RECORDS SUMMARY | 2024-07-15 03:10 | XMS_ITS ---
Author Organization [facility] Address [address] [place] [address] Care Team Providers Care Swaging Machine Operator Name Role Phone Lionel Butt Primary Care Provider [phone] [employer], [facility] Unavailable U navailable REASON FOR VISIT missed last appt-last seen 11/26/23 Social History Sex Assigned At : Social History Observation Description Sex Assigned At Female Encounters Encounter Location Date Provider Diagnosis [address] [place] [address] 04/29/2024 Lionel Butt Plan Of Treatment No Information Progress Notes * Sherie RIGGSDOB:1985 (38 yo F)Acc No.[id number]:04/29/2024 UNLOCKED PROGRESS NOTE Patient: Sherie SHAH Provider: Fredis Butt DNP, PMDUSTINP-BC :1985 A ge:38 Y S ex:Female Date:04/29/2024 Address[address] [facility] Subjective: * Chief Complaints: * 1 . Missed last appt-last seen 11/26/23. * Medical History: Objective: * Vitals: Assessment: Plan: * Treatment: * * Electronic signature of Ian Butt APRN, [id number] on 07/15/2024 at 03:10 AM CDT Sign off status: Pending * Provider: Fredis Butt DNP, PMHNP-BC Date: 0 04/29/2024 Generated for Dorcas franco/Robert/Olivia on: 0 07/15/2024 03:10 AM CDT
--- OUTSIDE RECORDS SUMMARY | 2024-07-15 03:10 | XMS_ITS | Referral Summary ---
Author Organization [facility] Virtual Care Address [address] [place] [address] Phone Care Team Providers Care Piano Mechanic Name Role Phone Michele Mckenna MD Primary Care Provider [phone] Encounters Date Type Department Care Team Description 07/08/2024 Telephone Obstetrics and Gynecology Clinic [address] [facility] 3rd Floor [address] [place] [address] Rei Pedro 07/08/[address] [phone] Priyanka Loera MD 07/08/2024 Orders Only [address] [phone] Priyanka Loera MD of unknown anatomic location (Primary Dx) 07/07/2024 8:40 PM CDT - 07/07/2024 11:59 PM CDT Hospital Encounter [facility] [address] [place] [address] of unknown anatomic location Discharge Disposition: Discharge to home or self care 07/07/[address] [phone] Priyanka Loera MD 07/07/2024 2:15 PM CDT Lab [facility] Outpatient Lab at [address] [address] 07/06/2024 Orders Only [address] [address] Priyanka Loera MD of unknown anatomic location (Primary Dx) 07/05/2024 12:29 PM CDT - 07/05/2024 3:58 PM CDT Hospital Encounter [address] [address] Tommy Dunn MD Discharge Disposition: Discharge to home or self care 07/05/2024 Telephone [facility] Maternal- Medicine [address] [place] [address] Outpatient [facility] 7th Floor [address] [place] [address] Linette Arboleda 07/05/[address] [address] Elisaebt Cartagena RN Incoming Call 07/01/2024 Telephone [facility] Maternal- Medicine [address] [place] [address] 7th Floor [address] [place] [phone] Jocelyn Mir CMA MFM Self-Referral 06/24/2024 1:00 PM CDT - 06/24/2024 11:59 PM CDT Hospital Encounter [facility] Neurology Testing [address] [place] [address] Paresthesia of hand Discharge Disposition: Discharge to home or self care 06/08/2024 Results Follow-Up [facility] [address] [facility] [address] [place] [address] Raymon Woodard MD Surgical pathology 06/04/2024 10:35 AM CDT - 06/04/2024 11:35 AM CDT Surgery [facility] Operating Room [address] [place] [address] Raymon Woodard MD EXCISION SOFT TISSUE LIPOMA OF RIGHT FLANK 06/04/2024 9:38 AM CDT Anesthesia Event [facility] Operating Room 1 [place] [address] Juan Jose Anguiano MD Alexander, Jeffrey Michael, DO 06/04/2024 8:47 AM CDT - 06/04/2024 11:37 AM CDT Hospital Encounter [facility] Operating Room 1 [place] [address] Raymon Woodard MD Abdominal wall mass of right flank Discharge Disposition: Discharge to home or self care 06/02/2024 Results Follow-Up [facility] Primary Care at [facility] [address] [facility] [address] [place] [address] Michele Mckenna MD Soft Tissue Lower Back 05/31/2024 Telephone [facility] Convenient Care at [address], [place] [address] Marily Storey, REINALDO 05/31/2024 Results Follow-Up [facility] Convenient Care at [address], [place] [address] Marily Storey, REINALDO XR Shoulder Right 2 or More Views 05/31/2024 Results Follow-Up [facility] Convenient Care at [address] [place] [address] Marily Storey, REINALDO XR Spine Cervical 2 or 3 Views 05/31/2024 2:04 PM CDT - 05/31/2024 11:59 PM CDT Hospital Encounter [facility] Diagnostic Imaging [address] [place] [address] Acute pain of right shoulder Discharge Disposition: Discharge to home or self care 05/31/2024 2:04 PM CDT - 05/31/2024 11:59 PM CDT Hospital Encounter [facility] Diagnostic Imaging [id number] [place] [address] Acute pain of right shoulder Discharge Disposition: Discharge to home or self care 05/31/2024 1:00 PM CDT - 05/31/2024 11:59 PM CDT Hospital Encounter [facility] ` [address] [place] [address] Skin mass Discharge Disposition: Discharge to home or self care 05/27/2024 1:45 PM CDT Office Visit [facility] [address] [facility] [address] [place] [phone] EyeBrisa otero NP Abdominal wall mass of right flank (Primary Dx); Skin mass 05/24/2024 3:15 PM CDT Office Visit [facility] Primary Care at [place] [address] [facility] [address] [place] [phone] Michele Mckenna MD IFG (impaired fasting glucose) (Primary Dx); Vitamin D deficiency; Gastritis without bleeding, unspecified chronicity, unspecified gastritis type; Paresthesia of hand; Skin mass; Healthcare maintenance 05/06/2024 6:30 PM CDT Office Visit [facility] Con[facility]ient [facility] at [place] [address] [place] [address], [place] [phone] Katarzyna Hayes NP Acute pain of right shoulder (Primary Dx) 05/06/2024 Nurse Triage [facility] Primary Care at [address] [place] [phone] Michele Mckenna MD 05/05/2024 Patient Self-Triage [facility] [address] [place] [address] Mychart, Generic Provider 05/02/2024 4:45 PM CDT Office Visit [facility] Care at [address] [address] Radha Ferguson NP Acute pain of right shoulder (Primary Dx); Elevated blood pressure reading in office without diagnosis of hypertension; Cold sore from Last 3 Months Allergies Active Allergy Reactions Criticality Noted Date Comments Quetiapine Muscle pain Medium 12/02/2023 Brain Fog Medications lisdexamfetamin e (Vyvanse) 70 mg capsule Take 1 capsule (70 mg total) by mouth metal drill operator before breakfast 9 Active ALPRAZolam (XANAX) [...] Date Supervision of high risk in first trim best 07/05/2024 Overview (07/05/2024): [] OB consult [...] [] MOC: [] Method of feeding: [] Supervisor Dental Laboratory (specifically which provider): [] PP Depression Discussed: [...] location Overview (07/13/2024): Telephone Number Relationship Voicemail Deandra [phone] (home) Home Yes [] PUL Card Given Working Diagnosis: PUL Date presented: 07/08/24 Brief HPI: 38 y.o. at unknown gestational age presents with vaginal bleeding, +UPT. Ultrasound: -Thickened endometrial stripe, no free fluid, no adenxal masses 07/05: bHCG 1580 07/07: bHCG 2238, 41% increase. 07/08: Notified patient of results via voicemail and [employer] message. Patient confirmed she received the results. Tasked for initial OB visit and ultrasound. 07/09: US and initial OB appt scheduled in [place] 07/15. To follow up with primary OB Rh Status: O Positive [] Rhogam Given Beta Trend: OSH 517 07/01/2024 876 07/03/2024 Lab Results Component Value Date HCG 2,238.0 (H) 07/07/2024 HCG 1,580.0 (H) 07/05/2024 PLAN Ultrasound and initial OB appointment scheduled for 07/15, patient will follow up with primary OB. [x] Signed out with attending and okay to remove from beta book. Attending Name: Dr. Wilkes Abdominal wall mass of right flank 05/27/2024 Assessment & Plan (06/04/2024 7:48 AM CDT): Ultrasound at [place] demonstrates a 7cm lipoma, she feels it [...] 11/30/2020 Assessment & Plan (03/20/2024 7:47 PM METALLURGICAL LAB TECHNICIAN): Patient should reduce sugar and carbs, increase [...] 10/30/2020 Assessment & Plan (03/20/2024 7:47 PM METALLURGICAL LAB TECHNICIAN): Nicotine replacement therapy and smoking cessation counseling [...] on file Legal Sex Female 11:53 AM METALLURGICAL LAB TECHNICIAN Gender Identity Female 11/30/2020 2:26 PM CDT [...] CDT Abdominal wall mass of right flank [place] AN ELECTIVE SUPRAGLOTTIC AIRWAY Routine 06/04/2024 9:50 [...] HEPATITIS C ANTIBODY Routine 04/13/2024 3:47 PM METALLURGICAL LAB TECHNICIAN Healthcare maintenance from Last 3 Months or [...] 3:30 PM CDT 07/07/2024 9:04 PM CDT Priyanka Loera MD LAB BLOOD ORDERABLES Final Result [facility] [address] Department [place] [address] * Check Sample (07/05/2024 3:39 PM CDT) Pathologist [facility] ABO Rh O Positive [facility] HCLL OTHER 07/05/2024 3:39 PM CDT 07/05/2024 3:52 PM CDT Tommy Dunn MD LAB BLOOD ORDERABLES Final Result [facility] Department [place] [address] [facility] * eGFR (07/05/2024 2:01 PM CDT) Pathologist [facility] eGFR >90 >=60 mL/min/1. 73 m2 Comment: [...] 2:01 PM CDT 07/05/2024 2:18 PM CDT Alnaa Cazares TRAVELING STOREKEEPER LAB BLOOD ORDERABLES Fin al Result [facility] Department [place] [address] * (ABNORMAL) CBC without differential (07/05/2024 2:01 PM CDT) WBC 11.47(H) 3.80 - 9.90 K/cumm Hgb 13.6 11.9 - 15.5 g/dL [facility] Hct 41.5 35.6 - 45.5 % [facility] Plt 266 150 - 400 K/cumm [facility] MPV 11.0 9.1 - 12.3 fL [facility] RBC 5.02 3.90 - 5.20 M/cumm [facility] MCV 82.7 81.3 - 96.4 fL [facility] MCH 27.1 27.1 - 33.3 pg [facility] MCHC 32.8 32.3 - 35.7 g/dL [facility] RDW CV 14.6 11.1 - 14.9 % [facility] RDW SD 43.1 35.7 - 48.1 fL [facility] NRBC abs 0.00 0.00 - 0.01 K/cumm [facility] Blood 07/05/2024 2:01 PM CDT 07/05/2024 2:23 PM CDT Alana Cazares NP LAB BLOOD ORDERABLES Fin al Result Performing Organization Address [facility] Co de Phone Number [facility] [place] [address] * Type and screen (07/05/2024 2:01 PM CDT) Pathologist [facility] Leydi, indirect Negative ABO Rh O Positive [facility] Blood 07/05/2024 2:01 PM CDT 07/05/2024 2:58 PM CDT Narrative [facility] - 07/05/2024 4:30 PM CDT Has the patient had Daratumumab or Isatuximab in the past 6 months?->Unknown Alana Cazares NP LAB BLOOD BANK TEST ORDE RABLES Final Result Performing Organization Address [facility] [place] [address] * (ABNORMAL) hCG, blood, quantitative (07/05/2024 2:01 PM CDT) [facility] hCG, quant 1,580.0(H ) 0.0 - [...] CDT 07/05/2024 2:18 PM CDT Alana Cazares TRAVELING STOREKEEPER LAB BLOOD ORDERABLES Fin al Result Performing Organization Address [facility] [place] [address] * Comprehensive metabolic panel (07/05/2024 2:01 PM CDT) Sodium 141 135 - 145 mmol/L Potassium, pl 4.7 3.3 - 4.9 mmol/L [facility] Chloride 106 97 - 110 mmol/L [facility] CO2 27 22 - 32 mmol/L [facility] Anion gap 8 2 - 15 mmol/L [facility] BUN 10 6 - 25 mg/dL [facility] Creatinine 0.72 0.60 - 1.10 mg/dL [facility] Glucose 104 70 - 199 mg/dL [facility] Comment: Interpretive Data Fasting glucose >/= 126 [...] 2022. Calcium 9.7 8.5 - 10.3 mg/dL [facility] Bilirubin, total 0.3 0.1 - 1.2 mg/dL [facility] Protein, pl 7.1 6.5 - 8.5 g/dL [facility] Albumin 4.0 3.5 - 5.0 g/dL [facility] Alk phos 91 40 - 130 Units/L [facility] ALT 34 7 - 45 Units/L [facility] AST 19 10 - 45 Units/L [facility] Blood 07/05/2024 2:01 PM CDT 07/05/2024 2:18 PM CDT us Alana Cazares NP LAB BLOOD ORDERABLES Fin al Result [facility] Department [place] [address] * (ABNORMAL) POCT hCG, urine (07/05/2024 1:15 [...] 06/04/2024 10:09 AM CDT Narrative PATHOLOGY [facility] ([facility]) - 06/07/2024 3:37 PM CDT EPIC results best viewed via link to PDF [facility] Department of Pathology [address] [place] [address] Note to Patients: This report may contain [...] Final Report Patient Name: DUDLEY RACHEL Address: [address] [place] [address] Gender: F : 1985 (Age: 38) Service: Surgery Location: [facility] Hospital #: [id number] Patient Type: [facility] Taken: 06/04/2024 Received: 06/04/2024 Accessioned: [...] determined by the Surgical Pathology Department at [facility] as part of an ongoing assistant manager quality management program and in compliance with federally mandated [...] characteristics determined by the Surgical Pathology Department [facility]. It has not been cleared or approved by the U. S. Food and Drug Administration. Note for decalcified specimens: This assay has not been validated on decalcified tissues. Results should be interpreted with caution given the possibility of false negativity on decalcified specimens Raymon Woodard MD LAB PATHOLOGY ORDER MINESH Final Result Performing Organization Address City/State/[facility] Co de Phone Number PATHOLOGY [facility] [address] [place] [phone] * [place] AN ELECTIVE SUPRAGLOTTIC AIRWAY (06/04/2024 9:50 AM CDT) Narrative Reyes Lakhani CRNA - 06/04/2024 9:50 AM CDT Reyes Lakhani CRNA 06/04/2024 9:51 AM Airway Patient location: OR Urgency: elective Indications for airway management: anesthesia Difficult airway: no Staff: Placed by: HUMANE AGENT: Reyes Lakhani CRNA Emergent airway documentation: Risks [...] Makayla Dias M.D. us Katarzyna Hayes NP IMG XR PROCEDURES Final Result * Hepatitis C antibody Blood (04/13/2024 3:47 PM METALLURGICAL LAB TECHNICIAN) Hep C Ab Nonreactive Nonreactive Comment: Interpretive [...] revised on 2019. Blood 04/13/2024 3:47 PM METALLURGICAL LAB TECHNICIAN 04/13/2024 7:27 PM METALLURGICAL LAB TECHNICIAN us Michele Mckenna MD LAB MICROBIOLOGY - GENERAL O RDERABLES Final Result Performing Organization Address City/State/[facility] Co de Phone Number [facility] [address] Department [place] [address] from Last 3 Months or Most Recently Relevant to Health Maintenance Insurance [facility] Care Teams Piano Mechanic Relationship Specialty Start Date End Date Michele Mckenna MD [address] [facility] [address], [place] [address] PCP - General Internal Medicine 07/07/24
--- OUTSIDE RECORDS SUMMARY | 2024-07-15 03:10 | XMS_ITS | Encounter Summary ---
Author Organization [facility] Healthcare Address [address] [place] [address] Care Team Providers Care Weaver Needle Loom Name Role Phone Michele Mckenna MD Primary Care Provider [phone] Michele Mckenna MD Primary Care Provider [phone] Encounter Details Date Type Department Care Team (Late st Contact Info) Description 06/02/2024 Results Follow-Up [facility] Primary Care at [facility] [address] [address] Michele Mckenna MD [address] [address] Soft Tissue Lower Back Social History [...] on file Legal 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 Monthly or less 06/04/2024 8:51 AM CDT Sarah Matthews RN Q2: How many drinks containing alcohol do you have on a typical day when you are drinking? 1 or 2 06/04/2024 8:51 AM CDT Sarah Matthews R N Q3: How often do you have six or more drinks on one occasion? Never 06/04/2024 8:51 AM CDT Sarah Matthews R N documented as of this encounter Plan of Treatment Not on file documented as of this encounter Visit Diagnoses Not on filedocumented in this encounter Care Teams Weaver Needle Loom Relationship Specialty Start Date End Date Michele Mckenna MD PCP - General Internal Medicine 09/01/20 07/06/24 Michele Mckenna MD [address] [address] PCP - General Internal Medicine 07/07/24 documented as of this encounter
--- OUTSIDE RECORDS SUMMARY | 2024-07-15 03:10 | XMS_ITS | Patient Health Record ---
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 06/11/2023 Active Vyvanse 70 MG 1 capsule in the morning Orally Once a day. Please fill on or after June 16, 2024. for 30 days 05/30/2024 Active Spironolactone 100 MG 1 tablet Orally Once a day Active Vyvanse 70 MG 1 capsule in the morning Orally Once a day. 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 05/20/2024 Active Vyvanse 70 MG 1 [...] Problem Status W/U Status Risk Notes Problem [id number] Attention-defici t hyperactivity disorder, predominantly inattentive type (F90.0) Active confirmed Problem 33745187 Other chronic pain (G89.29) Active confirmed Problem 48047798 Tobacco dependency (F17.200) Active confirmed Problem 37266740 PTSD (post-traumatic stress disorder) (F43.10) Active confirmed Problem Vitamin D deficiency (36831966) Vitamin D deficiency (E55.9) Active confirmed Problem Generalized anxiety disorder (71757779) DAKOTAH (generalized anxiety disorder) (F41.1) Active confirmed Problem 109386559 Pulmonary nodule (R91.1) Active confirmed Problem Mild recurrent major depression (52620947) MDD (major depressive disorder), recurrent episode, mild (F33.0) Active confirmed Problem 282378759 Panic disorder [episodic paroxysmal anxiety] (F41.0) Active confirmed Vital Signs Height 67 in 05/20/2024 Encounters Encounter Location Date Provider Diagnosis [address] [address] 09/16/2023 Lionel Butt Attention-deficit hyperactivity disorder, predominantly inattentive type F90.0 ; DAKOTAH (generalized anxiety disorder) F41.1 ; Panic disorder [episodic paroxysmal anxiety] F41.0 and PTSD (post-traumatic stress disorder) F43.[address] [address] 11/26/2023 Lionel Butt Attention-deficit hyperactivity disorder, predominantly inattentive type F90.0 ; Panic disorder [episodic paroxysmal anxiety] F41.0 ; PTSD (post-traumatic stress disorder) F43.10 ; DAKOTAH (generalized anxiety disorder) F41.1 and MDD (major depressive disorder), recurrent episode, mild F33.[address] [address] 05/20/2024 Lionel Butt Attention-deficit hyperactivity disorder, predominantly inattentive type F90.0 ; Medication monitoring encounter Z51.81 ; Panic disorder [episodic paroxysmal anxiety] F41.0 and PTSD (post-traumatic stress disorder) F43.[address] [address] 07/21/2023 Lionel Butt Attention-deficit hyperactivity disorder, predominantly inattentive type F90.[address] [address] 08/25/2023 Lionel Butt [address] [address] 09/01/2023 Lionel Butt Attention-deficit hyperactivity disorder, predominantly inattentive type F90.0 ; Panic disorder [episodic paroxysmal anxiety] F41.0 ; MDD (major depressive disorder), recurrent episode, mild F33.0 and DAKOTAH (generalized anxiety disorder) F41.[address] [address] 11/21/2023 Sydnee Beth DAKOTAH (generalized anxiety disorder) F41.1 ; Attention-deficit hyperactivity disorder, predominantly inattentive type F90.0 and Panic disorder [episodic paroxysmal anxiety] F41.0 [place] [address] [place] [address] 12/30/2023 Lionel Butt [address] [address] 02/26/2024 Lionel Butt Attention-deficit hyperactivity disorder, predominantly inattentive type F90.0 ; Panic disorder [episodic paroxysmal anxiety] F41.0 and DAKOTAH (generalized anxiety disorder) F41.[address] [place] [address] 04/12/2024 Lionel Butt Attention-deficit hyperactivity disorder, predominantly inattentive type F90.0 ; Panic disorder [episodic paroxysmal anxiety] F41.0 and DAKOTAH (generalized anxiety disorder) F41.[address] [place] [address] 01/28/2024 Lionel Butt [address] [address] 03/18/2024 Lionel Butt Assessments Encounter Date Diagnosis (ICD Code) Assessment Notes Treatment Notes Treatment Clinical Notes Section Notes 05/20/2024 Attention-deficit hyperactivity disorder, predominantly inattentive type (ICD-10 - F90.0) 05/20/2024 Medication monitoring encounter (ICD-10 - Z51.81) 11/26/2023 Attention-deficit hyperactivity disorder, predominantly inattentive type (ICD-10 - F90.0) 11/21/2023 DAKOTAH (generalized anxiety disorder) (ICD-10 - F41.1) 09/16/2023 Attention-deficit hyperactivity disorder, predominantly inattentive type (ICD-10 - F90.0) 09/01/2023 Attention-deficit hyperactivity disorder, predominantly inattentive type (ICD-10 - F90.0) 04/12/2024 Attention-deficit hyperactivity disorder, predominantly inattentive type (ICD-10 - F90.0) 07/21/2023 Attention-deficit hyperactivity disorder, predominantly inattentive type (ICD-10 - F90.0) 02/26/2024 Attention-deficit hyperactivity disorder, predominantly inattentive type (ICD-10 - F90.0) 02/26/2024 Panic disorder [episodic paroxysmal anxiety] (ICD-10 - F41.0) 04/12/2024 Panic disorder [episodic paroxysmal anxiety] (ICD-10 - F41.0) 09/01/2023 Panic disorder [episodic paroxysmal anxiety] (ICD-10 - F41.0) 09/16/2023 DAKOTAH (generalized anxiety disorder) (ICD-10 - F41.1) 11/26/2023 Panic disorder [episodic paroxysmal anxiety] (ICD-10 - F41.0) 11/21/2023 Attention-deficit hyperactivity disorder, predominantly inattentive type (ICD-10 - F90.0) 05/20/2024 Panic disorder [episodic paroxysmal anxiety] (ICD-10 - F41.0) 05/20/2024 PTSD (post-traumatic stress disorder) (ICD-10 - F43.10) 11/26/2023 PTSD (post-traumatic stress disorder) (ICD-10 - F43.10) 11/21/2023 Panic disorder [episodic paroxysmal anxiety] (ICD-10 - F41.0) 09/16/2023 Panic disorder [episodic paroxysmal anxiety] (ICD-10 - F41.0) 09/01/2023 MDD (major depressive disorder), recurrent episode, mild (ICD-10 - F33.0) 04/12/2024 DAKOTAH (generalized anxiety disorder) (ICD-10 - F41.1) 02/26/2024 DAKOTAH (generalized anxiety disorder) (ICD-10 - F41.1) 09/01/2023 DAKOTAH (generalized anxiety disorder) (ICD-10 - [...] number to the 24-hour crisis line at [facility]. Questions addressed. Client verbalized understanding of [...] number to the 24-hour crisis line at [facility]. Questions addressed. Client verbalized understanding of [...] number to the 24-hour crisis line at [facility]. Questions addressed. Client verbalized understanding of all information and is agreeable to treatment plan. Plan Of Treatment No Information Insurance Providers Payer Name Payer Address Payer Phone Subscriber Number Group Number Insured Name Patient Relationship to Insured Coverage Start Date Coverage End Date [facility] Claims Department [address] [place] [address] [phone] [id number] Sherie Rachel Self - patient is the insured 1 [facility] Claims Department [address] [place] [address] [phone] [id number] Sherie Rachel Self - patient is the insured 7 1 [facility] Claims Department [address] [place] [address] [phone] [id number] Sherie Rachel Self - patient is the insured 1 Medical (General) History Medical History History ICD Code history of fracture of the right scapula PTSD panic disorder ADHD obesity pulmonary nodules smoker Surgical History Surgery Date(Month/Year) D&C 2010 cholecystectomy 11/2021 Hospitalization History Reason Date(Month/Year) CRU in past for extreme anxiety several years ago
--- OUTSIDE RECORDS SUMMARY | 2024-07-15 03:11 | XMS_ITS | Data Portability ---
Author Organization [facility] [place] Address [address] [place] [address] [place] [address] Assessment No assessment recorded. Plan of Treatment Reminders Order Date Submit Date Provider Last Modified By Organization Details Last Modified Time Details Appointments SURG Suction D&C 2024 11:00A Fer BORJAS MD Not available Not available Not available Lab None recorded. Referral None recorded. Procedures None recorded. Surgeries None recorded. Imaging US, obstetric , transvagi nal 2024 025 [place], [address], [place], [address], 07/14/2024 12:59:17 CT, abdomen + pelvis, w/ contrast [address] - [facility], [address], [address], [place], [address], 06/20/2022 16:16:57 US, pelvis 2022 023 [email or web address] [place], [address], [place], [address], 04/01/2022 20:55:47 US, transvagi nal 2022 023 [email or web address] [address], [address], [place], [address], 04/01/2022 20:55:47 Medication Orders None recorded. Patient TargetsNo targets recorded. Patient InstructionsNo instructions [...] t Case: [id number] Autho rojas osborn Provi jose: Denice Bang, REINALDO Downing cted: 03/27 1258 Order ing Locat ion: [place] Patho logy Recei hair: 03/28 0822 First Scree n: Ata cruz, Tawanda franco, CT Speci men: Marcos owens Pap - Image d, Cervi x STATE MENT OF ADEQU ACY: Satis facto ry for evalu ation Trans forma tion zone compo nent prese nt FINAL DIAGN OSIS: Negat rm for Intra epith elial Sanjuanita lynn or Myranda walker (NIL) . Elect alonzo mon sunita d by Tawanda Huerta ed, CT on [...] louis and/o r histo rical findi ngs, furth er inves tigat ion is recom ange d, as clini matthew warra nted. Not Available [facility] (Lab) [address] [facility], [place], [address], 03/30/2022 14:46:08 03/27/19 23 03/27/2022 CT/GC (JESÚS) , THINP REP VIAL chlamydia trachomatis, PCR Negati ve negati ve Not Available [facility] (Lab) [address] [place], [address], 03/30/2022 14:46:09 03/27/19 23 03/27/2022 CT/GC (JESÚS) , THINP REP VIAL neisseria gonorrhoeae, PCR Negati ve negati ve Not Available [facility] (Lab) [address] [place], [address], 03/30/2022 14:46:09 03/27/19 23 03/27/2022 TRICH OMONA S VAGIN ISIDRO (RRNA ) trichomonas vaginalis ribosomal RNA (rrna) Negati ve negati ve Not Available [facility] (Lab) [address], [place], [address], 03/30/2022 14:46:09 03/27/19 23 03/27/2022 CULTU RE: URINE result report SEE RESULT S BELOW Test: Cultu re: Urine Speci men Sourc e: Urine Voide d Speci men Type: Urine Speci men Date: 023 12:58 PM Resul t Date: 2022 5:42 AM Resul t Statu s: Final resul t Abnor mal: No Resul ting Lab: [facility] [address] [facility] [facility] [address] [facility] [address] Tel: CULTU RE ----- ----- ----- --- No growt h in 1 day (dete ction level of 10,00 0 colon ies / ml.) Not Available [facility] (Lab) [address], [place], [address], 03/30/2022 14:46:09 03/27/19 23 03/27/2022 urina lysis , dipst ick Leukocytes neg Not Available Alex garcia [address], [place], [address], 03/27/2022 12:30:30 03/27/19 23 03/27/2022 urina lysis , dipst ick Nitrite neg Not Available [place] [address], [place], [address], 03/27/2022 12:30:30 03/27/19 23 03/27/2022 urina lysis , dipst ick Urobilinogen neg Not Available Tenzin vaughan [address], [place], [address], 03/27/2022 12:30:30 03/27/19 23 03/27/2022 urina lysis , dipst ick Protein neg Not Available [place] [address], [place], [address], 03/27/2022 12:30:30 03/27/19 23 03/27/2022 urina lysis , dipst ick pH 6 Not Available [place] [address], [place], [address], 03/27/2022 12:30:30 03/27/19 23 03/27/2022 urina lysis , dipst ick Blood + Not Available [place] [address], [place], [address], 03/27/2022 12:30:30 03/27/19 23 03/27/2022 urina lysis , dipst ick Specific Eccles 1.060 Not Available [facility] [address], [place], [address], 03/27/2022 12:30:30 03/27/19 23 03/27/2022 urina lysis , dipst ick Ketone neg Not Available [place] [address], [place], [address], 03/27/2022 12:30:30 03/27/19 23 03/27/2022 urina lysis , dipst ick Bilirubin neg Not Available [facility] [address], [place], [address], 03/27/2022 12:30:30 03/27/19 23 03/27/2022 urina lysis , dipst ick Glucose neg Not Available [place] [address], [place], [address], 03/27/2022 12:30:30 03/27/19 23 03/27/2022 urina lysis , dipst ick Appearance clear Not Available Alex garcia [address], [place], [address], 03/27/2022 12:30:30 02/0803/27/2022 urina lysis , dipst ick Color yellow Not Available [place] [address], [place], [address], 03/27/2022 12:30:30 03/27/19 23 03/27/2022 pregn michael test, urine HCG negati ve Not Available [place] [address], [place], [address], 03/27/2022 12:29:37 04/01/1904/01/2022 imagi ng/di agnos tic resul t No observ ation record ed. NICOLE Sims [address], [place], [address], 04/04/2022 13:17:48 04/01/19 23 04/01/2022 US, pelvi s No observ ation record ed. [email or web address] [place] [address], [place], [address], 04/01/2022 17:53:41 04/01/19 23 04/01/2022 US, trans vagin al No observ ation record ed. [email or web address] [place] [address], [place], [address], 04/01/2022 17:53:31 05/04/19 23 05/03/2022 CT, orbit s + paran brad sinus es, w/o contr ast No observ ation record ed. [address], [place], [address], 05/04/2022 18:50:28 07/14/1907/13/2024 US, obste tric, trans vagin al No observ ation record ed. [email or web address] [place] [address], [place], [address], 07/13/2024 17:53:08 07/14/19 25 07/13/2024 US, obste tric, trans vagin al No observ ation record ed. [email or web address] [facility] [address], [place], [address], 07/13/2024 21:25:44 Result Notes None recorded. Procedures Surgical History Date Name Laterality Status Provider Name and Address Organization Details Recorded Time 3 Dilation and Curettage completed Jerri Dominique [facility] 12/17/2021 18:35:44 Imaging Results None recorded. Procedure Notes None recorded. Medical Equipment None Reported. Allergies No known drug allergies Medications Name Sig Start Date Stop Date Status Note LastModified by Organization Details LastModified Time amoxicillin 500 mg capsule 03/27 completed Not Available Not Available Not Available ivermectin 3 mg tablet TAKE 8 TABLETS BY MOUTH EVERY 7 DAYS active Not Available Not Available No t Available doxycycline hyclate 100 mg capsule 03/27 completed Not Available Not Available Not Available paroxetine 10 mg tablet active Not Available Not Available Not Available triazolam 0.25 mg tablet TAKE 1 TABLET BY MOUTH 1 HOUR PRIOR TO DENTAL APPOINTME NT AND BRING BOTTLE TO APPOINTME NT 03/27 completed Not Available Not Available Not Available cetirizine 10 mg tablet TAKE 1-4 TABLETS BY MOUTH ONCE DAILY NEEDED FOR ITCH/SKIN SENSATION S active Not Available Not Available No t Available ibuprofen 800 mg tablet active Not Available Not Available Not Available valacyclovi r 1 gram tablet TAKE 1 TABLET BY MOUTH DAILY active Not Available Not Available No t Available hydrocodone 5 mg-acetamin ophen 325 mg tablet TAKE 1 TO 2 TABLETS BY MOUTH EVERY 6 HOURS NEEDED FOR PAIN 03/27 completed Not Available Not Available Not Available tretinoin 0.025 % topical cream APPLY TOPICALLY TO THE AFFECTED AREA EVERY DAY AT BEDTIME active Not Available Not Available No t Available spironolact one 100 mg tablet active Not Available Not Available Not Available metronidazo le 500 mg tablet TAKE 1 TABLET BY MOUTH TWICE DAILY 03/27 completed Not Available Not Available Not Available sulfamethox azole 800 mg-trimetho prim 160 mg tablet TAKE 1 TABLET BY MOUTH TWICE A DAY active Not Available Not Available No t Available omeprazole 40 mg capsule,del ayed release TAKE 1 CAPSULE BY MOUTH TWICE A DAY BEFORE BREAKFAST AND SUPPER active Not Available Not Available No t Available triamcinolo ne acetonide 0.1 % topical [...] Not Available Not Available No t Available mupirocin 2 % topical ointment APPLY TOPICALLY TO THE AFFECTED AREA ON CHIN TWICE DAILY FOR 7 DAYS active Not Available Not Available No t Available gabapentin 100 mg capsule 03/27 completed Not Available Not Available Not Available ibuprofen 600 mg tablet TAKE 1 TABLET (600 MG TOTAL) BY MOUTH EVERY 8 HOURS FOR 10 DAYS active Not Available Not Available No t Available Vitamin D2 1,250 mcg (50,000 unit) capsule 03/27 completed Not Available Not Available Not Available ondansetron 4 mg disintegrat ing tablet 03/27 completed Not Available Not Available Not Available cefdinir 300 mg capsule TAKE 1 CAPSULE BY MOUTH EVERY 12 HOURS active Not Available Not Available No t Available fluticasone propionate 50 mcg/actuati on nasal spray,suspe nsion SHAKE LIQUID AND INSTILL 2 SPRAYS INTO EACH NOSTRIL ONCE DAILY active Not Available Not Available No t Available doxycycline hyclate 100 mg tablet TAKE 1 TABLET BY MOUTH TWICE A DAY FOR COMMON ACNE active Not Available Not Available No t Available loratadine 10 mg tablet TAKE 1 TABLET BY MOUTH EVERY DAY IN THE MORNING active Not Available Not Available No t [...] completed Not Available Not Available Not Available cholecalcif gilberto (vitamin D3) 25 mcg (1,000 unit) tablet TAKE 1 TABLET BY MOUTH EVERY DAY active Not Available Not Available No t Available Vyvanse 70 mg capsule active Not Available Not Available N ot Available Vitals Date Recorded Body height Body height Provider Name and Address Organization Details Last Updated DateTime 04/08/2022 170.18 cm 170.18 cm Jerri Fox [facility] 04/08/2022 17:50:57 Date Recorded Body height Body mass index (BMI) Body weight Systolic blood pressure Diastolic blood pressure Provider Name and Address Organization Details Last Updated DateTime 07/13/2024 170.18 cm 37.6 kg/m2 865995.1 7 g 138 mm[Hg] 90 mm[Hg] Vandana Ortiz [facility] 14:56:43 Social History Question Answer Notes LastModified by Organizat ion Details LastModified Time Tobacco Smoking Status Current Every Day Smoker Joceline Meyers sandip, [facility] 04/08/2022 14:27:53 Are You Blind Or Do You Have Difficulty Seeing? No Information not available 03/27/2022 Are You Deaf Or Do You Have Serious Difficulty Hearing? No Information not available 03/27/2022 Do You Have Difficulty Walking Or Climbing Stairs? No [email or web address] Information not available 04/08/2022 Sex: Unknown Functional Status Question Answer Note LastModified by Organizat ion Details LastModified Time Are you able to walk? YESWOREST Information not available 03/27/2022 Are you able to care for yourself? Yes Information not available 04/08/2022 Do you have difficulty dressing or bathing? No [email or web address] Information not available 04/08/2022 Mental Status None recorded. Family History Relationship Description Onset Age of this Age Resolved Age Notes LastModified by Organization Details LastModified Time Mother Genetic disease Not available 2024 13:53:38 Mother Mental disorder [email or web address] Not available 2024 13:53:38 Maternal Grandmother Genetic disease [email or web address] Not available 2024 13:53:38 Maternal Grandmother Cerebrovascu lar accident [email or web address] Not available 13:53:38 Maternal Grandmother Mental disorder [email or web address] Not available 2024 13:53:38 Maternal Uncle Genetic disease [email or web address] Not available 2024 13:53:38 Maternal Uncle Mental disorder [email or web address] Not available 09/2022 12:09:11 Maternal Uncle Mental disorder [email or web address] Not available 2024 13:53:38 Brother Mental disorder Not available 2024 13:53:38 Maternal Aunt Mental disorder [email or web address] Not available 09/2022 12:09:11 Maternal Aunt Cerebrovascu lar accident [email or web address] Not available 13:53:38 Father Anxiety disorder Not available 2024 13:53:38 Father Mental disorder [email or web address] Not available 09/2022 12:09:11 Paternal Aunt Mental disorder [email or web address] Not available 2024 13:53:38 Maternal Grandfather Blood coagulation disorder [email or web address] Not available 2024 13:53:38 Medical History Condition Response Other Y Anxiety Disorder Y Gynecological History Statement/Question Response Flow Light [...] SNOMED-CT Code Diagnosis ICD10 Code Diagnosis Note [id number] Trip Borjas MD [place] [address] [address] 12/17/2021 16:09:48 12/17/2021 17:24:56 Hirsutism 160638175 L68.0 Female pel lily inflammatory disease 962086440 N73.9 this patient is a 35-year-ol d [...] for test to cure and well-woman exam [id number] Trip Borjas MD [place] [address],[place] [address] 01/24/2022 12:38:06 01/24/2022 13:55:53 Pain in pelvis 45169067 R10.2 [id number] PARDEEP Ellison [place] [address],[facility] [place] [address] 03/27/2022 12:00:40 03/27/2022 13:23:04 Irregular periods 21240996 N92.6 Pain in pelvis 65143470 R10.2 This patient is a 36 -year-old [...] plan of care. Venereal d isease screening 398867067 Z11.3 History of chlamydial infection 342213615 Z86.19 Screening for malignant neoplasm of cervix 054172450 Z12.4 [id number] Trip Borjas MD [place] [address],[place] [address] 04/01/2022 16:32:36 04/01/2022 17:44:53 Pain in pelvis 00632677 R10.2 [id number] Trip Borjas MD [place] [address],[place] [address] 04/08/2022 14:27:24 04/08/2022 21:15:44 Endometriosis of pelvis 21946291 N80.30 Pain in pelvis 62410484 R10.2 [id number] Trip Borjas MD [place] [address],[place] [address] 04/08/2022 17:47:34 04/09/2022 12:42:10 Abdominal pain 84153290 R10.9 36-year-ol d female reports abdominal pain. [...] with CT of the abdomen and pelvis [id number] Trip Borjas MD [place] [address],[place] [address] 07/13/2024 13:53:33 07/13/2024 14:48:40 of unknown location [id number] O36.80X0 O00.101 Z3A.01 [id number] Trip Borjas MD [place] [address],[place] [address] 07/13/2024 14:32:56 07/13/2024 15:03:45 Tubal 36986375 O00.101 a 38-year-ol d female who presented today for care and was found to have an ectopic . There is a pole with no heartbeat. There is a gestationa l sac. It is near the cornual region of the tube. We agreed to treat with medication . Patient will be weighed. Labs will be obtained. We talked about the risks, benefits, and alternativ es to this treatment. Talked about the close follow-up. I spent over 20 minutes on the patient's care in total Health Concerns Section Related Observation LastModified by Organization Detai ls LastModified Time None Recorded Concern Status LastModified by Organization Details LastModified Time None Recorded Advance Directives Directive None Recorded Payers Encounter Date Sequence Insurance Name Policy Number Policy Reinoso Covered Member ID Reinoso Member ID Guarantor Name 04/01/2022 1 [facility] ON OR AFTER 08/17/20 (MEDICAID REPLACEMENT - HMO) Jacquelyn Rachel [id number] Jacquelyn Rachel 04/08/2022 1 [facility] ON OR AFTER 08/17/20 (MEDICAID REPLACEMENT - HMO) Jacquelyn Rachel [id number] Jacquelyn Rachel 04/08/2022 1 [facility] ON OR AFTER 08/17/20 (MEDICAID REPLACEMENT - HMO) Jacquelyn Rachel [id number] Jacquelyn Rachel 07/13/2024 1 [facility] ON OR AFTER 08/17/20 (MEDICAID REPLACEMENT - HMO) Jacquelyn Rachel [id number] Jacquelyn Rachel 07/13/2024 1 [facility] ON OR AFTER 08/17/20 (MEDICAID REPLACEMENT - HMO) Jacquelyn Rachel [id number] Jacquelyn Rachel Notes Date Note Type Note Provider Name and Address Organization Details Recorded Time 04/08/2022 text/html 36-year-old cyrus garcia reports abdominal [...] pelvis Trip Borjas MD [address], [place], [address], [facility] 04/08/2022 21:40:40 07/13/2024 text/html a 38-year-old female who presented today for care and was found to have an ectopic . There is a pole with no heartbeat. There is a gestational sac. It is near the cornual region of the tube. We agreed to treat with medication. Patient will be weighed. Labs will be obtained. We talked about the risks, benefits, and alternatives to this treatment. Talked about the close follow-up. I spent over 20 minutes on the patient's care in total Trip Borjas MD [address], [place], [address], [facility] 07/13/2024 14:59:04 OBGyn Episode Ob Episode Information Episode Created Date Number of Fetuses Patient Bloodtype Patient rh Status Prepregnancy Weight lbs Domestic Partner Domestic Partner Phone Father Name Document Imaging Manager Status 12/18/19 22 1 CLOSED Fetus Data First Name Last Name Admitted to NICU Weight (g) Sex Living Outcome Pediatric Complications Fetus ID Race Codes Race Delivery Type , Spontane ous 93058 Bal Calculation Initial Bal Date Initial Exam [...] Domestic Partner Domestic Partner Phone Father Name Document Imaging Manager Status 12/18/19 22 1 CLOSED Fetus Data First Name Last Name Admitted to NICU Weight (g) Sex Living Outcome Pediatric Complications Fetus ID Race Codes Race Delivery Type Demise 73969 Bal Calculation Initial Bal Date Initial Exam [...] Domestic Partner Domestic Partner Phone Father Name Document Imaging Manager Status 12/18/19 22 1 CLOSED Fetus Data First Name Last Name Admitted to NICU Weight (g) Sex Living Outcome Pediatric Complications Fetus ID Race Codes Race Delivery Type 2267.96 F Full Term 18024 Vaginal Delivery Bal Calculation Initial Bal Date [...]
--- OUTSIDE RECORDS SUMMARY | 2024-07-15 03:11 | XMS_ITS | Encounter Summary ---
Author Organization [facility] Health Address [address] [place] [address] Care Team Providers Care Rn Medicare Name Role Phone Michele Mckenna MD Primary Care Provider [phone] Encounter Details Date Type Department Care Team (Late st Contact Info) Description 03/24/2024 Telephone [facility] - General Dermatology [address], [address] [place] [address] Fareed Mir MD [address] [facility] [address] [place] [address] Social History Tobacco Use Types [...] - 03/24/2024 3:33 PM CST Pt calling [facility] [place] [facility] needs prior auth for ivermectin (Stromectol) 3 MG tablet. Told pt to give dr office a call [employer] documented in this encounter Plan of Treatment Upcoming Encounters Date Type Department Care Team (Late st Contact Info) Description 08/18/2024 1:00 PM CDT Office Visit [facility] - GI [address] [facility], [place] [address] Samm Dunn MD [address] [facility] [address] [place] [address] 10/20/2024 1:20 PM CDT Office Visit [facility] - General Dermatology [address], [facility] [address] [place] [address] Fareed Mir MD [address] [place] [address] [address] [place] [address] documented as of this encounter Visit Diagnoses Not on filedocumented in this encounter Care Teams Rn Medicare Relationship Specialty Start Date End Date Michele Mckenna MD [address], [address] [place] [address] PCP - General Internal Medicine 03/22/24 documented as of this encounter
--- OUTSIDE RECORDS SUMMARY | 2024-07-15 03:11 | XMS_ITS ---
Author Organization [facility] Address [address] [place] [address] Care Team Providers Care Otr Refrigerated Cdl Truck Driver Name Role Phone Lionel Butt Primary Care Provider [phone] [employer] [facility], [facility] Unavailable U navailable REASON FOR VISIT f/u Social History Sex Assigned At : Social History Observation Description Sex Assigned At Female Encounters Encounter Location Date Provider Diagnosis [address] [place] [address] 03/18/2024 Lionel Butt Plan Of Treatment No Information Progress Notes * Sherie RIGGSDOB:1985 (38 yo F)Acc No.[id number]:03/18/2024 UNLOCKED PROGRESS NOTE Patient: Sherie SHAH Provider: Fredis Butt DNP, JACOB-BC :1985 A ge:38 Y S ex:Female Date:03/18/2024 Address:[address] [facility] Subjective: * Chief Complaints: * 1 . F/u. * Medical History: Objective: * Vitals: Assessment: Plan: * Treatment: * * Electronic signature of Ian Butt APRN, [id number] on 07/15/2024 at 03:10 AM CDT Sign off status: Pending * Provider: Fredis Butt DNP, NASRINP-BC Date: 0 03/18/2024 Generated for Bandari ng/Falesag/eTransmitting on: 0 07/15/2024 03:10 AM CDT
--- OUTSIDE RECORDS SUMMARY | 2024-07-15 03:11 | XMS_ITS | CONTINUITY OF CARE DOCUMENT ---
Author Name jigna benito Address Unknown Organization [facility] Address [address] [place] [address] [address] [place] [address] Phone [phone] Care Team Providers Care Campus Supervisor Name Role Phone Faraz AVILA, Topher Unavailable [phone] MELISSA BERNSTEIN MD Unavailable INSURANCE PROVIDERS Payer name Policy type / Coverage type Rebecca red constitution party ID [place] (2) Medicaid [id number]
--- OUTSIDE RECORDS SUMMARY | 2024-07-15 03:11 | XMS_ITS | Clinical Summary ---
Author Organization [facility] Address [address] [place] [address] Care Team Providers Care Community Chest Officer Name Role Phone Michele Mckenna MD Primary Care Provider [phone] Source Comments [facility],non-owned Affiliates and Associated Physician Practices is amultiple site organization consisting of ambulatory clinics and hospital sitesin [place], [place], [place] and [place]. This disclosure is being madepursuant to the Care Everywhere program and may not contain all information available regarding this patient. Last updated 17.[facility] [employer] Allergies No known active allergies Medications * [...] 60 tablet 2 04/06/19 25 2024 Discontinued ivermectin (Stromectol) 3 MG [...] 07/04/2024 Refill [facility] - Dermatology [address] [place] [phone] Jamari Callejas MD Refill Request 07/01/2024 Telephone [facility] - General Dermatology [address], [address] [place] [phone] Fareed Mir MD 06/23/2024 1:10 PM CDT Office Visit [facility] - General Dermatology [address], [address] [place] [phone] Fareed Mir MD Rash and other nonspecific skin eruption (Primary Dx); History of herpes simplex infection; Herpesviral vesicular dermatitis 06/23/2024 Travel 06/14/2024 Refill [facility] - GI [address] [place] [phone] Samm Dunn MD Med Change Request 05/24/2024 8:00 AM CDT Office Visit [facility] - Ophthalmology [address] [place] [phone] Eye irritation (Primary Dx) 05/24/2024 Travel 05/20/2024 Telephone [facility] - Ophthalmology [address] [place] [phone] Froilan White MD Eye Problem 05/17/2024 10:53 AM CDT Anesthesia Event [facility] [place] [address] Francisco J Rice MD 05/17/2024 9:55 AM CDT - 05/17/2024 10:45 AM CDT Surgery [facility] [address] [place] [phone] Samm Dunn MD EGD concepcion/ gustavo 05/17/2024 9:48 AM CDT - 05/17/2024 11:59 AM CDT Hospital Encounter [facility] OP [facility] [place] [address] Samm Dunn MD Surgery General Discharge Disposition: Home or Self Care 05/17/2024 Travel 05/13/2024 Patient Outreach [facility] [address] [place] [address] Jeana Richardson RN 05/12/2024 1:00 PM CDT Office Visit [facility] - GI [address] [place] [phone] Samm Dunn MD Epigastric pain (Primary Dx); Dysphagia, unspecified type; RUQ pain; Esophageal thickening 05/12/2024 Travel 05/11/2024 Telephone [facility] [address] [place] [phone] Froilan White MD Eye Problem 05/07/2024 Orders Only [facility] Derm[facility]ology [address] [place] [phone] Jamari Callejas MD Rash and other nonspecific skin eruption 05/05/2024 Telephone [facility] - General Dermatology [address] [facility] [address] [place] [address] Fareed Mir MD Allergic reaction; Med Question 04/21/2024 Travel 04/16/2024 Refill [facility] Derm[facility]ology [address] [place] [phone] Fareed Mir MD MEDICATION REFILL from Last 3 Months Immunizations Immunization Administration [...] Description 08/18/2024 1:00 PM CDT Office Visit [facility] - GI [address] [facility] [place] [phone] Samm Dunn MD [address] [facility] [address] [place] [address] 10/20/2024 1:20 PM CDT Office Visit [facility] - General Dermatology [address] , [facility] [address] [place] [address] Fareed Mir MD [address] [facility] [address] [place] [address] Health Maintenance Due Date Last Done Comments [...] pain EGD Routine 05/17/2024 10:48 AM CDT SC ED EGD FLEX TRANSORAL DX 05/17/2024 10:48 [...] P24 AG PANEL Routine 03/27/2016 3:29 PM LABEL PINKER Supervision of high-risk of young primigravida from Last 3 Months or Most Recently Relevant to Health Maintenance Results * PATHOLOGY TISSUE (05/17/2024 11:02 AM CDT) Case Report Surgical Pathology Report Case: [id number] Authorizing Provider: Gustavo Samm Giselle, Collected: 05/17/2024 11:02 AM Ordering Location: [facility] Received: 05/17/2024 12:58 PM Pathologist: Jessica Real MD Specimen: Gastric Biopsy, gastric bx - gastritis, r/o h. pylori 05[facility]18/2024 3:02 PM [facility] Final Diagnosis Stomach, biopsy (A): - Erosive gastropathy - Negative for H. pylori 05/18/2024 3:02 PM [facility] at 1502 CDT Microscopic Description and Comment The gastric biopsy has several fragments of mucosa with varying degrees of reactive changes, and one fragment with superficial erosion and fibrin deposition. There is no background of chronic active gastritis and no H. pylori organisms, including by H. pylori immunostain (block A1, with appropriately staining controls). 05/18/2024 3:02 PM [facility] Clinical History The patient is a 38-year-old woman with epigastric abdominal pain and dysphagia. Operative procedure/findings: EGD - gastritis, biopsied to rule out H. pylori 05/18/2024 3:02 PM [facility] Gross Description The requisition and specimen(s) are identified with the patient's name Dudley Rachel. Received in formalin, specimen A, consists of multiple guidry-white tissue fragments, 0.1-0.4 cm, 1.0 x 0.5 x 0.2 cm in aggregate, submitted in toto in cassette A1. 05/18/2024 3:02 PM [facility] Pathologist Location at [facility] 05/18/2024 3:02 PM CDT [facility] Disclaimer The performance characteristics of all immunohistochemical and indirect immunofluorescence stains (if any) cited in this report were determined by the [facility]. Some of these tests were developed by [...] attending (teaching) pathologist. 05/18/2024 3:02 PM CDT [facility] Embedded Images 05/18/2024 3:02 PM CDT [facility] Biopsy, NOS GASTRIC BIOPSY SPECIMEN / Unknown 05/17/2024 11:02 AM CDT 05/17/2024 12:58 PM CDT Comment:Pre-op diagnosis: Epigastric pain [R10.13] us Samm Dunn MD LAB - PATHOLOGY/CYTOLO GY ORDERABLES Final Result [facility] [address] [phone] * EGD (05/17/2024 10:48 AM CDT) Report Endoscopy POC Endoscopy Department Report _ Patient Name: Dudley Rachel Procedure Date: 05/17/2024 10:48 AM Date of : 1985 Classification: Outpatient Gender: Female Ethnicity: Not or Race: White _ Providers: Samm Dunn Referring MD: Procedure: Upper GI endoscopy Indications: Epigastric [...] entire procedure. Procedure Code(s): --- Professional --- 39158, Esophagogastroduo denoscopy, flexible, transoral; with biopsy, single or multiple Diagnosis Code(s): --- Professional --- K44.9, Diaphragmatic hernia without obstruction or gangrene K29.70, Gastritis, unspecified, without bleeding R10.13, Epigastric pain R13.10, Dysphagia, unspecified CPT copyright 2021 [employer]. All rights reserved. The codes documented in this report are preliminary and upon dental hygienist mobile coordinator review may be revised to meet current compliance requirements. Samm Dunn, 05/17/2024 11:15:26 AM Note Initiated On: 05/17/2024 10:48 AM Number of Addenda: [id number] [place] [address] [facility] 05/17/2024 10:4 8 AM CDT us Samm Dunn MD GI PROCEDURE ORDERABLE S Edited Result - Final [facility] * HCG URINE QUALITATIVE - POCT (IP) INTERFACED (05/17/2024 10:09 AM CDT) HCG Qual Urine Negative Negative 05/17/2024 10:16 AM CDT [facility] Urine URINE / Unknown 05/17/2024 1 0:09 AM CDT 05/17/2024 10:16 AM CDT Samm Dunn MD LAB - POINT OF CARE OR DERABLES Final Result Performing Organization Address [facility] Co de Phone Number [facility] [address] [place] [phone], [place] [phone] * HCG URINE QUAL POCT NOTIFICATION (05/17/2024 10:03 AM CDT) Comment Notification Label Only - See Separate Report 05/17/2024 11:31 AM CDT [facility] Urine URINE / Unknown 05/17/2024 1 0:03 AM CDT 05/17/2024 10:03 AM CDT us Samm Dunn MD LAB - URINALYSIS ORDER MINESH Final Result Performing Organization Address City/[facility]/ZIP Co de Phone Number [facility] [address] [place] [phone], [place] [phone] * HIV-1 HIV-2 ANTIBODY + HIV P24 AG PANEL (03/27/2016 3:29 PM LABEL PINKER) HIV1/2 Ab + P24 Ag Non Reactive Non Reactive 03/27/2016 7:13 PM LABEL PINKER [facility] Blood BLOOD SPECIMEN / Unknown Venipuncture / Unknown 03/27/2016 3:29 PM LABEL PINKER 03/27/2016 4:08 PM LABEL PINKER Narrative [facility] - 03/27/2016 7:13 PM LABEL PINKER No Laboratory evidence of HIV infection. us Aubrie Strong MD LAB - CHEMISTRY ORDERABLES Fi nal Result [facility] [address] [place] [address] from Last 3 Months or Most Recently Relevant to Health Maintenance Insurance Advance Directives * Full Code (Latest Code Status on File) Date Activated Date Inactivated Comments 05/18/2016 8:25 AM 05/20/2016 4:51 PM * Full Code Date Activated Date Inactivated Comments 05/13/2016 6:15 PM 05/13/2016 9:30 PM * Full Code Date Activated Date Inactivated Comments 02/22/2016 9:17 PM 02/22/2016 11:37 PM Care Teams Community Chest Officer Relationship Specialty Start Date End Date Michele Mckenna MD [address], [facility] [place] [address] PCP - General Internal Medicine 03/22/24
[2024-07-15] MEDS: ACETAMINOPHEN 500 MG TABLET 1000 MG PO (09:50)
[2024-07-15] MEDS: LACTATED RINGERS 1,000 ML 30 ML IV CONT ×2 (09:56→12:36)
--- NOTE | 2024-07-15 10:05 | P.PNAN_ITS ---
Anes - Initial Pre Proc Eval Procedure: Operation Date: 07/15/24 11:00 Proposed Procedures p Suction Dilation and Curettage - Trip Borjas MD Date/Time: 07/15/24 10:05 Surgeon: Trip Borjas MD Pre Op Diagnosis: missed ab Patient Data Age: 38 Gender: F Height: 1.7 m Weight: 106.1 kg Last Vital Signs Temp 97.8 F 07/15/24 09:25 Pulse 82 07/15/24 09:25 Resp 16 07/15/24 09:25 BP 107/76 07/15/24 09:25 Pulse Ox 99 07/15/24 09:25 O2 Del Method Room Air 07/15/24 09:25 Allergies Allergy/AdvReac Type Severity Reaction Status Date / Time No Known Allergies Allergy Unknown Verified 07/14/24 09:26 Home Medications ?Medication ?Instructions ?Recorded ?Confirmed ?Type alprazolam 0.5 mg tablet 0.5 mg PO PRN PRN Anxiety 12/09/21 07/14/24 History lisdexamfetamine 70 mg capsule 70 mg PO DAILY 12/09/21 07/14/24 History (Vyvanse) omeprazole 40 mg capsule,delayed 40 mg PO DAILY 10/07/23 07/14/24 History release cetirizine 10 mg tablet 10 mg PO DAILY 07/14/24 07/14/24 History ivermectin 3 mg tablet 24 mg PO WEEKLY 07/14/24 07/14/24 History valacyclovir 1 gram tablet 1,000 mg PO Q12H 07/14/24 07/14/24 History Patient hx anesthesia problems: none Family hx anesthesia problems: none Results Review: All pre-operative results and documents have been reviewed as part of the pre-operative evaluation. [facility], [facility] Past Medical History Medical History Smoker Depression ADHD Obesity Post traumatic stress disorder Anxiety Surgical History Surgical History Hx laparoscopic cholecystectomy 12/11/21 History of dilation and curettage Social History Social History Social History: Surrogate medical decision maker: Pippa Rachel, mother. Code status: Full code. 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 Spiritual care concerns: No Anes - Eval Final PreProcedure Day of Procedure 07/15/24 10:05 Patient weight: obese Lungs: normal air movement Airway: Mallampati scale class II and special considerations (Upper and lower perm implants. ) Neurological: alert and oriented Last oral intake: >/= 8 hours ASA classification: III Emergent: no Anesthetic plan: proceed Anesthesia type and monitoring: general LMA and standard monitoring Results Review: All pre-operative results and documents have been reviewed as part of the pre- operative evaluation. Pt w BMI 36, smoker, 4-5 cigs/day (none this am), pre DM, anxiety. Pt states that she can walk 1-2 fos, no cp or sob. Informed Consent: The patient's anesthetic plan and its attendant risks and benefits were discussed with the patient/family/POA. Questions were solicited and answers provided to the satisfaction of the patient/family/POA.
--- NOTE | 2024-07-15 11:08 | PM.IMHP ---
H&P: HPI History of Present Illness Date/Time: 07/15/24 11:08 Chief Complaint: Ectopic Narrative: This patient is a 38-year-old female with right ectopic the proximal fallopian tube. We agreed to perform right salpingectomy/resection of ectopic . She understands risks, benefits, and alternatives. She has completed the informed consent process and is ready to proceed. The patient understands the details of the procedure. The procedure has been explained in detail. She understands the risks. She understands that injuries may occur that result in hospitalization, more surgery, and severe illness. She understands risk of hemorrhage and infection. She denies any chest pain or shortness of breath. She denies any nausea, vomiting, fever, chills. Review of Systems Review of Systems: All systems reviewed & are unremarkable except as noted in HPI and below Constitutional: Constitutional: Denies chills, Denies fatigue, Denies fever(s) and Denies weakness Eyes: Eyes: Denies blurry vision, Denies change in vision, Denies loss of peripheral vision, Denies loss of vision, Denies other visual disturbances and Denies eye pain ENT: Denies vertigo, Denies dizziness, Denies hearing loss, Denies mouth pain, Denies nasal obstruction, Denies neck mass and Denies neck pain Cardiovascular: Cardiovascular: Denies chest pain, Denies diaphoresis, Denies syncope, Denies leg edema and Denies dyspnea Respiratory: Respiratory: Denies chest congestion, Denies cough, Denies hemoptysis, Denies dyspnea and Denies wheezing Gastrointestinal: Gastrointestinal: Denies abdominal pain, Denies constipation, Denies diarrhea, Denies nausea and Denies vomiting Genitourinary: Genitourinary: Denies hematuria, Denies change in libido, Denies nocturia, Denies genital lesions, Denies flank pain and Denies urinary urgency Musculoskeletal: Musculoskeletal: Denies abnormal gait, Denies back pain, Denies myalgias, Denies arthralgias, Denies joint swelling, Denies muscle weakness and Denies neck pain Integumentary/Breasts: Skin/Breast: Denies swelling, Denies breast pain, Denies breast mass, Denies dry skin, Denies nipple discharge, Denies unusual bruising and Denies jaundice Neurologic: Denies Neuro-related abnormal movements, Denies Abnormal speech present, Denies abnormal gait, Denies behavioral changes, Denies confusion, Denies vertigo, Denies dizziness, Denies syncope, Denies loss of vision, Denies memory loss, Denies convulsions and Denies weakness Psychiatric: Psychiatric: Denies abnormal sleep pattern, Denies behavioral changes, Denies change in libido, Denies confusion, Denies depression, Denies anhedonia and Denies memory loss Endocrine: Endocrine: Reports no additional endocrine complaints, Denies change in libido and Denies fatigue Hematologic/Lymphatic: Hematologic/Lymphatic: Reports no additional hematologic/lymphatic complaints Allergic/Immunologic: Allergic/Immunologic: Reports no additional allergic/immunologic complaints and Denies wheezing PMFSH Past Medical History Medical History Smoker Depression ADHD Obesity Post traumatic stress disorder Anxiety Surgical History Surgical History Hx laparoscopic cholecystectomy 12/11/21 History of dilation and curettage Social History Social History Social History: Surrogate medical decision maker: Pippa Rachel, mother. Code status: Full code. 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 Spiritual care concerns: No Meds Home Medications and Allergies Home Medications ?Medication ?Instructions ?Recorded ?Confirmed ?Type alprazolam 0.5 mg tablet 0.5 mg PO PRN PRN Anxiety 12/09/21 07/14/24 History lisdexamfetamine 70 mg capsule 70 mg PO DAILY 12/09/21 07/14/24 History (Vyvanse) omeprazole 40 mg capsule,delayed 40 mg PO DAILY 10/07/23 07/14/24 History release cetirizine 10 mg tablet 10 mg PO DAILY 07/14/24 07/14/24 History ivermectin 3 mg tablet 24 mg PO WEEKLY 07/14/24 07/14/24 History valacyclovir 1 gram tablet 1,000 mg PO Q12H 07/14/24 07/14/24 History Allergies Allergy/AdvReac Type Severity Reaction Status Date / Time No Known Allergies Allergy Unknown Verified 07/14/24 09:26 Vital Signs Vital Signs - 24 hr 07/15/24 09:25 Temperature 97.8 F Pulse Rate 82 Respiratory Rate 16 Blood Pressure 107/76 Pulse Oximetry 99 Oxygen Delivery Room Air Exam Const: General: cooperative, healthy appearing, comfortable and no acute distress Orientation/consciousness: oriented to person, oriented to place and oriented to time HENMT: Head: normal to inspection Ears: external ears normal Face/Nose/Sinus: Normal external nose present and normal facial exam Face and sinus: normal facial exam Eyes: General: appearance normal, both eyes and all related structures Neck: Neck: normal visual inspection, trachea midline and supple Resp: Auscultation: clear to auscultation bilaterally, no crackles, no rales, no rhonchi and no wheezes Cardio: Rate: regular rate Rhythm: regular rhythm Heart sounds: no click, no murmurs and no rubs GI: GI Palp: No abdominal tenderness, No Soft to palpation, No Tenderness to palpation present (GI) and No Palpable mass present Auscultation: normal bowel sounds Skin: General skin exam: normal color and no rashes or lesions noted Neuro: General: oriented to person, oriented to place and oriented to time Extrem: General: normal to inspection, no joint enlargement, no clubbing, cyanosis or edema, no pedal edema and no calf tenderness Psych: Appearance: grossly normal Mental Status: mental status grossly normal Speech and movement: Normal speech and movement present Assessment and Plan Assessment and plan (1) Ectopic : Code(s): O00.90 - Unspecified ectopic without intrauterine Status: Acute Plan This patient is a 38-year-old female with right ectopic the proximal fallopian tube. We agreed to perform right salpingectomy/resection of ectopic . She understands risks, benefits, and alternatives. She has completed the informed consent process and is ready to proceed.
--- NOTE | 2024-07-15 11:10 | WPDHPUPDATE1 ---
History and Physical Update Update Date/Time: 07/15/24 11:10 History and Physical has been reviewed, including an updated exam of the patient. There are NO changes in the patient's condition. Risks, benefits, and alternatives have been discussed and questions answered. Patient agrees to proceed with procedure.
--- NOTE | 2024-07-15 12:23 | S_PTH ---
PATIENT: Sherie Rachel LOC: [facility] U#:[id number] AGE/SX: 38/F ROOM: RE07/15/[address]: Trip Borjas MD : 1985 BED: DIS: 07/15/2024 SPEC #: [id number] RECD: 07/15/24 13:10 STATUS: KRISHAN REPaty #: [id number] ALCIRA: 07/15/24 12:[address]: Trip Borjas DEPT: [facility] Surgical RECD BY: Soraya Muse ENTERED: 07/15/24 13:10 SP TYPE: Surgical OTHR DR: Michele MceknnaMD Tissues: A - Fallopian Tube Single Procedures: Gross and Microscopic Level 2 Hematoxylin and Eosin Stain
--- NOTE | 2024-07-15 12:33 | W.PM.PROC2 ---
Procedure Note - Detailed Date of Procedure 07/15/24 Pre-op Diagnosis Ectopic Post-op Diagnosis Same Procedure Performed Diagnostic laparoscopy Surgeon Trip Borjas MD Anesthesia General Indications Pelvic pain Findings Right-sided partially interstitial ectopic of the right fallopian tube. Otherwise normal pelvic anatomy. Description of Procedure The patient was taken to the operating room. She was prepped and draped in the dorsal lithotomy position after induction general anesthesia. A 5 mm incision was made with a scalpel on the abdominal skin in the left upper quadrant of the abdomen. A 5 mm trocar was inserted into the intra-abdominal cavity under direct visualization the scope. In the same fashion a 11 mm left lower quadrant trocar was inserted and a 11 mm infraumbilical trocar was inserted. Topic was isolated. The fallopian tube was by a cauterized transecting the mesosalpinx in the area of the ovary and round ligament. Was done from the distal aspect to the proximal aspect. The suspensory ligament the ovary was cauterized transected. The corneal tissue was then cauterized transected with LigaSure cautery. The cut surface was cauterized. When that was completed a suture was placed. Right suture of V lock was placed over the cut surfaces well. It was placed in running fashion. The pelvis was irrigated. The pneumoperitoneum was reduced. The trocars were removed. Skin was closed with subcuticular 4 micro. The patient's incisions were covered with Dermabond. She was taken recovery room in stable condition. Sponge lap and needle counts were correct x2. Estimated Blood Loss 20 Complications No immediate complications Condition Stable Disposition Same day
[2024-07-15] MEDS: fentaNYL CITRATE INJ (*CRX) 100 MCG/2 ML VIAL 25 MCG IV PUSH ×8 (12:40→13:14)
[2024-07-15] MEDS: KETOROLAC 30 MG/ML VIAL (*BKC) IV PUSH (12:58)
[2024-07-15] MEDS: oxyCODONE HCL (*CRX) 5 MG TAB IR PO (13:39)
== END 2024-07-15 14:26 | disposition home or self-care (01) ==
PROVIDERS: PCP Internal Medicine; Visit Provider Obstetrics & Gynecology
PROC: (CPT 49320; principal; 2024-07-15 11:00)
DX: O00.80 Other ectopic pregnancy without intrauterine pregnancy (principal); N83.8 Other noninflammatory disorders of ovary, fallopian tube and broad ligament; G89.18 Other acute postprocedural pain; F32.A Depression, unspecified; F90.9 Attention-deficit hyperactivity disorder, unspecified type; F41.9 Anxiety disorder, unspecified; F17.210 Nicotine dependence, cigarettes, uncomplicated; F12.90 Cannabis use, unspecified, uncomplicated; Z98.890 Other specified postprocedural states; Z90.49 Acquired absence of other specified parts of digestive tract
CPT/HCPCS: 49320; 88302; A9270; J1100; J1885; J2003; J2250; J2405; J2704; J3010; J7120